=== PATIENT | male | born 1970 | race Caucasian/White ===

== ENCOUNTER 2019-12-22 18:41 | Inpatient (IN) | payer BC, OTHER ==
--- OUTSIDE RECORDS SUMMARY | 2019-12-22 18:43 | XMS REPORT | Summary of Care ---
:1970 Author Organization [facility] Address [address] [place] [address] Care Team Providers Name Role Phone Olman Santos Eric Primary Care Provider Reason for Visit Auth/Cert Status Reason Specialty Diagnoses / Referred By Referred To Procedures Contact Contact Clinical Medical Diagnoses M20.10 (ICD-10-CM) - Hallux valgus (acquired), unspecified foot [facility] Lab Laboratory Procedures cbc cmp pt ptt [address] [place] [address] [place] [address] Encounter Details Date Type Department Care Team Description 05/07/2019 Hospital Encounter [facility] Stephon Duran Jr., [facility] Radiology [address] [place] [address] [address] [phone] [place], [place] [address] [phone] Allergies No Known Allergiesdocumented as of this encounter (statuses as of 05/08/2019) Medications Medication Sig Dispensed Refills Start Date End Date Status OMEPRAZOLE 20 MG ORAL Once daily 0 Active CPDR LEXAPRO 10 MG ORAL TAB Once daily 0 Active CIALIS 10 MG ORAL TAB Prn 0 Active buPROPion HCl, smoking Take 150 mg by 0 Active deter, 150 mg Tb12 mouth. glimepiride 4 mg tablet Take 4 mg by 0 Active mouth daily with breakfast. metformin HCl (METFORMIN Take 500 mg by 0 Active ORAL) mouth 3 (three) times daily. empagliflozin Take 25 mg by 0 Ac tive (JARDIANCE) 25 mg Tab mouth. documented as of this encounter (statuses as of 05/08/2019) Active Problems Problem Noted Date Other testicular hypofunction 01/15/2009 documented as of this encounter (statuses as of 05/08/2019) Social History Tobacco Use Types Packs/Day Years Used Date Former Smoker Smokeless Tobacco: Never Used Comments: quit 3 years ago,smoked for ab out 3 years Alcohol Use Drinks/Week oz/Week Comments Yes wine or whiskey on the weekends 3 times a month Sex Assigned at Date Recorded Not on file Job Start Date Occupation Industry Not on file Not on file Not on file Travel History Travel Start Travel End No recent travel history available. documented as of this encounter Last Filed Vital Signs Not on filedocumented in this encounter Plan of Treatment Date Type Specialty Care Team Description 05/09/2019 Hospital Encounter Surgery Stephon Duran Jr., DPM [address] [address] [phone] 05/09/2019 Surgery Surgery Stephon Duran Jr., METATAR SHILPI MIDFOOT DPM ARTHRODESIS [address] [place], [place] [address] Health Maintenance Due Date Last Done Comments DTaP,Tdap,and Td Vaccines (1 - 1987 Tdap) COLONOSCOPY 2018 Zoster Recombinant Vaccine 2018 (SHINGRIX) (1 of 2) INFLUENZA VACCINE (#1) 2019 PNEUMOCOCCAL 0-64 YEARS COMBINED Aged Out No longer eligible based on SERIES patient's age to complete this topic documented as of this encounter Procedures Procedure Name Priority Date/Time Associated Diagnosis Comme nts XR CHEST 2 VW Routine 05/07/2019 1:56 PM Hallux valgus of lef t Results for this CDT foot procedure are i n the results section . documented in this encounter Results XR CHEST 2 VW (05/07/2019 1:56 PM CDT) Specimen Narrative Performed At This result has an attachment that is no t available. HISTORY: Preop. PACS/VR/DOSE TECHNIQUE: PA and lateral views of the chest are obtai anita. No prior chest study available for comparison. FINDINGS: No acute pneumonia detected. No pneumothorax or pleural effusion or pulmonary congestion. Cardiothoracic ratio of appro ximately 14.6/34.5 cm is consistent with normal cardiac size. Paucity of flavia g markings noted in the apical region on both sides, more on the left side . CONCLUSIONS: No signs of acute cardiopulmonary disease . Procedure Note [facility], Radiant Results Inft User - 2018 1:59 PM CDT HISTORY: Preop. TECHNIQUE: PA and lateral views of the c hest are obtained. No prior chest study available for comparison. FINDINGS: No acute pneumonia detected. N o pneumothorax or pleural effusion or pulmonary congestion. Cardiothoracic ratio of approximately 14.6/34.5 cm is consistent with normal cardiac size. Paucity of lung markings noted in the apical region on both sides, more on the left side. CONCLUSIONS: No signs of acute cardiopul monary disease. Performing Organization Address [facility] Phone Number PACS/VR/DOSE documented in this encounter Visit Diagnoses Diagnosis Hallux valgus of left foot documented in this encounter Insurance Payer Benefit Plan Subscriber ID Effective Dates Phone Address Type / Group [facility] [id number] 2019-Prese HMO /PPO/P ADMINISTRATION nt OS documented as of this encounter
--- OUTSIDE RECORDS SUMMARY | 2019-12-22 18:43 | XMS REPORT ---
:1970 Author Organization [facility] t Address [address] [place] [address] Dr. Gold [address] [place] [address] Care Team Providers Name Role Phone Unavailable Unavailable Unavailable Problems This patient has no known problems. Allergies, Adverse Reactions, Alerts This patient has no known allergies or adverse reactions. Medications This patient has no known medications.
--- OUTSIDE RECORDS SUMMARY | 2019-12-22 18:43 | XMS REPORT | Summary of Care ---
:1970 Author Organization [facility] Address [address] [place] [address] Care Team Providers Name Role Phone Santos [place] Primary Care Provider Reason for Visit Reason Comments LAB WORK Auth/Cert Status Reason Specialty Diagnoses / Referred By Referred To Procedures Contact Contact Clinical Medical Diagnoses M20.10 (ICD-10-CM) - Hallux valgus (acquired), unspecified foot [facility] Lab Laboratory Procedures cbc cmp pt ptt [address] [place] [address] Encounter Details Date Type Department Care Team Description 05/07/2019 Factory Engineer Visit [facility] Stephon Duran Jr., DP [address] [place] [address] Hallux valgus Phlebotomy 1, [facility] Lab (acquired), left Lab-[place] foot (Primary Dx) [address] [place] [address] Allergies No Known Allergiesdocumented as of this encounter (statuses as of 05/07/2019) Medications Medication Sig Dispensed Refills Start Date [...] as of this encounter (statuses as of 05/07/2019) Active Problems Problem Noted Date Other testicular hypofunction 01/15/2009 documented as of this encounter (statuses as of 05/07/2019) Social History Tobacco Use Types Packs/Day Years [...] Jr., DPM [address] [place], [place] [address] 05/09/2019 Surgery Surgery Stephon Duran Jr., METATAR SHILPI MIDFOOT DPM ARTHRODESIS [address] [place], [place] [address] Name Type Priority Associated Diagnoses Date/Ti me CBC WITH DIFF LAB Routine Hallux valgus 05/07/2019 1 :48 PM (acquired), left foot CDT COMP. METABOLIC PANEL LAB Routine Hallux valgus 05/07 1:48 PM (04911) (acquired), left foot CDT PROTHROMBIN TIME / INR LAB Routine Hallux valgus 04/20 1:48 PM (acquired), left foot CDT aPTT LAB Routine Hallux valgus 05/07/2019 1: 48 PM (acquired), left foot CDT CBC WITH DIFFERENTIAL LAB Routine Hallux valgus 05/07 1:48 PM (acquired), left foot CDT Health Maintenance Due Date Last Done Comments DTaP,Tdap,and Td Vaccines (1 - 1987 Tdap) COLONOSCOPY 2018 Zoster Recombinant Vaccine 2018 (SHINGRIX) (1 of 2) INFLUENZA VACCINE (#1) 2019 PNEUMOCOCCAL 0-64 YEARS COMBINED Aged Out No longer eligible based on SERIES patient's age to complete this topic documented as of this encounter Results Not on filedocumented in this encounter Visit Diagnoses Diagnosis Hallux valgus (acquired), left foot - Pr imary documented in this encounter Insurance Payer Benefit Plan Subscriber ID Effective Dates Phone Address Type / Group [facility] [id number] 2019-Prese HMO /PPO/P ADMINISTRATION nt OS documented as of this encounter
--- OUTSIDE RECORDS SUMMARY | 2019-12-22 18:43 | XMS REPORT | Summary of Care ---
:1970 Author Organization [facility] Address [address] [place] [address] Care Team Providers Name Role Phone Santos [place] Primary Care Provider Reason for Visit Auth/Cert Status Reason Specialty Diagnoses / Procedures Referred By Ilana ontact Referred To Contact Surgery Diagnoses Hallux valgus (acquired), unspecified foot R HAV M20.10 (ICD-10-CM) - Hallux valgus (acquired), unspecified foot Adc Pre/Pacu/Post Procedures NV FUSION FOOT BONE,MIDTARSAL,1 JT METATARSAL MIDFOOT ARTHRODESIS [address] - NV FUSION FOOT BONE,MIDTARSAL,[address] [place] [address] [place] [address] Phone: Fax: Encounter Details Date Type Department Care Team Description 05/09/2019 Hospital Encounter [facility] Stephon Duran Jr., [address] [place] [address] [address] [phone] [place], [place] [address] [phone] Allergies No Known Allergiesdocumented as of this encounter (statuses as of 05/09/2019) Medications Medication Sig Dispensed Refills Start Date [...] as of this encounter (statuses as of 05/09/2019) Active Problems Problem Noted Date Other testicular hypofunction 01/15/2009 documented as of this encounter (statuses as of 05/09/2019) Social History Tobacco Use Types Packs/Day Years [...] of this encounter Last Filed Vital Signs Vital Sign Reading Time Taken Comments Blood Pressure 147/96 05/09/2019 1:06 PM CDT Pulse 73 05/09/2019 1:06 PM CDT Temperature 36.1 C (97 F) 05/09/2019 12:59 PM CDT Respiratory Rate 16 05/09/2019 1:06 PM CDT Oxygen Saturation 95% 05/09/2019 1:06 PM CDT Inhaled Oxygen Concentration - - Weight 100.2 kg (221 lb) 05/07/2019 8:00 AM CDT Height 182.9 cm (6') 05/07/2019 8:00 AM CDT Body Mass Index 29.97 05/07/2019 8:00 AM CDT documented in this encounter Discharge Summaries Stephon Duran Jr., DPM - 05/09/2019 12:43 PM CDTCONDITION AT DISCHARGE: Patient was discharged from the facility in stable condition. Please see maggie haney instructions. FOLLOW UP CARE: See post op instructions. DISCHARGE DISPOSITION: HOME DISCHARGE INSTRUCTIONS GIVEN TO: PATIENT documented in this encounter Discharge Instructions Ivonne Morris RN - 05/09/2019 Patient Discharge Instructions Discharge date: 05/09/2019 Procedure(s): Procedure(s): METATARSAL MIDFOOT ARTHRODESIS Discharge Orders No creams, ointments or topicals to incision Order Comments: No creams, ointments or topicals to incision DO NOT submerge in water Order Comments: DO NOT submerge in water Clear liquid diet; Advance at tolerated to regular diet Order Comments: As tolerated Non Weight Bearing on Operated Extremity Discharge Activity: Non Weight Bearing on Operated Extremity Extremity: Right Lower Extremity (RLE) Dressing to be kept clean dry and intact until follow up Order Comments: Dressing to be kept clean dry and intact until follow up Apply ice as needed 30 minutes every hour Order Comments: Apply ice as needed 30 minutes every hour Report to ER: SEE COMMENTS Order Comments: Increased swelling If Fever > 101.4 Report to ER if Chills If excessive bleeding Excessive pain not controlled by pain medications New onset numbness and tingling Nausea and Vomiting Inability to urinate Follow instructions as indicated below: 1. The medication that was used will be acting in your system for the next 24 hours, so you might feel a little drowsy, with impaired judgment and or motor function. This feeling should go wear off. Because the medication is still in your system for the next 24 hours you SHOULD NOT: Drive a car, operate machinery or power tool. Drink any alcohol beverages (including beer or wine). Make any important decisions or sign any legal documents. 2. You should rest the remainder of the day and not engage in any physical activity. Move slowly today. After lying down, sit on the edge of the bed for a moment before standing. YOU ARE RESPONSIBLEFOR HAVING SOMEONE AT HOME WITH YOU DURING THE AFTERNOON AND NIGHT IMMEDIATELY FOLLOWING YOUR SURGERY. Patient should cough and deep breathe every 2-4 hours while awake to avoid respiratory complications. 4. Lifting: activities as tolerated, no heavy lifting 5. Weight: In general, sudden weight gains or losses should be reported to your provider. Cardiac patients should weigh daily and notify their provider for a weight gain of 3 pounds per day or 5 pounds per week. 6. Tobacco Avoidance: Follow recommendations below 7. Because the medications used could procedure some residual nausea and vomiting after you go home,you should eat lightly today, starting with clear liquids (broth, soft drinks, apple juice, jello) and toast or crackers, progressing to bland solid foods and then to your normal diet as tolerated, unle ss otherwise stated by your surgeon. If you get sick, wait a couple of hours and then begin to eat. After 24 hours the nausea should be gone. 8. You may experience some pain and your physician will advise you on what to take for discomfort. This should be taken as directed. If the pain is not relieved, contact your physician. You may alsohave a sore throat from the airway that was in place. You may uses lozenges, throat spray (such as C hloraseptic), or warm salt water gargles for symptomatic relief. 9. If you feel warm, take your temperature. If it is 101 degrees or above call your physician. 10. If you are unable to urinate within five hours after your procedure, call your physician. 11. The type of surgery performed will determine how much bleeding (if any) to expect. Normally, some spotting might occur. If your dressing pad becomes saturated, notify your physician. Elevate surgical site, if applicable, to reduced swelling and pain. 12. Wound/dressing care: as directed above Tips on preventing a surgical site infection.. Dont smoke. It is best to quit at least 30 days before surgery, but quitting after surgery is also helpful. If you are diabetic, keep your blood sugar well controlled. WASH YOUR HANDS. Keep your wound clean and remember to wash your hands before and after contact with the area. All health care workers should also wash their hands or use an alcohol based hand rub prior to examining you. If antibiotics are prescribed, take them as directed. Finish the entire course of antibiotics. Call your doctor if you have signs of infection: ? Increased tenderness at the surgical site ? Red streaks or increased redness of the area ? Bad-smelling discharge from the incision ? Fever of 101F or higher ? General tired feeling that doesnt improve Take Home Medications These are medications ordered for you by your healthcare provider. Do not take any other medications or supplements unless advised by your healthcare provider. Current Discharge Medication List CONTINUE these medications which have NOT CHANGED Details buPROPion HCl, smoking deter, 150 mg Tb12 Take 150 mg by mouth. empagliflozin (JARDIANCE) 25 mg Tab Take 25 mg by mouth. glimepiride 4 mg tablet Take 4 mg by mouth daily with breakfast. metformin HCl (METFORMIN ORAL) Take 500 mg by mouth 3 (three) times daily. CIALIS 10 MG ORAL TAB Prn LEXAPRO 10 MG ORAL TAB Once daily OMEPRAZOLE 20 MG ORAL CPDR Once daily Follow-up appointments: Follow up per MD. For questions regarding follow-up instructions call the Healthcare Hotline at or For worsening symptoms/changing condition/problems or questions: Non-emergency/urgent: Call the Healthcare Hotline at or or Emergency: Go to the closest emergency room or call 911 If you receive the patient satisfaction survey by mail please complete and return and let us know how we are doing. TOBACCO AVOIDANCE Exposure to tobacco either from smoking or from second hand (environmental) smoke or smokeless tobacco (snuff) is damaging to your health. This information is to encourage everyone to avoid tobacco exposure. It is recommended that you: ? If you smoke or use smokeless tobacco, we encourage you to quit. ? If you have already quit smoking, continue your good work! ? If you do not smoke or use smokeless tobacco, do not start. ? Avoid secondhand smoke. Additional Resources You may want to contact these organizations for further information on smoking and how to quit. [place] [employer], http://www.lungusa.org/stop-smoking/ [place] [employer], http://www.cancer.org/Healthy/StayAwayfromTobacco/index [place] [employer] Association, http://www.heart.org/HEARTORG/GettingHealthy/QuitSmoking/Quit-Smoking_[facility] _001085_SubHomePage.jsp documented in this encounter Plan of Treatment Health Maintenance Due Date Last Done Comments DTaP,Tdap,and Td Vaccines (1 - 1987 Tdap) COLONOSCOPY 2018 Zoster Recombinant Vaccine 2018 (SHINGRIX) (1 of 2) INFLUENZA VACCINE (#1) 2019 PNEUMOCOCCAL 0-64 YEARS COMBINED Aged Out No longer eligible based on SERIES patient's age to complete this topic documented as of this encounter Implants Implanted Type Area Senior Sql Server Developer Device Shelf Model / Serial Identifier Expiration / Lot Date [employer]iu 5cc Cts #2017-40 - [id number] BONE Right: [employer] 08/19/20202016- / Implanted: Qty: 1 on 05/09/2019 by Stephon Duran Jr., DPM at [facility] 1 [id number] / [id number] Lapiplasty, System 2, Plating W/ 2.7mm Screws - Sna PLATE Right: [facility] 03/24/2022 [id number] / Implanted: Qty: 1 on 05/09/2019 by Stephon Duran Jr., RADHAM at [facility] CONCEPTS N A / [id number] documented as of this encounter Procedures Procedure Name Priority Date/Time Associated Comments Diagnosis POCT GLUCOSE(AGE Routine 05/09/2019 9:03 Results for this >30DAYS) AM CDT procedure are i n the results section. [facility] PATIENT FINANCIAL Routine 05/07/2019 7:59 POLICY AM CDT NO SHOW OR MISSED Routine 05/07/2019 7:59 APPOINTMENT POLICY AM CDT ACKNOWLEDGEMENT NOTICE OF PRIVACY Routine 05/07/2019 7:58 PRACTICES AM CDT CONSENT/REFUSAL FOR Routine 05/07/2019 7:58 DIAGNOSIS AND TREATMENT AM CDT ASSIGNMENT OF BENEFITS Routine 05/07/2019 7:58 AM CDT documented in this encounter Results POCT GLUCOSE(AGE >30DAYS) (05/09/2019 9:03 AM CDT) Pathologist Sig nature POCT Glu (age>30days) 94 70 - 110 mg/dL Specimen Blood - CAPILLARY documented in this encounter Visit Diagnoses Diagnosis Hallux valgus (acquired), right foot - P rimary documented in this encounter Administered Medications Medication Order MAR Action Action Date Dose Rate Site bupivacaine (preserv free) Given 05/09/2019 10:49 AM CDT 30 mL Right Foot 0.5% (SENSORCAINE MPF) 0.5 % (5 mg/mL) injection PRN, Starting Sun05/09/19 at 1049, Until Discontinued, Routine, Intra-op FENTanyl PF (SUBLIMAZE (PF)) injection 2 5 mcg 25 mcg, Slow IV Push, Q5MIN PRN, 4 doses, Starting Sun05/09/19 at 1254, Until Discontinued, Routine, Pain (scale 7-10), PACU lidocaine 1% (PF) (XYLOCAINE) Given 05/09/2019 10:50 AM CDT 30 m L Right Foot injection PRN, Starting Sun05/09/19 at 1050, Until Discontinued, Routine, Intra-op ondansetron (ZOFRAN (PF)) injection 4 mg 4 mg, Slow IV Push, PRN, 1 dose, Startin g Sun05/09/19 at 1254, Until Discontinued, Routine, Nausea and Vomiting (N/V), PACU sodium chloride 0.9 % irrigation solutio n Given 05/09/2019 11:36 AM CDT 1,000 mL PRN, Starting Sun05/09/19 at 1136, Until Discontinued, Intra-op Medication Order MAR Action Action Date Dose Rate Site lactated ringers IV infusion New Bag 05/09/2019 9:14 AM CDT 1,000 mL 20 mL/hr 1,000 mL at 20 mL/hr, 1,000 mL, IV Infusion, ONCE, 1 dose, Sun05/09/19 at 0915, Routine, DSU Pre-op documented in this encounter Insurance Payer Benefit Plan Subscriber ID Effective Dates Phone Address Type / Group [facility] [id number] 2019-Prese HMO /PPO/P ADMINISTRATION nt OS documented as of this encounter
[2019-12-22 19:23] LABS: Absolute Lymphocytes (CBC) 2.1 K/uL (0.7-4.9); Basophils % 0.5 % (0-1.3); Lymphocytes % 17.4 % (15.3-44.8); MPV 9.3 fL (7.6-11.3); RBC Red Blood Cell Count 5.12 M/uL (4.33-5.43)
[2019-12-22] MEDS ORDERED: NA CHLORIDE 0.9% 1,000 ML ONE ×2 (19:24→21:45)
[2019-12-22] MEDS ORDERED: ONDANSETRON 4 MG/2 ML VIAL ONE (19:24)
[2019-12-22] MEDS ORDERED: MORPHINE 4 MG/ML SYR ONE ×2 (19:24→20:23)
[2019-12-22 19:53] LABS: Bilirubin Direct 0.4 mg/dL (0-0.2); Bilirubin Total 1.1 mg/dL (0.2-1.0); Potassium 3.6 mmol/L (3.5-5.1); Protein, Total 7.7 g/dL (6.4-8.2)
--- NOTE | 2019-12-22 20:55 | RAD REPORT ---
EXAM DESCRIPTION: CT - Abdomen Pelvis W Contrast - 12/22/2019 8:02 pm CLINICAL HISTORY: ABD PAIN, epigastric pain COMPARISON: No comparisons TECHNIQUE: Biphasic, helical CT imaging of the abdomen and pelvis was performed following 100 ml non -ionic IV contrast. No oral contrast administered. All CT scans are performed using dose optimization technique as appropriate and may include automated exposure control or mA/KV adjustment according to patient size. FINDINGS: No suspicious findings in the lung bases. Liver shows a pronounced fatty infiltration pattern. No focal liver lesion identified. No portal vein abnormality seen. No splenomegaly or focal splenic abnormality. Stranding and edema are present in t he peripancreatic fat around the head and body. A small amount of free fluid is present. Minimal flui d in stranding are present along the anterior right renal fascia. There is minimal secondary involvem ent of the duodenal C-loop. No focal mass or abnormal fluid collection in the pancreatic parenchyma. Stones or sludge present in a normal-sized gallbladder. No biliary tree dilatation. Symmetric renal function is seen with no hydronephrosis or suspicious renal mass. No pyelonephritis o r acute parenchymal process. No bladder abnormalities. No adrenal abnormalities. Postsurgical changes are noted in the proximal stomach. Small hiatal hernia is present. No acute shefali veronika wall thickening or mass identified. Gastric bypass surgical changes show no proximal or distal an astomotic wall thickening or edema. No dilated large or small bowel. No free air or pneumatosis. No other area of fluid or stranding. No mass or bulky lymphadenopathy. Small bilateral fat filled inguinal hernias are present. No suspicious bony findings. IMPRESSION: Mild to moderate acute pancreatitis findings are evident. There is mild secondary involv ement of the duodenal C-loop. No pancreatic solid or cystic mass. Stones and/ or sludge in a normal-sized gallbladder. No biliary tree dilatation. Pronounced fatty infiltration of the liver. Gastric bypass surgical changes are present with hiatal hernia. No acute GI finding other than mild s econdary duodenal C-loop involvement.
[2019-12-22] MEDS ORDERED: FENTANYL CITR 100 MCG/2 ML ONE ×2 (21:02→21:45)
--- NOTE | 2019-12-22 21:21 | RAD REPORT ---
EXAM DESCRIPTION: US - Abdomen Exam Limited - 12/22/2019 8:55 pm CLINICAL HISTORY: EPIGASTRIC PAIN COMPARISON: Abdomen Pelvis W Contrast dated 12/22/2019 FINDINGS: Gallbladder size is normal. No wall thickening or pericholecystic fluid. No large gallston es seen. Minimal amounts of sludge and possible punctate gallstones near the neck of the gallbladder. This is in the deep portion of the field of view and difficult to fully visualize. No common duct stone or biliary tree dilatation identified. IMPRESSION: Small amount of sludge in punctate gallstone suspected. No wall thickening, pericholecystic fluid or biliary tree abnormality.
[2019-12-22 21:27] LABS: Urine Blood NEGATIVE (NEG); Urine Glucose 1+ (NEG); Urine Protein NEGATIVE (NEG); Urine pH 5.5 (5.0-7.0)
--- NOTE | 2019-12-22 22:02 | EDPHYS ---
Physician Documentation [facility] Name: Arnoldo Jones Sr Age: 49 yrs Sex: Male : 1970 Arrival Date: 12/22/2019 Time: 18:46 Bed 6 Private MD: ED Physician Danny Taveras HPI: 12/21 19:18 This 49 yrs old Male presents to ER via Ambulatory with complaints of pm1 Abdominal Pain. 19:18 The patient presents with abdominal pain in the epigastric area. Onset: The pm1 symptoms/episode began/occurred 2 week(s) ago, and became worse yesterday. The symptoms do not radiate. Associated signs and symptoms: Pertinent positives: nausea and vomiting, Pertinent negatives: chest pain, constipation, diarrhea, dysuria, shortness of breath. The symptoms are described as crampy. Modifying factors: The symptoms are alleviated by nothing, the symptoms are aggravated by nothing. Severity of pain: in the emergency department the pain is actually worse. The patient has not experienced similar symptoms in the past. The patient has not recently seen a physician. Patient has been drinking 3-4 [place] daily for the past 2 years. Has been trying to slow it down for the past 2 weeks due to abdominal pain, but worse since last night. Historical: - Allergies: 19:00 No Known Allergies; ll1 - PMHx: 19:00 Diabetes - NIDDM; Hypothyroidism; ll1 - PSHx: 19:00 Gastric Bypass; ll1 - Immunization history:: Adult Immunizations up to date, Last tetanus immunization: up to date. - Social history:: Smoking status: Patient denies any tobacco usage or history of. Patient uses alcohol, on a daily basis. Couple of margaritas daily. Patient/guardian denies using street drugs. ROS: 19:18 Constitutional: Negative for fever, chills, and weight loss, Cardiovascular: Negative pm1 for chest pain, palpitations, and edema, Respiratory: Negative for shortness of breath, cough, wheezing, and pleuritic chest pain. 19:18 Back: Negative for injury and pain, : Negative for injury, bleeding, discharge, and swelling, MS/Extremity: Negative for injury and deformity, Skin: Negative for injury, rash, and discoloration, Neuro: Negative for headache, weakness, numbness, tingling, and seizure. 19:18 Abdomen/GI: Positive for abdominal pain, nausea and vomiting, Negative for diarrhea, constipation. Exam: 19:18 Constitutional: This is a well developed, well nourished patient who is awake, alert, pm1 and in no acute distress. Head/Face: Normocephalic, atraumatic. Neck: Trachea midline, no thyromegaly or masses palpated, and no cervical lymphadenopathy. Supple, full range of motion without nuchal rigidity, or vertebral point tenderness. No Meningismus. Chest/axilla: Normal chest wall appearance and motion. Nontender with no deformity. No lesions are appreciated. 19:18 Back: No spinal tenderness. No costovertebral tenderness. Full range of motion. Skin: Warm, dry with normal turgor. Normal color with no rashes, no lesions, and no evidence of cellulitis. MS/ Extremity: Pulses equal, no cyanosis. Neurovascular intact. Full, normal range of motion. 19:18 Cardiovascular: Exam negative for acute changes, Rate: normal, Rhythm: regular, Pulses: no pulse deficits are appreciated, Edema: is not appreciated. 19:18 Respiratory: Exam negative for acute changes, respiratory distress, shortness of breath. 19:18 Abdomen/GI: Inspection: abdomen appears normal, Palpation: soft, in all quadrants, mild abdominal tenderness, in the epigastric area and left upper quadrant, mass, is not appreciated, rebound tenderness, is not appreciated. 19:18 Neuro: Exam negative for acute changes, Orientation: is normal, Mentation: is normal, Motor: is normal, moves all fours. Vital Signs: 18:57 BP 142 / 111; Pulse 87; Resp 19; Temp 98.2; Pulse Ox 98% ; Pain 10/10; ll1 20:30 BP 136 / 90; Pulse 88; Resp 16; Pulse Ox 98% on R/A; jb4 20:40 Pain 8/10; jb4 22:00 BP 142 / 91; Pulse 96; Resp 16; Pulse Ox 97% ; Pain 0/10; jb4 23:00 BP 135 / 95; Pulse 88; Resp 16; Pulse Ox 92% on R/A; jb4 12/22 00:00 BP 135 / 101; Pulse 81; Resp 16; Temp 97.8; Pulse Ox 97% on R/A; Pain 5/10; jb4 MDM: 12/21 19:01 Patient medically screened. pm1 22:00 Data reviewed: vital signs. Data interpreted: Pulse oximetry: on room air is 98 %. pm1 Interpretation: normal. Counseling: I had a detailed discussion with the patient and/or guardian regarding: the historical points, exam findings, and any diagnostic results supporting the discharge/admit diagnosis, lab results, radiology results, the need for further work-up and treatment in the hospital. 22:16 Physician consultation: Grover Nash MD was contacted at 22:16, regarding admission, pm1 patient's condition, and will see patient. 12/21 19:07 Order name: Basic Metabolic Panel; Complete Time: 20:00 pm1 12/21 19:07 Order name: CBC with Diff; Complete Time: 19:30 pm1 12/21 19:07 Order name: Creatinine for Radiology; Complete Time: 19:52 pm1 12/21 19:07 Order name: Hepatic Function; Complete Time: 20:00 pm1 12/21 19:07 Order name: Lipase; Complete Time: 20:00 pm1 12/21 20:08 Order name: ETOH Level; Complete Time: 20:40 pm1 12/21 21:21 Order name: Urine Dipstick--Ancillary (enter results); Complete Time: 21:41 ak 12/21 23:05 Order name: Glucose, Ancillary Testing; Complete Time: 23:08 EDCO 12/21 23:32 Order name: CBC with Automated Diff EDMS 12/21 23:32 Order name: CBC with Automated Diff EDCO 12/21 23:32 Order name: Comprehensive Metabolic Panel EDCO 12/21 23:32 Order name: Comprehensive Metabolic Panel EDCO 12/21 23:32 Order name: Creatine Phosphokinase EDCO 12/21 23:32 Order name: Creatine Phosphokinase EDCO 12/21 19:07 Order name: CT Abd/Pelvis - IV Contrast Only; Complete Time: 21:10 pm1 12/21 20:00 Order name: US Abdomen Limited; Complete Time: 21:41 pm1 12/21 23:32 Order name: Creatine Phosphokinase EDCO 12/21 23:32 Order name: Creatine Phosphokinase EDCO 12/21 23:32 Order name: Protime (+INR) EDMS 12/21 23:32 Order name: Protime (+INR) EDMS 12/21 23:32 Order name: PTT, Activated Partial Thromb EDCO 12/21 23:32 Order name: PTT, Activated Partial Thromb EDCO 12/22 05:22 Order name: Glucose, Ancillary Testing EDCO 12/21 19:07 Order name: IV Saline Lock; Complete Time: 19:28 pm12/21 19:07 Order name: Labs collected and sent; Complete Time: 19:28 pm12/21 19:07 Order name: Urine Dipstick-Ancillary (obtain specimen); Complete Time: 21:22 pm12/21 21:56 Order name: NPO; Complete Time: 22:02 pm1 12/21 23:31 Order name: CONS Pharmacy Consult EDCO 12/21 23:31 Order name: CONS Physician Consult [facility] 12/21 23:31 Order name: NPO EDCO Administered Medications: 19:22 Drug: Zofran (Ondansetron) 4 mg Route: IVP; Site: right antecubital; [facility] 20:00 Follow up: Response: No adverse reaction; Nausea is decreased [facility] 19:24 Drug: NS 0.9% 1000 ml Route: IV; Rate: 1000 ml; Site: right antecubital; [facility] 20:30 Follow up: Response: No adverse reaction; IV Status: Completed infusion; IV Intake: jb4 1000ml 19:25 Drug: morphine 4 mg {Note: Rass score 0.} Route: IVP; Site: right antecubital; [facility] 20:00 Follow up: Response: No adverse reaction; Pain is unchanged, physician notified; RASS: [facility] Alert and Calm (0) 20:27 Drug: morphine 4 mg {Note: Rass score 0.} Route: IVP; Site: right antecubital; [facility] 20:42 Follow up: Response: No adverse reaction; Pain is decreased; RASS: Alert and Calm (0) [facility] 21:00 Drug: fentaNYL (PF) 50 mcg {Note: Rass score 0.} Route: IVP; Site: right antecubital; [facility] 21:30 Follow up: Response: No adverse reaction; Pain is decreased; RASS: Alert and Calm (0) [facility] 21:40 Drug: NS 0.9% 1000 ml Route: IV; Rate: 1000 ml; Site: right antecubital; [facility] 22:40 Follow up: Response: No adverse reaction; IV Status: Completed infusion; IV Intake: jb4 1000ml 21:40 Drug: fentaNYL (PF) 50 mcg {Note: Rass score 0.} Route: IVP; Site: right antecubital; jb4 22:10 Follow up: Response: No adverse reaction; Pain is decreased; RASS: Alert and Calm (0) jb4 22:05 Drug: D50W 50 ml Route: IVP; Site: right antecubital; jb4 22:53 Follow up: Response: No adverse reaction; Blood sugar is elevated; bgl 121 jb4 Disposition: 12/22/19 22:01 Hospitalization ordered by Grover Nash for Inpatient Admission. Preliminary diagnosis is Alcohol induced acute pancreatitis. - Bed requested for Telemetry/MedSurg (Inpatient). - Status is Inpatient Admission. jl7 - Condition is Stable. - Problem is new. - Symptoms have improved. Addendum: 12/24/2019 19:26 Co-signature as Attending Physician, Danny Taveras MD. r n Signatures: Dispatcher [employer] EDMS Danny Taveras MD MD rn Garcia, Cindy, RN RN Estuardo Macias NP TEST INSPECTION ENGINEER pm1 Jd Anna RN RN jb4 Jean Pierre Sanders RN RN jl7 Mor Gr RN RN ll1 Corrections: (The following items were deleted from the chart) 12/21 23:44 22:01 Hospitalization Ordered by Grover Nash MD for Inpatient Admission. Preliminary cg diagnosis is Alcohol induced acute pancreatitis. Bed requested for Telemetry/MedSurg (Inpatient). Status is Inpatient Admission. Condition is Stable. Problem is new. Symptoms have improved. pm1 12/22 06:31 12/21 23:44 12/22/2019 22:01 Hospitalization Ordered by Grover Nash MD for Inpatient cg Admission. Preliminary diagnosis is Alcohol induced acute pancreatitis. Bed requested for [facility] ER HOLD. Status is Inpatient Admission. Condition is Stable. Problem is new. Symptoms have improved. 12/22 07:34 06:31 12/22/2019 22:01 Hospitalization Ordered by Grover Nash MD for Inpatient jl7 Admission. Preliminary diagnosis is Alcohol induced acute pancreatitis. Bed requested for Telemetry/MedSurg (Inpatient). Status is Inpatient Admission. Condition is Stable. Problem is new. Symptoms have improved.
--- NOTE | 2019-12-22 22:02 | ER ---
Nurse's Notes [facility] Name: Arnoldo Jones Sr Age: 49 yrs Sex: Male : 1970 Arrival Date: 12/22/2019 Time: 18:46 Bed 6 Private MD: Diagnosis: Alcohol induced acute pancreatitis Presentation: 12/21 18:57 Chief complaint: Patient states: Epigastric pain with N/V intermittently for 2 weeks. ll1 N/V and epigastric pain suddenly got worse Sunday. No known fever. Coronavirus screen: Proceed with normal triage. Patient denies a cough. Patient denies shortness of breath or difficulty breathing. Patient denies measured and/or subjective temperature greater than 100.4F prior to today's visit. Patient denies travel on a cruise ship or to a country the [facility] currently lists as an affected area. Patient denies contact with known and/or suspected case of COVID-19. Ebola Screen: Patient denies travel to an Ebola-affected area in the 21 days before illness onset. Initial Sepsis Screen: Does the patient meet any 2 criteria? No. Patient's initial sepsis screen is negative. Does the patient have a suspected source of infection? No. Patient's initial sepsis screen is negative. Risk Assessment: Do you want to hurt yourself or someone else? Patient reports no desire to harm self or others. Onset of symptoms was December 08, 2019. 18:57 Method Of Arrival: Ambulatory ll1 18:57 Acuity: SLAVA 3 ll1 Historical: - Allergies: 19:00 No Known Allergies; ll1 - PMHx: 19:00 Diabetes - NIDDM; Hypothyroidism; ll1 - PSHx: 19:00 Gastric Bypass; ll1 - Immunization history:: Adult Immunizations up to date, Last tetanus immunization: up to date. - Social history:: Smoking status: Patient denies any tobacco usage or history of. Patient uses alcohol, on a daily basis. Couple of margaritas daily. Patient/guardian denies using street drugs. Screenin:12 Abuse screen: Denies threats or abuse. Nutritional screening: No deficits noted. jb4 Tuberculosis screening: No symptoms or risk factors identified. Fall Risk None identified. Assessment: 19:12 General: Appears in no apparent distress. uncomfortable, Behavior is calm, cooperative, jb4 appropriate for age. Pain: Complains of pain in right upper quadrant and left upper quadrant Pain does not radiate. Pain currently is 10 out of 10 on a pain scale. Quality of pain is described as crampy, stabbing, Pain began 2 pm Is continuous, Alleviated by repositioning, Aggravated by Sitting. Neuro: Level of Consciousness is awake, alert, obeys commands, Oriented to person, place, time, situation. Cardiovascular: Patient's skin is warm and dry. Respiratory: Airway is patent Respiratory effort is even, unlabored, Respiratory pattern is regular, symmetrical. GI: Abdomen is flat, non-distended, Bowel sounds present X 4 quads. Abd is soft X 4 quads Abdomen is tender to palpation X 4 quads. Reports diarrhea, nausea, since 4 weeks ago. Dry heaves. : No signs and/or symptoms were reported regarding the genitourinary system. EENT: No signs and/or symptoms were reported regarding the EENT system. Derm: Skin is intact, Skin is pink, warm \T\ dry. Musculoskeletal: Circulation, motion, and sensation intact. Range of motion: intact in all extremities. 20:00 Reassessment: Patient appears in no apparent distress at this time. Patient and/or jb4 family updated on plan of care and expected duration. Pain level reassessed. Patient is alert, oriented x 3, equal unlabored respirations, skin warm/dry/pink. PT reports pain is unchanged and remains 10/10. Provider notified, see MAR for orders. Reports no longer being nauseous Patient states symptoms have not improved. 20:46 Reassessment: Pt reports morphine took the edge off and is helping to feel more jb4 relaxed. Reports pain has decreased but is still 8/10. provider notified, see MAR for orders. 21:00 Reassessment: Patient appears in no apparent distress at this time. Patient and/or jb4 family updated on plan of care and expected duration. Pain level reassessed. Patient is alert, oriented x 3, equal unlabored respirations, skin warm/dry/pink. 22:00 Reassessment: Patient appears in no apparent distress at this time. Patient and/or jb4 family updated on plan of care and expected duration. Pain level reassessed. Patient is alert, oriented x 3, equal unlabored respirations, skin warm/dry/pink. Patient denies pain at this time. 23:32 Reassessment: Patient appears in no apparent distress at this time. Patient and/or jb4 family updated on plan of care and expected duration. Pain level reassessed. Patient is alert, oriented x 3, equal unlabored respirations, skin warm/dry/pink. PT admitted to ER hold, See [facility] for further documentation. Vital Signs: 18:57 BP 142 / 111; Pulse 87; Resp 19; Temp 98.2; Pulse Ox 98% ; Pain 10/10; ll1 20:30 BP 136 / 90; Pulse 88; Resp 16; Pulse Ox 98% on R/A; jb4 20:40 Pain 8/10; jb4 22:00 BP 142 / 91; Pulse 96; Resp 16; Pulse Ox 97% ; Pain 0/10; jb4 23:00 BP 135 / 95; Pulse 88; Resp 16; Pulse Ox 92% on R/A; jb4 05 00:00 BP 135 / 101; Pulse 81; Resp 16; Temp 97.8; Pulse Ox 97% on R/A; Pain 5/10; jb4 ED Course: 12/21 18:46 Patient arrived in ED. mr 18:59 Triage completed. ll1 19:01 Estuardo Macias, KEVIN is PHCP. pm1 19:01 Danny Taveras MD is Attending Physician. pm1 19:01 Arm band placed on Patient placed in an exam room, on a stretcher. ll1 19:12 Patient has correct armband on for positive identification. Bed in low position. Call jb4 light in reach. Side rails up X 1. Pulse ox on. NIBP on. 19:12 No provider procedures requiring assistance completed. Initial lab(s) drawn, by or, jb4 sent to lab. Inserted saline lock: 20 gauge in right antecubital area, using aseptic technique. Blood collected. 19:13 Jd Anna, RN is Primary Nurse. jb4 19:33 Basic Metabolic Panel Sent. jb4 19:33 Creatinine for Radiology Sent. jb4 19:33 Hepatic Function Sent. jb4 19:33 Lipase Sent. jb4 19:46 Radiology exam delayed due to lab results not completed at this time. (BUN/Creatinine). vm2 20:02 CT Abd/Pelvis - IV Contrast Only In Process Unspecified. EDMS 20:55 US Abdomen Limited In Process Unspecified. EDMS 22:01 Grover Nash MD is Hospitalizing Provider. pm1 12/22 00:00 Patient admitted, IV remains in place. jb4 Administered Medications: 12/21 19:22 Drug: Zofran (Ondansetron) 4 mg Route: IVP; Site: right antecubital; jb4 20:00 Follow up: Response: No adverse reaction; Nausea is decreased jb4 19:24 Drug: NS 0.9% 1000 ml Route: IV; Rate: 1000 ml; Site: right antecubital; jb4 20:30 Follow up: Response: No adverse reaction; IV Status: Completed infusion; IV Intake: jb4 1000ml 19:25 Drug: morphine 4 mg {Note: Rass score 0.} Route: IVP; Site: right antecubital; jb4 20:00 Follow up: Response: No adverse reaction; Pain is unchanged, physician notified; RASS: [facility] Alert and Calm (0) 20:27 Drug: morphine 4 mg {Note: Rass score 0.} Route: IVP; Site: right antecubital; jb4 20:42 Follow up: Response: No adverse reaction; Pain is decreased; RASS: Alert and Calm (0) jb4 21:00 Drug: fentaNYL (PF) 50 mcg {Note: Rass score 0.} Route: IVP; Site: right antecubital; jb4 21:30 Follow up: Response: No adverse reaction; Pain is decreased; RASS: Alert and Calm (0) jb 21:40 Drug: NS 0.9% 1000 ml Route: IV; Rate: 1000 ml; Site: right antecubital; jb4 22:40 Follow up: Response: No adverse reaction; IV Status: Completed infusion; IV Intake: jb4 1000ml 21:40 Drug: fentaNYL (PF) 50 mcg {Note: Rass score 0.} Route: IVP; Site: right antecubital; jb4 22:10 Follow up: Response: No adverse reaction; Pain is decreased; RASS: Alert and Calm (0) jb4 22:05 Drug: D50W 50 ml Route: IVP; Site: right antecubital; jb4 22:53 Follow up: Response: No adverse reaction; Blood sugar is elevated; bgl 121 jb4 Intake: 22:40 IV: 1000ml; Total: 1000ml. jb4 Outcome: 22:01 Decision to Hospitalize by Provider. pm1 12/22 00:00 Admitted to ER Hold. Please see [facility] for further documentation. jb4 Condition: stable Discharge instructions given to patient, Instructed on the need for admit, Demonstrated understanding of instructions. 07:34 Patient left the ED. jl7 Signatures: Dispatcher [employer] EDIleana Bloom Patrick, BREAK OFF WORKER BREAK OFF WORKER pm1 Jd Anna, RN RN jb4 Jean Pierre Sanders RN RN jl7 Mary Quiroga [facility] Mor Gr, RN RN ll1 Corrections: (The following items were deleted from the chart) 12/21 18:59 18:57 Onset of symptoms was January 07, 2020 ll1 ll1 20:42 20:30 BP 136 / 90; Pulse 88bpm; Resp 16bpm; Pulse Ox 98% RA; Pain 8/10; jb4 jb4 12/22 00:20 00:00 BP 135 / 101; Pulse 81bpm; Resp 16bpm; Pulse Ox 97% RA; jb4 jb4
[2019-12-22] MEDS ORDERED: D50W 25 GM/50 ML SYRINGE/VIAL IV ONE (22:08)
[2019-12-22] MEDS ORDERED: MORPHINE 4 MG/ML SYR IV PRN (23:27)
[2019-12-23] MEDS: chlordiazePOXIDE HCl 5 MG CAP PO SCH ×4 (00:30→16:50)
[2019-12-23] MEDS: NA CHLORIDE 0.9% 1,000 ML IV SCH ×3 (00:30→15:45)
[2019-12-23] MEDS ORDERED: NA CHLORIDE 0.9% 1,000 ML ONE (00:36)
[2019-12-23] MEDS ORDERED: METOPROLOL TAR 25 MG TAB PO ONE (01:00)
[2019-12-23 01:16] VITALS: BMI 29.8
[2019-12-23] MEDS: ONDANSETRON 4 MG/2 ML VIAL IV PRN ×5 (01:23→21:21)
[2019-12-23] MEDS ORDERED: HYDROMORPHONE HCL 1 MG/ML INJ IV ONE (01:42)
[2019-12-23] MEDS ORDERED: MORPHINE 4 MG/ML SYR IV PRN (01:44)
[2019-12-23] MEDS ORDERED: HYDROMORPHONE HCL 1 MG/ML INJ ONE (01:57)
[2019-12-23] MEDS ORDERED: MORPHINE 2 MG/ML SYR ONE (05:32)
[2019-12-23] MEDS ORDERED: MORPHINE 4 MG/ML SYR ONE (05:32)
[2019-12-23] MEDS ORDERED: ONDANSETRON 4 MG/2 ML VIAL ONE (05:38)
[2019-12-23] MEDS ORDERED: D50W 25 GM/50 ML SYRINGE/VIAL IV PRN (05:40)
[2019-12-23 05:42] LABS: Absolute Lymphocytes (CBC) 0.9 K/uL (0.7-4.9); Basophils % 0.3 % (0-1.3); Hematocrit 42.9 % (39.6-49.0); MPV 9.7 fL (7.6-11.3); RBC Red Blood Cell Count 4.52 M/uL (4.33-5.43)
[2019-12-23 05:45] LABS: Albumin 3.5 g/dL (3.4-5.0); Bilirubin Total 1.5 mg/dL (0.2-1.0); Potassium 4.6 mmol/L (3.5-5.1); Protein, Total 6.5 g/dL (6.4-8.2)
[2019-12-23 05:46] LABS: Protime INR 0.97
[2019-12-23] MEDS ORDERED: METOPROLOL TAR 25 MG TAB ONE (05:58)
[2019-12-23] MEDS ORDERED: chlordiazePOXIDE HCl 5 MG CAP PO ONE (05:58)
[2019-12-23] MEDS: METOPROLOL TAR 25 MG TAB PO SCH ×2 (06:00→16:50)
--- NOTE | 2019-12-23 06:46 | P.HP ---
Certification for Inpatient Patient admitted to: Inpatient With expected LOS: >2 Midnights Patient will require the following post-hospital care: None Practitioner: I am a practitioner with admitting privileges, knowledge of patient current condition, hospital course, and medical plan of care. Services: Services provided to patient in accordance with Admission requirements found in Title 42 Section 412.3 of the Code of Federal Regulations Patient History Date of Service: 12/22/19 Reason for admission: Alcoholic pancreatitis History of Present Illness: Patient is a 49-year-old gentleman who came to the hospital with intractable nausea and vomiting. Patient has been having some abdominal pain for the last 3 weeks. Since he has been staying at home he is been drinking more frequently. He said that started about a few months ago. He has been drinking more so over the last 3 weeks. He said about a week ago he thought it was related to alcohol withdrawal so he restarted drinking. However, the pain got worse. He has a history of gastric bypass, so he finds it very difficult when he is having nausea and vomiting. He tends to dry heaves which makes it very uncomfortable for him. His workup in the emergency room revealed elevated lipase level and moderate pancreatitis. He will be admitted to the hospital for alcoholic pancreatitis. Allergies No Known Allergies Allergy (Unverified 12/23/19 01:34) Home Medications: Bupropion *Xl* [Wellbutrin XL*] 150 mg PO DAILY 12/23/19 Empagliflozin [Jardiance] 25 mg PO DAILY 12/23/19 Glimepiride 4 mg PO BID 12/23/19 Levothyroxine Sodium 125 mcg PO DAILY 12/23/19 Metformin HCl [Glucophage] 500 mg PO TID 12/23/19 Omeprazole 20 mg PO DAILY 12/23/19 - Past Medical/Surgical History Has patient received pneumonia vaccine in the past: No Diabetic: Yes -: Hypothyroidism -: Gastric bypass -: right foot -: thyroid surgery -: appendectomy - Family History Father Family History: Reviewed- Non-Contributory - Social History Smoking Status: Never smoker Alcohol use: Yes CD- Drugs: No Caffeine use: Yes Place of Residence: Home Review of Systems 10-point ROS is otherwise unremarkable Physical Examination - Vital Signs Temperature: 98.2 F Blood Pressure: 133/98 Pulse: 62 Respirations: 17 Pulse Ox (%): 97 - Physical Exam General: Alert, In no apparent distress, Oriented x3 HEENT: Atraumatic, PERRLA, Mucous membr. moist/pink, EOMI, Sclerae nonicteric Neck: Supple, 2+ carotid pulse no bruit, No LAD, Without JVD or thyroid abnormality Respiratory: Clear to auscultation bilaterally, Normal air movement Cardiovascular: Regular rate/rhythm, Normal S1 S2, No murmurs Gastrointestinal: Normal bowel sounds, Soft and benign, Non-distended, No rebound, No guarding, Tenderness Musculoskeletal: No clubbing, No swelling, No tenderness Integumentary: No rashes Neurological: Normal gait, Normal speech, Normal strength at 5/5 x4 extr, Normal tone, Sensation intact, Cranial nerves 3-12 intact, Normal affect Lymphatics: No axilla or inguinal lymphadenopathy - Studies Laboratory Data (last 24 hrs) 12/22/19 19:12: Creatinine 1.32 H 12/22/19 19:12: WBC 12.3 H, Hgb 15.8, Hct 48.0, Plt Count 291 12/22/19 19:12: Sodium 134 L, Potassium 3.6, BUN 13, Creatinine 1.34 H, Glucose 60 L, Total Bilirubin 1.1 H, AST 114 H, ALT 140 H, Alkaline Phosphatase 151 H, Lipase 528 H Assessment & Plan - Problems (Diagnosis) (1) Acute alcoholic pancreatitis Current Visit: Yes Status: Acute (2) H/O gastric bypass Current Visit: Yes Status: Acute (3) ARASH (acute kidney injury) Current Visit: Yes Status: Acute (4) Alcoholic liver disease Current Visit: Yes Status: Acute - Plan 1. Continue with IV hydration 2. Continue with anti emetics 3. Continue with pain control 4. NPO 5. GI consultation; 6. Serial H&H, and we will monitor CBC, BMP, LFTs and lipase along with electrolytes. 7. Alcohol cessation counseling and delirium tremens prevention 8. GI and DVT prophylaxis Discharge Plan: Home Plan to discharge in: Greater than 2 days - Advance Directives Does patient have a Living Will: Yes Does patient have a Durable POA for Healthcare: No - Code Status/Comfort Care Code Status Assessed: Yes Code Status: Full Code Critical Care: No Time Spent Managing PTS Care (In Minutes): 50
--- NOTE | 2019-12-23 07:39 | P.PN ---
Subjective Date of Service: 12/23/19 Subjective: No new changes, No C/O voiced, Improving Review of Systems 10-point ROS is otherwise unremarkable Physical Examination - Vital Signs Temperature: 98.2 F Blood Pressure: 133/98 Pulse: 62 Respirations: 17 Pulse Ox (%): 97 - Physical Exam General: Alert, In no apparent distress, Oriented x3 Respiratory: Clear to auscultation bilaterally, Normal air movement Cardiovascular: Regular rate/rhythm, Normal S1 S2, No murmurs Gastrointestinal: Normal bowel sounds, Soft and benign, Non-distended, No tenderness Musculoskeletal: No tenderness Integumentary: No rashes Neurological: Normal speech, Normal tone, Sensation intact, Cranial nerves 3-12 intact - Studies Laboratory Data (last 24 hrs) 12/22/19 19:12: Creatinine 1.32 H 12/22/19 19:12: WBC 12.3 H, Hgb 15.8, Hct 48.0, Plt Count 291 12/22/19 19:12: Sodium 134 L, Potassium 3.6, BUN 13, Creatinine 1.34 H, Glucose 60 L, Total Bilirubin 1.1 H, AST 114 H, ALT 140 H, Alkaline Phosphatase 151 H, Lipase 528 H Medications List Reviewed: Yes Assessment & Plan - Problems (Diagnosis) (1) Acute alcoholic pancreatitis Current Visit: Yes Status: Acute (2) H/O gastric bypass Current Visit: Yes Status: Acute (3) ARASH (acute kidney injury) Current Visit: Yes Status: Acute (4) Alcoholic liver disease Current Visit: Yes Status: Acute - Plan Continue with current plan of care as mentioned below 1. Continue with aggressive IV hydration 2. Continue with antiemetics 3. Continue with pain control 4. NPO; start clear liquid diet for ice chips 5. GI consultation pending 6. Serial H&H, and we will monitor CBC, BMP, LFTs and lipase along with electrolytes. 7. Alcohol cessation counseling and delirium tremens prevention 8. GI and DVT prophylaxis Discharge Plan: Home Plan to discharge in: Greater than 2 days - Advance Directives Does patient have a Living Will: Yes Does patient have a Durable POA for Healthcare: No - Code Status/Comfort Care Code Status: Full Code Critical Care: No Time Spent Managing PTS Care (In Minutes): 35
[2019-12-23] MEDS: HYDROMORPHONE HCL 0.5 MG/0.5 ML INJ IV PRN ×2 (09:18→16:46)
[2019-12-23] MEDS ORDERED: SODIUM CHLORIDE 0.9% 10ML INJ IV PRN (12:32)
[2019-12-23] MEDS: FOLIC ACID 1 MG, MULTIVITAMINS INJ 10 ML, THIAMINE HCL 100 MG in NA CHLORIDE 0.9% 1,000 ML IV SCH (13:15)
[2019-12-23] MEDS: HYDROMORPHONE HCL 1 MG/ML INJ IV PRN (21:16)
[2019-12-24] MEDS: chlordiazePOXIDE HCl 5 MG CAP PO SCH ×4 (00:20→18:00)
[2019-12-24] MEDS: NA CHLORIDE 0.9% 1,000 ML IV SCH ×4 (00:20→23:45)
[2019-12-24] MEDS: HYDROMORPHONE HCL 1 MG/ML INJ IV PRN ×5 (01:08→22:21)
[2019-12-24] MEDS: ONDANSETRON 4 MG/2 ML VIAL IV PRN ×5 (01:08→22:20)
[2019-12-24] MEDS: LEVOTHYROXINE SOD 0.125 MG TAB PO SCH (05:55)
[2019-12-24] MEDS: METOPROLOL TAR 25 MG TAB PO SCH ×2 (05:56→17:51)
[2019-12-24 06:12] LABS: Absolute Lymphocytes (CBC) 0.8 K/uL (0.7-4.9); Basophils % 0.3 % (0-1.3); Hematocrit 40.9 % (39.6-49.0); Lymphocytes % 5.6 % (15.3-44.8); MPV 9.3 fL (7.6-11.3); RBC Red Blood Cell Count 4.29 M/uL (4.33-5.43)
[2019-12-24 06:19] LABS: Protime INR 0.97
[2019-12-24 06:35] LABS: Albumin 3.1 g/dL (3.4-5.0); Bilirubin Total 1.3 mg/dL (0.2-1.0); Magnesium 1.5 mg/dL (1.8-2.4); Phosphorus 2.8 mg/dL (2.5-4.9); Potassium 4.4 mmol/L (3.5-5.1); Protein, Total 6.2 g/dL (6.4-8.2)
[2019-12-24] MEDS: BUPROPION HCL XL 150 MG TAB PO SCH (09:00)
[2019-12-24] MEDS ORDERED: HYDROCODONE/APAP 7.5/325 MG TAB PO PRN (09:51)
[2019-12-24] MEDS ORDERED: TRAMADOL HCL 50 MG TAB PO PRN (09:51)
--- NOTE | 2019-12-24 09:56 | P.PN ---
Subjective Date of Service: 12/24/19 Primary Care Provider: unknown Chief Complaint: Alcoholic pancreatitis Subjective: Improving (Less pain noted. Still requiring IV pain medication.) Physical Examination - Vital Signs Temperature: 97.4 F Blood Pressure: 112/70 Pulse: 85 Respirations: 18 Pulse Ox (%): 94 - Physical Exam General: Alert, In no apparent distress, Oriented x3, Cooperative HEENT: Atraumatic Neck: Supple Respiratory: Clear to auscultation bilaterally, Normal air movement Cardiovascular: Normal pulses, Regular rate/rhythm Gastrointestinal: Normal bowel sounds, Soft and benign, Non-distended, Tenderness (Less abdominal pain noted.) Integumentary: No tenderness/swelling, No erythema, No warmth, No cyanosis Neurological: Normal speech, Normal strength at 5/5 x4 extr, Normal tone, Normal affect - Studies Medications List Reviewed: Yes Assessment & Plan Discharge Plan: Home Plan to discharge in: 24 Hours Physician Review Additional Text: Impression: Acute alcoholic pancreatitis Alcohol abuse GERD with hiatal hernia with history of gastric bypass Hypertension Hypothyroidism Plan: Acute alcoholic pancreatitis: Continue with aggressive hydration. Patient tolerating clear liquid diet. Encourage ambulation. Encourage incentive spirometer. Patient on DVT prophylaxis. Will consider advancement of diet later today if doing better. Case discussed with GI. Alcohol cessation addressed in detail. Possible discharge in the next 1-2 days. Alcohol abuse: Will need to monitor for alcohol withdrawal. Patient on Librium. Will hold Librium if with increase sedation. Alcohol cessation education addressed in detail. GERD with hiatal hernia with history of gastric bypass: Continue PPI. Hypertension: Continue home medication Hypothyroidism: Continue home medication Time Spent Managing Pts Care (In Minutes): 55
[2019-12-24] MEDS: PANTOPRAZOLE 40 MG INJ IVP SCH (10:15)
[2019-12-24] MEDS: FOLIC ACID 1 MG, MULTIVITAMINS INJ 10 ML, THIAMINE HCL 100 MG in NA CHLORIDE 0.9% 1,000 ML IV SCH (10:16)
[2019-12-24] MEDS ORDERED: ENOXAPARIN 40 MG/0.4 ML SQ SCH (17:00)
[2019-12-25] MEDS: chlordiazePOXIDE HCl 5 MG CAP PO SCH ×2 (00:09→05:49)
[2019-12-25 01:11] VITALS: TEMP 98.5
[2019-12-25] MEDS: ONDANSETRON 4 MG/2 ML VIAL IV PRN ×2 (02:00→07:38)
[2019-12-25] MEDS: HYDROMORPHONE HCL 1 MG/ML INJ IV PRN ×2 (02:00→07:38)
[2019-12-25 04:22] VITALS: BP 103/67
[2019-12-25 04:31] LABS: Absolute Lymphocytes (CBC) 1.2 K/uL (0.7-4.9); Basophils % 0.3 % (0-1.3); Hematocrit 35.1 % (39.6-49.0); Lymphocytes % 9.5 % (15.3-44.8)
[2019-12-25 04:49] LABS: Albumin 2.5 g/dL (3.4-5.0); Bilirubin Total 0.9 mg/dL (0.2-1.0); Potassium 4.3 mmol/L (3.5-5.1); Protein, Total 5.5 g/dL (6.4-8.2)
[2019-12-25] MEDS: METOPROLOL TAR 25 MG TAB PO SCH (05:49)
[2019-12-25] MEDS: NA CHLORIDE 0.9% 1,000 ML IV SCH (05:51)
[2019-12-25] MEDS: LEVOTHYROXINE SOD 0.125 MG TAB PO SCH (05:53)
--- NOTE | 2019-12-25 08:27 | P.DS ---
Discharge Date: 12/25/19 Primary Care Provider: unknown Reason for Admission: Alcoholic pancreatitis Consultations: Gastroenterology - Problems (1) Acute alcoholic pancreatitis Current Visit: Yes Status: Acute (2) H/O gastric bypass Current Visit: Yes Status: Acute (3) ARASH (acute kidney injury) Current Visit: Yes Status: Acute (4) Alcoholic liver disease Current Visit: Yes Status: Acute Brief History of Present Illness: Patient is a 49-year-old gentleman who came to the hospital with intractable nausea and vomiting. Patient has been having some abdominal pain for the last 3 weeks. Since he has been staying at home he is been drinking more frequently. He said that started about a few months ago. He has been drinking more so over the last 3 weeks. He said about a week ago he thought it was related to alcohol withdrawal so he restarted drinking. However, the pain got worse. He has a history of gastric bypass, so he finds it very difficult when he is having nausea and vomiting. He tends to dry heaves which makes it very uncomfortable for him. His workup in the emergency room revealed elevated lipase level and moderate pancreatitis. He will be admitted to the hospital for alcoholic pancreatitis. Hospital Course: Patient is done well during hospital stay. Lipase is within normal limits. Pain is controlled. Patient tolerating diet without any difficulty. Plan to discharge home with tapering dose of Librium and low-fat diet. Close outpatient follow-up with GI. At this time patient should be stable for discharge with outpatient follow-up. We will check patient room air O2 sat prior to discharge as well. Vital Signs/Physical Exam: Temp Pulse Resp BP Pulse Ox 98.5 F 83 18 103/67 90 L 12/25/19 04:00 12/25/19 04:00 12/25/19 04:00 12/25/19 04:00 12/25/19 04:00 General: Alert, In no apparent distress, Oriented x3 Laboratory Data at Discharge: WBC 12.4 K/uL (4.3-10.9) H D 12/25/19 04:14 Hgb 11.6 g/dL (13.6-17.9) L 12/25/19 04:14 Hct 35.1 % (39.6-49.0) L 12/25/19 04:14 Plt Count 158 K/uL (152-406) 12/25/19 04:14 PT 11.4 SECONDS (9.5-12.5) 12/24/19 06:01 INR 0.97 12/24/19 06:01 APTT 27.4 SECONDS (24.3-36.9) 12/24/19 06:01 Sodium 135 mmol/L (136-145) L 12/25/19 04:14 Potassium 4.3 mmol/L (3.5-5.1) 12/25/19 04:14 BUN 14 mg/dL (7-18) 12/25/19 04:14 Creatinine 1.14 mg/dL (0.55-1.3) 12/25/19 04:14 Glucose 91 mg/dL (74-106) 12/25/19 04:14 Phosphorus 2.8 mg/dL (2.5-4.9) 12/24/19 06:01 Magnesium 1.5 mg/dL (1.8-2.4) L 12/24/19 06:01 Total Bilirubin 0.9 mg/dL (0.2-1.0) 12/25/19 04:14 AST 57 U/L (15-37) H 12/25/19 04:14 ALT 68 U/L (12-78) 12/25/19 04:14 Alkaline Phosphatase 94 U/L (45-117) 12/25/19 04:14 Triglycerides 87 mg/dL (<150) 12/24/19 06:01 Cholesterol 133 mg/dL (<200) 12/24/19 06:01 HDL Cholesterol 77 mg/dL (40-60) H 12/24/19 06:01 Cholesterol/HDL Ratio 1.73 12/24/19 06:01 Lipase 337 U/L (73-393) 12/25/19 04:14 Home Medications: Bupropion *Xl* [Wellbutrin XL*] 150 mg PO DAILY 12/23/19 Glimepiride 4 mg PO BID 12/23/19 Levothyroxine Sodium 125 mcg PO DAILY 12/23/19 Metformin HCl [Glucophage*] 500 mg PO TID 12/23/19 Omeprazole 20 mg PO DAILY 12/23/19 chlordiazePOXIDE HCl [Librium*] 10 mg PO Q8HR #60 cap 12/25/19 traMADol HCL [Ultram*] 50 mg PO TID PRN #30 tab 12/25/19 New Medications: chlordiazePOXIDE HCl [Librium*] 10 mg PO Q8HR #60 cap traMADol HCL [Ultram*] 50 mg PO TID PRN #30 tab PRN Reason: PAIN Patient Discharge Instructions: OK TO DC IV AND DC HOME. FOLLOW-UP WITH PRIMARY CARE PROVIDER IN 1-2 WEEKS. FOLLOW-UP WITH Gastroenterology IN 1-2 WEEKS. RETURN TO THE ER IF symptoms worsen. CALL or TEXT DR. LEVIN AT [phone] IF ANY QUESTIONS REGARDING HOSPITAL STAY. PLEASE CALL THE FLOOR AT [phone] IF ANY MEDICATION OR NURSING QUESTIONS. Diet: Low-fat diet Activity: Ad kate Time spent managing pt's care (in minutes): 30
[2019-12-25] MEDS: BUPROPION HCL XL 150 MG TAB PO SCH (09:09)
[2019-12-25] MEDS: PANTOPRAZOLE 40 MG INJ IVP SCH (09:09)
[2019-12-25] MEDS: FOLIC ACID 1 MG, MULTIVITAMINS INJ 10 ML, THIAMINE HCL 100 MG in NA CHLORIDE 0.9% 1,000 ML IV SCH (09:10)
--- NOTE | 2019-12-25 09:27 | P.PN ---
Subjective Date of Service: 12/25/19 Primary Care Provider: unknown Chief Complaint: Alcoholic pancreatitis Subjective: Improving, Doing well Physical Examination - Vital Signs Temperature: 98.5 F Blood Pressure: 103/67 Pulse: 83 Respirations: 18 Pulse Ox (%): 90 - Physical Exam General: Alert, In no apparent distress, Oriented x3, Cooperative HEENT: Atraumatic Neck: Supple Respiratory: Clear to auscultation bilaterally, Normal air movement Cardiovascular: Normal pulses, Regular rate/rhythm Gastrointestinal: Normal bowel sounds, Soft and benign, Non-distended Musculoskeletal: No erythema, No tenderness, No warmth Integumentary: No tenderness/swelling, No erythema, No warmth, No cyanosis Neurological: Normal speech, Normal strength at 5/5 x4 extr, Normal tone - Studies Medications List Reviewed: Yes Assessment & Plan Discharge Plan: Home Plan to discharge in: 24 Hours Physician Review Additional Text: Impression: Acute alcoholic pancreatitis Alcohol abuse GERD with hiatal hernia with history of gastric bypass Hypertension Hypothyroidism Plan: Acute alcoholic pancreatitis: Patient discharged by Dr. Aguilar. The patient will need a follow up with GI as an outpatient. Patient given Librium taper. Patient also given Tylenol #3 Limited supply. Patient understands the importance of the limiting and alcohol. Risks and complications addressed in detail. Alcohol abuse: Patient will be discharged with Librium taper. Alcohol cessation addressed in detail. Patient plans to quit. GERD with hiatal hernia with history of gastric bypass: Continue PPI. Hypertension: Continue home medication Hypothyroidism: Continue home medication Time Spent Managing Pts Care (In Minutes): 55
[2019-12-25 10:14] VITALS: O2SAT 72
== END 2019-12-25 11:10 | disposition home or self-care (01) | DRG 439 ==
LOC: ER 18:41 → ERHOLD 23:32 → 2ND 12-23 07:22
PROVIDERS: ADMIT Hospitalist; ATTEND Family Medicine
DX: K85.20 Alcohol induced acute pancreatitis without necrosis or infection (principal); N17.9 Acute kidney failure, unspecified; Z98.84 Bariatric surgery status; Z79.84 Long term (current) use of oral hypoglycemic drugs; Z79.890 Hormone replacement therapy; Z79.899 Other long term (current) drug therapy; E03.9 Hypothyroidism, unspecified; Z90.49 Acquired absence of other specified parts of digestive tract; K70.9 Alcoholic liver disease, unspecified; K21.9 Gastro-esophageal reflux disease without esophagitis; K44.9 Diaphragmatic hernia without obstruction or gangrene; F10.10 Alcohol abuse, uncomplicated; I10 Essential (primary) hypertension
CPT/HCPCS: 36415; 74177; 76705; 80048; 80053; 80061; 80076; 80320; 81003; 82550; 82947; 83690; 83735; 84100; 85025; 85610; 85730; 96361; 96374; 96375; 99285; C9113; J1170; J1650; J2270; J2405; J3010; J3411; J7030; Q9967

== ENCOUNTER 2022-03-27 09:47 | Observation (INO) | payer BC, OTHER ==
--- OUTSIDE RECORDS SUMMARY | 2022-03-27 10:04 | XMS REPORT | Continuity of Care Document ---
:1970 Author Organization [facility] t Address [address] [place] [address] Care Team Providers Name Role Phone [facility] Bobby Vicente Primary Care Physician [phone] MARCELO MARTIN Attending Clinician Unavailable [facility]I COWAN Attending Clinician Unavailable [facility]I [facility]AN Attending Clinician Unavailable BINTA ALFREDO Attending Clinician Unavailable Binta Alfredo MD Attending Clinician Spring Askew RN Attending Clinician OMAYRA GONZALEZ Attending Clinician Unavailable MD OMAYRA GONZALEZ Attending Clinician UnavailSHAYLA Finn Attending Clinician Unavailable EDEN CARLSON Attending Clinician Unavailable CHI COWAN Admitting Clinician Unavailable OMAYRA GONZALEZ Admitting Clinician Unavailable MD OMAYRA GONZALEZ Admitting Clinician UnavailSHAYLA Finn Admitting Clinician Unavailable EDEN CARLSON Admitting Clinician Unavailable Payers Payer Name Policy Type Policy Number Effective Date Expiration Date Tam jensen [facility] [id number] 2021 00:00:00 [place] [id number] 2017 OF STATE 00:00:00 [facility] [id number] 2019 00:00:00 FORMERLY [facility] [id number] [facility] OUT OF STATE BCBS - [id number] PPO - BCBS [facility] [id number] 2021 CARD AND PC3 00:00:00 Problems Condition Condition Condition Status Onset Resolution Last Treating Co mments Source Name Details Category Date Date Treatment Clinician Date DKA, type DKA, type Disease Active Uni vers 1, not at 1, not at 8-29 ity of goal goal 00:00: [place] [facility] Dehydratio Dehydratio Disease Active U nivers n n 5-09 ity of 00:00: [place] [facility] Diabetic Diabetic Disease Active Unive rs ketoacidos ketoacidos 4-01 it y of [place] without is without [place] coma coma 00 Medical associated associated Br anch with type with type 2 diabetes 2 diabetes mellitus mellitus Obesity Obesity Disease Active Univers (BMI (BMI 4-01 ity of 30-39.9) 30-39.9) 00:00: [place] [facility] DKA DKA Diagnosis Active 2020-04-01 Mem oria Active 02-25 10:07:00 l 02/26/2020 00:00: Gustavo rey 00 [place] ACUTE ACUTE Diagnosis Active 2020-04-07 Me moria SEPSIS, SEPSIS, 02-24 10:44:00 l ASCENDING ASCENDING 13:27: Donavan opal CHOLANGITI CHOLANGITI 00 S, ACU S, ACU Active 02/25/2020 [facility] HBP HBP Diagnosis Active 2020-02-25 Mem oria Active 02-24 15:12:00 l 02/25/2020 13:27: Gustavo rey [place] [id number] [address] [id number],GERD [id number],TAMMIE Diagnosis Active 2014-04-07 Memoria D Active 03-30 12:17:00 l 03/30/2014 00:00: Gustavo rey 00 [facility] GERD GERD Diagnosis Active 2011-12-05 Mem oria Active 11-29 07:48:00 l 11/30/2011 00:00: Gustavo rey 00 [facility] MORBID MORBID Diagnosis Active 2011-10-05 Me moria OBESITY OBESITY 2- 09:36:00 l Active 00:00: [place] 09/29/2011 00 [facility] Anxiety Anxiety Problem Active 2011-12-07 Me moria Active 08-20 09:25:16 l 08/20/2011 00:00: Gustavo n Problem 00 12/07/2011 [facility] Anxiety Anxiety Problem Active 2020-03-01 Me moria (finding) (finding) 08-20 08:39:22 l Active 00:00: Ern[place] 08/20/2011 00 Problem 03/01/2020 Cezar Farrell [facility] 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 [place] [facility] GERD - GERD - Problem Active 2011-12-07 Mark magdy Gastro-eso Gastro-eso 09:25:16 l phageal phageal Ernesto reflux reflux disease disease Active Problem 12/07/2011 [facility] Pain Pain Problem Active 2011-12-07 Memor ia Active 09:25:16 l Problem Ernesto 12/07/2011 [facility] Acute Acute Problem Active 2020-03-01 Memor ia cholangiti cholangiti 08:39:22 l s s [place] (disorder) (disorder) Active Problem 03/01/2020 [facility] Acute Acute Problem Active 2020-03-01 Memor ia pancreatit pancreatit 08:39:22 l is is Ernesto (disorder) (disorder) Active Problem 03/01/2020 [facility] Biliary Biliary Problem Active 2020-03-01 Oh adrian sludge sludge 08:39:22 l (disorder) (disorder) He rmann Active Problem 03/01/2020 [facility] Ketoacidos Problem Active 2020-03-01 M emoria is in Ketoacidos 08:39:22 l diabetes is in [place] mellitus diabetes (disorder) mellitus (disorder) Active Problem 03/01/2020 [facility] Gastroesop Gastroeso Problem Active 2020-03-01 Memoria hageal phageal 08:39:22 l reflux reflux Ernesto disease disease (disorder) (disorder) [facility] Hyperkalem Hyperkale Problem Active 2020-03-01 Memoria ia anna 08:39:22 l (disorder) (disorder) He rmann Active Problem 03/01/2020 [facility] Injury of Injury of Problem Active 2020-03-01 Memoria kidney kidney 08:39:22 l (disorder) (disorder) He rmann Active Problem 03/01/2020 [facility] Metabolic Metabolic Problem Active 2020-03-01 Memoria acidosis acidosis 08:39:22 l (disorder) (disorder) He rmann Active Problem 03/01/2020 [facility] Pain Pain Problem Active 2020-03-01 Memor ia (finding) (finding) 08:39:22 l Active Ernesto [facility]01[facility] Systemic Systemic Problem Active 2020-03-01 Memoria infection infection 08:39:22 l (disorder) (disorder) He rmann Active Problem 03/01/2020 [facility] Diabetes Diabetes Problem Active 2020-03-01 Memoria mellitus mellitus 08:39:22 l type 2 type 2 [place] (disorder) (disorder) Active Problem 03/01/2020 [facility] TYPE 1 TYPE 1 Diagnosis Active 2020-04-01 M emoria DIABETES DIABETES 10:07:00 l MELLITUS MELLITUS Gustavo n WITH WITH KETOACIDOS KETOACIDOS Active [facility] TYPE 1 TYPE 1 Diagnosis Active 2020-02-28 Oh moria DIABETES DIABETES 09:39:00 l MELLITUS MELLITUS Gustavo n WITH WITH KETOACIDOS KETOACIDOS IS WITHOUT IS WITHOUT CO CO Active [facility] SEPSIS, SEPSIS, Diagnosis Active 2020-04-07 Memoria UNSPECIFIE UNSPECIFIE 10:44:00 l D ORGANISM D ORGANISM He quail run behavioral health Active [facility] OTHER OTHER Diagnosis Active 2020-04-07 [facility]ria CHOLANGITI CHOLANGITI 10:44:00 l S S Active [facility] ADMINISTRT ADMINISTR Diagnosis Active 2011-10-05 Memoria VE ENCOUNT TVE 09:36:00 l NOS ENCOUNT [place] NOS Active [facility] Allergies, Adverse Reactions, Alerts Allergy Allergy Status Severity Reaction(s) Onset Inactive Treating Comm ents Source Name Type Date Date Clinician NO KNOWN Drug Active Univers ALLERGIE Class ity of S [facility] NO KNOWN Allergy Active [facility] Social History Social Habit Start Date Stop Date Quantity Comments Source History [facility] ge of Alcohol Std Medicine Drinks History [facility] ge of Alcohol Binge Medicine Exposure to Not sure [facility] e of SARS-CoV-2 Medicine (event) Tobacco use and 2021-10-24 2021-10-24 Smokeless tobacco [facility] of exposure 00:00:00 00:00:00 non-user Medicine Alcohol intake 2021-10-24 2021-10-24 Ex-drinker [facility] lege of 00:00:00 00:00:00 (finding) Medicine History [facility] 2021-10-24 2021-10-24 1 [facility] ge of Alcohol Frequency 00:00:00 00:00:00 Medicin e Alcohol Comment 2021-10-24 2021-10-24 quit in MAY 2021 [facility] of 00:00:00 00:00:00 Medicine Tobacco Comment 2021-04-17 2021-04-17 quit smoking 30 Univ ersity of 00:00:00 00:00:00 yrs [facility] Social History 2020-02-26 2020-02-[address] [facility] Chapito abbott 20:19:10 20:19:10 Sex [birth year] [facility] of 00:00:00 00:00:00 Medicine Smoking Status Start Date Stop Date Source Tobacco smoking [facility] o f consumption unknown Medicine Never smoked tobacco [facility] Jeana ege of Medicine Former smoker 2021-04-17 00:00:00 2021-04-17 [place] o f [place] 00:00:00 Medical Branch Medications Ordered Filled Start Stop Current Ordering Indication Dosage Frequency Signature Comments Components Source Medication Medication Date Date Medication? Clinician (SIG) Name Name levothyroxi Yes 125ug Take 125 B aylor ne 3-07 mcg by [place] (SYNTHROID) 14:07: mouth. of 125 MCG 22 Medicin tablet e Multiple Yes 1{capsu Take 1 [facility] or Vitamin 3-07 le} capsule by Bisi mcgill (MULTIVITAM 14:07: mouth. of INS) CAPS 22 Medicin e Rivaroxaban 2021- No 20mg Take 20 mg [facility] (XARELTO) 10-17 05-30 by mouth Marco lowery 20 MG TABS 00:00: 04:59 daily for o f 00 :00 90 days. Medicin e metoprolol 2021- No 12.5mg Take 0.5 Woody (LOPRESSOR) 10-17 03-31 Tablets by Ilana olcarmen 25 MG 00:00: 04:59 mouth two of tablet 00 :00 times Medicin daily for e 30 days. Multiple Yes 1{capsu Take 1 [facility] or Vitamin 2-07 le} capsule by Bisi mcgill (MULTIVITAM 16:41: mouth. of INS) CAPS 37 Medicin e levothyroxi Yes 125ug Take 125 B aylor ne 2-07 mcg by [place] (SYNTHROID) 16:41: mouth. of 125 MCG 37 Medicin tablet e tramadol Yes 1{tbl} Take 1 [facility] (ULTRAM) 50 2-07 Tablet by Col lege MG tablet 00:00: mouth of 00 every 8 Medicin hours as e needed for up to 21 doses. tramadol Yes 1{tbl} Take 1 [facility] (ULTRAM) 50 2-07 Tablet by Col lege MG tablet 00:00: mouth of 00 every 8 Medicin hours as e needed for up to 21 doses. ondansetron 2021- No 4mg Take 1 Nolan leticia (ZOFRAN) 4 09-26- Tablet by Col lege MG tablet 00:00: 00:00 mouth of 00 :00 every 8 Medicin hours as e needed for Nausea for up to 21 doses. Scopolamine 2021- No 1mg Place 1 mg Woody 1 MG/3DAYS 09-26- onto the Jeana ege [id number] 00:00: 00:00 skin every of 00 :00 3 days. Medicin e gabapentin 2021- No 300mg Take 1 Nolan leticia (NEURONTIN) 09-26 capsule by Ilana olcarmen 300 MG 00:00: 00:00 mouth 3 of capsule 00 :00 times Medicin daily for e 21 doses. Empty contents in 5 mls of water tramadol 2021- No 1{tbl} Take 1 [facility] (ULTRAM) 50 2-07 - Tablet by Co llege MG tablet 00:00: 00:00 mouth of 00 :00 every 8 Medicin hours as e needed for up to 21 doses. XIIDRA 5 % Yes [facility] 2-03 [place] 00:00: of 00 Medicin e XIIDRA 5 % Yes [facility] 2-03 [place] 00:00: of 00 Medicin e FIASP 100 Yes [facility] UNIT/ML - [place] SOLN 00:00: of 00 Medicin e FIASP 100 Yes [facility] UNIT/ML 09-15 [facility] 00:00: of 00 Medicin e ropinirole Yes [facility] (REQUIP) 1 1-10 College MG tablet 00:00: of 00 Medicin e ropinirole Yes [facility] (REQUIP) 1 1-10 College MG tablet 00:00: of 00 Medicin e testosteron 2020-08 Yes [facility] e cypionate 2- College (DEPOTESTOT 00:00: of ERONE 00 Medicin CYPIONATE) e 200 MG/ML injection testosteron 2020-08 Yes [facility] e cypionate 2- [place] (DEPOTESTOT 00:00: of ERONE 00 Medicin CYPIONATE) e 200 MG/ML injection OMEPRAZOLE 2020-08 Yes Once daily U nivers 20 MG ORAL 0-25 ity of CPDR 18:57: [place] 33 [facility] buPROPion 2020-08 Yes 300mg Take 300 Uni vers HCl, 0-25 mg by ity of smoking 18:57: mouth [place] deter, 150 33 daily. Medical mg Tb12 Branch levothyroxi 2020-08 Yes 125ug Take 125 U nivers ne 0-25 mcg by ity of (SYNTHROID) 18:57: mouth [place] 125 mcg 33 every Medical tablet morning. Branch ropinirole 2020-08 Yes 2mg Take 2 mg Un hector HCl 0-25 by mouth ity of (ROPINIROLE 18:57: as needed [place] ORAL) 33 (Restless Medical leg Branch syndrome). proMETHazin 2020-08 Yes [id number] 25mg Take 1 Univers e 25 mg 0-25 tablet by ity of tablet 00:00: mouth [place] 00 every 6 Medical (six) Branch hours as needed for Nausea and Vomiting (N/V). lisinopril 1-0 Yes 5mg Take 5 mg Ba ylor (PRINIVIL, 8-16 by mouth. Jeana ege ZESTRIL) 5 00:00: of MG tablet 00 Medicin e lisinopril 2020-0 Yes 5mg Take 5 mg Ba y[facility] (PRINIVIL, 8-16 by mouth. Jeana ege ZESTRIL) 5 00:00: of MG tablet 00 Medicin e insulin 2020-0 Yes [id number] Give 5 Uni vers lispro, 4-02 units with ity of human, 100 00:00: meals, if [place] unit/mL 00 you eat Medical injection 1/2 meal Branch only take 2 units, if you do not eat, skip doseFor sliding scale correction with mealsBlood sugar of 150-180, give 1 unitBlood sugar of 181-210, give 2 unitsBlood sugar of 211-240, give 3 unitsBlood sugar of 241-270, give 4 unitsBlood sugar of 271-300, give 5 unitsBlood sugar greater than 300-350 give 6 units recheck in 3 hours and cover again with sliding scaleBlood glucose greater than 351 give 7 units and call provider Insulin No Notes: Memoria Glargine 02-25 (Same as: l 100 UNT/ML 19:00: Lantus) Do H ermann Injectable 00 not hold Solution insulin without contacting prescriber WASTE: F/P - Black; E - Municipal Trash Bin "single patient use only" Stable for 28 days at room temperatur e Expires in days from ____Date Insulin No Notes: Memoria Glargine 02-25 (Same as: l 100 UNT/ML 19:00: Lantus) Do H ermann Injectable 00 not hold Solution insulin without contacting prescriber WASTE: F/P - Black; E - Municipal Trash Bin "single patient use only" Stable for 28 days at room temperatur e Expires in days from ____Date Zofran No Notes: Memoria - (Same as: l 14:19: Zofran) [place] 00 MEDICATION WASTE Product Size: 4 mg Product Wasted: ___ mg Zofran 2019- No Notes: Memoria 02-25 (Same as: l 14:19: Zofran) [place] 00 MEDICATION WASTE Product Size: 4 mg Product Wasted: ___ mg Dilaudid No Notes: Memoria 02-25 Same as: l 12:49: Dilaudid [place] 00 Dilaudid No Notes: Memoria 02-25 Same as: l 12:49: Dilaudid Ernesto 00 Zosyn + No Notes: Memoria Sodium - (Same as: l Chloride 11:00: Zosyn) [place] 0.9% IV 100 00 Dosing mL based on Piperacill in component MEDICATION WASTE Product Size: 3375 mg Product Wasted: ___ mg Zosyn + No Notes: Memoria Sodium 02-25 (Same as: l Chloride 11:00: Zosyn) Ernesto 0.9% IV 100 00 Dosing mL based on Piperacill in component MEDICATION WASTE Product Size: 3375 mg Product Wasted: ___ mg D5W 1,000 No 1,000 mL, Mem oria mL 02-25 Rate: 50 l 10:37: ml/hr, Ernesto 00 Infuse over: 20 hr, Route: IV, Dosing Weight 100 kg, Total Volume: 1,000, Start date: 02/26/20 5:37:00 CDT, Duration: 30 day, Stop date: 03/27/20 5:36:00 CDT, 2.26, m2, 0 D5W 1,000 No 1,000 mL, Mem oria mL 02-25 Rate: 50 l 10:37: ml/hr, [place] 00 Infuse over: 20 hr, Route: IV, Dosing Weight 100 kg, Total Volume: 1,000, Start date: 02/26/20 5:37:00 CDT, Duration: 30 day, Stop date: 03/27/20 5:36:00 CDT, 2.26, m2, 0 Dilaudid No Notes: Memoria 7- Same as: l 07:15: Dilaudid [place] 00 Dilaudid No Notes: Memoria 7- Same as: l 07:15: Dilaudid Ernesto heparin No Notes: Memoria 02-25 porcine l 05:00: heparin [place] heparin No Notes: Memoria 02-25 porcine l 05:00: heparin Ernesto Magnesium No Notes: Memori a Sulfate 02-25 WASTE: F/P l 04:32: - Sink; E [place] - Municipal Trash Bin Magnesium No Notes: Memori a Sulfate 02-25 WASTE: F/P l 04:32: - Sink; E [place] - [facility] Trash Bin Zosyn No Notes: Memoria 02-25 (Same as: l 01:00: Zosyn) [place] 00 Dosing based on Piperacill in component MEDICATION WASTE Product Size: 3375 mg Product Wasted: ___ mg Zosyn No Notes: Memoria 02-25 (Same as: l 01:00: Zosyn) Ernesto 00 Dosing based on Piperacill in component MEDICATION WASTE Product Size: 3375 mg Product Wasted: ___ mg Thiamine No Notes: Memoria 02-25 (Same As: l 00:26: Vitamin [place] 00 B1) Thiamine No Notes: Memoria 02-25 (Same As: l 00:26: Vitamin Ernesto 00 B1) D10W 980.75 No 980.75 mL, Memoria mL + sodium - Rate: 250 l chloride 00:26: ml/hr, [place] 23.4% IV 77 00 Infuse mEq over: 4 hr, Route: IV, Dosing Weight 100 kg, Total Volume: 1,000, Start date: 02/25/20 19:26:00 CDT, Duration: 30 day, Stop date: 03/26/20 19:25:00 CDT, 2.26, m2, 0 D10W 980.75 No 980.75 mL, Memoria mL + sodium 7-09 Rate: 250 l chloride 00:26: ml/hr, Ernesto 23.4% IV 77 00 Infuse mEq over: 4 hr, Route: IV, Dosing Weight 100 kg, Total Volume: 1,000, Start date: 02/25/20 19:26:00 CDT, Duration: 30 day, Stop date: 03/26/20 19:25:00 CDT, 2.26, m2, 0 NS (Bolus) 2020-0 No 1,000 mL, Me moria IV 02-25 1,000 l 00:21: ml/hr, Ernesto 00 Infuse Over: 1 hr, Route: IV, 1,000, Drug form: INJ, ONCE, Priority: STAT, Dosing Weight 100 kg, Start date: 02/25/20 19:21:00 CDT, Stop date: 02/25/20 19:21:00 CDT, 0 NS (Bolus) 2020-0 No 1,000 mL, Me moria IV 02-25 1,000 l 00:21: ml/hr, Ernesto 00 Infuse Over: 1 hr, Route: IV, 1,000, Drug form: INJ, ONCE, Priority: STAT, Dosing Weight 100 kg, Start date: 02/25/20 19:21:00 CDT, Stop date: 02/25/20 19:21:00 CDT, 0 Sodium 2019-0 No 1,000 mL, Memori a Chloride 02-25 Rate: 250 l 0.9% IV 00:20: ml/hr, Ernesto 1,000 mL 00 Infuse over: 4 hr, Route: IV, Dosing Weight 100 kg, Total Volume: 1,000, When Finger stick blood glucose values remain ABOVE 250 mg/dL administer until BG is less than 250 mg/dL., Start date: 02/25/20 19:20:00 CDT, Duration:. .. D10W 1000 2020-0 No 1,000 mL, Mem oria mL 02-25 Rate: 250 l 00:20: ml/hr, Ernesto 00 Infuse over: 4 hr, Route: IV, Dosing Weight 100 kg, Total Volume: 1,000, Start date: 02/25/20 19:20:00 CDT, Duration: 30 day, Stop date: 03/26/20 19:19:00 CDT, 2.26, m2 Insulin 2020-0 No Notes: Memoria (regular) 7-09 (Same as: l Titrate IV 00:20: Humulin R, H ermann additive 00 NovoLIN R) 100 unit + Roll in Sodium palms of Chloride hands 0.9% gently; Do (titrate) not shake 99 mL vigorously . WASTE: F/P - Black; E - Municipal Trash Bin Stable for 31 days at room temperatur e Expires in days from ____Date Dextrose 2020-0 No 12.5 gm, Memor ia 50% Syringe 02-25 25 mL, l (D50W) 00:20: Route: [place] IVP, Drug Form: INJ, Dosing Weight 100, kg, PRN, PRN Blood Glucose Results, Start date: 02/25/20 19:20:00 CDT, Duration: 30 day, Stop date: 03/26/20 19:19:00 CDT, 0 Glucagon 2020-0 No 1 mg, Memoria 02-25 Route: IM, l 00:20: Drug form: Ernesto PDR/INJ, PRN, Dosing Weight 100, kg, PRN Blood Glucose Results, Start date: 02/25/20 19:20:00 CDT, Duration: 30 day, Stop date: 03/26/20 19:19:00 CDT, 0 Potassium 2020-0 No Notes: Memori a Chloride 02-25 (Same as: l 00:20: KCL) Infuse no faster than 10 mEq/hr if given peripheral ly. Magnesium 2020-0 No Notes: Memori a Sulfate 02-25 WASTE: F/P l 00:20: - Sink; E Ernesto 00 - Municipal Trash Bin potassium 2020-0 No Notes: Memori a phosphate 02-25 (Same as: l 00:20: K Ernesto 00 Phosphate. ) Do not infuse phosphorou s concurrent ly in the same line as TPN or IVF that contains calcium. For double lumen central lines, phosphorou s may be infused in a separate lumen from TPN. 1 mMol phoshate has 1.47 mEq potassium Infuse over 4 hours Sodium 2020-0 No 1,000 mL, Memori a Chloride 02-25 Rate: 250 l 0.9% IV 00:20: ml/hr, Ernesto 1,000 mL 00 Infuse over: 4 hr, Route: IV, Dosing Weight 100 kg, Total Volume: 1,000, When Finger stick blood glucose values remain ABOVE 250 mg/dL administer until BG is less than 250 mg/dL., Start date: 02/25/20 19:20:00 CDT, Duration:. .. D10W 1000 2020-0 No 1,000 mL, Mem oria mL 02-25 Rate: 250 l 00:20: ml/hr, Infuse over: 4 hr, Route: IV, Dosing Weight 100 kg, Total Volume: 1,000, Start date: 02/25/20 19:20:00 CDT, Duration: 30 day, Stop date: 03/26/20 19:19:00 CDT, 2.26, m2 Insulin 2019-0 No Notes: Memoria (regular) 02-25 (Same as: l Titrate IV 00:20: Humulin R, H ermann additive 00 NovoLIN R) 100 unit + Roll in Sodium palms of Chloride hands 0.9% gently; Do (titrate) not shake 99 mL vigorously . WASTE: F/P - Black; E - [employer] Trash Bin Stable for 31 days at room temperatur e Expires in days from ____Date Dextrose 2020-0 No 12.5 gm, Memor ia 50% Syringe 02-25 25 mL, l (D50W) 00:20: Route: IVP, Drug Form: INJ, Dosing Weight 100, kg, PRN, PRN Blood Glucose Results, Start date: 02/25/20 19:20:00 CDT, Duration: 30 day, Stop date: 03/26/20 19:19:00 CDT, 0 Glucagon 2020-0 No 1 mg, Memoria 02-25 Route: IM, l 00:20: Drug form: PDR/INJ, PRN, Dosing Weight 100, kg, PRN Blood Glucose Results, Start date: 02/25/20 19:20:00 CDT, Duration: 30 day, Stop date: 03/26/20 19:19:00 CDT, 0 Potassium 2020-0 No Notes: Memori a Chloride 02-25 (Same as: l 00:20: KCL) Infuse no faster than 10 mEq/hr if given peripheral ly. Magnesium 2020-0 No Notes: Memori a Sulfate 02-25 WASTE: F/P l 00:20: - Sink; E [place] - Municipal Trash Bin potassium 2020-0 No Notes: Memori a phosphate 02-25 (Same as: l 00:20: K Phosphate. ) Do not infuse phosphorou s concurrent ly in the same line as TPN or IVF that contains calcium. For double lumen central lines, phosphorou s may be infused in a separate lumen from TPN. 1 mMol phoshate has 1.47 mEq potassium Infuse over 4 hours Dextrose 2020-0 No 12.5 gm, Memor ia 50% Syringe 02-25 25 mL, l (D50W) 00:18: Route: Ernesto 00 IVP, Drug Form: INJ, Dosing Weight 100, kg, PRN, PRN Blood Glucose Results, Start date: 02/25/20 19:18:00 CDT, Duration: 30 day, Stop date: 03/26/20 19:17:00 CDT, 0 Glucagon 2020-0 No 1 mg, Memoria 02-25 Route: IM, l 00:18: Drug form: Ernesto PDR/INJ, PRN, Dosing Weight 100, kg, PRN Blood Glucose Results, Start date: 02/25/20 19:18:00 CDT, Duration: 30 day, Stop date: 03/26/20 19:17:00 CDT, 0 Dextrose 2020-0 No 12.5 gm, Memor ia 50% Syringe 02-25 25 mL, l (D50W) 00:18: Route: [place] IVP, Drug Form: INJ, Dosing Weight 100, kg, PRN, PRN Blood Glucose Results, Start date: 02/25/20 19:18:00 CDT, Duration: 30 day, Stop date: 03/26/20 19:17:00 CDT, 0 Glucagon 2020-0 No 1 mg, Memoria 02-25 Route: IM, l 00:18: Drug form: [place] 00 PDR/INJ, PRN, Dosing Weight 100, kg, PRN Blood Glucose Results, Start date: 02/25/20 19:18:00 CDT, Duration: 30 day, Stop date: 03/26/20 19:17:00 CDT, 0 Dilaudid 2020-0 No 0.5 mg, Memori a 02-24 Route: l 23:24: IVP, ONCE, Ernesto Dosing Weight 100, kg, Priority: STAT, Start date: 02/25/20 18:24:00 CDT, Stop date: 02/25/20 18:24:00 CDT Zofran 2020-0 No 4 mg, Memoria 02-24 Route: l 23:24: IVP, Drug [place] form: INJ, ONCE, Dosing Weight 100, kg, Priority: STAT, Start date: 02/25/20 18:24:00 CDT, Stop date: 02/25/20 18:24:00 CDT Dilaudid 2020-0 No 0.5 mg, Memori a 02-24 Route: l 23:24: IVP, ONCE, Dosing Weight 100, kg, Priority: STAT, Start date: 02/25/20 18:24:00 CDT, Stop date: 02/25/20 18:24:00 CDT Zofran 2020-0 No 4 mg, Memoria 02-24 Route: l 23:24: IVP, Drug Ernesto 00 form: INJ, ONCE, Dosing Weight 100, kg, Priority: STAT, Start date: 02/25/20 18:24:00 CDT, Stop date: 02/25/20 18:24:00 CDT 08/21 NS 2019-0 No Notes: Memoria 1,000 mL + 02-24 (sodium l sodium 23:14: bicarb Ernesto bicarbonate 00 8.4% (1 8.4% mEq/ml) 50 additive 75 ml mEq syringe) 08/21 NS 2020-0 No Notes: Memoria 1,000 mL + 7-08 (sodium l sodium 23:14: bicarb Ernesto bicarbonate 00 8.4% (1 8.4% mEq/ml) 50 additive 75 ml mEq syringe) Sodium 2020-0 No 1,000 mL, Memori a Chloride 02-24 Infuse l 0.9% 22:17: Over: 1 [place] (Bolus) IV 00 hr, Route: IV, ONCE, Priority: STAT, Dosing Weight 100 kg, Start date: 02/25/20 17:17:00 CDT, Stop date: 02/25/20 17:17:00 CDT Zosyn 2020-0 No 3.375 gm, Memoria 02-24 Route: l 22:17: IVPB, [place] 00 ONCE, Dosing Weight 100, kg, Priority: STAT, Start date: 02/25/20 17:17:00 CDT, Stop date: 02/25/20 17:17:00 CDT, ABX Indication : Intra-abdo helen Infection Sodium 2020-0 No 1,000 mL, Memori a Chloride 02-24 Infuse l 0.9% 22:17: Over: 1 [place] (Bolus) IV 00 hr, Route: IV, ONCE, Priority: STAT, Dosing Weight 100 kg, Start date: 02/25/20 17:17:00 CDT, Stop date: 02/25/20 17:17:00 CDT Zosyn 2020-0 No 3.375 gm, Memoria 02-24 Route: l 22:17: IVPB, Ernesto 00 ONCE, Dosing Weight 100, kg, Priority: STAT, Start date: 02/25/20 17:17:00 CDT, Stop date: 02/25/20 17:17:00 CDT, ABX Indication : Intra-abdo helen Infection Morphine 2020-0 No 4 mg, Memoria 02-24 Route: l 20:20: IVP, ONCE, Dosing Weight 100, kg, Priority: STAT, Start date: 02/25/20 15:20:00 CDT, Stop date: 02/25/20 15:20:00 CDT Morphine 2020-0 No 4 mg, Memoria 02-24 Route: l 20:20: IVP, ONCE, Dosing Weight 100, kg, Priority: STAT, Start date: 02/25/20 15:20:00 CDT, Stop date: 02/25/20 15:20:00 CDT Morphine 2020-0 No 4 mg, Memoria 02-24 Route: l 19:11: IVP, ONCE, Dosing Weight 100, kg, Priority: STAT, Start date: 02/25/20 14:11:00 CDT, Stop date: 02/25/20 14:11:00 CDT Morphine 2020-0 No 4 mg, Memoria 02-24 Route: l 19:11: IVP, ONCE, Dosing Weight 100, kg, Priority: STAT, Start date: 02/25/20 14:11:00 CDT, Stop date: 02/25/20 14:11:00 CDT Saline 2019-0 No Notes: Memoria Flush 0.9% 7-08 (Same as: l 18:41: BD Ernesto 00 Posiflush) Sodium 2020-0 No 1,000 mL, Memori a Chloride 7-08 1000 l 0.9% 18:41: ml/hr, [place] (Bolus) IV 00 Infuse Over: 1 hr, Route: IV, 1,000, Drug form: INJ, ONCE, Priority: STAT, Dosing Weight 100 kg, Start date: 02/25/20 13:41:00 CDT, Stop date: 02/25/20 13:41:00 CDT, 0 Ondansetron No Notes: Mark magdy 7-08 (Same as: l 18:41: Zofran) [place] 00 MEDICATION WASTE Product Size: 4 mg Product Wasted: ___ mg Saline No Notes: Memoria Flush 0.9% 7-08 (Same as: l 18:41: BD [place] 00 Posiflush) Sodium 2020-0 No 1,000 mL, Memori a Chloride 7-08 1000 l 0.9% 18:41: ml/hr, [place] (Bolus) IV 00 Infuse Over: 1 hr, Route: IV, 1,000, Drug form: INJ, ONCE, Priority: STAT, Dosing Weight 100 kg, Start date: 02/25/20 13:41:00 CDT, Stop date: 02/25/20 13:41:00 CDT, 0 Ondansetron No Notes: Mark magdy 7-08 (Same as: l 18:41: Zofran) Ernesto 00 MEDICATION WASTE Product Size: 4 mg Product Wasted: ___ mg Flumazenil No Notes: Memor ia 8-19 (Same as: l 18:20: Romazicon) Naloxone No Notes: Memoria 8-19 Same as l 18:20: Narcan Ondansetron No Notes: Mark magdy 8-19 (Same as: l 18:20: Zofran) Flumazenil No Notes: Memor ia 8-19 (Same as: l 18:20: Romazicon) Naloxone No Notes: Memoria 04-07 Same as l 18:20: Narcan Ondansetron No Notes: Mark magdy 04-07 (Same as: l 18:20: Zofran) Levothyroxi Yes 50 Memori a ne Sodium 8-19 microgram l 0.05 MG 17:37: = 1 tab, Gustavo n Oral Tablet 00 PO, Daily, [Synthroid] # 30 tab, 0 Refill(s) ropinirole Yes PO, Daily, M emoria 8-19 0 l 17:37: Refill(s) tadalafil 5 Yes 5 mg = 1 Me moria MG Oral 8-19 tab, PO, l Tablet 17:37: Daily, for Juliet nn [Cialis] 00 erectile dysfunctio n, 0 Refill(s) Amaryl Yes PO, Daily, Memor ia 819 0 l 17:37: Refill(s) Metformin Yes 500 mg = 1 Me moria hydrochlori 8-19 tab, PO, l de 500 MG 17:37: Daily, 0 Herm opal Oral Tablet 00 Refill(s) Bupropion Yes 100 mg = 1 Me moria Hydrochlori 8-19 tab, PO, l de 100 MG 17:37: Daily, # Herm opal Oral Tablet 00 180 tab, 0 [Wellbutrin Refill(s) ] Levothyroxi Yes 50 Memori a ne Sodium 8-19 microgram l 0.05 MG 17:37: = 1 tab, Gustavo n Oral Tablet 00 PO, Daily, [Synthroid] # 30 tab, 0 Refill(s) ropinirole 0 Yes PO, Daily, M emoria 8-19 0 l 17:37: Refill(s) tadalafil 5 Yes 5 mg = 1 Me moria MG Oral 8-19 tab, PO, l Tablet 17:37: Daily, for Juliet nn [Cialis] 00 erectile dysfunctio n, 0 Refill(s) Amaryl 0 Yes PO, Daily, Memor ia 8-19 0 l 17:37: Refill(s) [place] 00 Metformin 2013- Yes 500 mg = 1 Me moria hydrochlori 8-19 tab, PO, l de 500 MG 17:37: Daily, 0 Herm opal Oral Tablet 00 Refill(s) Bupropion Yes 100 mg = 1 Me moria Hydrochlori 8-19 tab, PO, l de 100 MG 17:37: Daily, # Herm opal Oral Tablet 00 180 tab, 0 [Wellbutrin Refill(s) ] ketorolac No David 30 mg, 1 Memoria 30 mg/mL 2-17 Ronnie mL, Route: l injectable 18:00: IV, Drug [place] solution 00 form: INJ, Q6H, Start date: 10/06/11 12:00:00, Duration: 4 day, Stop date: 10/10/11 6:00:00 ketorolac No David 30 mg, 1 Memoria 30 mg/mL 2-17 Ronnie mL, Route: l injectable 18:00: IV, Drug [place] solution 00 form: INJ, Q6H, Start date: 10/06/11 12:00:00, Duration: 4 day, Stop date: 10/10/11 6:00:00 acetaminoph No David 15 mL, Memoria en-hydrocod 2-17 Ronnie Route: PO, l one 15:08: Drug Form: [place] 00 ELIX, Q4H, PRN Pain, Start date: 10/06/11 9:08:00, Duration: 30 day, Stop date: 11/05/11 9:07:00 acetaminoph No David 15 mL, Memoria en-hydrocod 2-17 Ronnie Route: PO, l one 15:08: Drug Form: [place] 00 ELIX, Q4H, PRN Pain, Start date: 10/06/11 9:08:00, Duration: 30 day, Stop date: 11/05/11 9:07:00 Tylenol No David 650 mg, Mem oria 2-17 Ronnie 20.3 mL, l 15:07: Route: PO, Ernesto 00 Drug form: LIQ, Q4H, PRN Pain Score 1-3, Start date: 10/06/11 9:07:00, Duration: 30 day, Stop date: 11/05/11 9:06:00 Tylenol 2011- No David 650 mg, Mem oria 2-17 Ronnie 20.3 mL, l 15:07: Route: PO, [place] 00 Drug form: LIQ, Q4H, PRN Pain Score 1-3, Start date: 10/06/11 9:07:00, Duration: 30 day, Stop date: 11/05/11 9:06:00 Pepcid 2011-0 No David 20 mg, 2 Mem oria 2-17 Ronnie mL, Route: l 03:00: IVP, Drug [place] 00 form: INJ, Q12H, Start date: 10/05/11 21:00:00, Duration: 30 day, Stop date: 11/04/11 9:00:00 Pepcid 0 No David 20 mg, 2 Mem oria 2-17 Ronnie mL, Route: l 03:00: IVP, Drug Ernesto 00 form: INJ, Q12H, Start date: 10/05/11 21:00:00, Duration: 30 day, Stop date: 11/04/11 9:00:00 Reglan 2011-0 No David 10 mg, 2 Mem oria 2-16 Ronnie mL, Route: l 22:00: IV, Drug Ernesto 00 form: INJ, Q8H, Start date: 10/05/11 16:00:00, Duration: 30 day, Stop date: 11/04/11 8:00:00 Reglan 2011-0 No David 10 mg, 2 Mem oria 2-16 Ronnie mL, Route: l 22:00: IV, Drug Ernesto 00 form: INJ, Q8H, Start date: 10/05/11 16:00:00, Duration: 30 day, Stop date: 11/04/11 8:00:00 Sodium 2011-0 No David 25 mL, Memor ia Chloride 2-16 Ronnie Route: IV, l 0.9% IV 18:26: PRN, Line Juliet nn 00 Flush, Start date: 10/05/11 12:26:00, Duration: 30 day, Stop date: 11/04/11 13:25:00 BD Normal 2011-0 No David 10 mL, Me moria Saline 2-16 Ronnie Route: IV, l Flush 18:26: Drug Form: Gustavo n 00 INJ, PRN, PRN Line Flush, Start date: 10/05/11 12:26:00, Duration: 30 day, Stop date: 11/04/11 13:25:00 Sodium 2012-0 No David 25 mL, Memor ia Chloride 2-16 Ronnie Route: IV, l 0.9% IV 18:26: PRN, Line Juliet nn 00 Flush, Start date: 10/05/11 12:26:00, Duration: 30 day, Stop date: 11/04/11 13:25:00 BD Normal 2011-0 No David 10 mL, Me moria Saline 2-16 Ronnie Route: IV, l Flush 18:26: Drug Form: Gustavo n 00 INJ, PRN, PRN Line Flush, Start date: 10/05/11 12:26:00, Duration: 30 day, Stop date: 11/04/11 13:25:00 insulin 2011-0 No David 15 unit, Me moria regular 2-16 Ronnie 0.15 mL, l human 18:25: Route: Ernesto recombinant 00 SUB-Q, 100 Drug form: units/mL SOLN, injectable Sliding solution Scale, PRN Abnormal Lab Result, Start date: 10/05/11 12:25:00, Duration: 30 day, Stop date: 11/04/11 13:24:00 insulin 2011-0 No David 15 unit, Me moria regular 2-16 Ronnie 0.15 mL, l human 18:25: Route: Ernesto recombinant 00 SUB-Q, 100 Drug form: units/mL SOLN, injectable Sliding solution Scale, PRN Abnormal Lab Result, Start date: 10/05/11 12:25:00, Duration: 30 day, Stop date: 11/04/11 13:24:00 insulin 2011-0 No David 5 unit, Mem oria regular 2-16 Ronnie 0.05 mL, l human 18:24: Route: [place] recombinant 00 SUB-Q, 100 Drug form: units/mL SOLN, injectable Sliding solution Scale, PRN Abnormal Lab Result, Start date: 10/05/11 12:24:00, Duration: 30 day, Stop date: 11/04/11 13:23:00 Tylenol 2011-0 No David 650 mg, 1 M emoria 2-16 Ronnie supp, l 18:24: Route: NM, [place] 00 Drug form: SUPP, Q4H, PRN Temperatur e >100.5, Start date: 10/05/11 12:24:00, Duration: 30 day, Stop date: 11/04/11 12:23:00 Phenergan 2011-0 No David 25 mg, 1 Memoria 2-16 Ronnie mL, Route: l 18:24: IM, Drug form: INJ, Q4H, PRN Nausea, Start date: 10/05/11 12:24:00, Duration: 30 day, Stop date: 11/04/11 12:23:00 insulin 2012-0 No David 5 unit, Mem oria regular 2-16 Ronnie 0.05 mL, l human 18:24: Route: Ernesto recombinant 00 SUB-Q, 100 Drug form: units/mL SOLN, injectable Sliding solution Scale, PRN Abnormal Lab Result, Start date: 10/05/11 12:24:00, Duration: 30 day, Stop date: 11/04/11 13:23:00 Tylenol 2011-0 No David 650 mg, 1 M emoria 2-16 Ronnie supp, l 18:24: Route: NM, Drug form: SUPP, Q4H, PRN Temperatur e >100.5, Start date: 10/05/11 12:24:00, Duration: 30 day, Stop date: 11/04/11 12:23:00 Phenergan 2011-0 No David 25 mg, 1 Memoria 2-16 Ronnie mL, Route: l 18:24: IM, Drug form: INJ, Q4H, PRN Nausea, Start date: 10/05/11 12:24:00, Duration: 30 day, Stop date: 11/04/11 12:23:00 Vasotec 2011-0 No David 1.25 mg, 1 Memoria 2-16 Ronnie mL, Route: l 18:23: IV, Drug form: INJ, Q6H, PRN Elevated BP, Start date: 10/05/11 12:23:00, Duration: 30 day, Stop date: 11/04/11 12:22:00 Vasotec 2011- No David 1.25 mg, 1 Memoria 2-16 Ronnie mL, Route: l 18:23: IV, Drug Ernesto 00 form: INJ, Q6H, PRN Elevated BP, Start date: 10/05/11 12:23:00, Duration: 30 day, Stop date: 11/04/11 12:22:00 Lactated No David 1,000 mL, Memoria Ringers 2-16 Ronnie Rate: 80 l Injection 18:22: ml/hr, Gustavo n IV 1,000 mL 00 Infuse over: 12.5 hr, Route: IV, Total Volume: 1,000, Start date: 10/05/11 12:22:00, Stop date: 11/04/11 12:21:00 Lactated 2011-0 No David 1,000 mL, Memoria Ringers 2-16 Ronnie Rate: 80 l Injection 18:22: ml/hr, Gustavo n IV 1,000 mL 00 Infuse over: 12.5 hr, Route: IV, Total Volume: 1,000, Start date: 10/05/11 12:22:00, Stop date: 11/04/11 12:21:00 Insulin 2011- No David 15 unit, Me moria regular 2-16 Ronnie Route: l 16:11: SUB-Q, [place] 00 ONCE, Start date: 10/05/11 10:11:00, Stop date: 10/05/11 10:11:00 Insulin 0 No David 15 unit, Me moria regular 2-16 Ronnie Route: l 16:11: SUB-Q, Ernesto 00 ONCE, Start date: 10/05/11 10:11:00, Stop date: 10/05/11 10:11:00 Zofran 2011- No David 4 mg, 2 Mark magdy 2-16 Ronnie mL, Route: l 15:57: IVP, Drug [place] 00 form: INJ, Q8H, PRN Nausea, Start date: 10/05/11 9:57:00, Duration: 30 day, Stop date: 11/04/11 9:56:00 naloxone No David 0.2 mg, Me moria 2-16 Ronnie 0.5 mL, l 15:57: Route: [place] 00 IVP, Drug form: INJ, Q5Min, PRN Narcotic Reversal, Start date: 10/05/11 9:57:00, Duration: 30 day, Stop date: 11/04/11 10:56:00 Zofran No David 4 mg, 2 Mark magdy 2-16 Ronnie mL, Route: l 15:57: IVP, Drug form: INJ, Q8H, PRN Nausea, Start date: 10/05/11 9:57:00, Duration: 30 day, Stop date: 11/04/11 9:56:00 naloxone No David 0.2 mg, Me moria 2-16 Ronnie 0.5 mL, l 15:57: Route: Ernesto 00 IVP, Drug form: INJ, Q5Min, PRN Narcotic Reversal, Start date: 10/05/11 9:57:00, Duration: 30 day, Stop date: 11/04/11 10:56:00 morphine No David IV, Start Memoria Sulfate 30 2-16 Ronnie date: l mg 15:56: 10/05/11 [place] 00 9:56:00, Duration: 30, 30 ml morphine No David IV, Start Memoria Sulfate 30 2-16 Ronnie date: l mg 15:56: 10/05/11 [place] 9:56:00, Duration: 30, 30 ml heparin No David 5,000 Memor ia 2-16 Ronnie unit, 1 l 12:00: mL, Route: [place] 00 SUB-Q, Drug form: INJ, ONCALL, Start date: 10/05/11 6:00:00, Duration: 12 hr, Stop date: 10/05/11 17:59:00 Invanz No David 1 gm, Memori a 2-16 Ronnie Route: l 12:00: IVPB, [place] 00 ONCALL, Start date: 10/05/11 6:00:00, Duration: 12 hr, Stop date: 10/05/11 17:59:00 chlorhexidi No David 15 mL, Memoria ne topical 2-16 Ronnie Route: l 0.12% 12:00: S&SPIT, Ernesto liquid 00 ONCALL, Drug form: LIQ, Start date: 10/05/11 6:00:00, Duration: 12 hr, Stop date: 10/05/11 17:59:00 heparin No David 5,000 Memor ia 2-16 Ronnie unit, 1 l 12:00: mL, Route: [place] 00 SUB-Q, Drug form: INJ, ONCALL, Start date: 10/05/11 6:00:00, Duration: 12 hr, Stop date: 10/05/11 17:59:00 Invanz No David 1 gm, Memori a 2-16 Ronnie Route: l 12:00: IVPB, Ernesto 00 ONCALL, Start date: 10/05/11 6:00:00, Duration: 12 hr, Stop date: 10/05/11 17:59:00 chlorhexidi No David 15 mL, Memoria ne topical 2-16 Ronnie Route: l 0.12% 12:00: S&SPIT, [place] liquid 00 ONCALL, Drug form: LIQ, Start date: 10/05/11 6:00:00, Duration: 12 hr, Stop date: 10/05/11 17:59:00 Immunizations Ordered Filled Immunization Date Status Comments [facility] e Immunization Name Name Influenza Virus 2020-04-28 Completed [facility] Vaccine 00:00:00 [facility] TDAP 2017-09-03 Completed University 00:00:00 [facility] Influenza Virus 2014-07-15 Completed [facility] Vaccine 00:00:00 [facility] Vital Signs Vital Name Observation Time Observation Value Comments Source Systolic blood 2021-10-24 20:08:00 112 mm[Hg] [facility] of pressure Medicine Diastolic blood 2021-10-24 20:08:00 75 mm[Hg] [facility] of pressure Medicine Heart rate 2021-10-24 20:08:00 65 /min [facility] Body height 2021-10-24 20:08:00 182.9 cm [facility] Body weight 2021-10-24 20:08:00 95.346 kg [facility] BMI 2021-10-24 20:08:00 28.51 kg/m2 [facility] WEIGHT 2021-10-13 07:13:00 98.6 kg WEIGHT 2021-10-12 07:00:00 104 kg HEIGHT 2021-10-11 06:14:00 182.9 cm WEIGHT 2021-10-11 06:14:00 97.3 kg HEIGHT 2021-10-07 11:58:00 182.9 cm WEIGHT 2021-10-07 11:58:00 97.523 kg WEIGHT 2021-10-13 07:13:00 98.6 kg WEIGHT 2021-10-12 07:00:00 104 kg HEIGHT 2021-10-11 06:14:00 182.9 cm WEIGHT 2021-10-11 06:14:00 97.3 kg HEIGHT 2021-10-07 11:58:00 182.9 cm WEIGHT 2021-10-07 11:58:00 97.523 kg Systolic blood 2021-09-26 22:38:00 132 mm[Hg] [facility] pressure Medicine Diastolic blood 2021-09-26 22:38:00 84 mm[Hg] [facility] of pressure Medicine Heart rate 2021-09-26 22:38:00 68 /min [facility] Body height 2021-09-26 22:38:00 182.9 cm [facility] Body weight 2021-09-26 22:38:00 98.884 kg [facility] BMI 2021-09-26 22:38:00 29.57 kg/m2 [facility] HEIGHT 2021-09-06 06:35:00 182.9 cm WEIGHT 2021-09-06 06:35:00 97.07 kg HEIGHT 2021-08-31 09:31:00 182.9 cm WEIGHT 2021-08-31 09:31:00 97.523 kg HEIGHT 2021-09-06 06:35:00 182.9 cm WEIGHT 2021-09-06 06:35:00 97.07 kg HEIGHT 2021-08-31 09:31:00 182.9 cm WEIGHT 2021-08-31 09:31:00 97.523 kg Respitory Rate 2020-02-26 18:50:00 Memori al [place] Systolic (mm Hg) 2020-02-26 18:50:00 Mark rial [place] Diastolic (mm Hg) 2020-02-26 18:50:00 Mem orial [place] Temperature Oral (F) 2020-02-26 18:50:00 98.2 F [facility] Ernesto Temperature Oral (F) 2020-02-26 17:11:00 98.1 F [facility] [place] Respitory Rate 2020-02-26 17:11:00 Memori al [place] Systolic (mm Hg) 2020-02-26 17:11:00 Mark rial [place] Diastolic (mm Hg) 2020-02-26 17:11:00 Mem orial Ernesto Respitory Rate 2020-02-26 14:28:00 Memori al Ernesto Systolic (mm Hg) 2020-02-26 14:28:00 Mark rial [place] Diastolic (mm Hg) 2020-02-26 14:28:00 Mem orial [place] Temperature Oral (F) 2020-02-26 12:43:00 97.9 F [facility] Ernesto Heart Rate 2020-02-25 23:15:00 [facility] [place] Heart Rate 2020-02-25 20:15:00 [facility] Ernesto Height 2020-02-25 18:37:00 180.34 cm [facility] [place] BMI Calculated 2020-02-25 18:37:00 Memori al [place] Weight 2020-02-25 18:37:00 [facility] [place] Heart Rate 2020-02-25 18:37:00 [facility] [place] Weight 2014-04-07 17:34:00 [facility] [place] BMI Calculated 2014-04-07 17:34:00 Memori al Ernesto Height 2014-04-07 17:34:00 182.88 cm [facility] [place] Height 2011-12-05 13:51:00 180.34 cm [facility] [place] Weight 2011-12-05 13:51:00 [facility] Ernesto Diastolic (mm Hg) 2011-10-07 13:17:00 Mem orial Ernesto Respitory Rate 2011-10-07 13:17:00 Memori al Ernesto Heart Rate 2011-10-07 13:17:00 [facility] [place] Temperature Oral (F) 2011-10-07 13:17:00 97.8 F [facility] [place] Systolic (mm Hg) 2011-10-07 13:17:00 Mark rial [place] Respitory Rate 2011-10-07 11:00:00 Memori al [place] Systolic (mm Hg) 2011-10-07 11:00:00 Mark rial [place] Heart Rate 2011-10-07 11:00:00 [facility] [place] Diastolic (mm Hg) 2011-10-07 11:00:00 Mem orial Ernesto Temperature Oral (F) 2011-10-07 11:00:00 98.7 F [facility] [place] Diastolic (mm Hg) 2011-10-07 07:00:00 Mem orial [place] Systolic (mm Hg) 2011-10-07 07:00:00 Mark rial Ernesto Respitory Rate 2011-10-07 07:00:00 Memori al Ernesto Heart Rate 2011-10-07 07:00:00 [facility] [place] Temperature Oral (F) 2011-10-07 07:00:00 97.4 F [facility] Weight 2011-10-04 17:50:00 [facility] [place] Height 2011-10-04 17:50:00 177.80 cm [facility] [place] Procedures This patient has no known procedures. Plan of Care Planned Activity Planned Date Details Comments Source Future Scheduled 2021-10-24 Screening for malignant [facility] Test 14:06:57 neoplasm of colon Medicine (procedure) [code = 403171205] Future Scheduled 2021-10-24 Hemoglobin A1c [facility] Test 14:06:57 measurement (procedure) Medi cine [code = 97402711] Future Scheduled 2021-10-24 COVID-19 Vaccine (1) [facility] of Test 14:06:57 [code = COVID-19 Vaccine Med icine (1)] Future Scheduled 2021-10-24 Diabetic foot examination [facility] Test 14:06:57 (regime/therapy) [code = Med icine 216532583] Future Scheduled 2021-10-24 ANNUAL DIABETIC [facility] of Test 14:06:57 RETINOPATHY SCREENING Medici ne [code = ANNUAL DIABETIC RETINOPATHY SCREENING] Future Scheduled 2021-10-24 Human immunodeficiency B [facility] Test 14:06:57 virus screening Medicine (procedure) [code = 513848404] Future Scheduled 2021-10-24 ZOSTER VACCINE (1 of 2) [facility] of Test 14:06:57 [code = ZOSTER VACCINE (1 Me dicine of 2)] Future Scheduled 2021-10-24 FLU VACCINE > 6 MONTHS B [facility] Test 14:06:57 [code = FLU VACCINE > 6 Medi cine MONTHS] Future Scheduled 2021-10-24 BMI FOLLOW UP PLAN [code [facility] of Test 14:06:57 = BMI FOLLOW UP PLAN] Medici ne Future Scheduled 2021-10-24 TETANUS SHOT (ADULT) [facility] of Test 14:06:57 [code = TETANUS SHOT Medicin e (ADULT)] Future Scheduled 2021-09-26 Screening for malignant [facility] Test 16:39:38 neoplasm of colon Medicine (procedure) [code = 716604659] Future Scheduled 2021-09-26 Hemoglobin A1c [facility] Test 16:39:38 measurement (procedure) Medi cine [code = 76596407] Future Scheduled 2021-09-26 COVID-19 Vaccine (1) [facility] Test 16:39:38 [code = COVID-19 Vaccine Med icine (1)] Future Scheduled 2021-09-26 Diabetic foot examination [facility] Test 16:39:38 (regime/therapy) [code = Med icine [id number]] Future Scheduled 2021-09-26 ANNUAL DIABETIC [facility] of Test 16:39:38 RETINOPATHY SCREENING Medici ne [code = ANNUAL DIABETIC RETINOPATHY SCREENING] Future Scheduled 2021-09-26 Human immunodeficiency B [facility] Test 16:39:38 virus screening Medicine (procedure) [code = 662284270] Future Scheduled 2021-09-26 ZOSTER VACCINE (1 of 2) [facility] of Test 16:39:38 [code = ZOSTER VACCINE (1 Me dicine of 2)] Future Scheduled 2021-09-26 FLU VACCINE > 6 MONTHS B [facility] Test 16:39:38 [code = FLU VACCINE > 6 Medi cine MONTHS] Future Scheduled 2021-09-26 TETANUS SHOT (ADULT) [facility] of Test 16:39:38 [code = TETANUS SHOT Medicin e (ADULT)] Future Scheduled 2021-08-24 COVID-19 Vaccine (1) [facility] of Test 08:40:09 [code = COVID-19 Vaccine Med icine (1)] Future Scheduled 2021-08-24 Diabetic foot examination [facility] of Test 08:40:09 (regime/therapy) [code = Med icine [id number]] Future Scheduled 2021-08-24 ANNUAL DIABETIC [facility] Test 08:40:09 RETINOPATHY SCREENING Medici ne [code = ANNUAL DIABETIC RETINOPATHY SCREENING] Future Scheduled 2021-08-24 Human immunodeficiency B [facility] 08:40:09 virus screening Medicine (procedure) [code = 255089223] Future Scheduled 2021-08-24 ZOSTER VACCINE (1 of 2) [facility] of Test 08:40:09 [code = ZOSTER VACCINE (1 Me dicine of 2)] Future Scheduled 2021-08-24 FLU VACCINE > 6 MONTHS B [facility] Test 08:40:09 [code = FLU VACCINE > 6 Medi cine MONTHS] Future Scheduled 2021-08-24 TETANUS SHOT (ADULT) [facility] Test 08:40:09 [code = TETANUS SHOT Medicin e (ADULT)] Future Scheduled 2021-08-24 Screening for malignant [facility] 08:40:09 neoplasm of colon Medicine (procedure) [code = 248105266] Future Scheduled 2021-08-24 Hemoglobin A1c [facility] of Test 08:40:09 measurement (procedure) Medi cine [code = 83958653] Encounters Start End Encounter Admission Attending Care Care Encounter Source Date/Time Date/Time Type Type Clinicians Facility Department ID 2022-02-01 Outpatient [facility] [id number] [place] 12:21:56 [id number] Health 2021-06-21 Emergency [facility] [id number] Univers 09:09:44 ity of [facility] 2021-06-20 Emergency [facility] [id number] Univers 18:47:36 ity of [facility] 2021-06-20 Emergency [facility] [id number] Univers 15:22:30 ity of [facility] 2021-06-19 Emergency [facility] [id number] Univers 17:58:35 ity of [facility] 2021-06-19 Emergency [facility] [id number] Univers 10:06:08 ity of [facility] 2022-03-31 2022-03-31 Outpatient Luis Manuel MARTIN, [facility] [id number] Univers 08:00:00 08:00:00 MARCELO [id number] [facility] 2021-11-21 2021-11-21 Outpatient GOOD COWAN [facility] [id number] [facility] 10:52:43 11:04:05 SAMER [facility] 2021-10-24 2021-10-24 Office MATTHIAS COWAN [id number] [facility] 14:03:12 14:36:54 Visit SAMER AMBULATOR [id number] College Y 0.2.7.2.686 of [id number] [facility] abhilash 805 e 2021-10-11 2021-10-15 Inpatient EL CHAPO, [facility] Surgery [id number] [facility] 05:23:00 11:13:00 SAMER 2021-10-11 2021-10-11 Outpatient [facility] [id number] [facility] 05:23:00 23:59:00 Colleg e of Medicin e 2021-10-07 2021-10-07 Outpatient EL CAMDENTAR, [facility] [id number] [facility] 14:34:19 23:59:00 SAMER 2021-10-07 2021-10-07 Outpatient EL CAMDENTAR, [facility] [id number] [facility] 12:23:22 13:59:00 SAMER 2021-10-07 2021-10-07 Outpatient EL SLE SLE [id number] [facility] 00:00:00 00:00:00 2021-09-26 2021-09-27 Office CHAPOMATTHIAS [id number] [facility] 16:29:54 08:04:48 Visit SAMER AMBULATOR [id number] College Y 0.2.7.2.686 of [id number] [facility] abhilash 805 e 2021-09-06 2021-09-06 Outpatient EL MATTAR, [facility] Surgery [id number] [facility] 05:51:00 09:00:00 SAMER 2021-08-31 2021-08-31 Outpatient EL SLE SLE [id number] SLE 09:45:00 23:59:00 2021-08-24 2021-08-24 Outpatient JUNI [facility] [id number] [facility] 15:53:21 16:17:57 DIMPI [facility] 2021-08-23 2021-08-23 Office GOOD Alfredo [id number] [facility] 08:00:00 08:30:00 Visit Dimpi Oliver AMBULATOR 350.1.13.21 College Y 0.2.7.2.686 of [id number] [facility] abhilash 310 e 2021-08-08 2021-08-08 Outpatient CHAPO [facility] [id number] [facility] 16:16:21 16:45:15 SAMER [facility] 2021-06-14 2021-06-14 Transition Landon Askewkrissy [id number] Univers 00:00:00 00:00:00 of Care [place] Herrera [id number] it [id number] [id number] [facility] jaye [address] 2021-01-12 2021-01-15 Inpatient [facility] [id number] [address] [place] 00:00:00 00:00:00 OMAYRA [address] 2020-03-13 2020-03-18 Inpatient [facility], [facility] [id number] [address] [place] 00:00:00 00:00:00 OMAYRA [address] 2020-02-26 2020-03-01 Inpatient U [facility] [id number] 15:07:00 11:33:[address] [facility] 2020-02-25 2020-02-26 Inpatient nullFlavo [facility] [id number] [place] 18:27:29 20:01:00 luis manuel Ring l [facility] 2020-02-25 2020-02-26 Inpatient E GABRIELLA [facility] MED [id number] [address] 18:06:00 15:01:00 EDEN 2014-04-07 2014-04-07 [facility] [id number] 575 [place] 17:16:00 19:15:00 Outpatient luis manuel [facility] 2011-12-05 2011-12-05 SANDIP nullFlavo [facility] [id number] Mem[place] 07:47:00 10:22:00 [facility] 01 [facility] 2011-10-05 2011-10-07 Inpatient nullFlavo [facility] [id number] [facility] 05:40:00 13:55:00 r [facility] Results Test Description Test Time Test Comments Results Result Comments Source (CELLAVISION MANUAL DIFF) 2021-10-15 09:56:47 Test Item Value Reference Range Interpretation Comme nts NEUTROPHILS - REL (CELLAVISION)(BEAKER) (test code = 2816) 62 % LYMPHOCYTES - REL (CELLAVISION)(BEAKER) (test code = 2817) 18 % MONOCYTES - REL (CELLAVISION)(BEAKER) (test code = 2818) 10 % EOSINOPHILS - REL (CELLAVISION)(BEAKER) (test code = 2819) 7 % BASOPHILS - REL (CELLAVISION)(BEAKER) (test code = 2820) 1 % BANDS - REL (CELLAVISION)(BEAKER) (test code = 2826) 1 % 0 -10 NEUTROPHILS - ABS (CELLAVISION)(BEAKER) (test code = 2830) 6.70 K/ul 1.78-5.38 H LYMPHOCYTES - ABS (CELLAVISION)(BEAKER) (test code = 2831) 1.94 K/u l 1.32-3.57 MONOCYTES - ABS (CELLAVISION)(BEAKER) (test code = 2832) 1.08 K/uL 0.30-0.82 H EOSINOPHILS - ABS (CELLAVISION)(BEAKER) (test code = 2834) 0.76 K/uL 0.04-0.54 H BASOPHILS - ABS (CELLAVISION)(BEAKER) (test code = 2835) 0.11 K/uL 0.01-0.08 H BANDS - ABS (CELLAVISION)(BEAKER) (test code = 2840) 0.11 K/uL 0 .00-0.80 TOTAL COUNTED (BEAKER) (test code = 1351) 100 WBC MORPHOLOGY (BEAKER) (test code = 487) Normal GIANT PLATELETS (BEAKER) (test code = 313) Present POLYCHROMATOPHILLIC RBCS(BEAKER) (test code = 478) 2+ moderate ANISOCYTOSIS (BEAKER) (test code = 961) 2+ moderate MICROCYTES (BEAKER) (test code = 965) 1+ few MACROCYTES (BEAKER) (test code = 964) 2+ moderate POIKILOCYTES (BEAKER) (test code = 966) 2+ moderate TARGET CELLS (BEAKER) (test code = 480) 2+ moderate SCHISTOCYTES (BEAKER) (test code = 765) 1+ few ELLIPTOCYTES (BEAKER) (test code = 962) 1+ few OVALOCYTES (BEAKER) (test code = 477) 2+ moderate TEAR DROP CELLS (BEAKER) (test code = 481) 1+ few ARTIFACT (CELLAVISION)(BEAKER) (test code = 3432) Present PLATELET CONCENTRATION (CELLAVISION)(BEAKER) (test code = Adequate 3438) Field Manager ID - Julio-Stevie Og comments: Slide comments:CBC W/PLT COUNT & AUTO [id number] 09:56:46 Test Item Value Reference Range Interpretation Comments WHITE BLOOD CELL COUNT (BEAKER) 10.8 K/ L 3.5-10.5 H (test code = 775) RED BLOOD CELL COUNT (BEAKER) 4.33 M/ L 4.63-6.08 L (test code = 761) HEMOGLOBIN (BEAKER) (test code = 10.5 GM/DL 13.7-17.5 L 410) HEMATOCRIT (BEAKER) (test code = 34.7 % 40.1-51.0 L 411) MEAN CORPUSCULAR VOLUME (BEAKER) 80.1 fL 79.0-92.2 (test code = 753) MEAN CORPUSCULAR HEMOGLOBIN 24.2 pg 25.7-32.2 L (BEAKER) (test code = 751) MEAN CORPUSCULAR HEMOGLOBIN CONC 30.3 GM/DL 32.3-36.5 L (BEAKER) (test code = 752) RED CELL DISTRIBUTION WIDTH 17.5 % 11.6-14.4 H (BEAKER) (test code = 412) PLATELET COUNT (BEAKER) (test 188 K/CU MM 150-450 code = 756) MEAN PLATELET VOLUME (BEAKER) 12.2 fL 9.4-12.4 (test code = 754) NUCLEATED RED BLOOD CELLS 0 /100 WBC 0-0 (BEAKER) (test code = 413) RAD, CHEST, 1 VIEW, NON [id number] 07:14:00Reason for exam:->fup congestionShould this be performed at the bedside?->Yes [facility] 1970 Sex: MFINALREPORT EXAM/TECHNIQUE: Single view frontal radiograph of the chest. INDICATION:Follow-up congestion. COMPARISON: 10/14/2021 FINDINGS: Devices/Objects: None. Lungs: Similar left pleural effusion and basilar opacity. Heart/Mediastinum: Similar cardiomegaly and interstitial thickening. Osseous: No acute osseous process. No suspicious osseous lesion. Upper abdomen: Unremarkable. Impression: Similar left pleural effusion and basilar opacity. Signed: Nakul Robles MDReport Verified Date/Time: 10/15/2021 07:14:49 PHOSPHORUS 2021-10-15 06:29:51 Test Item Value Reference Range Interpretation Comments PHOSPHORUS (BEAKER) (test code = 3.8 mg/dL 2.3-4.7 604) Field Manager ID - ALANIS EPATIC FUNCTION [id number] 06:29:51 Test Item Value Reference Range Interpretation Comments TOTAL PROTEIN (BEAKER) (test code = 5.2 gm/dL 6.0-8.3 L 770) ALBUMIN (BEAKER) (test code = 1145) 3.3 g/dL 3.5-5.0 L BILIRUBIN TOTAL (BEAKER) (test code 0.8 mg/dL 0.2-1.2 = 377) BILIRUBIN DIRECT (BEAKER) (test 0.4 mg/dL 0.1-0.5 code = 706) ALKALINE PHOSPHATASE (BEAKER) (test 276 U/L 40-150 H code = 346) AST (SGOT) (BEAKER) (test code = 111 U/L 5-34 H 353) ALT (SGPT) (BEAKER) (test code = 286 U/L 6-55 H 347) Field Manager ID - ALANIS [id number] 06:29:50 Test Item Value Reference Range Interpretation Comments MAGNESIUM (BEAKER) (test code = 1.5 mg/dL 1.6-2.6 L 627) Field Manager ID - ALANIS MBASIC METABOLIC [id number] 06:29:50 Test Item Value Reference Range Interpretation Comments SODIUM (BEAKER) 138 meq/L 136-145 (test code = 381) POTASSIUM (BEAKER) 3.7 meq/L 3.5-5.1 (test code = 379) CHLORIDE (BEAKER) 104 meq/L 98-107 (test code = 382) CO2 (BEAKER) (test 29 meq/L 22-29 code = 355) BLOOD UREA NITROGEN 11 mg/dL 7-21 (BEAKER) (test code = 354) CREATININE (BEAKER) 0.93 mg/dL 0.57-1.25 (test code = 358) GLUCOSE RANDOM 61 mg/dL 70-105 L (BEAKER) (test code = 652) CALCIUM (BEAKER) 8.9 mg/dL 8.4-10.2 (test code = 697) EGFR (BEAKER) (test 85 mL/min/1.73 ESTIMA YESICA GFR IS code = 1092) sq m NOT ACCURATE CREATININE CLEARANCE IN PREDICTING GLOMERULAR FILTRATION RATE . ESTIMATED GFR I S NOT APPLICABLE FOR DIALYSIS PATIEN TS. Field Manager ID - ALANIS MB-TYPE NATRIURETIC FACTOR (BNP)2021-10-15 06:22:31 Test Item Value Reference Range Interpretation Comments B-TYPE NATRIURETIC PEPTIDE (BEAKER) 125 pg/mL 0-100 H (test code = 700) Field Manager ID - ALANIS [id number] 18:26:28 Test Item Value Reference Range Interpretation Comments PHOSPHORUS (BEAKER) (test code = 2.9 mg/dL 2.3-4.7 604) Field Manager ID - MIKE [id number] 18:26:23 Test Item Value Reference Range Interpretation Comments MAGNESIUM (BEAKER) (test code = 1.5 mg/dL 1.6-2.6 L 627) Field Manager ID - MIKE LRAD, CHEST, 1 VIEW, NON [id number] 07:35:00Reason for exam:->eval ett and lung fieldsShould this be performed at the bedside?->Yes[facility] : 1970 Sex: MFINALREPORT Exam: RAD, CHEST, 1 VIEW, NON DEPTDate: 10/14/2021 7:25 AM Indication:eval ett and lung fieldsComparison: 10/13/2021 FINDINGS: Lines/Tubes/Devices: None Lungs/pleura:Lungs arewell inflated. Prominent/indistinct pulmonary vascularity, interval worsening. Left base airspace opacity. Small left-sided effusion. No definitive pneumothorax is seen at this time. Heart/Mediastinum:Unchanged Bones/Soft Tissues: No acute osseous abnormality. Upper abdomen: Unremarkable. Bilateral upper chest subcutaneous emphysema noted. IMPRESSION:Prominent/indistinct vascularity, worsening fluid s tatus.Left base airspace opacity, likely atelectasis with small left-sided effusion. Signed: Bud Hanna Verified Date/Time: 10/14/2021 07:35:19 Reading Location: [facility] Radiology Reading Room CBC W/PLT COUNT & AUTO [id number] 05:18:33 Test Item Value Reference Range Interpretation Comments WHITE BLOOD CELL COUNT (BEAKER) 9.9 K/ L 3.5-10.5 (test code = 775) RED BLOOD CELL COUNT (BEAKER) 3.91 M/ L 4.63-6.08 L (test code = 761) HEMOGLOBIN (BEAKER) (test code = 9.6 GM/DL 13.7-17.5 L 410) HEMATOCRIT (BEAKER) (test code = 30.8 % 40.1-51.0 L 411) MEAN CORPUSCULAR VOLUME (BEAKER) 78.8 fL 79.0-92.2 L (test code = 753) MEAN CORPUSCULAR HEMOGLOBIN 24.6 pg 25.7-32.2 L (BEAKER) (test code = 751) MEAN CORPUSCULAR HEMOGLOBIN CONC 31.2 GM/DL 32.3-36.5 L (BEAKER) (test code = 752) RED CELL DISTRIBUTION WIDTH 17.2 % 11.6-14.4 H (BEAKER) (test code = 412) PLATELET COUNT (BEAKER) (test 172 K/CU MM 150-450 code = 756) MEAN PLATELET VOLUME (BEAKER) 11.7 fL 9.4-12.4 (test code = 754) NUCLEATED RED BLOOD CELLS 0 /100 WBC 0-0 (BEAKER) (test code = 413) NEUTROPHILS RELATIVE PERCENT 73 % (BEAKER) (test code = 429) LYMPHOCYTES RELATIVE PERCENT 9 % (BEAKER) (test code = 430) MONOCYTES RELATIVE PERCENT 13 % (BEAKER) (test code = 431) EOSINOPHILS RELATIVE PERCENT 4 % (BEAKER) (test code = 432) BASOPHILS RELATIVE PERCENT 0 % (BEAKER) (test code = 437) NEUTROPHILS ABSOLUTE COUNT 7.22 K/ L 1.78-5.38 H (BEAKER) (test code = 670) LYMPHOCYTES ABSOLUTE COUNT 0.92 K/ L 1.32-3.57 L (BEAKER) (test code = 414) MONOCYTES ABSOLUTE COUNT (BEAKER) 1.25 K/ L 0.30-0.82 H (test code = 415) EOSINOPHILS ABSOLUTE COUNT 0.42 K/ L 0.04-0.54 (BEAKER) (test code = 416) BASOPHILS ABSOLUTE COUNT (BEAKER) 0.03 K/ L 0.01-0.08 (test code = 417) IMMATURE GRANULOCYTES-RELATIVE 1 % 0-1 PERCENT (BEAKER) (test code = 2801) [id number] 05:12:02 Test Item Value Reference Range Interpretation Comments PHOSPHORUS (BEAKER) (test code = 2.8 mg/dL 2.3-4.7 604) Field Manager ID Sylvia JUAN WHEPATIC FUNCTION [id number] 05:12:02 Test Item Value Reference Range Interpretation Comments TOTAL PROTEIN (BEAKER) (test code = 4.9 gm/dL 6.0-8.3 L 770) ALBUMIN (BEAKER) (test code = 1145) 3.2 g/dL 3.5-5.0 L BILIRUBIN TOTAL (BEAKER) (test code 0.9 mg/dL 0.2-1.2 = 377) BILIRUBIN DIRECT (BEAKER) (test 0.5 mg/dL 0.1-0.5 code = 706) ALKALINE PHOSPHATASE (BEAKER) (test 272 U/L 40-150 H code = 346) AST (SGOT) (BEAKER) (test code = 218 U/L 5-34 H 353) ALT (SGPT) (BEAKER) (test code = 408 U/L 6-55 H 347) Field Manager ID Sylvia JUAN WBASIC METABOLIC [id number] 05:12:01 Test Item Value Reference Range Interpretation Comments SODIUM (BEAKER) 137 meq/L 136-145 (test code = 381) POTASSIUM (BEAKER) 3.9 meq/L 3.5-5.1 (test code = 379) CHLORIDE (BEAKER) 103 meq/L 98-107 (test code = 382) CO2 (BEAKER) (test 29 meq/L 22-29 code = 355) BLOOD UREA NITROGEN 17 mg/dL 7-21 (BEAKER) (test code = 354) CREATININE (BEAKER) 1.01 mg/dL 0.57-1.25 (test code = 358) GLUCOSE RANDOM 155 mg/dL 70-105 H (BEAKER) (test code = 652) CALCIUM (BEAKER) 8.5 mg/dL 8.4-10.2 (test code = 697) EGFR (BEAKER) (test 77 mL/min/1.73 ESTIMA YESICA GFR IS code = 1092) sq m NOT ACCURATE CREATININE CLEARANCE IN PREDICTING GLOMERULAR FILTRATION RATE . ESTIMATED GFR I S NOT APPLICABLE FOR DIALYSIS PATIEN TS. Field Manager ID - YESSICA [id number] 05:12:01 Test Item Value Reference Range Interpretation Comments MAGNESIUM (JOSE) (test code = 1.7 mg/dL 1.6-2.6 627) Field Manager ID - YESSICA CRUZ/S, ABDOMINAL, WITH [id number] 18:47:00Please add doppler Abdomen limited area? Add comment if clarification is needed.->Liver Reason for exam:->abnormal LFT; r/o hepatic and biliary duct pathology [facility] 1970 Sex: MFINALREPORT TECHNIQUE: Grayscale ultrasound of the abdomen with color Doppler and spectral Doppler ultrasound of the portal/hepatic vasculature. INDICATION: abnormal LFT; r/o hepatic and biliary duct pathology. COMPARISON: CT from 10/13/2021. FINDINGS: LIVER: Smooth liver contour. No focal liver lesions. HEPATIC VASCULATURE: Portal veins are patent with normal waveform and directionality. Flow velocity in the main portal vein is within normal limits. The hepatic arteries are patent with normal flow velocities, resistive indices, and waveforms. The hepatic veins and confluence are patent. The main portal vein measures 1.4 cm in diameter. The hepatic arterial resistive indices range from 0.6-0.7 with a proper hepatic arterial acceleration time of 0.07 seconds. BILIARY:Gallbladder: Surgically absentCommon bile duct measures 0.6 cm, within normal limits. No intrahepatic biliary ductaldilatation. PANCREAS: Not well visualized due to overlying bowel gas. SPLEEN: No splenomegaly. The spleen measures 12.6 cm in length. PERITONEUM: Trace perihepatic ascites. KIDNEYS: Normal in size bilaterally. No hydronephrosis. No sonographically evident solid mass lesion. MIDLINE VASCULATURE: The visualized inferior vena cava is patent. The maximum visualized aortic diameter is 2.6 cm. Splenic artery and vein are patent. IMPRESSION: 1.No abnormality is seen in the left hepatic lobe to correspond with the findings seen on CT. A reaction to the adjacent inflammation is possible. 2.The main portal vein is mildly dilated at 1.4 cm in diameter. 3.Trace perihepatic ascites Signed: Rema Mccauley MDReportVerified Date/Time: 10/13/2021 18:47:34 [id number] 16:43:19 Test Item Value Reference Range Interpretation Comments PHOSPHORUS (BEAKER) 2.8 mg/dL 2.3-4.7 Specimen slightly (test code = 604) hemolyzed Field Manager ID - BSBASIC METABOLIC [id number] 16:43:19 Test Item Value Reference Range Interpretation Comments SODIUM (BEAKER) 131 meq/L 136-145 L (test code = 381) POTASSIUM (BEAKER) 4.3 meq/L 3.5-5.1 Specimen slightly (test code = 379) hemolyzed CHLORIDE (BEAKER) 99 meq/L 98-107 (test code = 382) CO2 (BEAKER) (test 30 meq/L 22-29 H code = 355) BLOOD UREA NITROGEN 21 mg/dL 7-21 (BEAKER) (test code = 354) CREATININE (BEAKER) 1.14 mg/dL 0.57-1.25 Specimen slightly (test code = 358) hemolyzed GLUCOSE RANDOM 255 mg/dL 70-105 H (BEAKER) (test code = 652) CALCIUM (BEAKER) 8.5 mg/dL 8.4-10.2 (test code = 697) EGFR (BEAKER) (test 67 mL/min/1.73 ESTIMA YESICA GFR IS code = 1092) sq m NOT ACCURATE CREATININE CLEARANCE IN PREDICTING GLOMERULAR FILTRATION RATE . ESTIMATED GFR I S NOT APPLICABLE FOR DIALYSIS PATIEN TS. Field Manager ID - [id number] 16:43:18 Test Item Value Reference Range Interpretation Comments MAGNESIUM (BEAKER) 1.8 mg/dL 1.6-2.6 Specimen slightly (test code = 627) hemolyzed Field Manager ID - BSPOCT-GLUCOSE [id number] 16:08:48 Test Item Value Reference Range Interpretation Comments POC-GLUCOSE METER 239 mg/dL 70-110 H : TESTED A T [facility] 6720 (BEAKER) (test code = [place], 1538) [address]: Field Manager/Techni raheem ID = [id number] for Ga lvan (contract), Warren id CT, [id number] 15:46:00Evaluate distal esophagus and stomach s/p gastric bypass reversal and hiatal hernia repairUnlisted Reason for Exam - Click Yes and Enter Reason Below->NoIs this for enterography?->NoWill this procedure require oral contrast?->Yes [facility] 1970 Sex: MFINALREPORT CT, ABDOMEN \\T\\ PELVIS, WITH IV CONTRAST HISTORY: Hernia, complicated COMPARISON: None TECHNIQUE: CT of the abdomen and pelvis WITH intravenous contrast. The examination wasperformed according to the departmental dose-optimization program, which includes automated exposurecontrol, adjustment of the mA and/or kV according to patient size and/or use of iterative reconstruction technique. FINDINGS: Lower thorax: Moderate left and small right pleural effusions. Complete atelectasis of the visualized left lower lobe partial atelectasis of the visualized right lower lobe. Small pneumomediastinum. Small left pneumothorax.Liver: Geographic regions of hypoattenuation in the left lobe the liver peripherally.Gallbladder and bile ducts: Surgically absent gallbladder. No biliary dilatation.Spleen: Mildly enlarged.Pancreas: The pancreas is atrophic, very little normal pancreatic parenchyma seen. No pancreatic ductal dilation.Adrenals: UnremarkableKidneys and ureters: Punctate nonobstructive bilateral renal calculi. No hydronephrosis bilaterally.Bowel: Wall thickening of the distal esophagus circumferentially. Wall thickening of the proximal stomach with surgical changes from gastric bypass reversal. Oral contrast reaches the distal small bowel. No evidence for bowel obstructio n.Bladder: Punctate focus of gas in the urinary bladder is likely iatrogenic and otherwise unremarkable.Reproductive organs: Unremarkable.Lymph nodes: Unremarkable.Peritoneum and retroperitoneum: Smallpneumoperitoneum in the upper abdomen. Punctate foci of extraluminal gas in the left upper quadrant of the abdomen near the gastric bypass reversal. No extraluminal contrast identified. Trace nonspecific free peritoneal fluid in the pelvis. Stranding in the upper retroperitoneum near the operative bed.Vessels: Mild atherosclerotic calcifications.Abdominal wall: Postsurgical changes in the anterior abdominal wall. Left inguinal hernia, small fat-containingBones: Diffusely mildly sclerotic appearance of the bones, likely renal osteodystrophy. Mild retrolisthesis of L5 on S1 and degenerative changes most notable at L5-S1.. IMPRESSION: 1.Wall thickening of the stomach in the region bypass reversal, and wall thickening of the distal esophagus, possibly postoperative changes, no definite pneumatosis orany extra luminal contrast to suggest a leak. 2.Small left pneumothorax, small pneumomediastinum, small pneumoperitoneum and punctate foci of extraluminal gas in the left upper quadrant are likely postoperative. 3.Moderate left and small right pleural effusions with adjacent atelectatic changes. Superimposed pneumonia not excluded. 4.Geographic regions of hypoattenuation in the left lobe the liver are probably related to geographic hepatic steatosis, low suspicion for infarcts. 5.Punctate nonobstructive bilateral renal calculi. Signed: Ashley Knight MDReport Verified Date/Time: 10/13/2021 15:46:09 Reading Location: [facility] [id number] Ortho Consult Reading Room HEPATITIS PANEL, [id number] 13:39:13 Test Item Value Reference Range Interpretation Comments HEPATITIS A IGM ANTIBODY (BEAKER) Nonreactive Nonreactive (test code = 498) HEPATITIS B CORE IGM ANTIBODY Nonreactive Nonreactive (BEAKER) (test code = 645) HEPATITIS C ANTIBODY (BEAKER) Nonreactive Nonreactive (test code = 367) HEPATITIS B SURFACE ANTIGEN (2) Nonreactive Nonreactive (BEAKER) (test code = 2585) Field Manager ID - BSPOCT-GLUCOSE [id number] 12:23:18 Test Item Value Reference Range Interpretation Comments POC-GLUCOSE METER 266 mg/dL 70-110 H : TESTED A T [facility] 6720 (BEAKER) (test code = [facility], 1538) [address]: Field Manager/Techni raheem ID = [id number] for Ga lvan (contract), Warren id POCT-GLUCOSE [id number] 08:00:11 Test Item Value Reference Range Interpretation Comments POC-GLUCOSE METER 242 mg/dL 70-110 H : TESTED A T [facility] 6720 (BEAKER) (test code = [facility], 1538) [address]: Field Manager/Techni raheem ID = [id number] for Ga lvan (contract), Warren id T4, [id number] 05:32:54 Test Item Value Reference Range Interpretation Comments FREE T4 (BEAKER) (test code = 655) 0.95 ng/dL 0.70-1.48 Field Manager ID - ALANIS MCBC W/PLT COUNT & AUTO [id number] 05:07:03 Test Item Value Reference Range Interpretation Comments WHITE BLOOD CELL COUNT (BEAKER) 11.5 K/ L 3.5-10.5 H (test code = 775) RED BLOOD CELL COUNT (BEAKER) 4.02 M/ L 4.63-6.08 L (test code = 761) HEMOGLOBIN (BEAKER) (test code = 10.1 GM/DL 13.7-17.5 L 410) HEMATOCRIT (BEAKER) (test code = 31.6 % 40.1-51.0 L 411) MEAN CORPUSCULAR VOLUME (BEAKER) 78.6 fL 79.0-92.2 L (test code = 753) MEAN CORPUSCULAR HEMOGLOBIN 25.1 pg 25.7-32.2 L (BEAKER) (test code = 751) MEAN CORPUSCULAR HEMOGLOBIN CONC 32.0 GM/DL 32.3-36.5 L (BEAKER) (test code = 752) RED CELL DISTRIBUTION WIDTH 17.4 % 11.6-14.4 H (BEAKER) (test code = 412) PLATELET COUNT (BEAKER) (test 161 K/CU MM 150-450 code = 756) MEAN PLATELET VOLUME (BEAKER) 13.3 fL 9.4-12.4 H (test code = 754) NUCLEATED RED BLOOD CELLS 0 /100 WBC 0-0 (BEAKER) (test code = 413) NEUTROPHILS RELATIVE PERCENT 73 % (BEAKER) (test code = 429) LYMPHOCYTES RELATIVE PERCENT 13 % (BEAKER) (test code = 430) MONOCYTES RELATIVE PERCENT 12 % (BEAKER) (test code = 431) EOSINOPHILS RELATIVE PERCENT 2 % (BEAKER) (test code = 432) BASOPHILS RELATIVE PERCENT 1 % (BEAKER) (test code = 437) NEUTROPHILS ABSOLUTE COUNT 8.33 K/ L 1.78-5.38 H (BEAKER) (test code = 670) LYMPHOCYTES ABSOLUTE COUNT 1.43 K/ L 1.32-3.57 (BEAKER) (test code = 414) MONOCYTES ABSOLUTE COUNT (BEAKER) 1.32 K/ L 0.30-0.82 H (test code = 415) EOSINOPHILS ABSOLUTE COUNT 0.24 K/ L 0.04-0.54 (BEAKER) (test code = 416) BASOPHILS ABSOLUTE COUNT (BEAKER) 0.06 K/ L 0.01-0.08 (test code = 417) IMMATURE GRANULOCYTES-RELATIVE 1 % 0-1 PERCENT (BEAKER) (test code = 2801) TSH/FREE T4 IF [id number] 04:49:11 Test Item Value Reference Range Interpretation Comments THYROID STIMULATING HORMONE 0.153 uIU/mL 0.350-4.940 L (BEAKER) (test code = 772) Field Manager ID - ALANIS EPATIC FUNCTION [id number] 04:18:25 Test Item Value Reference Range Interpretation Comments TOTAL PROTEIN (BEAKER) (test code = 5.2 gm/dL 6.0-8.3 L 770) ALBUMIN (BEAKER) (test code = 1145) 3.4 g/dL 3.5-5.0 L BILIRUBIN TOTAL (BEAKER) (test code 1.5 mg/dL 0.2-1.2 H = 377) BILIRUBIN DIRECT (BEAKER) (test 1.0 mg/dL 0.1-0.5 H code = 706) ALKALINE PHOSPHATASE (BEAKER) (test 227 U/L 40-150 H code = 346) AST (SGOT) (BEAKER) (test code = 477 U/L 5-34 H 353) ALT (SGPT) (BEAKER) (test code = 462 U/L 6-55 H 347) Field Manager ID - [id number] 04:18:23 Test Item Value Reference Range Interpretation Comments MAGNESIUM (BEAKER) (test code = 2.0 mg/dL 1.6-2.6 627) Field Manager ID - [id number] 04:18:23 Test Item Value Reference Range Interpretation Comments PHOSPHORUS (BEAKER) (test code = 3.6 mg/dL 2.3-4.7 604) Field Manager ID - BSBASIC METABOLIC [id number] 04:18:22 Test Item Value Reference Range Interpretation Comments SODIUM (BEAKER) 133 meq/L 136-145 L (test code = 381) POTASSIUM (BEAKER) 4.4 meq/L 3.5-5.1 (test code = 379) CHLORIDE (BEAKER) 102 meq/L 98-107 (test code = 382) CO2 (BEAKER) (test 25 meq/L 22-29 code = 355) BLOOD UREA NITROGEN 23 mg/dL 7-21 H (BEAKER) (test code = 354) CREATININE (BEAKER) 1.26 mg/dL 0.57-1.25 H (test code = 358) GLUCOSE RANDOM 267 mg/dL 70-105 H (BEAKER) (test code = 652) CALCIUM (BEAKER) 8.3 mg/dL 8.4-10.2 L (test code = 697) EGFR (BEAKER) (test 60 mL/min/1.73 ESTIMA YESICA GFR IS code = 1092) sq m NOT ACCURATE CREATININE CLEARANCE IN PREDICTING GLOMERULAR FILTRATION RATE . ESTIMATED GFR I S NOT APPLICABLE FOR DIALYSIS PATIEN TS. Field Manager ID - BSRAD, CHEST, 1 VIEW, NON [id number] 04:02:00Reason for exam:- >eval ett and lung fieldsShould this be performed at the bedside?->Yes [facility] : 1970 Sex: MFINALREPORT RAD, CHEST, 1 VIEW, NON DEPT INDICATION: eval ett and lung rajan COMPARISON: Prior day's exam FINDINGS: Portable frontal view of the chest. IMPRESSION: Support Lines: Interval removal of the ET tube tube. Lungs and pleura: Reduced interstitial opacities with increased retrocardiac consolidation likely representing atelectasis. Small left subpulmonic effusion is not exclude d. Trace right apical pneumothorax.Heart and mediastinum: Stable contours. Additional findings: Senescent changes emphysema along the base reduced. Subjacent is seen at the lung reduced subcutaneous emphysema at the neck base. Signed: Torin Bey MDReport Verified Date/Time: 10/13/2021 04:02:22 Kristy ctronically signed by: TORIN BEY MD on 10/13/2021 04:02 AMLACTIC ACID, [id number] 03:43:32 Test Item Value Reference Range Interpretation Comments LACTATE BLOOD VENOUS 1.70 mmol/L 0.50-2.20 Specime n slightly (2) (BEAKER) (test hemolyzed code = 2872) Field Manager ID - BSPOCT-GLUCOSE [id number] 03:40:38 Test Item Value Reference Range Interpretation Comments POC-GLUCOSE METER 176 mg/dL 70-110 H : TESTED A T [facility] 6720 (BEAKER) (test code = [place], 1538) [address]26: Field Manager/Techni raheem ID = [id number] for MARY PHELAN [employer] POCT-GLUCOSE [id number] 00:35:10 Test Item Value Reference Range Interpretation Comments POC-GLUCOSE METER 203 mg/dL 70-110 H : TESTED A T [facility] 6720 (BEAKER) (test code [facility], = 1538) 72654: Field Manager/Techni raheem ID = [id number] for SUGU , SHEENAMOL VANCOMYCIN LEVEL, [id number] 22:24:23 Test Item Value Reference Range Interpretation Comments VANCOMYCIN TROUGH (BEAKER) (test 11.3 ug/mL 10.0-20.0 code = 522) Field Manager ID - BSPOCT-GLUCOSE [id number] 21:00:42 Test Item Value Reference Range Interpretation Comments POC-GLUCOSE METER 226 mg/dL 70-110 H : TESTED A T [facility] 6720 (BEAKER) (test code = [facility], 1538) 47005: Field Manager/Techni raheem ID = [id number] for MARY PHELAN [employer] POCT-GLUCOSE [id number] 20:26:09 Test Item Value Reference Range Interpretation Comments POC-GLUCOSE METER 228 mg/dL 70-110 H : TESTED A T [facility] 6720 (BEAKER) (test code [facility], = 1538) 23593: Field Manager/Techni raheem ID = [id number] for SUGU , SHEENAMOL POCT-GLUCOSE [id number] 19:39:47 Test Item Value Reference Range Interpretation Comments POC-GLUCOSE METER 122 mg/dL 70-110 H : TESTED A T [facility] 6720 (BEAKER) (test code = [facility], 1538) [address]: Field Manager/Techni raheem ID = [id number] for Karlie Garcia BASIC METABOLIC [id number] 13:08:07 Test Item Value Reference Range Interpretation Comments SODIUM (BEAKER) 137 meq/L 136-145 (test code = 381) POTASSIUM (BEAKER) 4.1 meq/L 3.5-5.1 (test code = 379) CHLORIDE (BEAKER) 107 meq/L 98-107 (test code = 382) CO2 (BEAKER) (test 24 meq/L 22-29 code = 355) BLOOD UREA NITROGEN 26 mg/dL 7-21 H (BEAKER) (test code = 354) CREATININE (BEAKER) 1.21 mg/dL 0.57-1.25 (test code = 358) GLUCOSE RANDOM 153 mg/dL 70-105 H (BEAKER) (test code = 652) CALCIUM (BEAKER) 8.2 mg/dL 8.4-10.2 L (test code = 697) EGFR (BEAKER) (test 63 mL/min/1.73 ESTIMA YESICA GFR IS code = 1092) sq m NOT ACCURATE CREATININE CLEARANCE IN PREDICTING GLOMERULAR FILTRATION RATE . ESTIMATED GFR I S NOT APPLICABLE FOR DIALYSIS PATIEN TS. Field Manager ID - [id number] 10:17:05 Test Item Value Reference Range Interpretation Comments PROCALCITONIN (BEAKER) (test code 7.83 ng/mL <0.05 H = 3036) SEPSIS RISK (ng/mL)Low: 0.05-0.50Intermediate: 0.51-2.00High: >=2.01B-TYPE NATRIURETIC FACTOR (BNP)2021-10-12 10:10:10 Test Item Value Reference Range Interpretation Comments B-TYPE NATRIURETIC PEPTIDE (BEAKER) 215 pg/mL 0-100 H (test code = 700) Field Manager ID - [id number] 10:03:57 Test Item Value Reference Range Interpretation Comments PHOSPHORUS (BEAKER) (test code = 2.6 mg/dL 2.3-4.7 604) Field Manager ID - [id number] 10:03:38 Test Item Value Reference Range Interpretation Comments MAGNESIUM (BEAKER) (test code = 2.0 mg/dL 1.6-2.6 627) Field Manager ID - BSBASIC METABOLIC [id number] 10:03:20 Test Item Value Reference Range Interpretation Comments SODIUM (BEAKER) 137 meq/L 136-145 (test code = 381) POTASSIUM (BEAKER) 3.9 meq/L 3.5-5.1 (test code = 379) CHLORIDE (BEAKER) 108 meq/L 98-107 H (test code = 382) CO2 (BEAKER) (test 24 meq/L 22-29 code = 355) BLOOD UREA NITROGEN 27 mg/dL 7-21 H (BEAKER) (test code = 354) CREATININE (BEAKER) 1.23 mg/dL 0.57-1.25 (test code = 358) GLUCOSE RANDOM 130 mg/dL 70-105 H (BEAKER) (test code = 652) CALCIUM (JOSE) 8.2 mg/dL 8.4-10.2 L (test code = 697) EGFR (JOSE) (test 62 mL/min/1.73 ESTIMA YESICA GFR IS code = 1092) sq m NOT ACCURATE CREATININE CLEARANCE IN PREDICTING GLOMERULAR FILTRATION RATE . ESTIMATED GFR I S NOT APPLICABLE FOR DIALYSIS PATIEN TS. Field Manager ID - BSPOCT-GLUCOSE [id number] 09:27:08 Test Item Value Reference Range Interpretation Comments POC-GLUCOSE METER 136 mg/dL 70-110 H : TESTED A T [facility] 6720 (JOSE) (test code = MEGHANN Issa [facility], 1538) 92748: Field Manager/Techni raheem ID = [id number] for Ivanna Bland RAD, CHEST, 1 VIEW, NON [id number] 08:25:00Reason for exam:->eval ett and lung fieldsShould this be performed at the bedside?->Yes [facility] 1970 Sex: MFINALREPORT Exam: RAD, CHEST, 1 VIEW, NON DEPTDate: 10/12/2021 8:22 AM Indication:eval ett and lung fieldsComparison: 10/11/2021 FINDINGS: Lines/Tubes/Devices: Endotracheal tube in place with distal tip measuring 4.7 cm above the kalee. Overlying EKG leads. Lungs/pleura:Borderline lung volumes. Pleural parenchymal opacities are grossly unchanged. No significant pleural effusion. No pneumothorax is seen at this time. Heart/Mediastinum:Unchanged Bones/Soft Tissues: No acute osseous abnormality. Bilateral upper chest and neck subcutaneous emphysema, interval decrease. Upper abdomen: Unremarkable. IMPRESSION:Endotracheal tube in appropriate position.Borderline lung volumes.Pleural parenchymal opacities grossly unchanged.Mild interval decrease in bilateral upper chest and neck subcutaneous emphysema. Signed: Bud Hanna Verified Date/Time: 10/12/2021 08:25:27 Reading Location: [facility] Radiology Reading Room POCT-GLUCOSE [id number] 07:11:53 Test Item Value Reference Range Interpretation Comments POC-GLUCOSE METER 81 mg/dL 70-110 : TESTED A T [facility] 6720 (BEAKER) (test code = [facility], 1538) 75725: Field Manager/Techni raheem ID = [id number] for Uy, [place] POCT-GLUCOSE [id number] 07:05:47 Test Item Value Reference Range Interpretation Comments POC-GLUCOSE METER 123 mg/dL 70-110 H : TESTED A T [facility] 6720 (BEAKER) (test code = [facility], 1538) 81848: Field Manager/Techni raheem ID = [id number] for Uy , [place] POCT-GLUCOSE [id number] 05:10:35 Test Item Value Reference Range Interpretation Comments POC-GLUCOSE METER 150 mg/dL 70-110 H : TESTED A T [facility] 6720 (BEAKER) (test code = [facility], 1538) 29029: Field Manager/Techni raheem ID = [id number] for Uy , [place] POCT-GLUCOSE [id number] 05:09:41 Test Item Value Reference Range Interpretation Comments POC-GLUCOSE METER 181 mg/dL 70-110 H : TESTED A T [facility] 6720 (BEAKER) (test code = [facility], 1538) 90951: Field Manager/Techni raheem ID = [id number] for Uy , Ivanna RAD, CHEST, 1 VIEW, NON [id number] 04:59:00Reason for exam:->eval PNX seen on prior CXRShould this be performed at the bedside?->Yes [facility] 1970 Sex: MFINALREPORT RAD, CHEST, 1 VIEW, NON DEPT INDICATION: eval PNX seen on prior CXR COMPARISON: Prior day's exam FINDINGS: Portable frontal view of the chest. IMPRESSION: Support Lines: Interval intubation with endotracheal tube terminating 5.1 cm above the kalee. Lungs and pleura: Unchanged airspace and pleural opacities. Previously seen bilateral pneumothoraces are not definitively identified on this examination. Recommend close attention on follow-up imaging.Heart and mediastinum: Stable contours. Additional findings: Subcutaneous emphysema over the bilateral neck and left chest wall.. Signed: Eunice Sanchezdarya Verified Date/Time: 10/12/2021 04:59:42 C METABOLIC [id number] 03:37:49 Test Item Value Reference Range Interpretation Comments SODIUM (BEAKER) 136 meq/L 136-145 (test code = 381) POTASSIUM (BEAKER) 4.1 meq/L 3.5-5.1 (test code = 379) CHLORIDE (BEAKER) 108 meq/L 98-107 H (test code = 382) CO2 (BEAKER) (test 24 meq/L 22-29 code = 355) BLOOD UREA NITROGEN 28 mg/dL 7-21 H (BEAKER) (test code = 354) CREATININE (BEAKER) 1.37 mg/dL 0.57-1.25 H (test code = 358) GLUCOSE RANDOM 216 mg/dL 70-105 H (BEAKER) (test code = 652) CALCIUM (BEAKER) 8.1 mg/dL 8.4-10.2 L (test code = 697) EGFR (BEAKER) (test 54 mL/min/1.73 ESTIMA YESICA GFR IS code = 1092) sq m NOT ACCURATE CREATININE CLEARANCE IN PREDICTING GLOMERULAR FILTRATION RATE . ESTIMATED GFR I S NOT APPLICABLE FOR DIALYSIS PATIEN TS. Field Manager ID - [id number] 03:37:49 Test Item Value Reference Range Interpretation Comments MAGNESIUM (BEAKER) (test code = 2.2 mg/dL 1.6-2.6 627) Field Manager ID - BSHEPATIC FUNCTION [id number] 03:37:49 Test Item Value Reference Range Interpretation Comments TOTAL PROTEIN (BEAKER) (test code = 4.9 gm/dL 6.0-8.3 L 770) ALBUMIN (BEAKER) (test code = 1145) 3.4 g/dL 3.5-5.0 L BILIRUBIN TOTAL (BEAKER) (test code 0.7 mg/dL 0.2-1.2 = 377) BILIRUBIN DIRECT (BEAKER) (test 0.4 mg/dL 0.1-0.5 code = 706) ALKALINE PHOSPHATASE (BEAKER) (test 79 U/L 40-150 code = 346) AST (SGOT) (BEAKER) (test code = 324 U/L 5-34 H 353) ALT (SGPT) (BEAKER) (test code = 368 U/L 6-55 H 347) Field Manager ID - BSBLOOD GAS, [id number] 03:28:32 Test Item Value Reference Range Interpretation Comments PH ARTERIAL (BEAKER) (test code = 7.48 7.35-7.45 H 383) PCO2 ARTERIAL (BEAKER) (test code 35 mm Hg 35-45 = 384) PO2 ARTERIAL (BEAKER) (test code = 175 mm Hg 80-90 H 385) O2 SATURATION ARTERIAL (BEAKER) 99.3 % 96.0-97.0 H (test code = 386) HCO3 ARTERIAL (BEAKER) (test code 25 mmol/L 21-29 = 388) BASE EXCESS ARTERIAL (BEAKER) 1.6 mmol/L -2.0-3.0 (test code = 387) PATIENT TEMPERATURE (BEAKER) (test 37.0 code = 1818) FIO2 (BEAKER) (test code = 1819) 35.0 POCT-GLUCOSE [id number] 03:22:09 Test Item Value Reference Range Interpretation Comments POC-GLUCOSE METER 200 mg/dL 70-110 H : TESTED Riccardo T [facility] 6720 (BEAKER) (test code = [facility] [place], 1538) 23221: Field Manager/Techni raheem ID = [id number] for Ivanna Bland CBC W/PLT COUNT & AUTO [id number] 03:18:42 Test Item Value Reference Range Interpretation Comments WHITE BLOOD CELL COUNT (BEAKER) 11.0 K/ L 3.5-10.5 H (test code = 775) RED BLOOD CELL COUNT (BEAKER) 3.67 M/ L 4.63-6.08 L (test code = 761) HEMOGLOBIN (BEAKER) (test code = 8.9 GM/DL 13.7-17.5 L 410) HEMATOCRIT (BEAKER) (test code = 29.5 % 40.1-51.0 L 411) MEAN CORPUSCULAR VOLUME (BEAKER) 80.4 fL 79.0-92.2 (test code = 753) MEAN CORPUSCULAR HEMOGLOBIN 24.3 pg 25.7-32.2 L (BEAKER) (test code = 751) MEAN CORPUSCULAR HEMOGLOBIN CONC 30.2 GM/DL 32.3-36.5 L (BEAKER) (test code = 752) RED CELL DISTRIBUTION WIDTH 16.9 % 11.6-14.4 H (BEAKER) (test code = 412) PLATELET COUNT (BEAKER) (test 184 K/CU MM 150-450 code = 756) MEAN PLATELET VOLUME (BEAKER) 11.4 fL 9.4-12.4 (test code = 754) NUCLEATED RED BLOOD CELLS 0 /100 WBC 0-0 (BEAKER) (test code = 413) NEUTROPHILS RELATIVE PERCENT 81 % (BEAKER) (test code = 429) LYMPHOCYTES RELATIVE PERCENT 9 % (BEAKER) (test code = 430) MONOCYTES RELATIVE PERCENT 9 % (BEAKER) (test code = 431) EOSINOPHILS RELATIVE PERCENT 0 % (BEAKER) (test code = 432) BASOPHILS RELATIVE PERCENT 0 % (BEAKER) (test code = 437) NEUTROPHILS ABSOLUTE COUNT 8.95 K/ L 1.78-5.38 H (BEAKER) (test code = 670) LYMPHOCYTES ABSOLUTE COUNT 0.97 K/ L 1.32-3.57 L (BEAKER) (test code = 414) MONOCYTES ABSOLUTE COUNT (BEAKER) 1.02 K/ L 0.30-0.82 H (test code = 415) EOSINOPHILS ABSOLUTE COUNT 0.01 K/ L 0.04-0.54 L (BEAKER) (test code = 416) BASOPHILS ABSOLUTE COUNT (BEAKER) 0.02 K/ L 0.01-0.08 (test code = 417) IMMATURE GRANULOCYTES-RELATIVE 1 % 0-1 PERCENT (BEAKER) (test code = 2801) POCT-GLUCOSE [id number] 03:08:35 Test Item Value Reference Range Interpretation Comments POC-GLUCOSE METER 215 mg/dL 70-110 H : TESTED A T [facility] 6720 (BEAKER) (test code = [facility], 1538) 88185: Field Manager/Techni raheem ID = [id number] for Uy , Ivanna POCT-GLUCOSE [id number] 01:37:22 Test Item Value Reference Range Interpretation Comments POC-GLUCOSE METER 209 mg/dL 70-110 H : TESTED A T [facility] 6720 (BEAKER) (test code = [facility], 1538) 35769: Field Manager/Techni raheem ID = [id number] for Uy , [place] LACTIC ACID, [id number] 01:00:20 Test Item Value Reference Range Interpretation Comments LACTATE BLOOD ARTERIAL (2) 0.8 mmol/L 0.5-2.2 (BEAKER) (test code = 2874) Field Manager ID - BSURINALYSIS W/ REFLEX URINE [id number] 00:58:48 Test Item Value Reference Range Interpretation Comments COLOR (BEAKER) (test code = 470) Yellow CLARITY (BEAKER) (test code = 469) Hazy SPECIFIC GRAVITY UA (BEAKER) (test 1.043 1.001-1.035 H code = 468) PH UA (BEAKER) (test code = 467) 6.5 5.0-8.0 PROTEIN UA (BEAKER) (test code = 100 mg/dL Negative A 464) GLUCOSE UA (BEAKER) (test code = 100 mg/dL Negative A 365) KETONES UA (BEAKER) (test code = 10 mg/dL Negative A 371) BILIRUBIN UA (BEAKER) (test code = Negative Negative 462) BLOOD UA (BEAKER) (test code = 461) Moderate Negative A NITRITE UA (BEAKER) (test code = Negative Negative 465) LEUKOCYTE ESTERASE UA (BEAKER) Large Negative A (test code = 466) UROBILINOGEN UA (BEAKER) (test code 2.0 mg/dL 0.2-1.0 H = 463) RBC UA (BEAKER) (test code = 519) 65 /HPF WBC UA (BEAKER) (test code = 520) 313 /HPF BACTERIA (BEAKER) (test code = 517) None Seen MUCUS (BEAKER) (test code = 1574) Many SQUAMOUS EPITHELIAL (BEAKER) (test < /HPF code = 516) CRYSTALS, URINE (BEAKER) (test code None Seen = 1521) YEAST (BEAKER) (test code = 1585) Rare SOURCE(BEAKER) (test code = 2795) Field Manager ID - [auto]Field Manager ID - techPOCT-GLUCOSE [id number] 00:28:20 Test Item Value Reference Range Interpretation Comments POC-GLUCOSE METER 197 mg/dL 70-110 H : TESTED A T [facility] 6720 (BEAKER) (test code = [facility] Luis Manuel [facility], 1538) 78443: Field Manager/Techni raheem ID = [id number] for Ivanna Bland BASIC METABOLIC [id number] 00:20:36 Test Item Value Reference Range Interpretation Comments SODIUM (BEAKER) 136 meq/L 136-145 (test code = 381) POTASSIUM (BEAKER) 4.3 meq/L 3.5-5.1 (test code = 379) CHLORIDE (BEAKER) 107 meq/L 98-107 (test code = 382) CO2 (BEAKER) (test 23 meq/L 22-29 code = 355) BLOOD UREA NITROGEN 27 mg/dL 7-21 H (BEAKER) (test code = 354) CREATININE (BEAKER) 1.48 mg/dL 0.57-1.25 H (test code = 358) GLUCOSE RANDOM 221 mg/dL 70-105 H (BEAKER) (test code = 652) CALCIUM (BEAKER) 8.1 mg/dL 8.4-10.2 L (test code = 697) EGFR (BEAKER) (test 50 mL/min/1.73 ESTIMA YESICA GFR IS code = 1092) sq m NOT ACCURATE CREATININE CLEARANCE IN PREDICTING GLOMERULAR FILTRATION RATE . ESTIMATED GFR I S NOT APPLICABLE FOR DIALYSIS PATIEN TS. Field Manager ID - [id number] 00:20:36 Test Item Value Reference Range Interpretation Comments MAGNESIUM (BEAKER) (test code = 2.0 mg/dL 1.6-2.6 627) Field Manager ID - [id number] 00:20:36 Test Item Value Reference Range Interpretation Comments PHOSPHORUS (BEAKER) (test code = 3.1 mg/dL 2.3-4.7 604) Field Manager ID - BSPOCT-GLUCOSE [id number] 00:10:38 Test Item Value Reference Range Interpretation Comments POC-GLUCOSE METER 192 mg/dL 70-110 H : TESTED A T [facility] 6720 (BEAKER) (test code = [facility], 1538) 37263: Field Manager/Techni raheem ID = [id number] for Uy , [place] POCT-GLUCOSE [id number] 22:05:29 Test Item Value Reference Range Interpretation Comments POC-GLUCOSE METER 209 mg/dL 70-110 H : TESTED A T [facility] 6720 (BEAKER) (test code = [facility], 1538) 97896: Field Manager/Techni raheem ID = [id number] for Uy , [place] POCT-GLUCOSE [id number] 21:03:10 Test Item Value Reference Range Interpretation Comments POC-GLUCOSE METER 217 mg/dL 70-110 H : TESTED A T [facility] 6720 (BEAKER) (test code = [facility], 1538) 58546: Field Manager/Techni raheem ID = [id number] for Uy , Ivanna KETONE, [id number] 20:52:33 Test Item Value Reference Range Interpretation Comments KETONES, BLOOD (BEAKER) (test code 0.3 mmol/L <0.4 = 1103) [id number] 19:25:27 Test Item Value Reference Range Interpretation Comments PROCALCITONIN (BEAKER) (test code 4.38 ng/mL <0.05 H = 3036) SEPSIS RISK (ng/mL)Low: 0.05-0.50Intermediate: 0.51-2.00High: >=2.01MAGNESIUM 2021-10-11 19:08:08 Test Item Value Reference Range Interpretation Comments MAGNESIUM (BEAKER) (test code = 1.6 mg/dL 1.6-2.6 627) Field Manager ID - [id number] 19:08:08 Test Item Value Reference Range Interpretation Comments PHOSPHORUS (BEAKER) (test code = 3.6 mg/dL 2.3-4.7 604) Field Manager ID - BSBASIC METABOLIC [id number] 19:08:07 Test Item Value Reference Range Interpretation Comments SODIUM (BEAKER) 138 meq/L 136-145 (test code = 381) POTASSIUM (BEAKER) 4.4 meq/L 3.5-5.1 (test code = 379) CHLORIDE (BEAKER) 107 meq/L 98-107 (test code = 382) CO2 (BEAKER) (test 22 meq/L 22-29 code = 355) BLOOD UREA NITROGEN 27 mg/dL 7-21 H (BEAKER) (test code = 354) CREATININE (BEAKER) 1.83 mg/dL 0.57-1.25 H (test code = 358) GLUCOSE RANDOM 288 mg/dL 70-105 H (BEAKER) (test code = 652) CALCIUM (BEAKER) 8.4 mg/dL 8.4-10.2 (test code = 697) EGFR (BEAKER) (test 39 mL/min/1.73 ESTIMA YESICA GFR IS code = 1092) sq m NOT ACCURATE CREATININE CLEARANCE IN PREDICTING GLOMERULAR FILTRATION RATE . ESTIMATED GFR I S NOT APPLICABLE FOR DIALYSIS PATIEN TS. Field Manager ID - BSLACTIC ACID, [id number] 19:03:09 Test Item Value Reference Range Interpretation Comments LACTATE BLOOD ARTERIAL (2) 1.9 mmol/L 0.5-2.2 (BEAKER) (test code = 2874) Field Manager ID - BSPOCT-GLUCOSE [id number] 19:01:38 Test Item Value Reference Range Interpretation Comments POC-GLUCOSE METER 262 mg/dL 70-110 H : TESTED A T [facility] 6720 (BEAKER) (test code = ME[facility] [place], 1538) 23471: Field Manager/Techni raheem ID = [id number] for [place]EN [place] BLOOD GAS, [id number] 18:57:03 Test Item Value Reference Range Interpretation Comments PH ARTERIAL (BEAKER) (test code = 7.40 7.35-7.45 383) PCO2 ARTERIAL (BEAKER) (test code 35 mm Hg 35-45 = 384) PO2 ARTERIAL (BEAKER) (test code 229 mm Hg 80-90 H = 385) O2 SATURATION ARTERIAL (BEAKER) 99.5 % 96.0-97.0 H (test code = 386) HCO3 ARTERIAL (BEAKER) (test code 21 mmol/L 21-29 = 388) BASE EXCESS ARTERIAL (BEAKER) -3.0 mmol/L -2.0-3.0 L (test code = 387) PATIENT TEMPERATURE (BEAKER) 37.0 (test code = 1818) POCT-GLUCOSE [id number] 18:24:05 Test Item Value Reference Range Interpretation Comments POC-GLUCOSE METER 274 mg/dL 70-110 H : TESTED A T [facility] 6720 (BEAKER) (test code [facility], = 1538) 12900: Field Manager/Techni raheem ID = [id number] for Librado liu (contract)[employer] BASIC METABOLIC [id number] 17:28:18 Test Item Value Reference Range Interpretation Comments SODIUM (BEAKER) 137 meq/L 136-145 (test code = 381) POTASSIUM (BEAKER) 5.2 meq/L 3.5-5.1 H (test code = 379) CHLORIDE (BEAKER) 106 meq/L 98-107 (test code = 382) CO2 (BEAKER) (test 22 meq/L 22-29 code = 355) BLOOD UREA NITROGEN 25 mg/dL 7-21 H (BEAKER) (test code = 354) CREATININE (BEAKER) 2.01 mg/dL 0.57-1.25 H (test code = 358) GLUCOSE RANDOM 364 mg/dL 70-105 H (BEAKER) (test code = 652) CALCIUM (BEAKER) 7.8 mg/dL 8.4-10.2 L (test code = 697) EGFR (BEAKER) (test 35 mL/min/1.73 ESTIMA YESICA GFR IS code = 1092) sq m NOT ACCURATE CREATININE CLEARANCE IN PREDICTING GLOMERULAR FILTRATION RATE . ESTIMATED GFR I S NOT APPLICABLE FOR DIALYSIS PATIEN TS. Field Manager ID - BSHEPATIC FUNCTION [id number] 17:27:32 Test Item Value Reference Range Interpretation Comments TOTAL PROTEIN (BEAKER) (test code = 5.2 gm/dL 6.0-8.3 L 770) ALBUMIN (BEAKER) (test code = 1145) 3.7 g/dL 3.5-5.0 BILIRUBIN TOTAL (BEAKER) (test code 0.7 mg/dL 0.2-1.2 = 377) BILIRUBIN DIRECT (BEAKER) (test 0.3 mg/dL 0.1-0.5 code = 706) ALKALINE PHOSPHATASE (BEAKER) (test 89 U/L 40-150 code = 346) AST (SGOT) (BEAKER) (test code = 347 U/L 5-34 H 353) ALT (SGPT) (BEAKER) (test code = 365 U/L 6-55 H 347) Field Manager ID - [id number] 17:27:31 Test Item Value Reference Range Interpretation Comments MAGNESIUM (BEAKER) (test code = 1.4 mg/dL 1.6-2.6 L 627) Field Manager ID - [id number] 17:27:31 Test Item Value Reference Range Interpretation Comments PHOSPHORUS (BEAKER) (test code = 5.0 mg/dL 2.3-4.7 H 604) Field Manager ID - BSPOCT-GLUCOSE [id number] 17:19:41 Test Item Value Reference Range Interpretation Comments POC-GLUCOSE METER 294 mg/dL 70-110 H : TESTED A T [facility] 6720 (BEAKER) (test code [facility], = 1538) 11950: Field Manager/Techni raheem ID = [id number] for Librado liu (contract), Zacher[facility] BLOOD GAS, [id number] 16:36:42 Test Item Value Reference Range Interpretation Comments PH ARTERIAL (BEAKER) (test code = 7.25 7.35-7.45 L 383) PCO2 ARTERIAL (BEAKER) (test code 51 mm Hg 35-45 H = 384) PO2 ARTERIAL (BEAKER) (test code 119 mm Hg 80-90 H = 385) O2 SATURATION ARTERIAL (BEAKER) 97.5 % 96.0-97.0 H (test code = 386) HCO3 ARTERIAL (BEAKER) (test code 22 mmol/L 21-29 = 388) BASE EXCESS ARTERIAL (BEAKER) -5.4 mmol/L -2.0-3.0 L (test code = 387) PATIENT TEMPERATURE (BEAKER) 38.0 (test code = 1818) FIO2 (BEAKER) (test code = 1819) 70.0 POCT-GLUCOSE [id number] 16:07:02 Test Item Value Reference Range Interpretation Comments POC-GLUCOSE METER 377 mg/dL 70-110 H : TESTED A T [facility] 6720 (BEAKER) (test code = MEGHANN Issa [facility], 1538) 07996: Field Manager/Techni raheem ID = [id number] for SI KAREN (V)CHELO RAD, CHEST, 1 VIEW, NON [id number] 15:34:00Reason for exam:- >DESATTINGShould this be performed at the bedside?->Yes [facility] 1970 Sex: MFINALREPORT Chest, 1 view, 10/11/2021 3:05 PM. History: Desaturation. Comparison: None available. Discussion: The cardiac silhouette is within normal limits for a portable exam. There are diffuse bilateral airspace opacities. Bilateral apical pneumothoraces are present measuring approximately 1.4 cm. There is subcutaneous emphysema superiorly. IMPRESSION: Bilateral diffuse pulmonary opacities with small bilateral apical pneumothoraces. The findings were discussed with Dr. Hoover in [facility] at 1530 on 10/11/2021. Signed: Cody Fu MDRepdarya Verified Date/Time: 10/11/2021 15:34:10 Reading Location: [facility] Mammo Reading Room Electronically signed by: CODY FU M.D. on 2 03:34 PMBLOOD GAS, [id number] 15:22:04 Test Item Value Reference Range Interpretation Comments PH ARTERIAL (BEAKER) (test code = 7.23 7.35-7.45 L 383) PCO2 ARTERIAL (BEAKER) (test code 44 mm Hg 35-45 = 384) PO2 ARTERIAL (BEAKER) (test code 85 mm Hg 80-90 = 385) O2 SATURATION ARTERIAL (BEAKER) 94.6 % 96.0-97.0 L (test code = 386) HCO3 ARTERIAL (BEAKER) (test code 18 mmol/L 21-29 L = 388) BASE EXCESS ARTERIAL (BEAKER) -9.2 mmol/L -2.0-3.0 L (test code = 387) PATIENT TEMPERATURE (BEAKER) 37.0 (test code = 1818) FIO2 (BEAKER) (test code = 1819) 50 GLUCOSE-STAT [id number] 15:10:33 Test Item Value Reference Range Interpretation Comments GLUCOSE RANDOM (BEAKER) (test code 403 mg/dL 70-110 HH = 652) POTASSIUM-STAT [id number] 15:10:22 Test Item Value Reference Range Interpretation Comments POTASSIUM (BEAKER) (test code = 7.1 meq/L 3.6-5.5 HH 379) POCT-GLUCOSE [id number] 15:02:18 Test Item Value Reference Range Interpretation Comments POC-GLUCOSE METER 378 mg/dL 70-110 H : TESTED A T [facility] (BEAKER) (test code = [place], 1538) [id number]: Field Manager/Techni raheem ID = [id number] for YANELI BRENNAN HGB/HCT (H&H) - STAT [id number] 15:01:35 Test Item Value Reference Range Interpretation Comments HEMOGLOBIN (BEAKER) (test code = 9.5 GM/DL 13.0-16.8 L 410) HEMATOCRIT (BEAKER) (test code = 28.0 % 40.0-50.0 L 411) SODIUM NA-STAT [id number] 15:01:34 Test Item Value Reference Range Interpretation Comments SODIUM (BEAKER) (test code = 381) 134 meq/L 136-145 L BLOOD GAS, [id number] 14:58:38 Test Item Value Reference Range Interpretation Comments PH ARTERIAL (BEAKER) (test code = 7.23 7.35-7.45 L 383) PCO2 ARTERIAL (BEAKER) (test code 44 mm Hg 35-45 = 384) PO2 ARTERIAL (BEAKER) (test code 85 mm Hg 80-90 = 385) O2 SATURATION ARTERIAL (BEAKER) 94.6 % 96.0-97.0 L (test code = 386) HCO3 ARTERIAL (BEAKER) (test code 18 mmol/L 21-29 L = 388) BASE EXCESS ARTERIAL (BEAKER) -9.2 mmol/L -2.0-3.0 L (test code = 387) PATIENT TEMPERATURE (BEAKER) 37.0 (test code = 1818) FIO2 (BEAKER) (test code = 1819) 50.0 POCT-GLUCOSE [id number] 13:38:26 Test Item Value Reference Range Interpretation Comments POC-GLUCOSE METER 396 mg/dL 70-110 H : TESTED A T [facility] (BEAKER) (test code = [facility], 1538) [id number]: Field Manager/Techni raheem ID = [id number] for Marcy Candelaria POCT-GLUCOSE [id number] 06:23:19 Test Item Value Reference Range Interpretation Comments POC-GLUCOSE METER 151 mg/dL 70-110 H : Notified RN/MD: (BEAKER) (test code = TESTED AT [facility] 1538) [facility], [address]: Field Manager/Techni raheem ID = [id number] for KAUSHIK BALTACHRISTOPHER BASIC METABOLIC [id number] 15:34:15 Test Item Value Reference Range Interpretation Comments SODIUM (BEAKER) 139 meq/L 136-145 (test code = 381) POTASSIUM (BEAKER) 3.7 meq/L 3.5-5.1 (test code = 379) CHLORIDE (BEAKER) 101 meq/L 98-107 (test code = 382) CO2 (BEAKER) (test 30 meq/L 22-29 H code = 355) BLOOD UREA NITROGEN 12 mg/dL 7-21 (BEAKER) (test code = 354) CREATININE (BEAKER) 1.30 mg/dL 0.57-1.25 H (test code = 358) GLUCOSE RANDOM 104 mg/dL 70-105 (BEAKER) (test code = 652) CALCIUM (BEAKER) 9.4 mg/dL 8.4-10.2 (test code = 697) EGFR (BEAKER) (test 58 mL/min/1.73 ESTIMA YESICA GFR IS code = 1092) sq m NOT ACCURATE CREATININE CLEARANCE IN PREDICTING GLOMERULAR FILTRATION RATE . ESTIMATED GFR I S NOT APPLICABLE FOR DIALYSIS PATIEN TS. Field Manager ID - BS.[id number] 15:18:14 Test Item Value Reference Range Interpretation Comments HEMOGLOBIN (BEAKER) (test code = 11.6 GM/DL 13.7-17.5 L 410) Field Manager ID - [id number]-GLUCOSE [id number] 08:34:14 Test Item Value Reference Range Interpretation Comments POC-GLUCOSE METER 239 mg/dL 70-110 H : TESTED A T [facility] 6720 (BEAKER) (test code = [facility], 1538) 47695: Field Manager/Techni raheem ID = [id number] for JENNI RASCON POCT-GLUCOSE WNPJG3323-01-82 07:19:56 Test Item Value Reference Range Interpretation Comments POC-GLUCOSE METER 230 mg/dL 70-110 H : TESTED A T [facility] 6720 (BEAKER) (test code = [facility], 1538) 33322: Field Manager/Techni raheem ID = [id number] for MAYNOR SCHERER (NIVIA Aranda SARS-CoV-2 (COVID-19) RNA [Presence] in Respiratory specimen by AURELIA with probe pqevuxktj9220-19-02 02:16:58 Test Item Value Reference Range Interpretation Comments SARS-CoV-2 (COVID-19) RNA Not detected Not-Detected [Presence] in Respiratory specimen by AURELIA with probe detection (test code = 51401-5) Whether patient is employed in a healthcare setting (test code = 56333-1) Whether the patient has symptoms related to condition of interest (test code = 88076-3) Patient was hospitalized because of this condition (test code = 63553-8) Whether the patient was admitted to intensive care unit (ICU) for condition of interest (test code = 66070-2) Whether patient resides in a congregate care setting (test code = 44137-1) SARS-CoV-2 (COVID-19) RNA [Presence] in Respiratory specimen by AURELIA with probe wsynrxxvk1160-37-36 04:06:08 Test Item Value Reference Range Interpretation Comments SARS-CoV-2 (COVID-19) RNA Not detected Not-Detected [Presence] in Respiratory specimen by AURELIA with probe detection (test code = 90364-0) ANEMIA EINGW9304-74-62 14:09:14625Faxwjsxw HermannANEMIA UXBOS6890-81-66 14:09:147.6[facility]annCHE[facility] WJAZS8343-29-26 14:09:72015.0[facility] ANEMIA PYVEB6505-17-44 14:09:96992Wlcixwme HermannANEMIA QUXMB8227-13-64 14:09:147.6[facility]annCHEM XBUFY9594-21-19 14:09:29075.0[facility] CHEM JOUZM2154-75-26 14:09:004.41[facility] HermannCHEM ZKMUF9389-62-80 14:09:00 4.41[facility]annCHEM YVCUB8681-36-35 13:03:80827Mhlgosxf HermannCHEM PANEL 2020-02-26 13:03:004.1[facility]annCHEM LYDPV7160-02-24 13:03:30113Lxrsimwu HermannCHEM TLLOR5408-23-36 13:03:0023[facility]annCHEM CXVQG0989-41-90 13:03:008.4[facility]annCHEM BPXNJ9851-66-03 13:03:0015.1[facility]annCHEM BQNPA5492-76-62 13:03:0066[facility]annCHEM NDZVM1953-18-53 13:03:001.9 [facility]annCHEM ITIUL3859-71-28 13:03:23850Atpdyeft HermannCHEM PANEL 2020-02-26 13:03:0013[facility]annCHEM NFHHW8776-76-97 13:03:001.25[facility]annCHEM QGVBR5167-93-06 13:03:67277Mnmzusnd HermannCHEM ROCMF8320-96-39 13:03:004.1[facility]annCHEM KMEAR6292-46-48 13:03:28657Hpgqzqwu HermannCHEM HWGTL2323-30-09 13:03:0023[facility]annCHEM YIASU4402-20-56 13:03:008.4 [facility]annCHEM UEHNF0732-79-78 13:03:0015.1[facility] HermannCHEM PANEL 2020-02-26 13:03:0066[facility]annCHEM WUDUV8366-66-63 13:03:001.9[facility]annCHEM SSLQI2982-46-64 13:03:18388Gypdjerf HermannCHEM CHYZA4892-17-00 13:03:0013[facility]annCHEM EAJPX4375-91-68 13:03:001.25[facility] CARDIAC CLJHCEU1422-61-33 08:14:0022[facility] HermannCHEM MTOLT6825-85-63 08:14:50067Stbddjjn HermannCHEM GXTEH8101-59-42 08:14:0013[facility]annCHEM HHXKR6960-56-87 08:14:001.38[facility]annCHEM PWMTT1942-81-94 08:14:57700 [facility]annCHEM NFCMR1037-05-13 08:14:004.1[facility] HermannCHEM PANEL 2020-02-26 08:14:46643Qggyezod HermannCHEM STSDH1217-23-23 08:14:0020[facility]annCHEM AIBOT0825-62-66 08:14:008.1[facility]annCHEM VQPFI0523-69-27 08:14:0017.1[facility]annCHEM YPISM8775-60-78 08:14:0059[facility]annCHEM RSXLT8865-20-96 08:14:003.83[facility]annCHEM XABYR4270-73-99 08:14:002.0 [facility]annCHEM LAEIO8930-85-71 08:14:002.0[facility] HermannCHEM PANEL 2020-02-26 08:14:31892Yeobxstl HubfxgjTBRFJPKJAR1686-75-93 08:14:008.3[facility] YsuvpraKITLUAMDIL6239-34-68 08:14:003.84[facility] XoktursVRMWRAOGOI0211-58-91 08:14:0012.5[facility] RrabisiMKQVYCMHYF0153-85-15 08:14:0038.1[facility] SSMOBSJMFB1936-24-32 08:14:0099.2[facility] QrbjpifUHPXRMVDEA2920-45-26 08:14:00 Test Item Value Reference Range Interpretation Comments MCH (test code = MCH) 32.5 pg 27.0-31.0 [facility] VieyjxhLHUAEAFBUI4449-26-34 08:14:0032.7[facility] HermannHEMATOLOGY 2020-02-26 08:14:0016.8[facility] AmftgdgABIUJOQMCB8089-22-14 08:14:42670Lmxzwinq DzaziugUKLOQAFEBY9333-60-83 08:14:009.5[facility] MrumqkyNWDIVNSJHI1310-44-48 08:14:0077.8[facility] OpzbewnDPXLNRXZMW3173-69-18 08:14:0010.0[facility] FWTIAXPVXJ9135-73-59 08:14:0010.9[facility] JjnjynlLNEZARHJEQ3866-84-31 08:14:00 1.1[facility] EkltjguXGEJNGCTNX6420-22-32 08:14:000.2[facility] HermannHEMATOLOGY 2020-02-26 08:14:006.5[facility] QiylrfhHZFJRNYAXT2372-29-50 08:14:000.8[facility] BoxlmqtTVZKZAIYJG5124-32-22 08:14:000.9[facility] SqskmtbTWNLRWBCMK1440-91-35 08:14:000.1[facility] HermannCARDIAC ZIZSJAK1191-52-53 08:14:0022[facility] CHEM RHMEV1387-12-01 08:14:39409Innfrxzy HermannCHEM QKUCM7869-71-98 08:14:0013 [facility]annCHEM WBLIG9516-91-20 08:14:001.38[facility] HermannCHEM PANEL 2020-02-26 08:14:45195Eohgasnd HermannCHEM SMZBU2321-61-82 08:14:004.1[facility]annCHEM BUGJR4556-28-60 08:14:92363Vkjyddwv HermannCHEM UQEFU9640-94-62 08:14:0020[facility]annCHEM ODQQU5454-13-12 08:14:008.1[facility]annCHEM FRIQI4111-61-62 08:14:0017.1[facility] HermannCHEM ANCCM0131-45-75 08:14:0059 [facility]annCHEM AJZAA9524-93-28 08:14:003.83[facility] HermannCHEM PANEL 2020-02-26 08:14:002.0[facility] HermannCHEM UUPCV8150-68-16 08:14:002.0[facility] HermannCHEM PEXXQ9142-35-72 08:14:98825Olxeocwb TumcyhtSEVNWBTEJB4805-69-35 08:14:008.3[facility] QtpnkntXQKDZIAOSI2487-48-95 08:14:003.84[facility] AQVZRPVDRD7224-72-70 08:14:0012.5[facility] RfdzmlmTUAOWQGFCR2897-25-62 08:14:00 38.1[facility] RqvpexmWGHUUAIZME8238-01-44 08:14:0099.2[facility] HermannHEMATOLOGY 2020-02-26 08:14:00 Test Item Value Reference Range Interpretation Comments MCH (test code = MCH) 32.5 pg 27.0-31.0 [facility] KstnervXDTHKPMMBV4124-09-30 08:14:0032.7[facility] HermannHEMATOLOGY 2020-02-26 08:14:0016.8[facility] DacxakcFWQRTCCVMN9951-88-57 08:14:59873Bfopqjqu TucojxfTMQXRILCOX1211-16-83 08:14:009.5[facility] NqwdrboAMONODWTJU2850-71-02 08:14:0077.8[facility] HoyqstiKIMHKLZNIQ7251-71-38 08:14:0010.0[facility] VKVZYDSWVZ9074-67-74 08:14:0010.9[facility] IqdugltORMKQVZKZA0517-88-82 08:14:00 1.1[facility] FpiaapeWESSOBRPBN3188-79-86 08:14:000.2[facility] HermannHEMATOLOGY 2020-02-26 08:14:006.5[facility] TjjhsijKQYTIRUBNS7334-06-84 08:14:000.8[facility] YpctyvyBGRVUIJWNA7956-25-78 08:14:000.9[facility] ZbgnufeSQBAUJIGIE7709-23-70 08:14:000.1[facility] HermannBACTERIAL - OQLQWROU2373-68-24 02:01:00Urine *NA*(02/25/20 9:01 PM)[facility] HermannBACTERIAL - MWDUHOHX1308-76-00 02:01:00 Negative (02/25/20 9:01 PM)[facility]annCHEM KOCES1227-76-08 02:01:0055[facility]annCHEM YTZDC6330-87-10 02:01:0099[facility]annCHEM RKPFH4841-43-37 02:01:0015[facility]annCHEM SGOAF9170-86-45 02:01:001.46[facility]annCHEM LFZWJ3404-06-77 02:01:23183Vxpfwfsf HermannCHEM CDFYU3317-94-80 02:01:005.0 [facility]annCHEM JEUJF5799-55-82 02:01:0098[facility] HermannCHEM PANEL 2020-02-26 02:01:0015[facility] HermannCHEM FATCO4449-70-06 02:01:008.5[facility] HermannCHEM XNDKN9124-63-26 02:01:0025.0[facility] HermannCHEM QFHST4498-52-73 02:01:008.90[facility]annCHEM FFXPC2663-09-44 02:01:001.6[facility]annCHEM SSFGU9525-45-00 02:01:003.4[facility]annCHEM OWCQZ0508-51-93 02:01:001.4 [facility]annCHEM RMINI6811-01-52 02:01:000.14[facility] HermannSPECIAL IXYEMLNEY0840-89-60 02:01:007.5[facility]annURINE AND TNWYU8941-63-74 02:01:00Yellow *NA*(02/25/20 9:01 PM)[facility] AND JDUGD1716-52-58 02:01:00Clear (02/25/20 9:01 PM)[facility] AND ELSVE2253-30-49 02:01:00 Test Item Value Reference Range Interpretation Comments UA Spec Grav (test code = UA Spec 1.042 1 Grav) [facility] AND FBMHT9898-23-33 02:01:00 Test Item Value Reference Range Interpretation Comments UA pH (test code = UA pH) 5.0 1 5.0-8.0 [facility] AND EIXEP5623-39-53 02:01:00Negative *NA*(02/25/20 9:01 PM) [facility] BCGHG8002-01-46 02:01:00Negative (02/25/20 9:01 PM) [facility] SSNIS7875-32-97 02:01:00Negative (02/25/20 9:01 PM) [facility] FOHLB7305-38-08 02:01:00Negative (02/25/20 9:01 PM) [facility] BFIKH4455-76-86 02:01:001[facility] CHEM 2020-02-26 02:01:0039.00[facility] SNBI4509-17-46 02:01:0041.8 [facility] MLEW1279-11-70 02:01:00 Test Item Value Reference Range Interpretation Comments U Prot/Creat (test code = U 1.07 1 Prot/Creat) [facility] IUEH2076-34-20 02:01:18353Ewobhhqc [facility]annURINE CHEM 2020-02-26 02:01:0068[facility] GIIU8216-12-78 02:01:0028.9[facility] POEK1646-40-73 02:01:0048[facility] HermannBACTERIAL - SEROLOGY 2020-02-26 02:01:00Urine *NA*(02/25/20 9:01 PM)[facility] HermannBACTERIAL - ISNORFXK2260-45-77 02:01:00Negative (7/8/20 9:01 PM)[facility] HermannCHEM PANEL 2020-02-26 02:01:0055[facility] HermannCHEM WBUPR2737-22-35 02:01:0099[facility]annCHEM SKSGN6320-51-77 02:01:0015[facility]annCHEM LJZIS0083-67-88 02:01:001.46[facility]annCHEM UTVQP7136-06-97 02:01:13854Csujxvwr HermannCHEM AHADI0823-90-56 02:01:005.0[facility]annCHEM DEMWF2843-06-21 02:01:0098 [facility]annCHEM JQNBU5079-99-00 02:01:0015[facility] HermannCHEM PANEL 2020-02-26 02:01:008.5[facility]annCHEM JTWGU3946-35-97 02:01:0025.0[facility]annCHEM DELZX5247-79-86 02:01:008.90[facility]annCHEM NKZJY9640-75-31 02:01:001.6[facility]annCHEM YVZMN2316-23-41 02:01:003.4[facility]annCHEM KATDI5191-06-87 02:01:001.4[facility]annCHEM RFVGE3642-33-76 02:01:000.14 [facility]annSPECIAL XXYOZXGSY9635-00-56 02:01:007.5[facility] AND LRVLL7341-04-55 02:01:00Yellow *NA*(02/25/20 9:01 PM)[facility] AND JGZHL7028-66-63 02:01:00Clear (02/25/20 9:01 PM)[facility] STOOL 2020-02-26 02:01:00 Test Item Value Reference Range Interpretation Comments UA Spec Grav (test code = UA Spec 1.042 1 Grav) [facility] JOMDI2073-55-42 02:01:00 Test Item Value Reference Range Interpretation Comments UA pH (test code = UA pH) 5.0 1 5.0-8.0 [facility] ABGOQ5418-68-97 02:01:00Negative *NA*(02/25/20 9:01 PM) [facility] RYUOI8236-32-97 02:01:00Negative (02/25/20 9:01 PM) [facility] VCJSJ3409-59-63 02:01:00Negative (02/25/20 9:01 PM) [facility] NJYIF2977-07-67 02:01:00Negative (02/25/20 9:01 PM) [facility] PKIGS1611-83-78 02:01:001[facility] CHEM 2020-02-26 02:01:0039.00[facility] HRJW3863-16-68 02:01:0041.8 [facility] YOIE3068-86-00 02:01:00 Test Item Value Reference Range Interpretation Comments U Prot/Creat (test code = U 1.07 1 Prot/Creat) [facility] MPNI5905-45-41 02:01:04606Wvmpklsb [facility]annURINE CHEM 2020-02-26 02:01:0068[facility] EGIY7197-80-15 02:01:0028.9[facility] ZCHH0354-27-63 02:01:0048[facility] HermannCHEM HBWAD1735-04-31 23:08:001.5[facility] HiolsefNIXYEDYANW7846-43-22 23:08:00Not Detected (02/25/20 6:08 PM)[facility] QzdrnthHPBOAO1840-16-99 23:08:33262Bkpclhad HermannLIPIDS 2020-02-25 23:08:80730Cvyaeqwd HigmtxzIUXTLI7334-04-08 23:08:0057[facility] HktpvvvUHXDSD7599-32-39 23:08:00 Test Item Value Reference Range Interpretation Comments CHD Risk (test code = CHD Risk) 2.79 1 4.00-7.30 [facility] ScmuxdsVZDJME4206-96-34 23:08:0073[facility] LjqcxknQZKXJW6936-05-71 23:08:00 Test Item Value Reference Range Interpretation Comments VLDL (test code = VLDL) 29 1 [facility]annCHEM XENTS6987-25-59 23:08:001.5[facility] HermannIMMUNOLOGY 2020-02-25 23:08:00Not Detected (02/25/20 6:08 PM)[facility] VmcssflOTKDYP8424-30-60 23:08:56875Nqmumnsq HtzoyxbQPAGJN3668-72-16 23:08:11006Uevgatqp HermannLIPIDS 2020-02-25 23:08:0057[facility] FuhuhweYACKJL2733-58-16 23:08:00 Test Item Value Reference Range Interpretation Comments CHD Risk (test code = CHD Risk) 2.79 1 4.00-7.30 [facility] VbtfloaHRJWQJ3617-76-26 23:08:0073[facility] RwynqrqDMPEXA9234-50-01 23:08:00 Test Item Value Reference Range Interpretation Comments VLDL (test code = VLDL) [address] [facility] HermannANEMIA DXPAT5350-92-72 19:39:0012.3[facility] HermannCARDIAC CTAWVDN0421-85-34 19:39:00<0.02[facility] HermannCHEM TNNZA2346-27-86 19:39:00 7.8[facility] HermannCHEM UXLWN9327-32-77 19:39:004.0[facility] HermannCHEM PANEL 2020-02-25 19:39:38773Lrgaibra HermannCHEM ABMRB7315-64-75 19:39:84420Kdifgpqh [facility]annCHEM PMRQT7616-02-53 19:39:81514Ktvfwfxw [facility]annCHEM OETYY9646-36-78 19:39:001.7[facility] HermannCHEM ZRHTF4720-28-27 19:39:00 Test Item Value Reference Range Interpretation Comments B/C Ratio (test code = B/C Ratio) 11 1 6-25 [facility]annCHEM WFMFS9738-73-46 19:39:003.8[facility] HermannCHEM PANEL 2020-02-25 19:39:00 Test Item Value Reference Range Interpretation Comments A/G Ratio (test code = A/G Ratio) 1.1 1 0.7-1.6 [facility]annCHEM STSYO4599-44-52 19:39:760819Hacdcooy HermannHEMATOLOGY 2020-02-25 19:39:0010.6[facility] KohwbmfDJCYXSNFNG0918-24-66 19:39:001.3[facility] CflrhhqBYJQMZLTQQ3031-63-68 19:39:001.2[facility] RlchxlsGQTWKGAMRG3437-88-75 19:39:0068.0[facility] QjgrzrsMXVQJYDHMN3245-40-15 19:39:0013.0[facility] BVXHNMKEWE6767-73-38 19:39:0010.0[facility] GpgqcwtAFEVPEVOZK2508-09-02 19:39:00 9.0[facility] XnnovitNRVQZPACKE5616-92-00 19:39:000.0[facility] HermannHEMATOLOGY 2020-02-25 19:39:00Normal (02/25/20 2:39 PM)[facility] RmgqehjFLFTQCQNDP1593-32-53 19:39:0013.1[facility] JyzbwohZZCCQOKNNZ9482-87-25 19:39:004.77[facility] HCLBOIBNSV7597-74-38 19:39:0015.7[facility] CplpfmzNWATMQPAMI3588-84-81 19:39:00 48.0[facility] PjahlgsBQQXWVAJPV5451-25-65 19:39:74719.7[facility] HermannHEMATOLOGY 2020-02-25 19:39:00 Test Item Value Reference Range Interpretation Comments MCH (test code = MCH) 32.9 pg 27.0-31.0 [facility] MmnagdgZBJWVYXJMZ6550-71-80 19:39:0032.7[facility] HermannHEMATOLOGY 2020-02-25 19:39:0017.2[facility] KzujtdkRPCSBCLRNV3940-96-86 19:39:69441Nnsumsga QtderpsOQLLUJJCYY8454-51-84 19:39:0010.4[facility] OaekihnLALIOX9033-17-70 19:39:75135Ahsyiqod HermannANEMIA OEMGY3924-22-19 19:39:0012.3[facility] CARDIAC ORHIPKI0299-93-53 19:39:00<0.02[facility] HermannCHEM NKEUS3644-67-58 19:39:007.8[facility]annCHEM LQVVK6297-34-35 19:39:004.0[facility]annCHEM OLVKW0656-03-36 19:39:17950Ebwfirjc HermannCHEM NXVCD3674-80-22 19:39:19872 [facility]annCHEM LUCCB1761-33-33 19:39:05990Fyrkjprs HermannCHEM PANEL 2020-02-25 19:39:001.7[facility] HermannCHEM BMYGF9763-66-97 19:39:00 Test Item Value Reference Range Interpretation Comments B/C Ratio (test code = B/C Ratio) 11 1 6-25 [facility]annCHEM XQZOR3270-94-65 19:39:003.8[facility] HermannCHEM PANEL 2020-02-25 19:39:00 Test Item Value Reference Range Interpretation Comments A/G Ratio (test code = A/G Ratio) 1.1 1 0.7-1.6 [facility]annCHEM IWQUI0995-52-57 19:39:715703Isoothpq HermannHEMATOLOGY 2020-02-25 19:39:0010.6[facility] YapkxszVIWQAUHZVU4803-54-02 19:39:001.3[facility] HbpszeaYARMOZGHIB9007-75-48 19:39:001.2[facility] QvsxmanMUAFZEFWQB8508-48-50 19:39:0068.0[facility] LdgfftfCAMLORVCYW8927-42-96 19:39:0013.0[facility] GNQAFFHFYI1747-61-85 19:39:0010.0[facility] FyuteltCPGWBNJILF2621-63-48 19:39:00 9.0[facility] AaisesiWNAAVLQRRV9947-53-76 19:39:000.0[facility] HermannHEMATOLOGY 2020-02-25 19:39:00Normal (02/25/20 2:39 PM)[facility] VooctcmTFQFDFQIWL0394-80-59 19:39:0013.1[facility] JyabhoiMBKYYHKGQG6391-33-66 19:39:004.77[facility] YFCRXHBXGF7562-65-19 19:39:0015.7[facility] XuqzgqyZXEHUXGNGA2214-37-59 19:39:00 48.0[facility] KmkhxnjCQYIBNOFDG6829-42-32 19:39:80974.7[facility] HermannHEMATOLOGY 2020-02-25 19:39:00 Test Item Value Reference Range Interpretation Comments MCH (test code = MCH) 32.9 pg 27.0-31.0 [facility] VsyleroAIIBIPXQJU2087-16-37 19:39:0032.7[facility] HermannHEMATOLOGY 2020-02-25 19:39:0017.2[facility] KbnoaheBBVKEVATXM9830-23-60 19:39:04741Hrvazyvx NxuezczWVNGBJQXUV5430-19-23 19:39:0010.4[facility] DqyuqpcVTRAXQ4586-42-27 19:39:70414Gipktzlx HermannBEDSIDE GLUCOSE BFLEGRL0339-70-60 17:47:31567Mwrzquwu HermannBEDSIDE GLUCOSE MRJIJXS9570-54-58 17:47:69677Ctgxunmd HermannBEDSIDE GLUCOSE KCXNANU2748-42-75 12:00:73091Bkjxviam HermannBEDSIDE GLUCOSE TESTING 2011-10-07 12:00:62626Zlwakxzu ZsxidgvWTLNKIZXE8171-60-81 08:43:002.3[facility] FucrrwaSXFNQDRRZ2989-46-42 08:43:0013[facility] OsevxltCSXFSFDVP7442-13-51 08:43:001.4[facility] UobciiyXCPLWRWLC2186-52-39 08:43:0011.3[facility] IIIHVHXHD2374-37-21 08:43:000.9[facility] TsdpcqeEKVXNYNNJ9854-55-83 08:43:0049 [facility] XaqhqkyVAIGBFLTY5891-41-82 08:43:0063[facility] HermannCHEMISTRY 2011-10-07 08:43:005.5[facility] ZidslmkRFRZHODHN0871-25-27 08:43:008.3[facility] NtpdtzlMKVWNODGB7713-44-20 08:43:003.2[facility] TkwweefXQDEMBUJR7713-78-49 08:43:58731Amovhbda MwlkwsuLFEJMNUEY2397-92-57 08:43:0021[facility] QYQCIKSAA0063-75-14 08:43:45236Mvordrvk IaytzdyRJOXBLDNP7237-29-86 08:43:46475 [facility] BrjmphhZINRQSJSL4197-78-98 08:43:85270Xgofawtz HermannCHEMISTRY 2011-10-07 08:43:001.6[facility] UrrdjsqQYUUEJULJ0068-17-00 08:43:004.3[facility] HlgfxozDLPQOFPZE3290-06-68 08:43:0030[facility] WjwuutoXOSKSZMZKZ4871-48-40 08:43:0010.6[facility] VmdbehdBNPJNEZAAG5718-21-97 08:43:00 Test Item Value Reference Range Interpretation Comments MCH (test code = MCH) 30.8 pg 27.0-31.0 N [facility] PkzshhePQAMKUALWM7594-96-11 08:43:004.32[facility] HermannHEMATOLOGY 2011-10-07 08:43:0013.3[facility] PbrcsdcTRYVSLHOLT4735-89-38 08:43:0039.3[facility] BgxckwbYBJHEGGLPJ9604-70-67 08:43:0091.0[facility] RewlexoZVIRABHVDC6354-45-00 08:43:0033.8[facility] WemtxmjNEFVHUMAZK9861-37-38 08:43:0013.0[facility] MUZCLLCTSM7347-51-75 08:43:59139Tsgawvcl GczzwvrODMJFRJNXD5979-20-26 08:43:00 11.1[facility] AyzvvbyGHAHPOHZPI3599-17-84 08:43:0071.8[facility] HermannHEMATOLOGY 2011-10-07 08:43:0014.8[facility] VstentlRUJWEZAFRH5430-31-30 08:43:000.3[facility] XznmlvlDXIDCOFYQA9552-02-65 08:43:0011.2[facility] OmcexvaXEWBHFKICI6850-32-29 08:43:001.2[facility] NijlcdzZQIPSUMRLF9769-72-13 08:43:000.2[facility] MVWPVLCPEV0184-46-23 08:43:001.9[facility] PlypighAAYOOVFXPZ3493-43-30 08:43:007.6 [facility] VbbzamcUGJUMYNMKQ0649-85-75 08:43:001.6[facility] HermannCHEMISTRY 2011-10-07 08:43:002.3[facility] ZoqwlekAUXXRHSYG0395-61-73 08:43:0013[facility] PfdzmujXZUVWIMNQ2182-46-74 08:43:001.4[facility] MsqqvfaCHZKXALRQ6772-71-21 08:43:0011.3[facility] JnkmfguNLKUMQQWJ8504-06-96 08:43:000.9[facility] BQMVDPIPZ5947-01-78 08:43:0049[facility] OitkubqKUKIYJQAG2388-69-95 08:43:0063 [facility] EfbrvmkKZEHHEXUK2463-43-80 08:43:005.5[facility] HermannCHEMISTRY 2011-10-07 08:43:008.3[facility] DtrjxezPFRTBKRVD2253-52-17 08:43:003.2[facility] IqwoeghMCNUOOGHR9388-72-16 08:43:70834Ygwtbykx XgeonztUASLWMUCM5817-85-46 08:43:0021[facility] RoqzogkDKXFFKEPX2918-97-37 08:43:96568Fqxijawg [place] IJHKLEYXS1272-05-27 08:43:56034Rpcbwbso KahgqnbOOUSKHICR3654-36-76 08:43:66219 [facility] MmocuijNJNDPOSMN7854-50-40 08:43:001.6[facility]annCHEMISTRY 2011-10-07 08:43:004.3[facility] AhufrgwFJRMLTHDM4294-18-66 08:43:0030[facility] GzwujcgXZAADFCBBO7275-81-60 08:43:0010.6[facility] LhyevyjXPEZITYSVJ6112-97-68 08:43:00 Test Item Value Reference Range Interpretation Comments MCH (test code = MCH) 30.8 pg 27.0-31.0 N [facility] GicoggyPLWDIUNMNE7912-74-95 08:43:004.32[facility] HermannHEMATOLOGY 2011-10-07 08:43:0013.3[facility] YhivrjwXGDJDJCAER7748-21-89 08:43:0039.3[facility] BacoojvAEFACTGKEO7389-48-37 08:43:0091.0[facility] MpqzwmgTBMWTOQOEN2450-90-64 08:43:0033.8[facility] LohmzfrEHWIXQDFML1377-53-49 08:43:0013.0[facility] KJJCUOEIHJ7211-32-06 08:43:93130Xxfslryt TouhdesUHSFOPHIEA7146-29-08 08:43:00 11.1[facility] LhfzpkbHERPKOJEFW7951-36-46 08:43:0071.8[facility] HermannHEMATOLOGY 2011-10-07 08:43:0014.8[facility] EpacvavZIIRTYSWKE4189-06-38 08:43:000.3[facility] PcmlfotDKKYPCJQQK1152-08-96 08:43:0011.2[facility] QgxlmolUQMEQAFSJL6922-65-74 08:43:001.2[facility] LhalhfzFNWRUIHOUH9092-02-81 08:43:000.2[facility] AHBRBMZTBA0749-30-38 08:43:001.9[facility] OsctcvgKPGDCQUEWV9952-22-29 08:43:007.6 [facility] OuqijwaKQTEIXJDZX3022-12-10 08:43:001.6[facility] HermannBEDSIDE GLUCOSE CYUMRAA9174-43-93 03:23:11699Hilubkad HermannBEDSIDE GLUCOSE VNTMCJD6953-49-22 03:23:53220Scghrfkv FthddbrNFKJTZLRL8499-28-25 09:42:001.0[facility] NAIWJPYOV9232-94-54 09:42:0055[facility] TqspoazDMFQSPHJA9807-61-66 09:42:003.5 [facility] PzhhukhGBKFWXBNU1067-73-57 09:42:0029[facility]annCHEMISTRY 2011-10-06 09:42:12028Yajxrbhi PlislvhMTAFDDPAU7118-01-56 09:42:005.7[facility] UfloxtzATREPUSYX0061-28-69 09:42:008.0[facility] QpmzotvZIXTFXYNJ9264-16-39 09:42:14126Yqdimaca LjljppwUWRKKJEKT8004-47-91 09:42:0049[facility] UIMLSRAON2921-84-71 09:42:003.6[facility] JpevlmbLNNXCDVTE1225-93-56 09:42:001.3 [facility] CjjevfrUXAQNBKWI9577-14-48 09:42:0022[facility] HermannCHEMISTRY 2011-10-06 09:42:85274Ctvroafp EyhymfdZQDQHIZUN6579-40-93 09:42:86890Umvissgy XxarycpXBBECALFS0787-53-10 09:42:002.2[facility] YunnaqgMYUAGUVCN2482-26-28 09:42:001.6[facility] FvcpuhqWFKEQWHXA8130-16-64 09:42:0011.6[facility] MTNAYUWHX2256-45-10 09:42:0017[facility] MtbqmggRLPZDYYFQZ9084-93-58 09:42:00 Test Item Value Reference Range Interpretation Comments MCH (test code = MCH) 29.9 pg 27.0-31.0 N [facility] XyykuxaBKOVMVCQHT8416-33-94 09:42:0033.7[facility] HermannHEMATOLOGY 2011-10-06 09:42:0088.7[facility] KjicrpcOELKTBSUYW7449-09-08 09:42:0040.8[facility] OlqjibmOQNZJUVIXN9799-87-61 09:42:03055Pzbxltng QalztyrVHAXQASUJQ8725-65-33 09:42:0012.9[facility] GapscilUMMJGTVBNP5106-81-22 09:42:0011.0[facility] NVCBIJGOJP5545-21-22 09:42:004.60[facility] CifztbnVVRRNNEDKW3477-43-05 09:42:00 13.8[facility] RvogiaiVXBZVEBMGO9657-30-79 09:42:0013.9[facility] HermannHEMATOLOGY 2011-10-06 09:42:000.0[facility] RlyemocZVPFYHLXZN0012-91-08 09:42:000.1[facility] NugbpqaQBNOXZDAYA1832-33-25 09:42:0011.6[facility] BlowszjSEHRQOGFVE7813-72-69 09:42:001.1[facility] KbcdtzcKLSHCKKCZQ4381-41-28 09:42:001.1[facility] GMCZRFQXOO3004-51-03 09:42:00Normal (10/06/2011 03:42:00)[facility] WSQXVNBHCU7912-56-44 09:42:00Normal (10/06/2011 03:42:00)[facility] GRCVHZWPYX0201-12-70 09:42:0083.6[facility] UcyiemdKCGLVCSJTP4112-89-51 09:42:00 8.1[facility] AkpikpcMDLDZWJGFM0484-45-89 09:42:008.2[facility] HermannCHEMISTRY 2011-10-06 09:42:001.0[facility] KdbqiyeRGHVFZTHN6589-54-42 09:42:0055[facility] VtcznizMRSMNUOUL8785-22-16 09:42:003.5[facility] QdzwzjmQJPIKROWD6460-51-08 09:42:0029[facility] YywnloaBWBDJRQYQ7504-22-23 09:42:74607Jchupkzw Ernesto VFCAXDVTU2352-51-87 09:42:005.7[facility] LslaakqIUJLWZLLG4909-62-49 09:42:008.0 [facility] UomxfurIFSFCLSKY6394-66-59 09:42:34068Dlhpiahu HermannCHEMISTRY 2011-10-06 09:42:0049[facility] XkopzwzEKIYKOZLR9752-01-03 09:42:003.6[facility] AmntjpvXUHFPZLRQ7725-69-95 09:42:001.3[facility] IgmrrxdRKCNEQLAJ7883-63-03 09:42:0022[facility] NmaujjkLMSRZRIVI3078-02-24 09:42:97999Nffppgze Ernesto HGNTFHWTD7162-11-32 09:42:85065Mirorxby FotugrqLWBREFSKA2786-74-47 09:42:002.2 [facility] NxooycePMFXKMGPY9006-64-52 09:42:001.6[facility] HermannCHEMISTRY 2011-10-06 09:42:0011.6[facility] ZseldimGXKDQEVOG6435-53-64 09:42:0017[facility] SwsyeqhKRKXYEBIMR7674-40-92 09:42:00 Test Item Value Reference Range Interpretation Comments MCH (test code = MCH) 29.9 pg 27.0-31.0 N [facility] OvewukkMCYOHXFWBV1406-19-31 09:42:0033.7[facility] HermannHEMATOLOGY 2011-10-06 09:42:0088.7[facility] ZjylkcnRLXOODUGKC9597-36-30 09:42:0040.8[facility] GhmfatgMENMREUKYV4158-26-44 09:42:48489Belwkijn KtutwyzBCBVXKEWRM0329-38-55 09:42:0012.9[facility] IqvvotbVUPNLQXMCI5274-30-37 09:42:0011.0[facility] XRNDWEHQCV5241-68-17 09:42:004.60[facility] PmwwnghZNTTILYHSK1290-58-10 09:42:00 13.8[facility] JepmkniAWKJOUAPOV6373-78-17 09:42:0013.9[facility] HermannHEMATOLOGY 2011-10-06 09:42:000.0[facility] XnlscojCVTAPGGICY9307-85-75 09:42:000.1[facility] TvveuibFHTJRIQMXK2703-41-03 09:42:0011.6[facility] NqictdiVEICNJDLAN5073-18-43 09:42:001.1[facility] NfolluhTPUHGFXPBN3212-60-87 09:42:001.1[facility] UXCVKQHFWJ3655-19-94 09:42:00Normal (10/06/2011 03:42:00)[facility] WXNWDEWXCO8381-58-07 09:42:00Normal (10/06/2011 03:42:00)[facility] PLVKIBNYDO9998-39-89 09:42:0083.6[facility] RmbvtvyIVLISCUAUG0984-32-16 09:42:00 8.1[facility] XtxkkeuJQYHNEWOWB2390-84-29 09:42:008.2[facility] WPZYMAM9571-80-49 18:55:00Product available (10/04/2011 12:55:00)[facility] GRPIHCI8747-58-56 18:55:00Negative (10/04/2011 12:55:00) [facility] HzgqauqECHUTQGCM4827-18-37 18:55:0012[facility]annCHEMISTRY 2011-10-04 18:55:0012.7[facility] KddihizNSUPQQTAZ9013-79-79 18:55:001.6[facility] MuwpgnvLNSXPRAFQ4168-66-16 18:55:002.9[facility] TppwcuzQTGZAAHWX1667-99-67 18:55:007[facility] KbzxdmgBNDZHREMJ4266-70-97 18:55:000.6[facility] BWITDANJL4395-83-74 18:55:004.6[facility] YunrbbfJLKMMDQLT1145-93-18 18:55:007.5 [facility] PbtboiiLTLYXMEFL8573-06-27 18:55:009.3[facility]annCHEMISTRY 2011-10-04 18:55:0079[facility] YyfmkdjVCSXWOCVA6407-17-45 18:55:0039[facility] AigobumCKZXPHDBB0779-31-34 18:55:0017[facility] KhtwhmeUMHTDRVRY4657-03-39 18:55:87577Rndxwnen ScgccrpRDUMYCUHQ7814-08-08 18:55:0028[facility] EQPPYBEDG4462-48-50 18:55:003.7[facility] HrotqrhXWZWCXIWF3964-81-46 18:55:001.4 [facility] XnmkllfFFPUWZPLV7063-35-34 18:55:0098[facility]annCHEMISTRY 2011-10-04 18:55:05314Rmpotbgz InsooipPMPEWUUFEM7612-00-06 18:55:000.93[facility] LlnriyhKZZFDZZLBL8056-54-59 18:55:00 Test Item Value Reference Range Interpretation Comments PTT (test code = PTT) 26.1 s 22.9-35.[address] [facility] KbbdvkaDYQWLDEZYU1746-93-82 18:55:00 Test Item Value Reference Range Interpretation Comments PT (test code = PT) 12.5 s 12.0-14.[address] [facility] RnktoovCGGIKJLGRF8206-16-52 18:55:000.1[facility]annHEMATOLOGY 2011-10-04 18:55:002.0[facility] XfqmitfXUUFPTFYNS3529-65-55 18:55:005.6[facility] ViomiwiSWRFXNLXHG2904-63-77 18:55:000.2[facility] IpweoxxULRZALNNTY9821-83-25 18:55:001.7[facility] HuwkbxcAYLGFNRBNF6273-31-73 18:55:000.8[facility] KYLZKMURHM9291-70-07 18:55:009.0[facility] FtglpfhEWFJORZNFJ1611-52-74 18:55:00 23.1[facility] NlxntgyVIDPEPXIOC5454-33-72 18:55:0066.0[facility]annHEMATOLOGY 2011-10-04 18:55:008.5[facility] IiqnpldDOPESDRYJQ5748-78-60 18:55:0010.6[facility] WsmtnphPIYOBXLDJQ5275-93-09 18:55:65910Okbrvruw UmkomjeOBVTQVIIMQ8355-55-13 18:55:0012.4[facility] UzmgjvxSXRVVSBMLD2413-41-11 18:55:0034.1[facility] RRCOXFFGTL7421-83-54 18:55:00 Test Item Value Reference Range Interpretation Comments MCH (test code = MCH) 30.6 pg 27.0-31.0 N [facility] ArotovsVHVAKOUEBJ4868-36-47 18:55:0089.6[facility]annHEMATOLOGY 2011-10-04 18:55:0048.6[facility] VynwkifJBCPGZGBRX7754-73-24 18:55:005.42[facility] GfksewxXGVERRPMRA6843-79-12 18:55:0016.6[facility] OldbdxlCPFCUADFGC8067-96-67 18:55:00Negative *NA*(10/04/2011 12:55:00)[facility] QnjxosfWGJBBHZRWT5281-95-07 18:55:00Negative (10/04/2011 12:55:00)[facility] VzkceuiYDSGGEEBNA5770-07-78 18:55:00Negative (10/04/2011 12:55:00)[facility] ZdebddnHPWXAJDEKE0256-06-11 18:55:001[facility] SbtnpbkUCPJJRLGWN4592-17-94 18:55:00<1[facility] MQMHGUIXCT8353-16-50 18:55:00Negative *NA*(10/04/2011 12:55:00)[facility] BRJIKSTZFB7262-19-32 18:55:00Negative (10/04/2011 12:55:00)[facility] REEDREXTKM1652-85-82 18:55:00Negative mg/dL *NA*(10/04/2011 12:55:00)[facility] XlnsyqzARVEXARDMK7582-54-58 18:55:0050 mg/dL *ABN*(10/04/2011 12:55:00)[facility] MjpgfyeUNSVWUVMBN0242-70-89 18:55:00>=1000 mg/dL *ABN*(10/04/2011 12:55:00) [facility] OqdsrciQZZVTFIKQI5381-05-58 18:55:001.027[facility]annURINALYSIS 2011-10-04 18:55:00Yellow *NA*(10/04/2011 12:55:00)[facility]annURINALYSIS 2011-10-04 18:55:00Clear (10/04/2011 12:55:00)[facility]annURINALYSIS 2011-10-04 18:55:006.0[facility] NKDPNSL9258-63-35 18:55:00 Product available (10/04/2011 12:55:00)[facility] RESULTS 2011-10-04 18:55:00Negative (10/04/2011 12:55:00)[facility]annCHEMISTRY 2011-10-04 18:55:0012[facility] CzhocsuIOJIHNKSL1168-89-85 18:55:0012.7[facility] CllcbpmTGZWGYIKB1879-47-85 18:55:001.6[facility] YsfzwyqAXBNHFJFN7673-54-26 18:55:002.9[facility] CnvbroaQUCSZECSY1452-57-16 18:55:007[facility] RDKRQYLAC2197-83-21 18:55:000.6[facility] DyvijihSVWEZMLBI5610-18-29 18:55:004.6 [facility] NghpibaJYGGPQYAF1740-90-43 18:55:007.5[facility]annCHEMISTRY 2011-10-04 18:55:009.3[facility] SavxbtlXKZKDACZT2527-21-63 18:55:0079[facility] HudoytxVMSTVSPNV1844-78-68 18:55:0039[facility] TpbmducQQFCGXGZL2720-80-17 18:55:0017[facility] JveiqdoJGCRXJZYI6649-36-55 18:55:29581Tjuxeduy [facility] GZLXRHCPO9213-33-19 18:55:0028[facility] NbgggdrFXSBFKTWD3275-33-21 18:55:003.7 [facility] UqtaxfnYXPWFKGCA8987-50-23 18:55:001.4[facility]annCHEMISTRY 2011-10-04 18:55:0098[facility] TnuuyebPXCHKGBUW6310-09-70 18:55:94072Xfilxndt WjfffyjGPUNKMIEEI4580-61-55 18:55:000.93[facility] MsnlidhIPLZNMBIVM7107-48-09 18:55:00 Test Item Value Reference Range Interpretation Comments PTT (test code = PTT) 26.1 s 22.9-35.[address] [facility] XnxjoyaUNISSPKZHW1901-20-77 18:55:00 Test Item Value Reference Range Interpretation Comments PT (test code = PT) 12.5 s 12.0-14.7 N [facility] DfhqeypORVEDKDPCD5521-84-31 18:55:000.1[facility]annHEMATOLOGY 2011-10-04 18:55:002.0[facility] UhhnbbuKSNXHIUPKQ4743-59-68 18:55:005.6[facility] FfoanvvSXNWYGQZKS7393-07-84 18:55:000.2[facility] OzbmmynHKEGFRZUHH0714-95-62 18:55:001.7[facility] FmiczkwMWRRRTOOBJ9282-15-47 18:55:000.8[facility] HJLDZHWNTL5151-50-65 18:55:009.0[facility] FxqbrkbSMJAGWPQEH0785-95-30 18:55:00 23.1[facility] KvqegzfROOUUCHMQL1952-80-05 18:55:0066.0[facility]annHEMATOLOGY 2011-10-04 18:55:008.5[facility] CypudhhGMGIYQYVXD9180-83-32 18:55:0010.6[facility] IgirwlqQXZUBTGSUA3168-53-88 18:55:53308Gqjbrxka ZaambguJTAJWHAPEV0744-38-03 18:55:0012.4[facility] NievqrvTEESFCYTZT0056-52-91 18:55:0034.1[facility] RAKZCQULWB1071-15-44 18:55:00 Test Item Value Reference Range Interpretation Comments MCH (test code = MCH) 30.6 pg 27.0-31.0 N [facility] LqsggzsPJPUSXMLJH0686-87-38 18:55:0089.6[facility] HermannHEMATOLOGY 2011-10-04 18:55:0048.6[facility] TqwlqrfFOOTIBAHYD5551-89-63 18:55:005.42[facility] UhnkyfpEXHIFZVKHS5059-25-01 18:55:0016.6[facility] EfktpeuXYNVFYQTKG4862-59-91 18:55:00Negative *NA*(10/04/2011 12:55:00)[facility] IecuetfCRBMPLLPSR5339-76-91 18:55:00Negative (10/04/2011 12:55:00)[facility] MwnkwlrIYMKPYWNSZ8624-20-80 18:55:00Negative (10/04/2011 12:55:00)[facility] EebexyqZVXHWOTBOS9811-79-90 18:55:001[facility] IksgpvwVYFVDSJFDY4953-68-83 18:55:00<1[facility] KMEHZOEMEP0392-64-73 18:55:00Negative *NA*(10/04/2011 12:55:00)[facility] UDOIULYXSE0348-40-32 18:55:00Negative (10/04/2011 12:55:00)[facility] TINOUJZGTI0403-43-53 18:55:00Negative mg/dL *NA*(10/04/2011 12:55:00)[facility] AfepmojNCXZFDIJGA2200-85-01 18:55:0050 mg/dL *ABN*(10/04/2011 12:55:00)[facility] TgivnehWSHXZHCHQF6652-02-05 18:55:00>=1000 mg/dL *ABN*(10/04/2011 12:55:00) [facility] EzhbjuvBIIUVSDQTB0382-06-31 18:55:001.027[facility] HermannURINALYSIS 2011-10-04 18:55:00Yellow *NA*(10/04/2011 12:55:00)[facility] HermannURINALYSIS 2011-10-04 18:55:00Clear (10/04/2011 12:55:00)[facility] HermannURINALYSIS 2011-10-04 18:55:006.0[facility]
[2022-03-27] MEDS ORDERED: NA CHLORIDE 0.9% 1,000 ML ONE (10:18)
[2022-03-27] MEDS ORDERED: MAGNESIUM SULFATE 1 gm IVPB 1 GM/100 ML BAG IV ONE (10:18)
[2022-03-27 10:53] LABS: Absolute Lymphocytes (CBC) 3.5 K/uL (0.7-4.9); Hematocrit 42.4 % (39.6-49.0); Lymphocytes % 28.3 % (15.3-44.8); MCV 72.2 fL (80-100); MPV 9.6 fL (7.6-11.3); RBC Red Blood Cell Count 5.87 M/uL (4.33-5.43)
--- NOTE | 2022-03-27 11:08 | RAD REPORT ---
EXAM DESCRIPTION: RAD - Chest Single View - 03/27/2022 10:49 am CLINICAL HISTORY: Chest pain COMPARISON: None TECHNIQUE: AP portable chest image was obtained 03/27/2022 10:49 am . FINDINGS: Lungs are clear. Resuscitation paddle overlies the medial left lung base. Heart and vascul ature are normal. No measurable pleural effusion and no pneumothorax. No acute bony abnormality seen. No acute aortic findings suspected. IMPRESSION: No acute cardiopulmonary process.
[2022-03-27 11:29] LABS: Potassium 3.6 mmol/L (3.5-5.1); Troponin High Sensitivity 26.9 pg/mL (<58.9)
[2022-03-27] MEDS ORDERED: MIDAZOLAM HCL 2 MG/2 ML INJ ONE (11:37)
[2022-03-27] MEDS ORDERED: FENTANYL CITR 100 MCG/2 ML ONE (11:38)
[2022-03-27 11:54] LABS: Anisocytosis 1+; Blood Morphology Comment NOTED (NOT SEEN); Platelet Estimate ADEQ; White Blood Cell Scan OK (OK)
--- NOTE | 2022-03-27 12:28 | ER ---
Nurse's Notes [facility] Name: Arnoldo Jones Sr Age: 51 yrs Sex: Male : 1970 Arrival Date: 03/27/2022 Time: 09:52 Bed 3 Private MD: Diagnosis: Paroxysmal atrial fibrillation-with RVR;Acute kidney failure, unspecified Presentation: 03/27 10:03 Chief complaint: Patient states: SOB, palpitations since yesterday. Ebola Screen: No jl7 symptoms or risks identified at this time. 10:03 Method Of Arrival: Wheelchair jl7 10:03 Acuity: SLAVA 1 jl7 10:13 Coronavirus screen: At this time, the client does not indicate any symptoms associated jl7 with coronavirus-19. Initial Sepsis Screen: Does the patient meet any 2 criteria? No. Patient's initial sepsis screen is negative. Does the patient have a suspected source of infection? No. Patient's initial sepsis screen is negative. Risk Assessment: Do you want to hurt yourself or someone else? Patient reports no desire to harm self or others. Onset of symptoms was March 26, 2022. Care prior to arrival: None. Triage Assessment: 17:06 Respiratory: ph Historical: - Allergies: 13:48 No Known Allergies; ph - Home Meds: 10:15 lisinopril 5 mg Oral tab [Active]; gabapentin oral [Active]; levothyroxine oral jl7 [Active]; duloxetine oral [Active]; Insulin: Regular Sub-Q [Active]; 13:48 ropinirole 2 mg oral tab 1 tab [Active]; ph - PMHx: 10:15 Diabetes - NIDDM; Hypothyroidism; Anxiety; Hypertensive disorder; jl7 - Immunization history:: Client reports receiving the Miguel \\T\\ Miguel single-dose vaccine. - Social history:: Smoking status: Patient denies any tobacco usage or history of. Screenin:46 Abuse screen: Denies threats or abuse. Denies injuries from another. Nutritional ph screening: No deficits noted. Tuberculosis screening: No symptoms or risk factors identified. Fall Risk None identified. Assessment: 10:10 General: Appears in no apparent distress. well groomed, Behavior is calm, cooperative, ph appropriate for age. Pain: Complains of pain in chest. Neuro: Level of Consciousness is awake, alert, obeys commands, Oriented to person, place, time, situation. Cardiovascular: Reports chest pain, diaphoresis, fatigue, lightheadedness, palpitations, shortness of breath, Patient's skin is warm and dry. Rhythm is atrial flutter. Respiratory: Airway is patent Respiratory effort is even, unlabored. Derm: Skin is healthy with good turgor, Skin is pink, warm \\T\\ dry. 10:37 Reassessment: Dr Taveras at bedside for cardioversion. ph 10:40 Reassessment: Cardiac rhythm converted to SR at 74 bpm, BP also showing improvement at ph 95 systolic. 11:02 Neuro: Quintero Agitation-Sedation Scale (RASS): -1 Drowsy. ph 11:05 Reassessment: Patient appears in no apparent distress at this time. Patient and/or ph family updated on plan of care and expected duration. Pain level reassessed. Pt more awake and alert after IV meds for cardioversion, talking w/ at bedside, systolic BP currently 84, pt reports that he took his home BP medication this morning, states, " I hadn't taken it in a while either.". 14:38 Reassessment: Patient appears in no apparent distress at this time. Patient and/or ph family updated on plan of care and expected duration. Pain level reassessed. Patient is alert, oriented x 3, equal unlabored respirations, skin warm/dry/pink. Pt c/o back pain, states, " I have some lower back problems and my back usually starts hurting after I lie still for any period of time." Reports that he takes multiple pain medications at home, IV morphine ordered per Dr Nash but BP remains low, verbal order received for PO gabapentin which ot takes at home, see MAR. 16:00 Reassessment: Patient appears in no apparent distress at this time. Patient and/or ph family updated on plan of care and expected duration. Pain level reassessed. Patient is alert, oriented x 3, equal unlabored respirations, skin warm/dry/pink. 17:06 Reassessment: Patient appears in no apparent distress at this time. Patient and/or ph family updated on plan of care and expected duration. Pain level reassessed. Patient is alert, oriented x 3, equal unlabored respirations, skin warm/dry/pink. Pt moved to recliner at bedside for comfort, VSS. Vital Signs: 10:13 BP 63 / 38; Pulse 160; Resp 22; Pulse Ox 99% ; Weight 102.06 kg; Height 6 ft. 0 in. jl7 (182.88 cm); 10:35 BP 68 / 55; Pulse 150; Resp 14; Pulse Ox 100% on 2 lpm NC; ph 10:40 BP 95 / 63; Pulse 75; Resp 10; Pulse Ox 100% on 4 lpm NC; ph 11:02 BP 86 / 61; Pulse 77; Resp 14; Pulse Ox 100% on 4 lpm NC; ph 11:50 BP 96 / 74; Pulse 79; Resp 16; Pulse Ox 100% on 4 lpm NC; ph 12:30 BP 94 / 65; Pulse 79; Resp 18; Pulse Ox 98% on R/A; ph 13:00 BP 96 / 71; Pulse 76; Resp 16; Pulse Ox 97% on R/A; ph 13:30 BP 99 / 73; Pulse 78; Resp 16; Pulse Ox 99% on R/A; ph 14:00 BP 98 / 71; Pulse 81; Resp 16; Pulse Ox 98% on R/A; ph 14:40 BP 108 / 74; Pulse 90; Resp 18; Pulse Ox 98% on R/A; ph 15:30 BP 113 / 79; Pulse 67; Resp 16; Pulse Ox 98% on R/A; ph 16:00 BP 127 / 78; Pulse 86; Resp 16; Pulse Ox 98% on R/A; ph 17:00 BP 122 / 76; Pulse 87; Resp 18; Pulse Ox 99% on R/A; ph 18:00 BP 118 / 72; Pulse 86; Resp 16; Pulse Ox 99% on R/A; ph 10:13 Body Mass Index 30.52 (102.06 kg, 182.88 cm) jl7 Vitals: 14:43 Cardiac Rhythm Assessment Sinus rhythm. ph 16:00 Cardiac Rhythm Assessment Sinus rhythm. ph ED Course: 09:52 Patient arrived in ED. mr 09:53 Danny Taversa MD is Attending Physician. rn 09:58 EKG completed in triage. Results shown to MD. jl7 10:02 Arm band placed on Patient placed in an exam room, on a stretcher. ll1 10:04 Triage completed. jl7 10:10 Initial lab(s) drawn, by me. Inserted saline lock: 20 gauge in right antecubital area, ph using aseptic technique. Blood collected. 10:37 Assist provider with cardioversion (synchronized) with pads, with defibrillator, for ph treatment of A flutter with 150 joules X 1. Set up for procedure. Performed by Danny Taveras MD Monitored with monitor technician, pulse ox, Post procedure rhythm is sinus rhythm. Patient tolerated well. 10:43 Valeri Tobin, RN is Primary Nurse. ph 10:51 XRAY Chest (1 view) In Process Unspecified. EDMS 11:01 Patient has correct armband on for positive identification. Bed in low position. Call ph light in reach. Side rails up X 1. Client placed on continuous cardiac and pulse oximetry monitoring. NIBP monitoring applied. Warm blanket given. 12:28 Grover Nash MD is Hospitalizing Provider. rn 19:34 Patient admitted, IV remains in place. ph Administered Medications: 10:13 Drug: NS 0.9% 1000 ml Route: IV; Rate: 1000 ml; Site: right antecubital; ll1 11:30 Follow up: Response: No adverse reaction; IV Status: Completed infusion; IV Intake: ph 1000ml 10:15 Drug: Magnesium Sulfate 1 grams Route: IVPB; Infused Over: 1 hrs; Site: right ll1 antecubital; 11:15 Follow up: Response: No adverse reaction; IV Status: Completed infusion ph 10:28 Drug: Midazolam 2 mg Route: IVP; Site: right antecubital; ph 11:03 Follow up: Response: No adverse reaction; RASS: Drowsy (-1) ph 10:28 Drug: fentaNYL (PF) 100 mcg Route: IVP; Site: right antecubital; ph 11:03 Follow up: Response: No adverse reaction; RASS: Drowsy (-1) ph 14:37 Drug: Gabapentin 300 mg Route: PO; ph 15:00 Follow up: Response: No adverse reaction ph Medication: 10:46 VIS not applicable for this client. ph Intake: 11:30 IV: 1000ml; Total: 1000ml. ph Outcome: 12:28 Decision to Hospitalize by Provider. rn 18:30 Admitted to ER Hold. Please see [facility] for further documentation. ph 18:30 Condition: stable 18:30 Instructed on the need for admit. 20:58 Patient left the ED. as6 Signatures: Dispatcher [employer] Ileana BoneetoDanny MD MD rn Mahad, ANGELICA Trammell RN ph Jean Pierre Sanders RN RN jl7 Mor Gr RN RN ll1 Wyatt Elizabeth RN RN as6 Corrections: (The following items were deleted from the chart) 10:15 Allergies: No Known Allergies; jl7 ph 56 13:48 Allergies: ropinirole; ph
--- NOTE | 2022-03-27 12:29 | EDPHYS ---
Physician Documentation [facility] Name: Arnoldo Jones Sr Age: 51 yrs Sex: Male : 1970 Arrival Date: 03/27/2022 Time: 09:52 Bed 3 Private MD: ED Physician Danny Taveras HPI: 03/27 10:06 This 51 yrs old Male presents to ER via Wheelchair with complaints of Palpitations, rn Shortness Of Breath. 10:06 The patient presents with a history of irregular heart beat, heart racing. Onset: The rn symptoms/episode began/occurred 19 hour(s) ago. Duration: The patient or guardian reports a single episode, that is still ongoing. Modifying factors: The symptoms are aggravated by strenuous activity, The symptoms are alleviated by nothing. Associated signs and symptoms: Pertinent positives: chest pain, lightheadedness, SOB, Pertinent negatives: fever. Severity of symptoms: At their worst the symptoms were moderate in the emergency department the symptoms are unchanged. The patient has experienced a previous episode. Pt reports palpitations, sob, began yesterday at 3 PM, assoc with mild chest pain and sob. Has had atrial fibrillation in past, stopped taking his eliquis and rate control medication. This AM took meds, has had trouble in past dropping his BP, now feeling even more lightheaded and weak. No syncope.. Historical: - Allergies: 13:48 No Known Allergies; ph - Home Meds: 10:15 lisinopril 5 mg Oral tab [Active]; gabapentin oral [Active]; levothyroxine oral jl7 [Active]; duloxetine oral [Active]; Insulin: Regular Sub-Q [Active]; 13:48 ropinirole 2 mg oral tab 1 tab [Active]; ph - PMHx: 10:15 Diabetes - NIDDM; Hypothyroidism; Anxiety; Hypertensive disorder; jl7 - Immunization history:: Client reports receiving the Miguel \T\ Miguel single-dose vaccine. - Social history:: Smoking status: Patient denies any tobacco usage or history of. Exam: 10:58 ECG was reviewed by the Attending Physician. rn 10:58 Constitutional: This is a well developed, well nourished patient who is awake, alert, rn in wheelchair, appears to be generally weak Head/Face: Normocephalic, atraumatic. Cardiovascular: Tachycardic, regular Respiratory: No increased work of breathing, no retractions or nasal flaring. Abdomen/GI: Soft, non-tender Skin: Warm, dry MS/ Extremity: Pulses equal, no cyanosis. Neuro: Awake and alert, GCS 15, oriented to person, place, time, and situation. Cranial nerves II-XII grossly intact. Motor strength 5/5 in all extremities. Sensory grossly intact. Cerebellar exam normal. Vital Signs: 10:13 BP 63 / 38; Pulse 160; Resp 22; Pulse Ox 99% ; Weight 102.06 kg; Height 6 ft. 0 in. jl7 (182.88 cm); 10:35 BP 68 / 55; Pulse 150; Resp 14; Pulse Ox 100% on 2 lpm NC; ph 10:40 BP 95 / 63; Pulse 75; Resp 10; Pulse Ox 100% on 4 lpm NC; ph 11:02 BP 86 / 61; Pulse 77; Resp 14; Pulse Ox 100% on 4 lpm NC; ph 11:50 BP 96 / 74; Pulse 79; Resp 16; Pulse Ox 100% on 4 lpm NC; ph 12:30 BP 94 / 65; Pulse 79; Resp 18; Pulse Ox 98% on R/A; ph 13:00 BP 96 / 71; Pulse 76; Resp 16; Pulse Ox 97% on R/A; ph 13:30 BP 99 / 73; Pulse 78; Resp 16; Pulse Ox 99% on R/A; ph 14:00 BP 98 / 71; Pulse 81; Resp 16; Pulse Ox 98% on R/A; ph 14:40 BP 108 / 74; Pulse 90; Resp 18; Pulse Ox 98% on R/A; ph 15:30 BP 113 / 79; Pulse 67; Resp 16; Pulse Ox 98% on R/A; ph 16:00 BP 127 / 78; Pulse 86; Resp 16; Pulse Ox 98% on R/A; ph 17:00 BP 122 / 76; Pulse 87; Resp 18; Pulse Ox 99% on R/A; ph 18:00 BP 118 / 72; Pulse 86; Resp 16; Pulse Ox 99% on R/A; ph 10:13 Body Mass Index 30.52 (102.06 kg, 182.88 cm) 7 Procedures: 10:44 Cardioversion: (synchronized) for treatment of A fib, with 150 joules X 1. Post cuff turner rhythm is sinus rhythm, the patient tolerated the procedure well. MDM: 09:53 Patient medically screened. rn 12:26 Data reviewed: vital signs, nurses notes, lab test result(s), EKG, radiologic studies, rn plain films, and as a result, I will admit patient. Counseling: I had a detailed discussion with the patient and/or guardian regarding: the historical points, exam findings, and any diagnostic results supporting the discharge/admit diagnosis, lab results, radiology results, the need for further work-up and treatment in the hospital. Response to treatment: the patient's symptoms have markedly improved after treatment, and as a result, I will discharge patient. Special discussion:. ED course: Pt still hypotensive, Creatinine elevated, from 1.4 last month. Will admit to hospitalist for further eval, and cardiology consult. . 03/27 10:06 Order name: Basic Metabolic Panel; Complete Time: 11:57 rn 03/27 10:06 Order name: CBC with Diff; Complete Time: 11:57 rn 03/27 10:06 Order name: NT PRO-BNP; Complete Time: 11:57 rn 03/27 10:06 Order name: Troponin HS; Complete Time: 11:57 rn 03/27 10:58 Order name: CBC Smear Scan; Complete Time: 11:57 EDFL 03/27 13:08 Order name: SARS RAPID ph 03/27 10:06 Order name: XRAY Chest (1 view); Complete Time: 11:09 rn 03/27 14:17 Order name: Echo with Doppler EDFL 03/27 14:17 Order name: Basic Metabolic Panel EDFL 03/27 14:17 Order name: Basic Metabolic Panel EDMS 03/27 14:17 Order name: CBC with Automated Diff EDMS 03/27 14:17 Order name: CBC with Automated Diff EDMS 03/27 14:17 Order name: Lipid Profile EDFL 03/27 14:17 Order name: Lipid Profile EDFL 03/27 10:06 Order name: EKG; Complete Time: 10:09 rn 03/27 10:06 Order name: Cardiac monitoring; Complete Time: 10:15 rn 03/27 10:06 Order name: EKG - Nurse/Tech; Complete Time: 10:15 rn 03/27 10:06 Order name: IV Saline Lock; Complete Time: 10:15 rn 03/27 10:06 Order name: Labs collected and sent; Complete Time: 10:15 rn 03/27 10:06 Order name: O2 Per Protocol; Complete Time: 10:15 rn 03/27 10:45 Order name: EKG; Complete Time: 10:45 rn 03/27 14:17 Order name: CONS Physician Consult EDFL 03/27 14:17 Order name: Heart Healthy EDFL 03/27 14:17 Order name: Echo with Doppler EDFL 03/27 14:37 Order name: Diet Ada 1800 Andres; Complete Time: 14:45 ph 03/27 10:06 Order name: O2 Sat Monitoring; Complete Time: 10:15 rn 03/27 10:45 Order name: EKG - Nurse/Tech; Complete Time: 10:52 rn EC:58 Rate is 161 beats/min. Rhythm is regular. QRS [place] is Normal. QRS interval is normal. rn QT interval is normal. No Q waves. T waves are Normal. No ST changes noted. Clinical impression: Atrial Flutter. Interpreted by me. Reviewed by me. Administered Medications: 10:13 Drug: NS 0.9% 1000 ml Route: IV; Rate: 1000 ml; Site: right antecubital; 1 11:30 Follow up: Response: No adverse reaction; IV Status: Completed infusion; IV Intake: ph 1000ml 10:15 Drug: Magnesium Sulfate 1 grams Route: IVPB; Infused Over: 1 hrs; Site: right ll1 antecubital; 11:15 Follow up: Response: No adverse reaction; IV Status: Completed infusion ph 10:28 Drug: Midazolam 2 mg Route: IVP; Site: right antecubital; ph 11:03 Follow up: Response: No adverse reaction; RASS: Drowsy (-1) ph 10:28 Drug: fentaNYL (PF) 100 mcg Route: IVP; Site: right antecubital; ph 11:03 Follow up: Response: No adverse reaction; RASS: Drowsy (-1) ph 14:37 Drug: Gabapentin 300 mg Route: PO; ph 15:00 Follow up: Response: No adverse reaction ph Disposition Summary: 03/27/22 12:28 Hospitalization Ordered Hospitalization Status: Observation rn Provider: Grover Nash rn Condition: Stable rn Problem: new rn Symptoms: have improved rn Bed/Room Type: Standard rn Location: Telemetry/MedSurg (observation)(03/27/22 19:59) cg Room Assignment: 209(03/27/22 19:59) cg Diagnosis - Paroxysmal atrial fibrillation - with RVR rn - Acute kidney failure, unspecified rn Forms: - Medication Reconciliation Form rn - SBAR form garnisher time excluding procedures: 12:26 Critical care time: Bedside Care: 30 minutes, Consultation: 5 minutes. Total time: 35 rn minutes Signatures: Dispatcher [employer] EDMS Danny Taveras MD MD rn Hall, Patricia RN RN Sara Colon, RN RN Jean Pierre Linton RN RN [email or web address] Mor Gr RN RN ll1 Corrections: (The following items were deleted from the chart) 13:56 10:15 Allergies: No Known Allergies; jl7 ph 13:56 13:48 Allergies: ropinirole; ph ph 18:31 12:28 Telemetry/MedSurg (observation) neel matos 18:31 12:28 neel matos 19:59 18:31 [facility] ER HOLD jl7 cg 19:59 18:31 ERHOLD- jl7 cg
[2022-03-27] MEDS ORDERED: MORPHINE 4 MG/ML SYR IV PRN (14:12)
[2022-03-27] MEDS ORDERED: ACETAMINOPHEN 500 MG TAB PO PRN (14:12)
[2022-03-27] MEDS ORDERED: GABAPENTIN 300 MG CAP ONE (14:34)
[2022-03-27] MEDS ORDERED: MORPHINE 4 MG/ML SYR ONE (15:16)
[2022-03-27 15:20] LABS: SARS-CoV-2 Antigen Rapid Res Negative (Negative)
[2022-03-27] MEDS ORDERED: ONDANSETRON 4 MG/2 ML VIAL ONE (15:48)
[2022-03-27 18:57] VITALS: BMI 30.5
--- NOTE | 2022-03-27 20:15 | CON ---
Date of Consultation: 03/27/2022 Reason For Consultation: Atrial fibrillation and rapid ventricular response. History Of Present Illness: A 51-year-old male presented with significant palpitations and dizziness and profound sweats. No chest pain, but was short of breath. He was working outside in the heat an d felt the palpitations and dizziness. He took one of old blood pressure medicines that he has, santy dunne is lisinopril and tried to rest and then became worse and then presented to the emergency room in a trial fibrillation with rapid ventricular response. Blood pressure systolic was in the 70. Synchron ized electrocardioversion was done and he is in sinus rhythm. He has been feeling much better now. He does not have any other complaints. He is saturating 100%. Past Medical History: Diabetes, paroxysmal atrial fibrillation. Medications: Refer to reconciliation sheet for detailed sheet. Allergies: NO KNOWN DRUG ALLERGIES. Past Surgical History: Lengthy abdominal surgery recently of bypass reversal. Family History: No premature coronary artery disease or cancer. Social History: Does not smoke or drink. Does not use drugs. Review of Systems: All systems reviewed and they were negative except for what mentioned in HPI. Physical Examination: Vital Signs: Reviewed. Head and Neck: Pupils are equal, reactive to light. Intact eye movements. No JVD. No cervical lym phadenopathy. Neck is supple. Thyroid is not enlarged. Lungs: Clear to auscultation bilaterally. No rhonchi, wheezing, or crackles. No accessory muscle u se. Heart: Regular rate and rhythm. No extra sounds. Abdomen: Soft, nontender. Bowel sounds positive. No organomegaly. No masses or hernia. No rigidi ty or rebound. Extremities: No clubbing or cyanosis. Intact pulses. Skin: No rash. Neurologic: Alert, awake, oriented x3. No acute focal deficits appreciated. Investigations: Labs were reviewed. Assessment And Recommendations: 1.Atrial fibrillation with rapid ventricular response. He was unstable initially, status post cardi oversion. He is on Eliquis, took it this morning. Continue Eliquis 5 mg twice a day and agree with metoprolol 25 mg twice a day. If his creatinine normalized with IV fluids tomorrow, then metoprolol to be switched to sotalol at this point, keep him on metoprolol and we will repeat labs in the [facility]. 2.Acute renal failure, probably due to significant dehydration. This should reverse with aggressive IV fluid management and re-evaluate labs tomorrow. Again if his creatinine normalizes, then we will switch to metoprolol to sotalol and also please obtain echocardiogram. SR/MODL Voice ID: [id number] Report ID: [id number]
[2022-03-27] MEDS: METOPROLOL TAR 25 MG TAB PO SCH (21:00)
[2022-03-27] MEDS: ENOXAPARIN 100 MG/ML SYR SQ SCH (21:00)
[2022-03-27] MEDS: NA CHLORIDE 0.9% 1,000 ML IV SCH (22:28)
[2022-03-27] MEDS: HYDROCODONE/APAP 7.5/325 MG TAB PO PRN (22:30)
[2022-03-28 03:55] LABS: Absolute Lymphocytes (CBC) 1.5 K/uL (0.7-4.9); Hematocrit 33.3 % (39.6-49.0); Lymphocytes % 21.1 % (15.3-44.8); MCV 72.3 fL (80-100); MPV 9.1 fL (7.6-11.3)
[2022-03-28 04:09] LABS: Potassium 4.8 mmol/L (3.5-5.1)
[2022-03-28 05:01] VITALS: O2SAT 93
[2022-03-28] MEDS: METOPROLOL TAR 25 MG TAB PO SCH ×2 (08:58→09:00)
[2022-03-28] MEDS: NA CHLORIDE 0.9% 1,000 ML IV SCH (08:59)
[2022-03-28] MEDS: ENOXAPARIN 100 MG/ML SYR SQ SCH (08:59)
[2022-03-28] MEDS ORDERED: ASPIRIN EC 81 MG TAB PO SCH (09:00)
[2022-03-28] MEDS: HYDROCODONE/APAP 7.5/325 MG TAB PO PRN (09:14)
--- NOTE | 2022-03-28 10:40 | EKG ---
Test Date: 2022-03-27 Test Time: 09:57:48 Project Technician: HENRIETTA MEASUREMENT RESULTS: Intervals: Rate: 161 OH: QRSD: 76 QT: 260 QTc: 425 Vaughn: P: 258 OH: QRS: 27 T: 243 INTERPRETIVE STATEMENTS: Atrial flutter with 2:[address] and T wave abnormality Abnormal ECG No previous ECG available for comparison Electronically Signed On 03-28-22 10:36:20 CDT by Ze Sequeira
--- NOTE | 2022-03-28 10:40 | EKG ---
Test Date: 2022-03-27 Test Time: 10:54:10 Assistant Professor Of Life Sciences: ELIZABETH MEASUREMENT RESULTS: Intervals: Rate: 76 ME: 148 QRSD: 92 QT: 402 QTc: 452 Tina: P: 62 ME: 148 QRS: 45 T: 76 INTERPRETIVE STATEMENTS: Normal sinus rhythm with sinus arrhythmia Nonspecific T wave abnormality Abnormal ECG Compared to ECG 03/27/2022 09:57:48 T-wave abnormality now present Atrial flutter no longer present ST (T wave) deviation no longer present Electronically Signed On 03-28-22 10:36:19 CDT by Ze Sequeira
--- NOTE | 2022-03-28 11:30 | ECHO ---
HEIGHT: 6 ft 0 in WEIGHT: 225 lb 0 oz DATE OF STUDY: 03/28/[address]: Grover Nash MD 2-DIMENSIONAL: YES M.MODE: YES DOPPLER: YES COLOR FLOW: YES TDS: NO PORTABLE: YES DEFINITY: NO BUBBLE STUDY: NO DIAGNOSIS: ACUTE CONGESTIVE HEART FAILURE CARDIAC HISTORY: CATHERIZATION: NO SURGERY: NO PROSTHETIC VALVE: NO PACEMAKER: NO MEASUREMENTS (cm) DIASTOLIC (NORMALS) SYSTOLIC (NORMALS) IVSd 1.1 (0.6-1.2) LA Diam 2.5 (1.9-4.0) LVEF 63% LVIDd 4.0 (3.5-5.7) LVIDs 2.6 (2.0-3.5) %FS 34% LVPWd 1.1 (0.6-1.2) Ao Diam 2.8 (2.0-3.7) 2 DIMENSIONAL ASSESSMENT: RIGHT ATRIUM: NORMAL LEFT ATRIUM: NORMAL RIGHT VENTRICLE: NORMAL LEFT VENTRICLE: NORMAL TRICUSPID VALVE: NORMAL MITRAL VALVE: NORMAL PULMONIC VALVE: NORMAL AORTIC VALVE: NORMAL PERICARDIAL EFFUSION: NONE AORTIC ROOT: NORMAL LEFT VENTRICULAR WALL MOTION: NORMAL DOPPLER/COLOR FLOW: MILD TRICUSPID REGURGITATION. NORMAL RIGHT VENTRICULAR SYSTOLIC PRESSURE. COMMENTS: NORMAL LEFT VENTRICULAR SIZE AND FUNCTION. MILD TRICUSPID REGURGITATION. NORMAL RIGHT VENTRICULAR SYSTOLIC PRESSURE. NO EFFUSION. TECHNOLOGIST: Zuhair SANTOS
[2022-03-28 12:35] VITALS: BP 93/54; TEMP 98.9
[2022-03-28] MEDS ORDERED: NA CHLORIDE 0.9% 500 ML IV ONE (13:22)
--- NOTE | 2022-03-28 13:27 | P.HP ---
Certification for Inpatient Patient admitted to: Inpatient With expected LOS: >2 Midnights Patient will require the following post-hospital care: None Practitioner: I am a practitioner with admitting privileges, knowledge of patient current condition, hospital course, and medical plan of care. Services: Services provided to patient in accordance with Admission requirements found in Title 42 Section 412.3 of the Code of Federal Regulations Patient History Date of Service: 03/27/22 Reason for admission: Atrial fibrillation with rapid ventricular response History of Present Illness: Patient is a 51-year-old gentleman came to the hospital with palpitations and shortness of breath. Patient was found to have atrial fibrillation with rapid ventricular response. Patient also with acute kidney injury. Creatinine was elevated to 2.32. A year ago with sausage or knowledges he was at 1.23. He will be started on IV hydration. Cardiology has been consulted. Patient may need to be cardioverted as blood pressure is on the low side as well. Allergies No Known Allergies Allergy (Verified 12/23/19 08:14) Home Medications: Levothyroxine Sodium 125 mcg PO DAILY 12/23/19 Omeprazole 20 mg PO DAILY 12/23/19 Apixaban [Eliquis] 5 mg PO BID #60 tablet 03/28/22 Codeine/APAP [Tylenol #3*] 1 tab PO DAILY PRN 03/28/22 Gabapentin 300 mg PO TID PRN 03/28/22 Metoprolol Tartrate [Lopressor*] 25 mg PO BID #60 tab 03/28/22 Ropinirole HCl 2 mg PO BEDTIME 03/28/22 - Past Medical/Surgical History Has patient received pneumonia vaccine in the past: No Diabetic: Yes -: Hypothyroidism -: Gastric bypass -: right foot -: thyroid surgery -: appendectomy - Family History Father Family History: Reviewed- Non-Contributory - Social History Smoking Status: Never smoker Alcohol use: No CD- Drugs: No Caffeine use: Yes Place of Residence: Home Review of Systems 10-point ROS is otherwise unremarkable Physical Examination - Vital Signs Temperature: 98.9 F Blood Pressure: 93/54 Pulse: 70 Respirations: 18 Pulse Ox (%): 93 - Physical Exam General: Alert, In no apparent distress, Oriented x3 HEENT: Atraumatic, PERRLA, Mucous membr. moist/pink, EOMI, Sclerae nonicteric Neck: Supple, 2+ carotid pulse no bruit, No LAD, Without JVD or thyroid abnormality Respiratory: Clear to auscultation bilaterally, Normal air movement Cardiovascular: Regular rate/rhythm, Normal S1 S2, No murmurs Gastrointestinal: Normal bowel sounds, Soft and benign, Non-distended, No tenderness Musculoskeletal: No clubbing, No swelling, No tenderness Integumentary: No rashes Neurological: Normal speech, Normal strength at 5/5 x4 extr, Sensation intact, Cranial nerves 3-12 intact, Normal affect Lymphatics: No axilla or inguinal lymphadenopathy Assessment & Plan - Problems (Diagnosis) (1) ARASH (acute kidney injury) Current Visit: Yes Status: Acute (2) Atrial fibrillation with rapid ventricular response Current Visit: Yes Status: Acute - Plan Plan: 1. Continue with IV fluids 2. Continue medication for rate control 3. Continue anticoagulation 4. Renal ultrasound 5. Echocardiogram pending 6. GI DVT prophylaxis Discharge Plan: Home - Advance Directives Does patient have a Living Will: Yes Does patient have a Durable POA for Healthcare: No - Code Status/Comfort Care Code Status Assessed: Yes Code Status: Full Code Critical Care: No Time Spent Managing PTS Care (In Minutes): 45
--- NOTE | 2022-03-28 14:34 | RAD REPORT ---
EXAM DESCRIPTION: US - Renal Ultrasound-Complete - 03/28/2022 2:20 pm CLINICAL HISTORY: ARASH Flank pain COMPARISON: Abdomen Exam Limited dated 12/22/2019; Abdomen Pelvis W Contrast dated 12/22/2019 FINDINGS: Both kidneys are normal in size, shape and echotexture. The right kidney measures 10.3 x 6.6 cm. No hydronephrosis, focal mass or perinephric fluid. The left kidney measures 8.9 x 5.4 cm. No hydronephrosis, focal mass or perinephric fluid. The urinary bladder is incompletely distended without gross abnormality seen. IMPRESSION: Unremarkable renal sonogram.
== END 2022-03-28 16:13 | disposition home or self-care (01) ==
LOC: ER 09:47 → INTOOBSV 14:12 → ERHOLD 14:12 → 2ND 20:03
PROVIDERS: ADMIT Hospitalist; ATTEND Hospitalist
DX: I48.91 Unspecified atrial fibrillation (principal); N17.9 Acute kidney failure, unspecified; E86.0 Dehydration; I10 Essential (primary) hypertension; E11.9 Type 2 diabetes mellitus without complications; E03.9 Hypothyroidism, unspecified; F41.9 Anxiety disorder, unspecified; Z79.01 Long term (current) use of anticoagulants; Z79.899 Other long term (current) drug therapy; Z98.84 Bariatric surgery status; Z20.822 Contact with and (suspected) exposure to COVID-19
CPT/HCPCS: 92960; 96365; 93005 ×2; 93306; 85025 ×2; 80048 ×2; 36415; 80061; 84484; 83880; 71045; 76770; 96375; 99291; 99292; 87811; J2250; J3010; J3475; J1650; J7040; J7030 ×3; J2405

== ENCOUNTER 2023-06-16 20:00 | Emergency (ER) | payer BC, OTHER ==
[2023-06-16 20:48] LABS: Absolute Lymphocytes (CBC) 1.8 K/uL (0.7-4.9); Lymphocytes % 19.8 % (15.3-44.8); MCV 82.3 fL (80-100); MPV 9.3 fL (7.6-11.3); Platelets 202 thou/uL (152-406); RBC Red Blood Cell Count 4.99 M/uL (4.33-5.43)
--- OUTSIDE RECORDS SUMMARY | 2023-06-16 20:50 | XMS REPORT | Continuity of Care Document ---
:1970 Author Organization [facility] t Address [address] [place] [address] [address] [place] [address] Care Team Providers Name Role [facility] Primary Care Physician SYSTEM, PROVIDER NOT IN Attending Clinician Unavailable Mitra AMBULANCE ASSISTANT, Ileana Trent Attending Clinician [phone] Marcelo Martin MD Attending Clinician Doctor Unassigned, Bajandas Attending Clinician Unavailable ANTONIETTA SMITH Attending Clinician Unavailable Antonietta Li Attending Clinician MARCELO MARTIN Attending Clinician Unavailable Pob, [facility] Main Attending Clinician Unavailable SHAHAB SINGH Attending Clinician Unavailable Shahab Singh MD Attending Clinician Spring Askew RN Attending Clinician Albino JOSHUAP, Canelo B Attending Clinician Tez Lind DO Attending Clinician Adrian Hurtado DO Attending Clinician Andrew Jin MD Attending Clinician OMAYRA GONZALEZ Attending Clinician Unavailable MD OMAYRA GONZALEZ Attending Clinician Unavailbenson Olson RN, Veronika Robb Attending Clinician Suhkdev Rai MD Attending Clinician Fransisco Mcintosh MD Attending Clinician TEZ LIND Attending Clinician Unavailable Brian Purdy Attending Clinician Diana Simpson Attending Clinician Stephon Duran DPM Attending Clinician 1, [facility] Attending Clinician Unavailable Jose Trujillo Attending Clinician SHAHAB SINGH Admitting Clinician Unavailable Tez Lind DO Admitting Clinician OMAYRA GONZALEZ Admitting Clinician Unavailable MD OMAYRA GONZALEZ Admitting Clinician Unavailbenson Mcintosh MD, Fransisco Admitting Clinician TEZ LIND Admitting Clinician Unavailable Diana Simpson Admitting Clinician Stephon Duran DPM Admitting Clinician Payers Payer Name Policy Type Policy Number Effective Date Expiration Date S camila [facility] [id number] 2021 00:00:00 [employer] [place] - [id number] 2017 00:00:00 OUT OF STATE [facility] [id number] 2019 00:00:00 BCBS OS [id number] 2022 00:00:00 POS/PPO/EPO [facility] CHO[facility] [id number] 2021 00:00:00 CARD AND PC3 Problems Condition Condition Condition Status Onset Resolution Last Treating Co mments Source Name Details Category Date Date Treatment Clinician Date Type 1 Type [address] [facility] diabetes diabetes nce 2-23 [facility] mellitus mellitus 00:00: Medica l on insulin on insulin 00 Ce nter therapy therapy Acute Acute Disease Recurre [facility] hypoxemic hypoxemic nce 2-23 Luke s respirator respirator 00:00: Me dical y failure y failure 00 Cent er Acute Acute Disease Recurre [facility] hypercapni hypercapni nce 2-22 Kathy kes c c 00:00: Medical respirator respirator 00 Ce nter y failure y failure Dumping Dumping Disease Active [facility] syndrome syndrome 1-18 [facility] 00:00: [place] [id number] Center DKA, type DKA, type Disease Active Uni vers 1, not at 1, not at 8-29 ity of goal goal 00:00: [place] [facility] Acidosis Acidosis Disease Active Metho di 01-13 st 00:00: Hospita 00 l Electrolyt Electrolyt Disease Active M ethodi e and e and 01-13 st fluid fluid 00:00: Hospita disorder disorder 00 l Acute Acute Disease Active Methodi hyperkalem hyperkalem 01-12 st ia ia 00:00: Hospita 00 l Dehydratio Dehydratio Disease Active U nivers n n 5-09 ity of 00:00: [place] [facility] Diabetic Diabetic Disease Active Unive rs ketoacidos ketoacidos 4- it y of [place] without [place] without [place] coma 00 Medical associated associated Br anch with type with type 2 diabetes 2 diabetes mellitus mellitus Obesity Obesity Disease Active Univers (BMI (BMI 4-01 ity of 30-39.9) 30-39.9) 00:00: [place] [facility] Acute Acute Disease Active Methodi biliary biliary 03-30 st pancreatit pancreatit 00:00: Ho spita is without is without 00 l infection infection or or necrosis necrosis Abnormal Abnormal Disease Active Metho di liver liver 03-30 enzymes enzymes 00:00: Hospita 00 l Fatty Fatty Disease Active Methodi liver liver 03-30 st 00:00: Hospita 00 l Bariatric Bariatric Disease Active Met hodi surgery surgery 03-30 st status status 00:00: Hospita 00 l Atrial Atrial Disease Active Methodi fibrillati fibrillati 03-13 st on with on with 00:00: Hospita rapid rapid 00 l ventricula ventricula r response r response Acute Acute Disease Active Methodi renal renal 03-13 st failure failure 00:00: Hospita 00 l Idiopathic Idiopathic Disease Active Overview : Methodi acute acute 03-[address] pancreatit pancreatit 00:00: g of this Hospita is without is without 00 note l infection infection might be or or different necrosis necrosis from the original. Added automatic ally from request for surgery [id number] DKA DKA Diagnosis Active 2020-04-01 Mem oria Active 02-25 10:07:00 l 02/26/2020 00:00: Gustavo rey 00 [place] ACUTE ACUTE Diagnosis Active 2020-04-07 [facility] oria SEPSIS, SEPSIS, 02-24 10:44:00 l ASCENDING ASCENDING 13:27: Herm opal CHOLANGITI CHOLANGITI 00 S, ACU S, ACU Active 02/25/2020 [facility] HBP HBP Diagnosis Active 2020-02-25 [facility] oria Active 02-24 15:12:00 l 02/25/2020 13:27: Gustavo rey [place] [id number] Ernesto [id number],GERD [id number],TAMMIE Diagnosis [facility] 2014[facility]04-07 [facility] Active 03-30 12:17:00 l 03/30/2014 00:00: Gustavo rey 00 [facility] GERD GERD Diagnosis Active 2011-12-05 [facility] oria Active 11-29 07:48:00 l 11/30/2011 00:00: Gustavo rey 00 [facility] MORBID MORBID Diagnosis Active 2011-10-05 Nd adrian OBESITY OBESITY 2- 09:36:00 l Active 00:00: Ernesto 09/29/2011 00 [facility] Anxiety Anxiety Problem Active 2011-12-07 Me moria Active 08-20 09:25:16 l 08/20/2011 00:00: Gustavo rey Problem 00 12/07/2011 [facility] Anxiety Anxiety Problem Active 2020-03-01 Nd moria (finding) (finding) 08-20 08:39:22 l Active 00:00: Ernesto 08/20/2011 00 Problem 03/01/2020 Cezar Renee [facility] Other Other Disease Active 2009-0 Univers testicular testicular 5-29 it y of hypofuncti [place]ofunct[place] on 00 [facility] GERD - GERD - Problem Active 2011-12-07 Mark magdy Gastro-eso Gastro-eso 09:25:16 l phageal phageal [place] reflux reflux disease disease Active Problem 12/07/2011 [facility] Pain Pain Problem Active 2011-12-07 Memor ia Active 09:25:16 l Problem Ernesto 12/07/2011 [facility] Acute Acute Problem Active 2020-03-01 Memor ia cholangiti cholangiti 08:39:22 l s s Ernesto (disorder) (disorder) Active Problem 03/01/2020 [facility] Acute Acute Problem Active 2020-03-01 Memor ia pancreatit pancreatit 08:39:22 l is is [place] (disorder) (disorder) Active Problem 03/01/2020 [facility] Biliary Biliary Problem Active 2020-03-01 Me moria sludge sludge 08:39:22 l (disorder) (disorder) He rmann Active Problem 03/01/2020 [facility] Ketoacidos Ketoacido Problem Active 2020-03-01 Memoria is in sis in 08:39:22 l diabetes diabetes Gustavo n mellitus mellitus (disorder) (disorder) Active Problem 03/01/2020 [facility] Gastroesop Gastroeso Problem Active 2020-03-01 Memoria hageal phageal 08:39:22 l reflux reflux [place] disease disease (disorder) (disorder) Active Problem 03/01/2020 ThelmaCezar Uriarte [facility] Hyperkalem Problem Active 2020-03-01 M emoria ia Hyperkalem 08:39:22 l (disorder) ia Gustavo n (disorder) Active Problem 03/01/2020 [facility] Injury of Injury of Problem Active 2020-03-01 Memoria kidney kidney 08:39:22 l (disorder) (disorder) He rmann Active Problem 03/01/2020 [facility] Metabolic Metabolic Problem Active 2020-03-01 Memoria acidosis acidosis 08:39:22 l (disorder) (disorder) He rmann Active Problem 03/01/2020 [facility] Pain Pain Problem Active 2020-03-01 Memor ia (finding) (finding) 08:39:22 l Active [place] Problem 03/01/2020 Cezar Renee [facility] Systemic Systemic Problem Active 2020-03-01 Memoria infection infection 08:39:22 l (disorder) (disorder) He rmann Active Problem 03/01/2020 [facility] Diabetes Diabetes Problem Active 2020-03-01 Memoria mellitus mellitus 08:39:22 l type 2 type 2 Ernesto (disorder) (disorder) Active Problem 03/01/2020 [facility] TYPE 1 TYPE 1 Diagnosis Active 2020-02-28 Nd moria DIABETES DIABETES 09:39:00 l MELLITUS MELLITUS Gustavo n WITH WITH KETOACIDOS KETOACIDOS IS WITHOUT IS WITHOUT CO CO Active [facility] TYPE 1 TYPE 1 Diagnosis Active 2020-04-01 Nd moria DIABETES DIABETES 10:07:00 l MELLITUS MELLITUS Gustavo n WITH WITH KETOACIDOS KETOACIDOS Active [facility] SEPSIS, SEPSIS, Diagnosis Active 2020-04-07 Memoria UNSPECIFIE UNSPECIFIE 10:44:00 l D ORGANISM D ORGANISM He [facility] Active [facility] OTHER OTHER Diagnosis Active 2020-04-07 Mem oria CHOLANGITI CHOLANGITI 10:44:00 l S S Active [facility] ADMINISTRT Diagnosis Active 2011-10-05 Memoria VE ENCOUNT ADMINISTRT 09:36:00 l NOS VE ENCOUNT Gustavo n NOS Active [facility] Allergies, Adverse Reactions, Alerts Allergy Allergy Status Severity Reaction(s) Onset Inactive Treating Comm ents Source Name Type Date Date Clinician NO KNOWN Drug Active Univers ALLERGIE Class ity of S [facility] NO KNOWN Allergy Active [facility] NKFA NKFA Active Memlanie l [place] No Known No Known Active Memori a Medicati Medicati l on on Ernesto Allergie Allergie s s Family History Family Member Diagnosis Comments Start Date Stop Date Source Maternal aunt [facility] Natural son [facility] Social History Social Habit Start Date Stop Date Quantity Comments Source History of tobacco Current smoker Un iversity of use [facility] Sexual orientation [facility] Exposure to 2022-05-14 2022-05-24 Not sure University of SARS-CoV-2 (event) 00:00:00 13:34:00 [facility] Tobacco Comment 2022-03-31 2022-03-31 quit smoking 30 Univ ersity of 00:00:00 00:00:00 yrs [facility] Alcohol intake 2021-10-12 2021-10-12 Ex-drinker [facility] Ce[facility] es 00:00:00 00:00:00 (finding) [facility] Tobacco use and 2021-08-31 2021-08-[address] [facility] Kathy kes exposure 00:00:00 00:00:00 Medical Center History of Social 2021-01-12 2021-01-[address] function 00:00:00 00:00:00 [facility] Social History 2020-02-26 2020-02-26 [facility] 20:19:10 20:19:10 Sex Assigned At [address] [facility] Kathy kes 00:00:00 00:00:00 Medical Center Smoking Status Start Date Stop Date Source Ex-smoker 2022-03-31 00:00:00 2022-03-31 00:00:00 [facility] Never sm[facility] Medications Ordered Filled Start Stop Current Ordering Indication Dosage Frequency Signature Comments Components Source Medication Medication Date Date Medication? Clinician (SIG) Name Name HYDROcodone 2021- No 4647 1{tbl} Take 1 U nivers -acetaminop 04-2615 tablet by it y of hen (NORCO) 00:00[place] 5-325 mg 00 :00 every 6 Medical tablet (six) Branch hours as needed for Pain (scale 4-6) for up to 7 days. Indication s: acute pain HYDROcodone 2021- No 4647 1{tbl} Take 1 U nivers -acetaminop 04-26-15 tablet by it y of hen (NORCO) 00:00: 04:[place] 5-325 mg 00 :00 every 6 Medical tablet (six) Branch hours as needed for Pain (scale 4-6) for up to 7 days. Indication s: acute pain prazosin Yes 2mg Take [address] (MINIPRESS) 2-27 by mouth Luke s 2 MG 11:13: every Medical capsule 00 night as Center needed (nightmare s). lifitegrast Yes 1[drp] Q.5D Apply [address] 5 % Dpet 2-27 drop to [facility] 11:13: eye(s) 2 Medical 00 (two) Center times daily. gabapentin 0 Yes 300mg Take [address] (NEURONTIN) 2-27 mg by [facility] 300 MG 11:13: mouth 3 Medical capsule 00 (three) Center times daily as needed (pain). prazosin Yes 2mg Take [address] (MINIPRESS) 2-27 by mouth Luke s 2 MG 11:13: every Medical capsule 00 night as Center needed (nightmare s). lifitegrast Yes 1[drp] Q.5D Apply [address] 5 % Dpet 2-27 drop to [facility] 11:13: eye(s) 2 Medical 00 (two) Center times daily. gabapentin Yes 300mg Take [address] (NEURONTIN) 2-27 mg by [facility] 300 MG 11:13: mouth 3 Medical capsule 00 (three) Center times daily as needed (pain). insulin Yes Inject [facility] aspart 2-26 subcutaneo Lukes U-100 100 11:13: usly 3 Medica l unit/mL 40 (three) Center Crtg times daily before meals Insulin pump Omni pod . insulin Yes QD Inject [facility] glargine 2-26 subcutaneo [facility]ukes (Basaglar 11:13: usly Medical KwikPen 40 nightly As Center U-100 needed . Insulin) 100 unit/mL (3 mL) InPn buPROPion Yes 300mg QD Take [address] (WELLBUTRIN 2-26 mg by [facility]ukes XL) 300 MG 11:13: mouth Medica l 24 hr 40 daily. Center tablet testosteron Yes Q7D Inject [facility] e enanthate 2-26 intramuscu Kathy kes (DELATESTRY 11:13: larly once Medical L) 200 40 a week. Center mg/mL injection omeprazole Yes 20mg QD Take [address] (PriLOSEC) 2-26 by mouth [facility] 20 MG 11:13: daily. Medical capsule 40 Center levothyroxi Yes 125ug Take [address] ne 2-26 mcg by [facility]ukes (SYNTHROID, 11:13: mouth Medic al LEVOTHROID) 40 Every Center 125 MCG morning on tablet an empty stomach. multivitami Yes 1{capsu QD Take [address] n capsule 2- le} capsule by Luke s 11:13: mouth Medical 40 daily. [place] rOPINIRole Yes 1mg Take [address] (REQUIP) 1 2-26 by mouth [facility]ukes MG tablet 11:13: as needed. Me dical 40 Center lisinopriL Yes 5mg QD Take [address] (PRINIVIL,Z 2-26 by mouth Luke s ESTRIL) 5 11:13: daily. Medica l MG tablet 40 Center DULoxetine Yes 20mg QD Take [address] (CYMBALTA) 2-26 by mouth [facility] 20 MG 11:13: daily. Medical capsule 40 [place] insulin Yes Inject [facility] aspart 2-26 subcutaneo [facility]ukes U-100 100 11:13: usly 3 Medica l unit/mL 40 (three) Center Crtg times daily before meals Insulin pump Omni pod . insulin Yes QD Inject [facility] glargine 2-26 subcutaneo [facility]ukes (Basaglar 11:13: usly Medical KwikPen 40 nightly As Center U-100 needed . Insulin) 100 unit/mL (3 mL) InPn buPROPion Yes 300mg QD Take [address] (WELLBUTRIN 2-26 mg by [facility] XL) 300 MG 11:13: mouth Medica l 24 hr 40 daily. [place] tablet testosteron Yes Q7D Inject [facility] e enanthate 2-26 intramuscu Kathy kes (DELATESTRY 11:13: larly once Medical L) 200 40 a week. Center mg/mL injection omeprazole Yes 20mg QD Take [address] (PriLOSEC) 2-26 by mouth [facility] 20 MG 11:13: daily. Medical capsule 40 Center levothyroxi Yes 125ug Take [address] ne 2-26 mcg by Lukes (SYNTHROID, 11:13: mouth Medic al LEVOTHROID) 40 Every Center 125 MCG morning on tablet an empty stomach. multivitami Yes 1{capsu QD Take [address] n capsule 10-15 le} capsule by Luke s 11:13: mouth Medical 40 daily. [place] rOPINIRole Yes 1mg Take [address] (REQUIP) 1 10-15 by mouth [facility]ukes MG tablet 11:13: as needed. Me dical 40 [place] lisinopriL Yes 5mg QD Take [address] (PRINIVIL,Z 10-15 by mouth Luke s ESTRIL) 5 11:13: daily. Medica l MG tablet 40 Center DULoxetine Yes 20mg QD Take [address] (CYMBALTA) 10-15 by mouth [facility] 20 MG 11:13: daily. Medical capsule 40 [place] apixaban 2022- No 5mg Q.5D Take [address] (ELIQUIS) 5 10-15 tablet (5 Kathy kes mg Tab 00:00: 23:59 mg total) Medic al tablet 00 :00 by mouth 2 Center (two) times daily. apixaban 2022- No 5mg Q.5D Take [address] (ELIQUIS) 5 10-15- tablet (5 Kathy kes mg Tab 00:00: 23:59 mg total) Medic al tablet 00 :00 by mouth 2 Center (two) times daily. metoprolol 2021- No 12.5mg Q.5D Take 0.[address] tartrate 10-15 03-31 tablets [facility]ukes (LOPRESSOR) 00:00: 23:59 (12.5 mg M edical 25 MG 00 :00 total) by Center tablet mouth 2 (two) times daily for 33 days. OMEPRAZOLE 2020-08 Yes Once daily U nivers [...] ORAL) 33 (Restless Medical leg Branch syndrome). OMEPRAZOLE 2020-08 Yes Once daily U nivers 20 MG ORAL 0-25 ity of CPDR 18:57: [place] [address] Medical Branch buPROPion 2020-08 Yes 300mg Take [...] ORAL) 33 (Restless Medical leg Branch syndrome). OMEPRAZOLE 2020-08 Yes Once daily U nivers 20 MG ORAL 0-25 ity of CPDR 18:57: [place] [address] Medical Branch buPROPion 2020-08 Yes 300mg Take 300 Uni vers HCl, 0-25 mg by ity of smoking 18:57: mouth [place] deter, 150 33 daily. Medical mg 12 Branch levothyroxi 2020-08 Yes 125ug Take 125 U nivers ne 0-25 mcg by ity of (SYNTHROID) 18:57: mouth [place] 125 mcg 33 every Medical tablet morning. Branch ropinirole 2020-08 Yes 2mg Take 2 mg Un hector HCl 0-25 by mouth ity of (ROPINIROLE 18:57: as needed [place] ORAL) 33 (Restless Medical leg Branch syndrome). OMEPRAZOLE 2020-08 Yes Once daily U nivers 20 MG ORAL 0-25 ity of CPDR 18:57: [place] [address] Medical Branch buPROPion 2020-08 Yes 300mg Take 300 Uni vers HCl, 0-25 mg by ity of smoking 18:57: mouth [place] deter, 150 33 daily. Medical mg Tb12 Branch levothyroxi 2020-08 Yes 125ug Take 125 U nivers ne 0-25 mcg by ity of (SYNTHROID) 18:57: mouth [place] 125 mcg 33 every Medical tablet morning. Branch ropinirole 2021-1 Yes 2mg Take 2 mg Un hector HCl 0-25 by mouth ity of (ROPINIROLE 18:57: as needed [place] ORAL) 33 (Restless Medical leg Branch syndrome). OMEPRAZOLE 2020-08 Yes Once daily U nivers 20 MG ORAL 0-25 ity of CPDR 18:57: [place] [address] Medical Branch buPROPion 2020-08 Yes 300mg Take [...] ORAL) 33 (Restless Medical leg Branch syndrome). OMEPRAZOLE 2020-08 Yes Once daily U nivers 20 MG ORAL 0-25 ity of CPDR 18:57: [place] [address] Medical Branch buPROPion 2020-08 Yes 300mg Take 300 Uni vers HCl, 0-25 mg by ity of smoking 18:57: mouth [place] deter, 150 33 daily. Medical mg 12 Branch levothyroxi 2020-08 Yes 125ug Take 125 U nivers ne 0-25 mcg by ity of (SYNTHROID) 18:57: mouth [place] 125 mcg 33 every Medical tablet morning. Branch ropinirole 2020-08 Yes 2mg Take 2 mg Un hector HCl 0-25 by mouth ity of (ROPINIROLE 18:57: as needed [place] ORAL) 33 (Restless Medical leg Branch syndrome). OMEPRAZOLE 2020-08 Yes Once daily U nivers 20 MG ORAL 0-25 ity of CPDR 18:57: [place] [address] Medical Branch buPROPion 2020-08 Yes 300mg Take [...] ORAL) 33 (Restless Medical leg Branch syndrome). OMEPRAZOLE 2020-08 Yes Once daily U nivers 20 MG ORAL 0-25 ity of CPDR 18:57: [place] [address] Medical Branch buPROPion 2020-08 Yes 300mg Take [...] ORAL) 33 (Restless Medical leg Branch syndrome). OMEPRAZOLE 2020-08 Yes Once daily U nivers 20 MG ORAL 0-25 ity of CPDR 18:57: [place] [address] Medical Branch buPROPion 2020-08 Yes 300mg Take 300 Uni vers HCl, 0-25 mg by ity of smoking 18:57: mouth [place] deter, 150 33 daily. Medical mg 12 Branch levothyroxi 2020-08 Yes 125ug Take 125 U nivers ne 0-25 mcg by ity of (SYNTHROID) 18:57: mouth [place] 125 mcg 33 every Medical tablet morning. Branch ropinirole 2020-08 Yes 2mg Take 2 mg Un hector HCl 0-25 by mouth ity of (ROPINIROLE 18:57: as needed [place] ORAL) 33 (Restless Medical leg Branch syndrome). OMEPRAZOLE 2020-08 Yes Once daily U nivers 20 MG ORAL 0-25 ity of CPDR 18:57: [place] [address] Medical Branch buPROPion 2020-08 Yes 300mg Take [...] ORAL) 33 (Restless Medical leg Branch syndrome). OMEPRAZOLE 2020-08 Yes Once daily U nivers 20 MG ORAL 0-25 ity of CPDR 18:57: [place] [address] Medical Branch buPROPion 2020-08 Yes 300mg Take [...] ORAL) 33 (Restless Medical leg Branch syndrome). OMEPRAZOLE 2020-08 Yes Once daily U nivers 20 MG ORAL 0-25 ity of CPDR 18:57: [place] [address] Medical Branch buPROPion 2020-08 Yes 300mg Take [...] ORAL) 33 (Restless Medical leg Branch syndrome). OMEPRAZOLE 2020-08 Yes Once daily U nivers 20 MG ORAL 0-25 ity of CPDR 18:57: [place] [address] Medical Branch buPROPion 2020-08 Yes 300mg Take [...] ORAL) 33 (Restless Medical leg Branch syndrome). OMEPRAZOLE 2020-08 Yes Once daily U nivers 20 MG ORAL 0-25 ity of CPDR 18:57: [place] [address] Medical Branch buPROPion 2020-08 Yes 300mg Take [...] ORAL) 33 (Restless Medical leg Branch syndrome). OMEPRAZOLE 2020-08 Yes Once daily U nivers 20 MG ORAL 0-25 ity of CPDR 18:57: [place] [address] Medical Branch buPROPion 2020-08 Yes 300mg Take [...] ORAL) 33 (Restless Medical leg Branch syndrome). OMEPRAZOLE 2020-08 Yes Once daily U nivers 20 MG ORAL 0-25 ity of CPDR 18:57: [place] [address] Medical Branch buPROPion 2020-08 Yes 300mg Take [...] ORAL) 33 (Restless Medical leg Branch syndrome). OMEPRAZOLE 2020-08 Yes Once daily U nivers 20 MG ORAL 0-25 ity of CPDR 18:57: [place] [address] Medical Branch buPROPion 2020-08 Yes 300mg Take [...] ORAL) 33 (Restless Medical leg Branch syndrome). OMEPRAZOLE 2020-08 Yes Once daily U nivers 20 MG ORAL 0-25 ity of CPDR 18:57: [place] [address] Medical Branch buPROPion 2020-08 Yes 300mg Take [...] ORAL) 33 (Restless Medical leg Branch syndrome). OMEPRAZOLE 2020-08 Yes Once daily U nivers 20 MG ORAL 0-25 ity of CPDR 18:57: [place] [address] Medical Branch buPROPion 2020-08 Yes 300mg Take [...] ORAL) 33 (Restless Medical leg Branch syndrome). OMEPRAZOLE 2020-08 Yes Once daily U nivers [...] Medical leg Branch syndrome). proMETHazin 2020-08 Yes [id number] 25mg Take 1 Univers e 25 mg 0-25 tablet by ity of tablet 00:00: mouth [place] 00 every 6 Medical (six) Branch hours as needed for Nausea and Vomiting (N/V). proMETHazin 2020-08 Yes [id number] 25mg Take 1 Univers e 25 mg 0-25 tablet by ity of tablet 00:00: mouth [place] 00 every 6 Medical (six) Branch hours as needed for Nausea and Vomiting (N/V). proMETHazin 2020-08 Yes [id number] 25mg Take 1 Univers e 25 mg 0-25 tablet by ity of tablet 00:00: mouth [place] 00 every 6 Medical (six) Branch hours as needed for Nausea and Vomiting (N/V). proMETHazin 2020-08 Yes [id number] 25mg Take 1 Univers e 25 mg 0-25 tablet by ity of tablet 00:00: mouth [place] 00 every 6 Medical (six) Branch hours as needed for Nausea and Vomiting (N/V). proMETHazin 2020-08 Yes [id number] 25mg Take 1 Univers e 25 mg 0-25 tablet by ity of tablet 00:00: mouth [place] 00 every 6 Medical (six) Branch hours as needed for Nausea and Vomiting (N/V). proMETHazin 2020-08 Yes [id number] 25mg Take 1 Univers e 25 mg 0-25 tablet by ity of tablet 00:00: mouth [place] 00 every 6 Medical (six) Branch hours as needed for Nausea and Vomiting (N/V). proMETHazin 2020-08 Yes [id number] 25mg Take 1 Univers e 25 mg 0-25 tablet by ity of tablet 00:00: mouth [place] 00 every 6 Medical (six) Branch hours as needed for Nausea and Vomiting (N/V). proMETHazin 2020-08 Yes [id number] 25mg Take 1 Univers e 25 mg 0-25 tablet by ity of tablet 00:00: mouth [place] 00 every 6 Medical (six) Branch hours as needed for Nausea and Vomiting (N/V). proMETHazin 2020-08 Yes [id number] 25mg Take 1 Univers e 25 mg 0-25 tablet by ity of tablet 00:00: mouth [place] 00 every 6 Medical (six) Branch hours as needed for Nausea and Vomiting (N/V). proMETHazin 2020-08 Yes [id number] 25mg Take 1 Univers e 25 mg 0-25 tablet by ity of tablet 00:00: mouth [place] 00 every 6 Medical (six) Branch hours as needed for Nausea and Vomiting (N/V). proMETHazin 2020-08 Yes [id number] 25mg Take 1 Univers e 25 mg 0-25 tablet by ity of tablet 00:00: mouth [place] 00 every 6 Medical (six) Branch hours as needed for Nausea and Vomiting (N/V). proMETHazin 2020-08 Yes [id number] 25mg Take 1 Univers e 25 mg 0-25 tablet by ity of tablet 00:00: mouth [place] 00 every 6 Medical (six) Branch hours as needed for Nausea and Vomiting (N/V). proMETHazin 2020-08 Yes [id number] 25mg Take 1 Univers e 25 mg 0-25 tablet by ity of tablet 00:00: mouth [place] 00 every 6 Medical (six) Branch hours as needed for Nausea and Vomiting (N/V). proMETHazin 2020-08 Yes [id number] 25mg Take 1 Univers e 25 mg 0-25 tablet by ity of tablet 00:00: mouth [place] 00 every 6 Medical (six) Branch hours as needed for Nausea and Vomiting (N/V). proMETHazin 2020-08 Yes [id number] 25mg Take 1 Univers e 25 mg 0-25 tablet by ity of tablet 00:00: mouth [place] 00 every 6 Medical (six) Branch hours as needed for Nausea and Vomiting (N/V). proMETHazin 2020-08 Yes [id number] 25mg Take 1 Univers e 25 mg 0-25 tablet by ity of tablet 00:00: mouth [place] 00 every 6 Medical (six) Branch hours as needed for Nausea and Vomiting (N/V). proMETHazin 2020-08 Yes [id number] 25mg Take 1 Univers e 25 mg 0-25 tablet by ity of tablet 00:00: mouth [place] 00 every 6 Medical (six) Branch hours as needed for Nausea and Vomiting (N/V). proMETHazin 2020-08 Yes [id number] 25mg Take 1 Univers e 25 mg 0-25 tablet by ity of tablet 00:00: mouth [place] 00 every 6 Medical (six) Branch hours as needed for Nausea and Vomiting (N/V). proMETHazin 2020-08 Yes [id number] 25mg Take 1 Univers e 25 mg 0-25 tablet by ity of tablet 00:00: mouth [place] 00 every 6 Medical (six) Branch hours as needed for Nausea and Vomiting (N/V). proMETHazin 2020-08 Yes [id number] 25mg Take 1 Univers e 25 mg 0-25 tablet by ity of tablet 00:00: mouth [place] 00 every 6 Medical (six) Branch hours as needed for Nausea and Vomiting (N/V). insulin Yes [id number] Inject Me thodi ASPART 5-[id number] (NovoLOG) 14:10: 3D skin 3 Hospit a 100 unit/mL 50 (three) l injection times a day before meals. Per sliding scale insulin Yes 40U QD Inject 40 Metho di GLARGINE 5-[address] (Basaglar 14:10: under the Hos sabra KwikPen 50 skin every l U-100 morning. Insulin) 100 unit/mL injection (pen) BUPROPION Yes 1{tbl} Q.5D Take 1 Meth evette HCL ORAL 5-[address] 14:10: mouth 2 Hospita 50 (two) l times a day. testosteron Yes 200mg Q7D Inject 200 Methodi e cypionate 5-[address] (DEPOTESTOT 14:10: the Hospit a ERONE 50 shoulder, l CYPIONATE) thigh, or 200 mg/mL buttocks injection once a week. On Sunday omeprazole Yes 20mg QD Take 20 mg M ethodi (PriLOSEC) 5-[address] 20 MG 14:10: daily. Hospita capsule 50 l levothyroxi Yes 1{tbl} QD Take 1 Me thodi ne sodium 5-[address] (LEVOTHYROX 14:10: mouth Hospi ta INE ORAL) 50 daily. l multivit-mi Yes 1{tbl} QD Take 1 Me thodi n/iron/foli 5-[address] c acid/K 14:10: mouth Hospita (BARIATRIC 50 daily. l MULTIVITAMI NS ORAL) insulin Yes [id number] Give 5 Uni vers lispro, 4-02 units [...] 351 give 7 units and call provider insulin Yes [id number] Give 5 Uni vers lispro, 4-02 units [...] 351 give 7 units and call provider insulin Yes [id number] Give 5 Uni vers lispro, 4-02 units [...] 351 give 7 units and call provider insulin Yes [id number] Give 5 Uni vers lispro, 4-02 units [...] 351 give 7 units and call provider insulin Yes [id number] Give 5 Uni vers lispro, 4-02 units [...] 351 give 7 units and call provider insulin Yes [id number] Give 5 Uni vers lispro, 4-02 units [...] 351 give 7 units and call provider insulin Yes [id number] Give 5 Uni vers lispro, 4-02 units [...] 351 give 7 units and call provider insulin Yes [id number] Give 5 Uni vers lispro, 4-02 units [...] 351 give 7 units and call provider insulin Yes [id number] Give 5 Uni vers lispro, 4-02 units [...] 351 give 7 units and call provider insulin Yes [id number] Give 5 Uni vers lispro, 4-02 units [...] 351 give 7 units and call provider insulin Yes [id number] Give 5 Uni vers lispro, 4-02 units [...] 351 give 7 units and call provider insulin Yes [id number] Give 5 Uni vers lispro, 4-02 units [...] 351 give 7 units and call provider insulin Yes [id number] Give 5 Uni vers lispro, 4-02 units [...] 351 give 7 units and call provider insulin Yes [id number] Give 5 Uni vers lispro, 4-02 units [...] 351 give 7 units and call provider insulin Yes [id number] Give 5 Uni vers lispro, 4-02 units [...] 351 give 7 units and call provider insulin Yes [id number] Give 5 Uni vers lispro, 4-02 units [...] 351 give 7 units and call provider insulin Yes [id number] Give 5 Uni vers lispro, 4-02 units [...] 351 give 7 units and call provider insulin Yes [id number] Give 5 Uni vers lispro, 4-02 units [...] 351 give 7 units and call provider insulin Yes [id number] Give 5 Uni vers lispro, 4-02 units [...] 351 give 7 units and call provider insulin Yes [id number] Give 5 Uni vers lispro, 4-02 units [...] e Expires in days from ____Date Zofran 2019-0 No Notes: Memoria 02-25 (Same as: l 14:19: Zofran) [place] 00 MEDICATION WASTE Product Size: 4 mg Product Wasted: ___ mg Dilaudid No Notes: Memoria 02-25 Same as: l 12:49: Dilaudid [place] 00 Zosyn + No Notes: Memoria Sodium 02-25 (Same as: l Chloride 11:00: Zosyn) Ernesto 0.9% IV 100 00 Dosing mL based on Piperacill in component MEDICATION WASTE Product Size: 3375 mg Product Wasted: ___ mg D5W 1,000 2019- No 1,000 mL, Mem oria mL 02-25 Rate: 50 l 10:37: ml/hr, Ernesto 00 Infuse over: 20 hr, Route: IV, Dosing Weight 100 kg, Total Volume: 1,000, Start date: 02/26/20 5:37:00 CDT, Duration: 30 day, Stop date: 03/27/20 5:36:00 CDT, 2.26, m2, 0 Dilaudid No Notes: Memoria 02-25 Same as: l 07:15: Dilaudid Ernesto heparin 2019-0 No Notes: Memoria 02-25 porcine l 05:00: heparin [place] 00 Magnesium 0 No Notes: Memori a Sulfate 02-25 WASTE: F/P l 04:32: - Sink; E [place] - Municipal Trash Bin Zosyn No Notes: Memoria 02-25 (Same as: l 01:00: Zosyn) Ernesto 00 Dosing based on Piperacill in component MEDICATION WASTE Product Size: 3375 mg Product Wasted: ___ mg Thiamine No Notes: Memoria 02-25 (Same As: l 00:26: Vitamin [place] 00 B1) D10W 980.75 2019-0 No 980.75 mL, Memoria mL + sodium 02-25 Rate: 250 l chloride 00:26: ml/hr, [place] 23.4% IV 77 00 Infuse mEq over: 4 hr, Route: IV, Dosing Weight 100 kg, Total Volume: 1,000, Start date: 02/25/20 19:26:00 CDT, Duration: 30 day, Stop date: 03/26/20 19:25:00 CDT, 2.26, m2, 0 NS (Bolus) No 1,000 mL, Me moria IV 02-25 1,000 l 00:21: ml/hr, [place] 00 Infuse Over: 1 hr, Route: IV, 1,000, Drug form: INJ, ONCE, Priority: STAT, Dosing Weight 100 kg, Start date: 02/25/20 19:21:00 CDT, Stop date: 02/25/20 19:21:00 CDT, 0 Sodium No 1,000 mL, Memori a Chloride 02-25 Rate: 250 l 0.9% IV 00:20: ml/hr, [place] 1,000 mL 00 Infuse over: 4 hr, Route: IV, Dosing Weight 100 kg, Total Volume: 1,000, When Finger stick blood glucose values remain ABOVE 250 mg/dL administer until BG is less than 250 mg/dL., Start date: 02/25/20 19:20:00 CDT, Duration:. .. D10W 1000 No 1,000 mL, Mem oria mL 02-25 Rate: 250 l 00:20: ml/hr, Ernesto 00 Infuse over: 4 hr, Route: IV, Dosing Weight 100 kg, Total Volume: 1,000, Start date: 02/25/20 19:20:00 CDT, Duration: 30 day, Stop date: 03/26/20 19:19:00 CDT, 2.26, m2 Insulin No Notes: Memoria (regular) 02-25 (Same as: l Titrate IV 00:20: Humulin R, H ermann additive 00 NovoLIN R) 100 unit + Roll in Sodium palms of Chloride hands 0.9% gently; Do (titrate) not shake 99 mL vigorously . WASTE: F/P - Black; E - Municipal Trash Bin Stable for 31 days at room temperatur e Expires in days from ____Date Dextrose No 12.5 gm, Memor ia 50% Syringe 02-25 25 mL, l (D50W) 00:20: Route: Ernesto 00 IVP, Drug Form: INJ, Dosing Weight 100, kg, PRN, PRN Blood Glucose Results, Start date: 02/25/20 19:20:00 CDT, Duration: 30 day, Stop date: 03/26/20 19:19:00 CDT, 0 Glucagon 2020-0 No 1 mg, Memoria 02-25 Route: IM, l 00:20: Drug form: [place] 00 PDR/INJ, PRN, Dosing Weight 100, kg, PRN Blood Glucose Results, Start date: 02/25/20 19:20:00 CDT, Duration: 30 day, Stop date: 03/26/20 19:19:00 CDT, 0 Potassium 2020-0 No Notes: Memori a Chloride 02-25 (Same as: l 00:20: KCL) Infuse no faster than 10 mEq/hr if given peripheral ly. Magnesium 2020-0 No Notes: Memori a Sulfate 02-25 WASTE: F/P l 00:20: - Sink; E [place] 00 - Municipal Trash Bin potassium 2020-0 [...] 02-25 Route: IM, l 00:18: Drug form: [place] 00 PDR/INJ, PRN, Dosing Weight 100, kg, [...] Memoria 02-24 Route: l 23:24: IVP, Drug form: INJ, ONCE, Dosing Weight 100, kg, Priority: STAT, Start date: 02/25/20 18:24:00 CDT, Stop date: 02/25/20 18:24:00 CDT 1/2 NS 2020-0 No Notes: Memoria 1,000 mL + 02-24 (sodium l sodium 23:14: bicarb [place] bicarbonate 00 8.4% (1 8.4% mEq/ml) 50 additive 75 ml mEq syringe) Sodium 2020-0 No 1,000 mL, Memori a Chloride 02-24 Infuse l 0.9% 22:17: Over: 1 Ernesto (Bolus) IV 00 hr, Route: IV, ONCE, Priority: STAT, Dosing Weight 100 kg, Start date: 02/25/20 17:17:00 CDT, Stop date: 02/25/20 17:17:00 CDT Zosyn 2020-0 No 3.375 gm, Memoria 02-24 Route: l 22:17: IVPB, ONCE, Dosing Weight 100, kg, Priority: STAT, [...] CDT, Stop date: 02/25/20 14:11:00 CDT Saline No Notes: Memoria Flush 0.9% 08 (Same as: l 18:41: BD Posiflush) Sodium No 1,000 mL, Memori a Chloride 08 1000 l 0.9% 18:41: ml/hr, Ernesto (Bolus) IV 00 Infuse Over: 1 hr, Route: IV, 1,000, Drug form: INJ, ONCE, Priority: STAT, Dosing Weight 100 kg, Start date: 02/25/20 13:41:00 CDT, Stop date: 02/25/20 13:41:00 CDT, 0 Ondansetron No Notes: Mark magdy 02-24 (Same as: l 18:41: Zofran) MEDICATION WASTE Product Size: 4 mg Product Wasted: ___ mg Flumazenil No Notes: Memor ia 04-07 (Same as: l 18:20: Romazicon) Naloxone No Notes: Memoria 8-19 Same as l 18:20: Narcan Ondansetron No Notes: Mark magdy 8 (Same as: l 18:20: Zofran) Levothyroxi Yes 50 Memori a ne Sodium 04-07 microgram l 0.05 MG 17:37: = 1 tab, Gustavo n Oral Tablet 00 PO, Daily, [Synthroid] # 30 tab, 0 Refill(s) ropinirole Yes PO, Daily, M emoria 04-07 0 l 17:37: Refill(s) tadalafil 5 Yes 5 mg = 1 Me moria MG Oral 8-19 tab, PO, l Tablet 17:37: Daily, for Juliet nn [Cialis] 00 erectile dysfunctio n, 0 Refill(s) Amaryl Yes PO, Daily, Memor ia 8-19 0 l 17:37: Refill(s) Metformin Yes 500 [...] Route: PO, l one 15:08: Drug Form: Ernesto 00 ELIX, Q4H, PRN Pain, Start date: 10/06/11 9:08:00, Duration: 30 day, Stop date: 11/05/11 9:07:00 Tylenol No David 650 mg, Mem oria 2-17 Ronnie 20.3 mL, l 15:07: Route: PO, [place] 00 Drug form: LIQ, Q4H, PRN Pain Score 1-3, Start date: 10/06/11 9:07:00, Duration: 30 day, Stop date: 11/05/11 9:06:00 Pepcid No David 20 mg, 2 Mem oria 2-17 Ronnie mL, Route: l 03:00: IVP, Drug [place]anger form: INJ, Q12H, Start date: 10/05/11 21:00:00, Duration: 30 day, Stop date: 11/04/11 9:00:00 Reglan No David 10 mg, 2 Mem oria 2-16 Ronnie mL, Route: l 22:00: IV, Drug Ernesto form: INJ, Q8H, Start date: 10/05/11 16:00:00, Duration: 30 day, Stop date: 11/04/11 8:00:00 Sodium No David 25 mL, Memor ia Chloride 2-16 Ronnie Route: IV, l 0.9% IV 18:26: PRN, Line Juliet nn 00 Flush, Start date: 10/05/11 12:26:00, Duration: 30 day, Stop date: 11/04/11 13:25:00 BD Normal No David 10 mL, Me moria Saline 2-16 Ronnie Route: IV, l Flush 18:26: Drug Form: Gustavo n 00 INJ, PRN, PRN Line Flush, Start date: 10/05/11 12:26:00, Duration: 30 day, Stop date: 11/04/11 13:25:00 insulin No David 15 unit, Me moria regular 2-16 Ronnie 0.15 mL, l human 18:25: Route: [place] recombinant 00 SUB-Q, 100 Drug form: units/mL SOLN, injectable Sliding solution Scale, PRN Abnormal Lab Result, Start date: 10/05/11 12:25:00, Duration: 30 day, Stop date: 11/04/11 13:24:00 insulin No David 5 unit, Mem oria regular 2-16 Ronnie 0.05 mL, l human 18:24: Route: Ernesto recombinant 00 SUB-Q, 100 Drug form: units/mL SOLN, injectable Sliding solution Scale, PRN Abnormal Lab Result, Start date: 10/05/11 12:24:00, Duration: 30 day, Stop date: 11/04/11 13:23:00 Tylenol No David 650 mg, 1 M emoria 2-16 Ronnie supp, l 18:24: Route: FL, Ernetso Drug form: SUPP, Q4H, PRN Temperatur e >100.5, Start date: 10/05/11 12:24:00, Duration: 30 day, Stop date: 11/04/11 12:23:00 Phenergan 0 No David 25 mg, 1 Memoria 2-16 Ronnie mL, Route: l 18:24: IM, Drug form: INJ, Q4H, PRN Nausea, Start date: 10/05/11 12:24:00, Duration: 30 day, Stop date: 11/04/11 12:23:00 Vasotec 0 No David 1.25 mg, 1 Memoria 2-16 [...] 10/05/11 12:22:00, Stop date: 11/04/11 12:21:00 Insulin No David 15 unit, Me moria regular 2-16 Ronnie Route: l 16:11: SUB-Q, [place] 00 ONCE, Start date: 10/05/11 10:11:00, Stop date: 10/05/11 10:11:00 Zofran No David 4 mg, 2 Mark magdy 2-16 Ronnie mL, Route: l 15:57: IVP, Drug form: INJ, Q8H, PRN Nausea, Start date: 10/05/11 9:57:00, Duration: 30 day, Stop date: 11/04/11 9:56:00 naloxone No David 0.2 mg, Me moria 2-16 Ronnie 0.5 mL, l 15:57: Route: [place] 00 IVP, Drug form: INJ, Q5Min, PRN Narcotic Reversal, Start date: 10/05/11 9:57:00, Duration: 30 day, Stop date: 11/04/11 10:56:00 morphine No David IV, Start Memoria Sulfate 30 2-16 Ronnie date: l mg 15:56: 10/05/11 [place] 00 9:56:00, Duration: 30, 30 ml heparin No David 5,000 Memor ia 2-16 Ronnie unit, 1 l 12:00: mL, Route: [place] 00 SUB-Q, Drug form: INJ, ONCALL, Start date: 10/05/11 6:00:00, Duration: 12 hr, Stop date: 10/05/11 17:59:00 Invanz 2012-0 No David 1 gm, Memori a 2-16 Ronnie Route: l 12:00: IVPB, Ernesto 00 ONCALL, Start date: 10/05/11 6:00:00, Duration: 12 hr, Stop date: 10/05/11 17:59:00 chlorhexidi 2011-0 No David 15 mL, Memoria ne topical 2-16 Ronnie Route: l 0.12% 12:00: S&SPIT, Ernesto liquid 00 ONCALL, Drug form: LIQ, Start date: 10/05/11 6:00:00, Duration: 12 hr, Stop date: 10/05/11 17:59:00 Vital Signs Vital Name Observation Time Observation Value Comments Source Body height 2022-07-03 22:01:00 182.9 cm [facility] Body weight 2022-07-03 22:01:00 102.513 kg [facility] BMI 2022-07-03 22:01:00 30.65 kg/m2 [facility] Body height 2022-05-24 19:03:00 182.9 cm [facility] Body weight 2022-05-24 19:03:00 102.513 kg [facility] BMI 2022-05-24 19:03:00 30.65 kg/m2 [facility] Systolic blood 2022-05-10 18:27:00 129 mm[Hg] [facility] Diastolic blood 2022-05-10 18:27:00 80 mm[Hg] [facility] Heart rate 2022-05-10 18:27:00 80 /min [facility] Body weight 2022-05-10 18:27:00 102.513 kg [facility] BMI 2022-05-10 18:27:00 32.43 kg/m2 [facility] Systolic blood 2022-04-21 13:01:00 117 mm[Hg] [facility] Diastolic blood 2022-04-21 13:01:00 83 mm[Hg] [facility] Heart rate 2022-04-21 13:01:00 64 /min [facility] Respiratory rate 2022-04-21 13:01:00 17 /[facility] 2021-10-13 07:13:00 98.6 kg WEIGHT 2021-10-12 07:00:00 104 kg HEIGHT 2021-10-11 06:14:00 182.9 cm WEIGHT 2021-10-11 06:14:00 97.3 kg HEIGHT 2021-10-07 11:58:00 182.9 cm WEIGHT 2021-10-07 11:58:00 97.523 kg WEIGHT 2021-10-13 07:13:00 98.6 kg WEIGHT 2021-10-12 07:00:00 104 kg HEIGHT 2021-10-11 06:14:00 182.9 cm WEIGHT 2021-10-11 06:14:00 97.3 kg HEIGHT 2021-10-07 11:58:00 182.9 cm WEIGHT 2021-10-07 11:58:00 97.523 kg HEIGHT 2021-09-06 06:35:00 182.9 cm WEIGHT 2021-09-06 06:35:00 97.07 kg HEIGHT 2021-08-31 09:31:00 182.9 cm WEIGHT 2021-08-31 09:31:00 97.523 kg HEIGHT 2021-09-06 06:35:00 182.9 cm WEIGHT 2021-09-06 06:35:00 97.07 kg HEIGHT 2021-08-31 09:31:00 182.9 cm WEIGHT 2021-08-31 09:31:00 97.523 kg Systolic blood 2021-10-15 07:09:00 114 mm[Hg] [facility] Diastolic blood 2021-10-15 07:09:00 87 mm[Hg] [facility] Heart rate 2021-10-15 07:09:00 59 /min [facility] Body temperature 2021-10-15 07:09:00 35.67 [facility] Respiratory rate 2021-10-15 07:09:00 18 /min [facility] Oxygen saturation in 2021-10-15 07:09:00 95 /min [facility] Arterial blood by Medical Ce nter Pulse oximetry Body weight 2021-10-13 07:13:00 98.6 kg [facility] BMI 2021-10-13 07:13:00 29.48 kg/m2 [facility] Respitory Rate 2020-02-26 18:50:00 Memori al [place] Systolic (mm Hg) 2020-02-26 18:50:00 Mark rial Ernesto Diastolic (mm Hg) 2020-02-26 18:50:00 Mem orial Ernesto Temperature Oral (F) 2020-02-26 18:50:00 98.2 F [facility] Ernesto Temperature Oral (F) 2020-02-26 17:11:00 98.1 F [facility] Ernesto Respitory Rate 2020-02-26 17:11:00 Memori al [place] Systolic (mm Hg) 2020-02-26 17:11:00 Mark rial [place] Diastolic (mm Hg) 2020-02-26 17:11:00 Mem orial Ernesto Respitory Rate 2020-02-26 14:28:00 Memori al [place] Systolic (mm Hg) 2020-02-26 14:28:00 Mark rial [place] Diastolic (mm Hg) 2020-02-26 14:28:00 Mem orial Ernesto Temperature Oral (F) 2020-02-26 12:43:00 97.9 F [facility]esto Heart Rate 2020-02-25 23:15:00 [facility] Heart Rate 2020-02-25 20:15:00 [facility]esto Height 2020-02-25 18:37:00 180.34 cm [facility] BMI Calculated 2020-02-25 18:37:00 Memori al [place]esto Weight 2020-02-25 18:37:00 [facility] Heart Rate 2020-02-25 18:37:00 [facility] Weight 2014-04-07 17:34:00 [facility] BMI Calculated 2014-04-07 17:34:00 Memori al Ernesto Height 2014-04-07 17:34:00 182.88 cm [facility]esto Height 2011-12-05 13:51:00 180.34 cm [facility] Weight 2011-12-05 13:51:00 [facility] Diastolic (mm Hg) 2011-10-07 13:17:00 Mem orial [facility] Respitory Rate 2011-10-07 13:17:00 Memori al Ernesto Heart Rate 2011-10-07 13:17:00 [facility]esto Temperature Oral (F) 2011-10-07 13:17:00 97.8 F [facility] Systolic (mm Hg) 2011-10-07 13:17:00 Mark rial [facility] Respitory Rate 2011-10-07 11:00:00 Memori al Ernesto Systolic (mm Hg) 2011-10-07 11:00:00 Mark rial [facility] Heart Rate 2011-10-07 11:00:00 [facility] Diastolic (mm Hg) 2011-10-07 11:00:00 Mem orial Ernesto Temperature Oral (F) 2011-10-07 11:00:00 98.7 F [facility] Ernesto Diastolic (mm Hg) 2011-10-07 07:00:00 Mem orial [place] Systolic (mm Hg) 2011-10-07 07:00:00 Mark rial Ernesto Respitory Rate 2011-10-07 07:00:00 Memori al Ernesto Heart Rate 2011-10-07 07:00:00 [facility] Temperature Oral (F) 2011-10-07 07:00:00 97.4 F [facility] Weight 2011-10-04 17:50:00 [facility] Height 2011-10-04 17:50:00 177.80 cm [facility] Procedures Procedure Date / Time Performing Clinician Source Performed CTA HEART WITHOUT & 2022-10-13 14:59:00 System, Provider Not [facility] WITH GATING & 3D In Center POCT-CREATININE 2022-10-13 14:41:00 System, Provider Not [facility] In Center REFERRAL- 2022-07-21 06:01:00 Doctor Unassigned, No [facility] [place] REQUEST[facility]RESPONSE Name Medical Branch REFERRAL- 2022-06-29 06:01:00 Doctor Unassigned, No [facility] [place] REQUEST/RESPONSE Name Medical Branch REFERRAL- 2022-06-01 05:01:00 Doctor Unassigned, No [facility] [place] REQUEST/RESPONSE Name Medical Branch EXTERNAL PROVIDER 2022-05-04 05:01:00 Doctor Unassigned, No [facility] [place] RECORDS Name Medical Branch DSU PRE-OP 2022-04-26 05:01:00 Doctor Unassigned, No [facility] [place] Name Medical [facility] XR CHEST 1 VW 2022-04-21 14:32:39 Marcelo Martin [facility] [place] [facility] REFERRAL- 2022-04-06 05:01:00 Doctor Unassigned, No [facility] [place] [facility] REQUEST/RESPONSE Name Medical Branch XR CHEST 1 VIEW 2021-10-15 07:01:00 Kim Ashton [facility] PORTABLE / BEDSIDE [facility] HEPATIC FUNCTION PANEL 2021-10-15 04:37:00 Prasad [facility] MAGNESIUM 2021-10-15 04:37:00 [facility] PHOSPHORUS 2021-10-15 04:37:00 [facility] BASIC METABOLIC PANEL 2021-10-15 04:37:00 Shahab Singh [facility] CBC W/PLT COUNT & AUTO 2021-10-15 04:37:00 MatShahab guoil C [facility] DIFFERENTIAL Morris B-TYPE NATRIURETIC 2021-10-15 04:37:00 Kim Ashton [facility] Medical FACTOR (BNP) [facility] CBC W/PLT COUNT & AUTO 2021-10-15 04:37:00 MatShahab guoil C [facility] DIFFERENTIAL Morris (CELLAVISION MANUAL 2021-10-15 04:37:00 MatShahab guo [facility] DIFF) Center MAGNESIUM 2021-10-14 17:49:00 Prasad [facility] PHOSPHORUS 2021-10-14 17:49:00 [facility] XR CHEST 1 VIEW 2021-10-14 06:30:00 [facility] PORTABLE / BEDSIDE [facility] HEPATIC FUNCTION PANEL 2021-10-14 03:59:00 Prasad Jim [facility] MAGNESIUM 2021-10-14 03:59:00 [facility] PHOSPHORUS 2021-10-14 03:59:00 Jim Parham [facility] BASIC METABOLIC PANEL 2021-10-14 03:59:00 MatShahab guo [facility] CBC W/PLT COUNT & AUTO 2021-10-14 03:59:00 MatShahab guo C [facility] CBC W/PLT COUNT & AUTO 2021-10-14 03:59:00 Shahab Singh [facility] US ABDOMINAL WITH 2021-10-13 16:24:00 Christen Raymundo [facility] DOPPLER Rona Center POCT-GLUCOSE METER 2021-10-13 15:54:00 Shahab Sinhg [facility] BASIC METABOLIC PANEL 2021-10-13 15:47:00 Jim Parham [facility] MAGNESIUM 2021-10-13 15:47:00 Ivan Parhamegan [facility] PHOSPHORUS 2021-10-13 15:47[facility]PELVIS WITH 2021-10-13 14:05:00 Colt Crouch [facility] IV CONTRAST Center POCT-GLUCOSE METER 2021-10-13 12:04:00 Shahab Singh [facility] 2D ECHO W/ DOPPLER 2021-10-13 09:58:09 Henri Kwon [facility] (CW/PW/COLOR) Center POCT-GLUCOSE METER 2021-10-13 07:45:00 Shahab Singh [facility] CBC W/PLT COUNT & AUTO 2021-10-13 03:40:00 Henri Kwon [facility] CBC W/PLT COUNT & AUTO 2021-10-13 03:40:00 Henri Kwon [facility] POCT-GLUCOSE METER 2021-10-13 03:29:00 Shahab Singh [facility] HEPATIC FUNCTION PANEL 2021-10-13 03:23:00 Parham, [facility] BASIC METABOLIC PANEL 2021-10-13 03:23:00 ParhamIvanJim [facility] MAGNESIUM 2021-10-13 03:23:00 ParhamIvanJim [facility] PHOSPHORUS 2021-10-13 03:23:00 [facility] TSH/FREE T4 IF 2021-10-13 03:23:00 [facility] LACTIC ACID, VENOUS 2021-10-13 03:23:00 [facility] T4, FREE 2021-10-13 03:23:00 [facility] HEPATITIS PANEL, ACUTE 2021-10-13 03:23:00 Ivana Maradiaga [facility] POCT-GLUCOSE METER 2021-10-13 00:23:00 Shahab Singh [facility] XR CHEST 1 VIEW 2021-10-13 00:05:00 Prasad [facility] PORTABLE / BEDSIDE [facility] Plan of Care Planned Activity Planned Date Details Comments Source Future Scheduled 2027-09-03 DTAP/TDAP/TD VACCINES ([address] [facility] Test 00:00:00 - Td or Tdap) [code = [facility] DTAP/TDAP/TD VACCINES (2 - Td or Tdap)] Future Scheduled 2027-09-03 DTAP/TDAP/TD VACCINES ([address] [facility] Test 00:00:00 - Td or Tdap) [code = [facility] DTAP/TDAP/TD VACCINES (2 - Td or Tdap)] Future Scheduled 2024-01-14 Lipid panel (procedure) [facility] Test 00:00:00 [code = 68678990] Medical Ce nter Future Scheduled 2024-01-14 Lipid panel (procedure) [facility] 00:00:00 [code = 07738812] Medical Ce nter Future Scheduled 2023-06-14 Screening for malignant [facility] 11:55:48 neoplasm of colon Hospital (procedure) [code = 703430128] Future Scheduled 2023-06-14 Screening for malignant [facility] 11:55:48 neoplasm of colon Hospital (procedure) [code = 741032502] Future Scheduled 2023-06-14 HEPATITIS B VACCINES (1 [facility] 11:55:48 of 3 - 3-dose series) Hospit al [code = HEPATITIS B VACCINES (1 of 3 - 3-dose series)] Future Scheduled 2023-06-14 Screening for malignant [facility] 11:55:48 neoplasm of colon Hospital (procedure) [code = 107908860] Future Scheduled 2023-06-14 COVID-19 VACCINE (#1) [facility] Test 11:55:48 [code = COVID-19 VACCINE Hos pital (#1)] Future Scheduled 2023-06-14 Screening for malignant [facility] 11:55:48 neoplasm of colon Hospital (procedure) [code = 271194912] Future Scheduled 2023-06-14 Screening for malignant [facility] 11:55:48 neoplasm of colon Hospital (procedure) [code = 133472083] Future Scheduled 2023-06-14 SHINGLES VACCINES (1 of [facility] Test 11:55:48 2) [code = SHINGLES Hospital VACCINES (1 of 2)] Future Scheduled 2023-06-14 INFLUENZA VACCINE (#1) [facility] Test 11:55:48 [code = INFLUENZA VACCINE Ho spital (#1)] Future Scheduled 2023-04-20 Influenza Vaccine (#1) [facility] Test 00:00:00 [code = Influenza Vaccine [facility] (#1)] Future Scheduled 2022-10-[address] [facility] Test 00:00:00 Counseling and Screening Med ical Center (12+) [code = Tobacco Cessation Counseling and Screening (12+)] Future Scheduled 2022-10-[address] [facility] Test 00:00:00 Counseling and Screening Med ical Center (12+) [code = Tobacco Cessation Counseling and Screening (12+)] Future Scheduled 2022-08-[address] [facility] 00:00:00 (12+) [code = DEPRESSION Med ical Center SCREENING (12+)] Future Scheduled 2022-08-[address] [facility] 00:00:00 (12+) [code = DEPRESSION Med ical Center SCREENING (12+)] Future Scheduled 2022-04-20 INFLUENZA VACCINE (#1) [facility]00 [code = INFLUENZA VACCINE Me dicut Center (#1)] Future Scheduled 2021-10-[address] [facility] 00:[facility]:00 measurement (procedure) [facility] [code = 44156501] Future Scheduled 2021-10-[address] [facility] 00:00:00 measurement (procedure) [facility] [code = 43058382] Future Scheduled 2018 SHINGLES VACCINES ([address] [facility] 00:00:00 2) [code = SHINGLES [facility] VACCINES (1 of 2)] Future Scheduled 2018 SHINGLES VACCINES ([address] [facility] 00:00:00 2) [code = SHINGLES [facility] VACCINES (1 of 2)] Future Scheduled [address] [facility] 00:[facility]00 virus screening Medical Cent er (procedure) [code = 518574139] Future Scheduled 1978 DIABETIC EYE EXAM [code = [facility] 00:00:00 DIABETIC EYE EXAM] Medical C enter Future Scheduled 1978 Diabetic foot examination [facility] 00:00:00 (regime/therapy) [code = [facility] 280483045] Future Scheduled 1978 Urine screening for [facility] 00:00:00 protein (procedure) [code [facility] = 358677702] Future Scheduled 1978 DIABETIC EYE EXAM [code = [facility] 00:00:00 DIABETIC EYE EXAM] Medical C enter Future Scheduled 1978 Diabetic foot examination [facility] 00:00:00 (regime/therapy) [code = [facility] 528388248] Future Scheduled 1978 Urine screening for [facility] 00:00:00 protein (procedure) [code [facility] = 557361154] Future Scheduled 1974 Pneumococcal Vaccine: [facility] 00:00:00 0-64 Years (1 - PCV) Medical Center [code = Pneumococcal Vaccine: 0-64 Years (1 - PCV)] Future Scheduled 1974 PNEUMOCOCCAL VACCINE 0-[address] [facility] 00:00:00 YRS (1 - PCV) [code = Medica l Center PNEUMOCOCCAL VACCINE 0-64 YRS (1 - PCV)] Future Scheduled 1969-02-01 COVID-19 VACCINE (#1) [facility] 00:00:00 [code = COVID-19 VACCINE Med ical Center (#1)] Future Scheduled 1969-02-01 COVID-19 VACCINE (#1) [facility] 00:00:00 [code = COVID-19 VACCINE Med ical Center (#1)] Future Scheduled 1968 CT Colonography (combo) [facility] 00:00:00 [code = CT Colonography Medi jaye Center (combo)] Future Scheduled 1968 Screening for malignant [facility] 00:00:00 neoplasm of colon Medical Ce nter (procedure) [code = 247162374] Future Scheduled 1968 Screening for malignant [facility] 00:00:00 neoplasm of colon Medical Ce nter (procedure) [code = 844431881] Future Scheduled 1968 Screening for malignant [facility] 00:00:00 neoplasm of colon Medical Ce nter (procedure) [code = 178097980] Future Scheduled 1968 Screening for malignant [facility] 00:00:00 neoplasm of colon Medical Ce nter (procedure) [code = 956058170] Future Scheduled 1968 Sigmoidoscopy [code = [facility] Future Scheduled 1968 CT Colonography (combo) [facility] 00:00:00 [code = CT Colonography Medi jaye Center (combo)] Future Scheduled 1968 Screening for malignant [facility] 00:00:00 neoplasm of colon Medical Ce nter (procedure) [code = 093359592] Future Scheduled 1968 Screening for malignant [facility] 00:00:00 neoplasm of colon Medical Ce nter (procedure) [code = 149115903] Future Scheduled 1968 Screening for malignant [facility] 00:00:00 neoplasm of colon Medical Ce nter (procedure) [code = 131656999] Future Scheduled 1968 Screening for malignant [facility] 00:00:00 neoplasm of colon Medical Ce nter (procedure) [code = 363900691] Future Scheduled 1968 Sigmoidoscopy [code = [facility] 00:[facility] Sigmoidoscopy] Medical Cente r Encounters Start End Encounter Admission Attending Care Care Encounter Source Date/Time Date/Time Type Type Clinicians Facility Department ID 2022-02-01 Outpatient [facility] [id number] NE 12:21:56 [id number] [facility] 2021-06-21 Emergency [facility] [id number] Univers 09:09:44 ity of [facility] 2021-06-20 Emergency [facility] [id number] Univers 18:47:36 ity of [facility] 2021-06-20 Emergency [facility] [id number] Univers 15:22:30 ity of [facility] 2021-06-19 Emergency [facility] [id number] Univers 17:58:35 ity of [facility] 2021-06-19 Emergency [facility] [id number] Univers [facility]:06[facility] 2022-10-13 2022-10-13 Outpatient EL SYSTEM, [facility] [id number] [facility] 14:28:04 23:59:00 PROVIDER 2022-10-13 2022-10-13 [facility] [id number] 12:30:00 23:59:00 Encounter uardt, Ileana Whitman [facility] 2022-09-26 2022-09-26 Outside System, [facility] [id number] 00:00:00 00:00:00 Orders Provider Antonette Not In [facility] 2022-09-26 2022-09-26 Outside System, [facility] [id number] 00:00:00 00:00:00 Orders Provider Antonette Not In [facility] 2022-07-25 2022-07-25 Telephone Mario [facility] 1.2.840.114 [id number] Univers 00:00:00 00:00:00 [facility] 350.1.13.10 it y of [place] 4.2.7.2.686 Fran as STEF?BLEA [id number] [facility] [address] OFFICE [facility] 2022-07-21 2022-07-21 Orders Doctor DANNA 1.2.840.114 [id number] Univers 00:00:00 00:00:00 Only Unassigned, MIN 350.1.13.10 ity of [place] [facility] 4.2.7.2.686 Fran as [phone] [address] 2022-07-03 2022-07-03 Outpatient R SARAH [facility] [id number] Univers 16:00:00 16:41:59 ANTONIETTA ity of [facility] 2022-07-03 2022-07-03 Office [facility] 1.2.840.114 [id number] Univers 16:00:00 16:15:00 Visit [facility] 350.1.13.10 it [facility] 4.2.7.2.686 Fran as STEF?BLEA [phone] [address] OFFICE [facility] 2022-06-29 2022-06-29 Orders Doctor DANNA 1.2.840.114 [id number] Univers 00:00:00 00:00:00 Only Unassigned, MIN 350.1.13.10 ity of [place] [facility] 4.2.7.2.686 Fran as [id number] [address] 2022-06-01 2022-06-01 Telephone [facility] 1.2.840.114 [id number] Univers 00:00:00 00:00:00 [facility] 350.1.13.10 it [facility] 4.2.7.2.686 Fran as STEF?BLEA [id number] [address] OFFICE [facility] 2022-06-01 2022-06-01 Orders Doctor DANNA 1.2.840.114 [id number] Univers 00:00:00 00:00:00 Only Unassigned, MIN 350.1.13.10 ity of [place] [facility] 4.2.7.2.686 Fran as [phone] [address] 2022-05-31 2022-05-31 Telephone [facility] 1.2.840.114 [id number] Univers 00:00:00 00:00:00 Marcelo L HEALTH 350.1.13.10 it y of [place] 4.2.7.2.686 Fran as STEF?BLEA [phone] Nd katerina MERRILL 198 [facility] OFFICE [facility] 2022-05-24 2022-05-24 Outpatient Luis [facility] [id number] Univers 13:30:00 14:33:18 ANTONIETTA ity [facility] 2022-05-24 2022-05-24 Office [facility] 1.2.840.114 [id number] Univers 13:30:00 13:45:00 Visit [facility] 350.1.13.10 it y of [place] 4.2.7.2.686 Fran as STEF?BLEA [phone] Nd katerina HSI[address] OFFICE [facility] 2022-05-10 2022-05-10 Outpatient Luis Manuel [facility] [id number] Univers 13:30:00 14:08:02 [facility] 2022-05-10 2022-05-10 Office [facility] 1.2.840.114 [id number] Univers 13:30:00 13:45:00 Visit [facility] 350.1.13.10 it y of [place] 4.2.7.2.686 Fran as STEF?BLEA [phone] Nd katerina [address] OFFICE [facility] 2022-05-10 2022-05-10 Outpatient Luis Manuel [facility] [id number] Univers 13:30:00 13:30:00 [facility] [facility] 2022-05-04 2022-05-04 Orders Doctor DANNA 1.2.840.114 [id number] Univers 00:00:00 00:00:00 Only Unassigned, MIN 350.1.13.10 ity of [place] [facility] 4.2.7.2.686 Fran as [phone] [address] 2022-04-28 2022-04-28 Telephone Mario [facility] 1.2.840.114 [id number] Univers 00:00:00 00:00:00 Marcelo L HEALTH 350.1.13.10 it y of [place] 4.2.7.2.686 Fran as STEF?BLEA [phone] Nd dictristan KNEY [address] [facility] 2022-04-26 2022-04-26 Outpatient R [facility] NUT [id number] Univers 00:00:00 00:00:00 MARCELO hahn of [facility] 2022-04-26 2022-04-26 Telephone [facility] 1.2.840.114 [id number] Univers 00:00:00 00:00:00 Marcelo GARCIAS 350.1.13.10 i ty of [place] [phone] Nd dical NAL 198 [facility] 2022-04-26 2022-04-26 Orders Doctor DANNA 1.2.840.114 [id number] Univers 00:00:00 00:00:00 Only Unassigned, MIN 350.1.13.10 ity of [place] [facility] 4.2.7.2.686 Fran as [id number] [facility] [address] 2022-04-21 2022-04-21 Early Childhood Associate Teacher Yolanda, Adc Lab Main [facility] 1.2.8 40.114 [id number] Univers 10:45:00 11:00:00 Visit Marcelo [place] 350.1.13.10 ity of [place] [phone] Nd dicut NAL 353 [facility] 2022-04-21 2022-04-21 Hospital [facility] 1.2.840.114 [id number] Univers 08:53:36 08:57:00 Encounter Marcelo GARCIAS 350.1.13.10 it[place]7.[place] [facility] [id number] [facility] [address] 2022-04-21 2022-04-21 Outpatient [facility] [id number] Univers 08:53:36 08:53:36 MARCELO hahn of [facility] 2022-04-21 2022-04-21 Office [facility] 1.2.385.510 [id number] Univers 08:00:00 08:22:56 Visit Marcelo DIAZ 350.1.13.10 it y of [place] 4.2.7.2.686 Fran as STEF?BLEA [phone] Nd katerina MERRILL [address] [place] [address] OFFICE [facility] 2022-04-21 2022-04-21 Outpatient R [facility] [id number] Univers 08:00:00 08:22:56 MARCELO hahn [facility] 2022-04-21 2022-04-21 Orders Doctor CLAY 1.2.840.114 [id number] Univers 00:00:00 00:00:00 Only Unassigned, MIN 350.1.13.10 ity of [place] [facility] 4.2.7.2.686 Fran as [phone] [address] 2022-04-06 2022-04-06 Orders Doctor CLAY 1.2.840.114 [id number] Univers 00:00:00 00:00:00 Only Unassigned, MIN 350.1.13.10 ity [facility] [place] [facility] 4.2.7.2.686 Fran as [phone] [address] 2022-04-04 2022-04-04 Telephone [facility] 1.2.840.114 [id number] Univers 00:00:00 00:00:00 Marcelo DIAZ 350.1.13.10 it y of [place] 4.2.7.2.686 Fran as STEF?BLEA [phone] Nd katerina MERRILL [address] [place] [address] 2022-03-31 2022-03-31 Outpatient [facility] [id number] Univers 08:00:00 08:25:50 MARCELO hahn [facility] 2022-03-31 2022-03-31 Office [facility] 1.2.808.121 [id number] Univers 08:00:00 08:25:50 Visit Marcelo DIAZ 350.1.13.10 it y of [place] 4.2.7.2.686 Fran as STEF?BLEA [id number] Nd katerina MERRILL [address] [place] [address] 2021-10-11 2021-10-15 Inpatient JOSE ALEJANDRO MEI Surgery [id number] [facility] 05:23:00 11:13:00 SAMER 2021-10-11 2021-10-15 Hospital PHUONG Singh, [facility] [id number] [facility] 05:23:00 11:13:00 Encounter Samer [facility] 2021-10-07 2021-10-07 Outpatient PHUONG SINGH, SLE SLE [id number] SLE 14:34:19 23:59:00 SAMER 2021-10-07 2021-10-07 Outpatient PHUONG SINGH, SLE SLEH [id number] SLE 12:23:22 13:59:00 SAMER 2021-10-07 2021-10-07 Outpatient EL SLE SLE [id number] [facility] 00:00:00 00:00:00 2021-09-06 2021-09-06 Outpatient PHUONG SINGH, [facility] Surgery [id number] [facility] 05:51:00 09:00:00 SAMER 2021-08-31 2021-08-31 Outpatient EL SLE SLE [id number] SLE 09:45:00 23:59:00 2021-06-14 2021-06-14 Transition Jessenia Askew 1.2.840.114 [id number] Univers 00:00:00 00:00:00 of Care Spring Herrera 350.1.13.10 it y of [place] [id number] [facility] [address] 2021-06-11 2021-06-13 [facility] Canelo Posada [facility] 1.2.840. 114 [id number] Univers 19:50:00 18:57:00 Encounter Tez Lind 350.1.13.10 ity [place] [id number] [facility] jaye [address] 2021-04-16 2021-04-17 Emergency Adrian Hurtado [facility] 1.2.840. 114 [id number] Univers 17:49:00 13:12:00 Tez Lind 350.1.13.10 ity of [place].2.[place] [phone] [facility] [address] 2021-04-01 2021-04-01 Emergency Davin, [facility] 1.2.943.225 [id number] Univers 12:06:00 16:13:00 [facility] 350.1.13.10 it y of [place]2.7.2.686 [place] [facility] [phone] [address] ([facility]) 2021-01-12 2021-01-15 Inpatient LISA [facility] [id number] [place] [address] 00:00:00 00:00:00 [address] 2020-12-29 2020-12-29 Transition Jessenia Olson 1.2.840.114 [id number] Univers 00:00:00 00:00:00 of Care Veronika Herrera 350.1.13.10 i ty of [place] [id number] [address] 2020-12-26 2020-12-28 [facility] Sukhdev Rai [facility] 1.2.840.1 14 [id number] Univers 10:58:00 19:03:00 Encounter Fransisco Mcintosh 350.1.13.10 ity of [place] 4.2.7.2.686 [facility] [id number] [address] 2020-11-22 2020-11-22 Transition OlsonLandonkrissy 1.2.840.114 [id number] Univers 00:00:00 00:00:00 of Care Veronika Herrera 350.1.13.10 i ty of [place] [id number] [address] 2020-11-18 2020-11-19 Inpatient Poonam LIND [facility] HAMZAH [id number] Univers 12:47:00 14:00:00 TEZ hahn of [facility] 2020-11-18 2020-11-19 [facility] Brian Mckeon [facility] 1.2.840.1 14 [id number] Univers 12:47:00 14:00:00 Encounter Tez Lind 350.1.13.10 ity of [place] 4.2.7.2.686 [facility] [phone] [place] [id number] 2020-03-13 2020-03-18 Inpatient LISA [facility] [id number] [place] 00:00:00 00:00:[address] 2020-02-25 2020-02-26 Inpatient [facility] [id number] Memoria 18:27:29 20:01:00 r Ernesto [address] [facility] 2020-02-25 2020-02-[address] [place] [id number] 13:27:29 15:01:00 [facility] 2020-02-25 2020-02-26 Outpatient Tatiana [facility]PL [id number] 13:27:29 15:01:00 [facility] 2019-05-09 2019-05-09 [facility] 1.2.840.114 [id number] [facility] 09:06:00 13:49:00 Encounter Stephon Garcias 350.1.13.10 ity of [place] 4.2.7.[address] [place] [address] [phone] [facility] [address] 2019-05-07 2019-05-07 [facility] 1.2.840.114 [id number] [facility] 13:31:37 23:59:00 Encounter Stephon Garcias 350.1.13.10 ity of [place] 4.2.7.2.686 [facility] [id number] [facility] [address] 2019-05-07 2019-05-07 Early Childhood Associate Teacher 1, Adc Lab [facility] 1.2.840.114 [id number] Univers 13:26:55 13:41:55 Visit IshwilsonStephon 350.1.13.10 ity of [place] 4.2.7.2.686 [facility] [id number] [facility] [address] 2014-04-07 2014-04-07 Bedded [facility] [id number] Memoria 17:16:00 19:15:00 Outpatient luis manuel Orozco 02 [facility] 2014-04-07 2014-04-07 Outpatient Ronnie 2.16.840. 2.16.840.1. [id number] 12:16:00 14:15:00 Jose Thomas.969783. [id number] 3.615.0.1 [id number] 50 0968-04-17 2011-12-05 SANDIP nullFlavo [facility] [id number] Memoria 07:47:00 10:22:00 [facility] [place] 2011-10-05 2011-10-07 Inpatient nullFlavo [facility] 37 [id number] Memoria 05:40:00 13:55:00 r [facility] Results Test Description Test Time Test Comments Results Result [facility] e Comments CT, HEART, 2022-09-21 Reason for Study: WITHOUT / WITH 7 A-Fib for PVI GATING 16:21:00 define anatomy of [facility] [place], [place] - MEDICAL pulmUnlisted CENTERName: DANNA LEE Reason for Exam - MARCH : 1970 Click Yes and Sex: Enter Reason M Below->YesUnliste d Reason for FINAL Exam->Encounter REPORT PATIENT ID: for other [id number] EXAMINATION: specified special CT, HEART, WITHOUT / examinations WITH GATING \\T\\ 3D INDICATION: Atrial fibrillation. Pulmonary venous mapping. TECHNIQUE: Multi-detector CT technology was employed (64 MDCT [employer]). Minimal slice thickness was performed following the intravenous administration of contrast material with JACK placed in the left atrium for evaluation of the pulmonary veins. In addition, delayed images (30 secs) were obtained for evaluation of left atrial appendage thrombus. IV CONTRAST: 100 mL of Isovue 370ORAL CONTRAST: None COMPLICATIONS: None RADIATION DOSE:Total DLP: 1683 mGy*cmEstimated effective dose: 1683 x 0.014 mSvCTDI-vol has been reviewed. It is below the limits set by the Radiation Protocol Committee (RPC). This exam was performed according to departmental dose optimization program, which includes a limited exposure control, adjustment of the mA and/or KV according to patient size and/or use of iterative reconstruction technique. For optimization of anatomic evaluation, multiplanar reconstruction, maximum intensity projections, and advanced 3-D off-line postprocessing were performed on a dedicated stand-alone workstation under the direct supervision of the interpreting physician. FINDINGS: VASCULAR WITH ADVANCED 3-D OFF-LINE POSTPROCESSING: The left atrium is moderate enlarged in size (6.2 cm (apicobasal) x 5.0 cm (rdfcr-jd-fhof) on 4-chamber view. There are 3 pulmonary veins entering the left atrium (two on the right and one on the left). There is no evidence for pulmonary vein stenosis. No thrombus in the left atrial body, or appendage. Unfused septum primum. No kbhp-sx-wuiun shunt demonstrated. Quantitative pulmonary vein osteal mapping is as follows: Pulmonary veinMajor axisMinor axisCross-sectional area Right superior 19.0 mm 14.4 mm 2.12 cm2 Right inferior 19.1 mm 18.4 mm 2.78 cm2 Left conjoined 30.5 mm 12.8 mm 3.36 cm2 Morphology of the SAUL: Windsock SAUL ostium:Cross-sectional diameters: 23.1 x 13.2 mm Area: 221 sq mm Perimeter: 64.0 mm. Measurements of Left atrial appendage (SAUL) for WATCHMAN device: SAUL landing zone:Cross-sectional diameters: 21.6 x 14.0 mm Area: 222 sq mm Perimeter: 61.9 mmLAA depth: 20.3 mm Please see snapshot for details. Measurements of Left atrial appendage (SAUL) for AMULET device: SAUL landing zone 10 mm from the SAUL ostium:Cross-sectional diameters: 18.5 x 14.0 mm Area: 208 sq mm Perimeter: 57.4 mmLAA depth: 15.7 mm Please see snapshot for details. The cardiac chambers demonstrate normal atrioventricular and ventriculoarterial concordance, and systemic pulmonary venous return. The coronary arteries have normal origins and courses. Mild calcified plaque burden in the coronary arteries. Please note that this study was not optimized to evaluate for coronary artery lumen. No pericardial thickening or effusion. No pericardial calcifications. AORTA: Thoracic aorta is normal in course and caliber. Left-sided aortic arch with conventional three vessel branching. There is no acute aortic pathology, such as dissection, intramural hematoma, or contained rupture. PULMONARY ARTERY: Normal size main pulmonary artery. Mid MPA diameter is 2.7 cm. Proximal pulmonary arteries are unobstructed. NON VASCULAR FINDINGS: LUNGS AND AIRWAYS: No suspicious lung nodules. A 3 mm left lower lobe calcified pulmonary nodule in the superior segment. No groundglass opacities or focal consolidation. There is no interstitial lung disease. Trachea and main stem bronchi are unremarkable. PLEURA: No pleural effusions. No pneumothorax. HEART AND MEDIASTINUM: No suspicious mediastinal, hilar or axillary lymphadenopathy. No pericardial thickening, effusion or calcifications. ESOPHAGUS: The esophagus traverses posterior of the left atrium in close proximity to the ostia of the left pulmonary veins. LIMITED ABDOMEN: Moderate steatosis without hepatomegaly. Prior gastric surgery. Status post remote cholecystectomy. BONES: No aggressive lytic or sclerotic osseous lesion. No pectus excavatum. IMPRESSION: 1. There are 3 pulmonary veins entering the left atrium (two on the right and one on the left). All veins are patent without significant stenosis proximally. The bi-orthogonal luminal dimensions are listed above. 2. Moderate left atrial enlargement. 3. No thrombus identified in the left atrial body, atrial appendage, or left ventricle. 4. Windsock morphology of the left atrial appendage. Measurements for WATCHMAN and AMULET as above. 5. The esophagus traverses posterior of the left atrium in close proximity to the ostia of the left pulmonary veins. 6. Unfused septum primum. A small PFO cannot be excluded. 7. Evidence of prior granulomatous infection. Signed: Rush Lanza Verified Date/Time: 10/16/2022 16:21:30 Reading Location: [facility] Room [address] [place] [address] -Creatinine 2022-10-13 14:53:27 Test Item Value Reference Range Interpretation Comme nts POC-Creatinine (test code = 1.3 mg/dL 0.6-1.3 : TESTED AT [facility] [address] [place] [address]-8) [facility] [address]: Vessel Traffic Officer/Techni raheem ID = [id number] for ANTWAN HARRELL POC-EGFR (test code = 66 mL/min/1.73M2 Inte rpretation of eGFR Values 22167-9) Stage Descripti on Result G1 Normal or high >=90 G2 Mildly decreased 60-89 G3a Mildly to moderately 45-5 9 G3b Moderately to severly 30-4 4 G4 Severely decreased 15-2 9 G5 Kidney Failure <15Repo rted eGFR is based on the CK D-EPI 202 equation that d oes not use a race coefficien t Estimated GFR is not as accur ate as Creatinine Clearance in pr edicting glomerular filt ration rate. Estimated GFR i s not applicable for dialysis park yun [id number] 14:53:27 Test Item Value Reference Range Interpretation Comments POC-CREATININ 1.3 mg/dL 0.6-1.3 : TESTED AT [facility] [address] [facility] (test code = 85944: Vessel Traffic Officer /Early Childhood Associate Teacher 1859) ID = [id number] for EDUAR HARRELL POC-EGFR 66 Interpretation of eGFR ([facility]) mL/min/1.73M2 Values Stage D escription (test code = Result G1 Katherin l or high 1860) >=90 G2 Mildly decreased 60-89 G3a Mildl y to moderately 45-5 9 G3b Moderately to s heaven 30-44 G4 Severely dec reased 15-29 G5 Kidney Failu re <15Reported eGF R is based on the CKD-EPI 202 1 equation that does not u se a race coefficientEsti mated GFR is not as accurate as Creatinine Katie lorna in predicting glom erular filtration rate . Estimated GFR is not appl icable for dialysis patien ts Manual [id number] 09:56:47 Test Item Value Reference Range Interpretation Comments % Neutros (test code = 62 % 2816) % Lymphs (test code = 18 % 2817) % Monos (test code = 10 % 2818) % Eos (test code = 2819) 7 % % Baso (test code = 2820) 1 % % Bands (test code = 1 % 0-10 2825) # Neutros (test code = 6.70 K/ul 1.78-5.38 H 2830) # Lymphs (test code = 1.94 K/ul 1.32-3.57 2831) # Monos (test code = 1.08 K/uL 0.30-0.82 H 2832) # Eos (test code = 2834) 0.76 K/uL 0.04-0.54 H # Baso (test code = 2835) 0.11 K/uL 0.01-0.08 H # Bands (test code = 0.11 K/uL 0.00-0.80 2840) Total Counted (test code 100 = 1351) WBC Morphology (test code Normal = 487) Giant Platelet (test code Present = 313) Polychromasia (test code 2+ moderate = 478) Anisocytosis (test code = 2+ moderate 961) Microcytes (test code = 1+ few 965) Macrocytes (test code = 2+ moderate 964) Poikilocytes (test code = 2+ moderate 966) Target Cells (test code = 2+ moderate 480) Schistocytes (test code = 1+ few 765) Elliptocytes (test code = 1+ few 962) Ovalocytes (test code = 2+ moderate 477) Tear Drop Cells (test 1+ few code = 481) Artifact (test code = Present 3432) Platelet Conc (test code Adequate = 3438) MARLEY (test code = MARLEY) Vessel Traffic Officer ID - Tae Foley comments: Slide comments: Lab Interpretation (test Abnormal code = 69950-0) [facility](CELLAVISION MANUAL DIFF)2021-10-15 09:56:47 Test Item Value Reference Range Interpretation Comments NEUTROPHILS - REL 62 % (CELLAVISION)(BEAKER) (test code = 2816) LYMPHOCYTES - REL 18 % (CELLAVISION)(BEAKER) (test code = 2817) MONOCYTES - REL 10 % (CELLAVISION)(BEAKER) (test code = 2818) EOSINOPHILS - REL 7 % (CELLAVISION)(BEAKER) (test code = 2819) BASOPHILS - REL 1 % (CELLAVISION)(BEAKER) (test code = 2820) BANDS - REL (CELLAVISION)(BEAKER) 1 % 0-10 (test code = 2826) NEUTROPHILS - ABS 6.70 K/ul 1.78-5.38 H (CELLAVISION)(BEAKER) (test code = 2830) LYMPHOCYTES - ABS 1.94 K/ul 1.32-3.57 (CELLAVISION)(BEAKER) (test code = 2831) MONOCYTES - ABS 1.08 K/uL 0.30-0.82 H (CELLAVISION)(BEAKER) (test code = 2832) EOSINOPHILS - ABS 0.76 K/uL 0.04-0.54 H (CELLAVISION)(BEAKER) (test code = 2834) BASOPHILS - ABS 0.11 K/uL 0.01-0.08 H (CELLAVISION)(BEAKER) (test code = 2835) BANDS - ABS (CELLAVISION)(BEAKER) 0.11 K/uL 0.00-0.80 (test code = 2840) TOTAL COUNTED (BEAKER) (test code 100 = 1351) WBC MORPHOLOGY (BEAKER) (test Normal code = 487) GIANT PLATELETS (BEAKER) (test Present code = 313) POLYCHROMATOPHILLIC RBCS(BEAKER) 2+ moderate (test code = 478) ANISOCYTOSIS (BEAKER) (test code 2+ moderate = 961) MICROCYTES (BEAKER) (test code = 1+ few 965) MACROCYTES (BEAKER) (test code = 2+ moderate 964) POIKILOCYTES (BEAKER) (test code 2+ moderate = 966) TARGET CELLS (BEAKER) (test code 2+ moderate = 480) SCHISTOCYTES (BEAKER) (test code 1+ few = 765) ELLIPTOCYTES (BEAKER) (test code 1+ few = 962) OVALOCYTES (BEAKER) (test code = 2+ moderate 477) TEAR DROP CELLS (BEAKER) (test 1+ few code = 481) ARTIFACT (CELLAVISION)(BEAKER) Present (test code = 3432) PLATELET CONCENTRATION Adequate (CELLAVISION)(BEAKER) (test code = 3438) Vessel Traffic Officer ID - Julio-Stevie Og comments: Slide comments:CBC with platelet count + automated [id number] 09:56:46 Test Item Value Reference Range Interpretation Comments WBC (test code = 6690-2) 10.8 See_Comment H [A utomated message] The system [employer] generated this result transmitted ref erence range: 3.5 - 10 .5 K/L. The refe rence range was not u sed to interpret this result as normal/abnor mal. RBC (test code = 789-8) 4.33 See_Comment L [Au tomated message] The system [employer] generated this result transmitted ref erence range: 4.63 - 6 .08 M/L. The refe rence range was not u sed to interpret this result as normal/abnor mal. MCHC (test code = 786-4) 30.3 See_Comment L [A utomated message] The system [employer] generated this result transmitted ref erence range: 32.3 - 3 6.5 GM/DL. The refe rence range was not u sed to interpret this result as normal/abnor mal. Hematocrit (test code = 34.7 % 40.1-51.0 L 4544-3) MCV (test code = 787-2) 80.1 fL 79.0-92.2 MCH (test code = 785-6) 24.2 pg 25.7-32.2 L RDW (test code = 788-0) 17.5 % 11.6-14.4 H Platelets (test code = 188 See_Comment [Aut omated message] 777-3) The system [employer] generated this result transmitted ref erence range: 150 - 45 0 K/CU MM. The referen ce range was not u sed to interpret this result as normal/abnor mal. MPV (test code = 12.2 fL 9.4-12.4 19821-0) nRBC (test code = 413) 0 See_Comment [Aut omated message] The system [employer] generated this result transmitted ref erence range: 0 - 0 /1 00 WBC. The refere nce range was not u sed to interpret this result as normal/abnor mal. Lab Interpretation (test Abnormal code = 94410-6) [facility] W/PLT COUNT & AUTO [id number] 09:56:46 Test Item Value Reference Range Interpretation [...] = 413) RAD, CHEST, 1 VIEW, NON [id number] 07:14:00Reason for exam:->fup congestionShould this be performed at the bedside?->Yes [facility] 1970 Sex: MFINAL REPORT EXAM/TECHNIQUE: Single view frontal radiograph of the chest. INDICATION: Follow-up congestion. COMPARISON: 10/14/2021 FINDINGS: Devices/Objects: None. Lungs: Similar left pleural effusion and basilar opacity. Heart/Mediastinum: Similar cardiomegaly and interstitial thickening. Osseous: No acute osseous process. No suspicious osseous lesion. Upper abdomen: Unremarkable. Impression: Similar left pleural effusion and basilar opacity. Signed: Nakul Robles MDReport VerifiedDate/Time: 10/15/2021 07:14:49 [facility]ENTERepatic function [id number] 06:29:51 Test Item Value Reference Range Interpretation Comments Protein, Total (test 5.2 See_Comment L [Autom ated code = 2885-2) message] The system which generated this result transmit sung reference range : 6.0 - 8.3 gm/dL . The reference range was not u sed to interpret th is result as normal/abnormal . Albumin (test code = 3.3 g/dL 3.5-5.0 L 57894-1) Total Bilirubin (test 0.8 mg/dL 0.2-1.2 code = 1975-2) Bilirubin, Direct 0.4 mg/dL 0.1-0.5 (test code = 1968-7) Alkaline Phosphatase 276 U/L 40-150 H (test code = 6768-6) AST (test code = 111 U/L 5-34 H 1920-8) ALT (test code = 286 U/L 6-55 H 1742-6) MARLEY (test code = MARLEY) Vessel Traffic Officer ID - ALANIS M Lab Interpretation Abnormal (test code = 07312-5) [facility]2022-[facility] 06:29:51 Test Item Value Reference Range Interpretation Comments Phosphorus (test code = 3.8 mg/dL 2.3-4.7 2777-1) MARLEY (test code = MARLEY) Vessel Traffic Officer ID - ALANIS M Lab Interpretation (test Normal code = 73282-4) [facility] Center[facility]OSPHORUS2022-02-26 06:29:51 Test Item Value Reference Range Interpretation Comments PHOSPHORUS (BEAKER) (test code = 3.8 mg/dL 2.3-4.7 604) Vessel Traffic Officer ID - ALANIS EPATIC FUNCTION [id number] 06:29:51 Test Item Value Reference Range Interpretation [...] code = 286 U/L 6-55 H 347) Vessel Traffic Officer ID - ALANIS MBasic Metabolic [id number] 06:29:50 Test Item Value Reference Range Interpretation Comments Sodium (test code = 138 meq/L 617-273 8300-2) Potassium (test code = 3.7 meq/L 3.5-5.1 2823-3) Chloride (test code = 104 meq/L 98-107 2075-0) CO2 (test code = 29 meq/L 22-29 2028-9) BUN (test code = 11 mg/dL 7-21 3094-0) Creatinine (test code 0.93 mg/dL 0.57-1.25 = 2160-0) Glucose (test code = 61 mg/dL 70-105 L 2345-7) Calcium (test code = 8.9 mg/dL 8.4-10.2 67077-4) EGFR (test code = 85 mL/min/1.73 [place] [address]-6) NOT ACCURATE CREATININE CLEARANCE IN PREDICTING GLOMERULAR FILTRATION RATE . ESTIMATED GFR I S NOT APPLICABLE FOR DIALYSIS PATIENTS. MARLEY (test code = MARLEY) Vessel Traffic Officer MIO Robb Lab Interpretation Abnormal (test code = 56505-9) [facility] Center[facility]esium2022-02-26 06:29:50 Test Item Value Reference Range Interpretation Comments Magnesium (test code = 1.5 mg/dL 1.6-2.6 L 10150-8) MARLEY (test code = MARLEY) Vessel Traffic Officer MIO Robb Lab Interpretation (test Abnormal code = 91488-1) [facility] CenterMAGNESIUM2022-02-26 06:29:50 Test Item Value Reference Range Interpretation Comments MAGNESIUM (BEAKER) (test code = 1.5 mg/dL 1.6-2.6 L 627) Vessel Traffic Officer MIO CABRERAASIC METABOLIC [id number] 06:29:50 Test Item Value Reference Range Interpretation [...] 697) EGFR (BEAKER) (test 85 mL/min/1.73 ESTIMA SUNG GFR IS code = 1092) sq m NOT ACCURATE CREATININE CLEARANCE IN PREDICTING GLOMERULAR FILTRATION RATE . ESTIMATED GFR I S NOT APPLICABLE FOR DIALYSIS PATIEN TS. Vessel Traffic Officer MIO THAPA MB-type Natriuretic Factor (BNP)2021-10-15 06:22:31 Test Item Value Reference Range Interpretation Comments BNP (test code = 67608-3) 125 pg/mL 0-100 H MARLEY (test code = MARLEY) Vessel Traffic Officer MIO Robb Lab Interpretation (test Abnormal code = 44698-7) [facility] CenterB-TYPE NATRIURETIC FACTOR (BNP)2021-10-15 06:22:31 Test Item Value Reference Range Interpretation Comments B-TYPE NATRIURETIC PEPTIDE (BEAKER) 125 pg/mL 0-100 H (test code = 700) Vessel Traffic Officer MIO THAPA [id number] 18:26:28 Test Item Value Reference Range Interpretation Comments PHOSPHORUS (BEAKER) (test code = 2.9 mg/dL 2.3-4.7 604) Vessel Traffic Officer ID - MIKE [id number] 18:26:23 Test Item Value Reference Range Interpretation Comments MAGNESIUM (BEAKER) (test code = 1.5 mg/dL 1.6-2.6 L 627) Vessel Traffic Officer ID - MIKE LRAD, CHEST, 1 VIEW, NON [id number] 07:35:00Reason for exam:->eval ett and lung fieldsShould this be performed at the bedside?->Yes[facility] : 1970 Sex: MFINALREPORT Exam: RAD, CHEST, [...] atelectasis with small left-sided effusion. Signed: Bud Hannaepdarya Verified Date/Time: 10/14/2021 07:35:19 Reading Location: [facility] Radiology Reading Room CBC W/PLT COUNT & AUTO [id number] 05:18:33 Test Item Value Reference Range Interpretation [...] 0-1 PERCENT (BEAKER) (test code = 2801) [id number] 05:12:02 Test Item Value Reference Range Interpretation Comments PHOSPHORUS (BEAKER) (test code = 2.8 mg/dL 2.3-4.7 604) Vessel Traffic Officer ID - YESSICA WHEPATIC FUNCTION [id number] 05:12:02 Test Item Value Reference Range Interpretation [...] code = 408 U/L 6-55 H 347) Vessel Traffic Officer ID Sylvia JUAN WBASIC METABOLIC [id number] 05:12:01 Test Item Value Reference Range Interpretation [...] mg/dL 8.4-10.2 (test code = 697) EGFR (JOSE) (test 77 mL/min/1.73 ESTIMA SUNG GFR IS code = 1092) sq m NOT ACCURATE CREATININE CLEARANCE IN PREDICTING GLOMERULAR FILTRATION RATE . ESTIMATED GFR I S NOT APPLICABLE FOR DIALYSIS PATIEN TS. Vessel Traffic Officer ID - YESSICA [id number] 05:12:01 Test Item Value Reference Range Interpretation Comments MAGNESIUM (JOSE) (test code = 1.7 mg/dL 1.6-2.6 627) Vessel Traffic Officer ID - YESSICA CRUZ/S, ABDOMINAL, WITH [id number] 18:47:00Please add doppler Abdomen limited area? Add comment if clarification is needed.->Liver Reason for exam:->abnormal LFT; r/o hepatic and biliary duct pathology [facility] 1970 Sex: MFINALREPORT TECHNIQUE: Grayscale ultrasound [...] in diameter. 3.Trace perihepatic ascites Signed: Rema Meade MDReport Verified Date/Time: 10/13/2021 18:47:34 [id number] 16:43:19 Test Item Value Reference Range Interpretation Comments PHOSPHORUS (BEAKER) 2.8 mg/dL 2.3-4.7 Specimen slightly (test code = 604) hemolyzed Vessel Traffic Officer ID - BSBASIC METABOLIC [id number] 16:43:19 Test Item Value Reference Range Interpretation [...] 697) EGFR (BEAKER) (test 67 mL/min/1.73 ESTIMA SUNG GFR IS code = 1092) sq m NOT ACCURATE CREATININE CLEARANCE IN PREDICTING GLOMERULAR FILTRATION RATE . ESTIMATED GFR I S NOT APPLICABLE FOR DIALYSIS PATIEN TS. Vessel Traffic Officer ID - [id number] 16:43:18 Test Item Value Reference Range Interpretation Comments MAGNESIUM (BEAKER) 1.8 mg/dL 1.6-2.6 Specimen slightly (test code = 627) hemolyzed Vessel Traffic Officer ID - BSPOC-Glucose [id number] 16:08:48 Test Item Value Reference Range Interpretation Comments POC-Glucose Meter (test 239 mg/dL 70-110 H : TE STED AT [facility] code = 1538) [address] [facility], 770 30: Vessel Traffic Officer/Techni raheem ID = [id number] for Lucia (contrac t), Tez Lab Interpretation (test Abnormal code = 24775-3) [facility] CenterPOCT[facility]GLUCOSE [id number] 16:08:48 Test Item Value Reference Range Interpretation Comments POC-GLUCOSE METER 239 mg/dL 70-110 H : TESTED A T [facility] 6720 (BEAKER) (test code = CHRISTRACE Issa [facility], 1538) [address]: Vessel Traffic Officer/Techni raheem ID = [id number] for Ga lvan (contract), [place] id [place], [id number] 15:46:00Evaluate distal esophagus and stomach s/p gastric bypass reversal and hiatal hernia repairUnlisted Reason for Exam - Click Yes and Enter Reason Below->NoIs this for enterography?->NoWill this procedure require oral contrast?->Yes [facility] : 1970 Sex: MFINALREPORT CT, ABDOMEN \\T\\ [...] 5.Punctate nonobstructive bilateral renal calculi. Signed: Ashley Garcia Verified Date/Time: 10/13/2021 15:46:09 Reading Location: [facility] B1 [id number] Ortho Consult Reading Room Hepatitis panel, [id number] 13:39:13 Test Item Value Reference Range Interpretation Comments Hep A IgM (test code = Nonreactive Nonreactive 14916-5) Hep B C IgM (test code = Nonreactive Nonreactive 50482-5) Hepatitis C Ab (test code = Nonreactive Nonreactive 96573-0) Hepatitis B surface antigen Nonreactive Nonreactive (test code = 5195-3) MARLEY (test code = MARLEY) Vessel Traffic Officer ID - BS Lab Interpretation (test Normal code = 16436-9) [facility] CenterHEPATITIS PANEL, [id number] 13:39:13 Test Item Value Reference Range Interpretation Comments HEPATITIS A IGM ANTIBODY (BEAKER) Nonreactive Nonreactive (test code = 498) HEPATITIS B CORE IGM ANTIBODY Nonreactive Nonreactive (BEAKER) (test code = 645) HEPATITIS C ANTIBODY (BEAKER) Nonreactive Nonreactive (test code = 367) HEPATITIS B SURFACE ANTIGEN (2) Nonreactive Nonreactive (BEAKER) (test code = 2585) Vessel Traffic Officer ID - BS2D Echo W/Doppler(CW/PW/Color)2021-10-13 13:18:32Ejection FractionSLEH ECHO HEARTLAB MKCKESSON CPACHI [facility] [id number] 12:23:18 Test Item Value Reference Range Interpretation Comments POC-GLUCOSE METER 266 mg/dL 70-110 H : TESTED A T [facility] 6720 (BEAKER) (test code = [facility] [employer] [facility], 1538) [address]: Vessel Traffic Officer/Techni raheem ID = [id number] for Newton reilly (contract), [place] id POCT-GLUCOSE [id number] 08:00:11 Test Item Value Reference Range Interpretation Comments POC-GLUCOSE METER 242 mg/dL 70-110 H : TESTED A T [facility] 6720 ([employer]) (test code = [facility] Luis Manuel [facility], 1538) [address]: Vessel Traffic Officer/Techni raheem ID = [id number] for Newton reilly (contract), [place] id T4, [id number] 05:32:54 Test Item Value Reference Range Interpretation Comments Free T4 (test code = 0.95 ng/dL 0.70-1.48 3024-7) MARLEY (test code = MARLEY) Vessel Traffic Officer ID - ALANIS M Lab Interpretation (test Normal code = 67267-3) [facility] CenterT4, [id number] 05:32:54 Test Item Value Reference Range Interpretation Comments FREE T4 (BEAKER) (test code = 655) 0.95 ng/dL 0.70-1.48 Vessel Traffic Officer ID - ALANIS MCBC W/PLT COUNT & AUTO [id number] 05:07:03 Test Item Value Reference Range Interpretation [...] 0-1 PERCENT (BEAKER) (test code = 2801) TSH/Free T4 If [id number] 04:49:11 Test Item Value Reference Range Interpretation Comments TSH (test code = 0.153 See_Comment L [Automated 54160-1) message] The system which generated this result transmit sung reference range : 0.350 - 4.940 uIU/mL. The reference range was not used to interpret this result as normal/abnormal . MARLEY (test code = MARLEY) Vessel Traffic Officer ID - ALANIS Robb Lab Interpretation Abnormal (test code = 90769-1) [facility] CenterTSH/FREE T4 IF [id number] 04:49:11 Test Item Value Reference Range Interpretation Comments THYROID STIMULATING HORMONE 0.153 uIU/mL 0.350-4.940 L (BEAKER) (test code = 772) Vessel Traffic Officer ID - ALANIS QUARLESEPATIC FUNCTION [id number] 04:18:25 Test Item Value Reference Range Interpretation [...] code = 462 U/L 6-55 H 347) Vessel Traffic Officer ID - [id number] 04:18:23 Test Item Value Reference Range Interpretation Comments MAGNESIUM (BEAKER) (test code = 2.0 mg/dL 1.6-2.6 627) Vessel Traffic Officer ID - [id number] 04:18:23 Test Item Value Reference Range Interpretation Comments PHOSPHORUS (BEAKER) (test code = 3.6 mg/dL 2.3-4.7 604) Vessel Traffic Officer ID - BSBASIC METABOLIC [id number] 04:18:22 Test Item Value Reference Range Interpretation [...] 697) EGFR (BEAKER) (test 60 mL/min/1.73 ESTIMA SUNG GFR IS code = 1092) sq m NOT ACCURATE CREATININE CLEARANCE IN PREDICTING GLOMERULAR FILTRATION RATE . ESTIMATED GFR I S NOT APPLICABLE FOR DIALYSIS PATIEN TS. Vessel Traffic Officer ID - BSRAD, CHEST, 1 VIEW, NON [id number] 04:02:00Reason for exam:- >eval ett and lung fieldsShould this be performed at the bedside?->Yes [facility] : 1970 Sex: MFINALREPORT RAD, CHEST, 1 [...] emphysema at the neck base. Signed: Torin Meza MDReport Verified Date/Time: 10/13/2021 04:02:22 Kristy ctronically signed by: TORIN MEZA MD on 10/13/2021 04:02 AMLactic acid, [id number] 03:43:32 Test Item Value Reference Range Interpretation Comments Lactate, Venous (test 1.70 mmol/L 0.50-2.20 Specim en code = 2872) slightly hemolyzed MARLEY (test code = MARLEY) Vessel Traffic Officer ID - BS Lab Interpretation Normal (test code = 25035-2) [facility] CenterLACTIC ACID, [id number] 03:43:32 Test Item Value Reference Range Interpretation Comments LACTATE BLOOD VENOUS 1.70 mmol/L 0.50-2.20 Specime n slightly (2) (BEAKER) (test hemolyzed code = 2872) Vessel Traffic Officer ID - BSPOCT-GLUCOSE [id number] 03:40:38 Test Item Value Reference Range Interpretation Comments POC-GLUCOSE METER 176 mg/dL 70-110 H : [facility] (BEAKER) (test code = [facility], 1538) [address]: Vessel Traffic Officer/Techni raheem ID = [id number] for MARY PHELAN CIA POCT-GLUCOSE [id number] 00:35:10 Test Item Value Reference Range Interpretation Comments POC-GLUCOSE METER 203 mg/dL 70-110 H : TESTED A T [facility] 6720 (BEAKER) (test code [facility], = 1538) [address]: Vessel Traffic Officer/Techni raheem ID = [id number] for SUGU , SHEENAMOL VANCOMYCIN LEVEL, [id number] 22:24:23 Test Item Value Reference Range Interpretation Comments VANCOMYCIN TROUGH (BEAKER) (test 11.3 ug/mL 10.0-20.0 code = 522) Vessel Traffic Officer ID - BSPOCT-GLUCOSE [id number] 21:00:42 Test Item Value Reference Range Interpretation Comments POC-GLUCOSE METER 226 mg/dL 70-110 H : TESTED A T [facility] 67[address] (BEAKER) (test code = [facility], 1538) [address]: Vessel Traffic Officer/Techni raheem ID = [id number] for MARY PHELAN CIA POCT-GLUCOSE [id number] 20:26:09 Test Item Value Reference Range Interpretation Comments POC-GLUCOSE METER 228 mg/dL 70-110 H : TESTED A T [facility] 6720 (BEAKER) (test code [facility], = 1538) 40865: Vessel Traffic Officer/Techni raheem ID = [id number] for SUGU , SHEENAMOL POCT-GLUCOSE [id number] 19:39:47 Test Item Value Reference Range Interpretation Comments POC-GLUCOSE METER 122 mg/dL 70-110 H : TESTED A T [facility] 6720 (BEAKER) (test code = [facility], 1538) [address]: Vessel Traffic Officer/Techni raheem ID = [id number] for Karlie Garcia BASIC METABOLIC [id number] 13:08:07 Test Item Value Reference Range Interpretation [...] 697) EGFR (BEAKER) (test 63 mL/min/1.73 ESTIMA SUNG GFR IS code = 1092) sq m NOT ACCURATE CREATININE CLEARANCE IN PREDICTING GLOMERULAR FILTRATION RATE . ESTIMATED GFR I S NOT APPLICABLE FOR DIALYSIS PATIEN TS. Vessel Traffic Officer ID - [id number] 10:17:05 Test Item Value Reference Range Interpretation Comments PROCALCITONIN (BEAKER) (test code 7.83 ng/mL <0.05 H = 3036) SEPSIS RISK (ng/mL)Low: 0.05-0.50Intermediate: 0.51-2.00High: >=2.01B-TYPE NATRIURETIC FACTOR (BNP)2021-10-12 10:10:10 Test Item Value Reference Range Interpretation Comments B-TYPE NATRIURETIC PEPTIDE (BEAKER) 215 pg/mL 0-100 H (test code = 700) Vessel Traffic Officer ID - [id number] 10:03:57 Test Item Value Reference Range Interpretation Comments PHOSPHORUS (BEAKER) (test code = 2.6 mg/dL 2.3-4.7 604) Vessel Traffic Officer ID - [id number] 10:03:38 Test Item Value Reference Range Interpretation Comments MAGNESIUM (BEAKER) (test code = 2.0 mg/dL 1.6-2.6 627) Vessel Traffic Officer ID - BSBASIC METABOLIC [id number] 10:03:20 Test Item Value Reference Range Interpretation Comments SODIUM (BEAKER) 137 meq/L 136-145 (test code = 381) POTASSIUM (BEAKER) 3.9 meq/L 3.5-5.1 (test code = 379) CHLORIDE (BEAKER) 108 meq/L 98-107 H (test code = 382) CO2 (BEAKER) (test 24 meq/L 29 code = 355) BLOOD UREA NITROGEN 27 mg/dL 7-21 H (BEAKER) (test code = 354) CREATININE (BEAKER) 1.23 mg/dL 0.57-1.25 (test code = 358) GLUCOSE RANDOM 130 mg/dL 70-105 H (BEAKER) (test code = 652) CALCIUM (BEAKER) 8.2 mg/dL 8.4-10.2 L (test code = 697) EGFR (BEAKER) (test 62 mL/min/1.73 ESTIMA SUNG GFR IS code = 1092) sq m NOT ACCURATE CREATININE CLEARANCE IN PREDICTING GLOMERULAR FILTRATION RATE . ESTIMATED GFR I S NOT APPLICABLE FOR DIALYSIS PATIEN TS. Vessel Traffic Officer ID - BSPOCT-GLUCOSE [id number] 09:27:08 Test Item Value Reference Range Interpretation Comments POC-GLUCOSE METER 136 mg/dL 70-110 H : TESTED Riccardo T [facility] 6720 (JOSE) (test code = [facility] [place], 1538) [address]: Vessel Traffic Officer/Techni raheem ID = [id number] for Ivanna Bland RAD, CHEST, 1 VIEW, NON [id number] 08:25:00Reason for exam:->eval ett and lung fieldsShould this be performed at the bedside?->Yes [facility] 1970 Sex: MFINALREPORT Exam: RAD, CHEST, [...] chest and neck subcutaneous emphysema. Signed: Bud Hannaepdarya Verified Date/Time: 10/12/2021 08:25:27 Reading Location: [facility] Radiology Reading Room POCT-GLUCOSE [id number] 07:11:53 Test Item Value Reference Range Interpretation Comments POC-GLUCOSE METER 81 mg/dL 70-110 : TESTED A T [facility] 6720 (BEAKER) (test code = [facility], [facility]8) [address]: Vessel Traffic Officer/Techni raheem ID = [id number] for Uy, Ivanna POCT-GLUCOSE [id number] 07:05:47 Test Item Value Reference Range Interpretation Comments POC-GLUCOSE METER 123 mg/dL 70-110 H : TESTED A T [facility] 6720 (BEAKER) (test code = [facility], 1538) [address]645: Vessel Traffic Officer/Techni raheem ID = [id number] for Uy , [place] POCT-GLUCOSE [id number] 05:10:35 Test Item Value Reference Range Interpretation Comments POC-GLUCOSE METER 150 mg/dL 70-110 H : TESTED A T [facility] 67[address] (BEAKER) (test code = [facility], 1538) [id number]: Vessel Traffic Officer/Techni raheem ID = [id number] for Uy , [place] POCT-GLUCOSE [id number] 05:09:41 Test Item Value Reference Range Interpretation Comments POC-GLUCOSE METER 181 mg/dL 70-110 H : TESTED A T [facility] 67[address] (BEAKER) (test code = [facility], [facility]8) [id number]: Vessel Traffic Officer/Techni raheem ID = [id number] for Uy , [place] RAD, CHEST, 1 VIEW, NON [id number] 04:59:00Reason for exam:->eval PNX seen on prior CXRShould this be performed at the bedside?->Yes [facility] 1970 Sex: MFINALREPORT RAD, CHEST, 1 [...] Sanchezdarya Verified Date/Time: 10/12/2021 04:59:42 C METABOLIC [id number] 03:37:49 Test Item Value Reference Range Interpretation [...] 697) EGFR (BEAKER) (test 54 mL/min/1.73 ESTIMA SUNG GFR IS code = 1092) sq m NOT ACCURATE CREATININE CLEARANCE IN PREDICTING GLOMERULAR FILTRATION RATE . ESTIMATED GFR I S NOT APPLICABLE FOR DIALYSIS PATIEN TS. Vessel Traffic Officer ID - [id number] 03:37:49 Test Item Value Reference Range Interpretation Comments MAGNESIUM (BEAKER) (test code = 2.2 mg/dL 1.6-2.6 627) Vessel Traffic Officer ID - BSHEPATIC FUNCTION [id number] 03:37:49 Test Item Value Reference Range Interpretation [...] code = 368 U/L 6-55 H 347) Vessel Traffic Officer ID - BSBLOOD GAS, [id number] 03:28:32 Test Item Value Reference Range Interpretation [...] (BEAKER) (test code = 1819) 35.0 POCT-GLUCOSE [id number] 03:22:09 Test Item Value Reference Range Interpretation Comments POC-GLUCOSE METER 200 mg/dL 70-110 H : TESTED A T [facility] 6720 (BEAKER) (test code = [place], 1538) [address]: Vessel Traffic Officer/Techni raheem ID = [id number] for Ivanna Bland CBC W/PLT COUNT & AUTO [id number] 03:18:42 Test Item Value Reference Range Interpretation [...] PERCENT (BEAKER) (test code = 2801) POCT-GLUCOSE [id number] 03:08:35 Test Item Value Reference Range Interpretation Comments POC-GLUCOSE METER 215 mg/dL 70-110 H : TESTED A T [facility] 6720 (BEAKER) (test code = [facility], 1538) 36160: Vessel Traffic Officer/Techni raheem ID = [id number] for Uy , [place] POCT-GLUCOSE [id number] 01:37:22 Test Item Value Reference Range Interpretation Comments POC-GLUCOSE METER 209 mg/dL 70-110 H : TESTED A T [facility] 6720 (BEAKER) (test code = [facility], 1538) 79374: Vessel Traffic Officer/Techni raheem ID = [id number] for Uy , [place] LACTIC ACID, [id number] 01:00:20 Test Item Value Reference Range Interpretation Comments LACTATE BLOOD ARTERIAL (2) 0.8 mmol/L 0.5-2.2 (BEAKER) (test code = 2874) Vessel Traffic Officer ID - BSURINALYSIS W/ REFLEX URINE [id number] 00:58:48 Test Item Value Reference Range Interpretation [...] 1585) Rare SOURCE(BEAKER) (test code = 2795) Vessel Traffic Officer ID - [auto]Vessel Traffic Officer ID - techPOCT-GLUCOSE [id number] 00:28:20 Test Item Value Reference Range Interpretation Comments POC-GLUCOSE METER 197 mg/dL 70-110 H : TESTED A T [facility] 6720 (BEAKER) (test code = MEGHANN Issa [facility], 1538) 56047: Vessel Traffic Officer/Techni raheem ID = [id number] for Edwina Ivanna BASIC METABOLIC [id number] 00:20:36 Test Item Value Reference Range Interpretation [...] 697) EGFR (BEAKER) (test 50 mL/min/1.73 ESTIMA SUNG GFR IS code = 1092) sq m NOT ACCURATE CREATININE CLEARANCE IN PREDICTING GLOMERULAR FILTRATION RATE . ESTIMATED GFR I S NOT APPLICABLE FOR DIALYSIS PATIEN TS. Vessel Traffic Officer ID - [id number] 00:20:36 Test Item Value Reference Range Interpretation Comments MAGNESIUM (BEAKER) (test code = 2.0 mg/dL 1.6-2.6 627) Vessel Traffic Officer ID - [id number] 00:20:36 Test Item Value Reference Range Interpretation Comments PHOSPHORUS (BEAKER) (test code = 3.1 mg/dL 2.3-4.7 604) Vessel Traffic Officer ID - BSPOCT-GLUCOSE [id number] 00:10:38 Test Item Value Reference Range Interpretation Comments POC-GLUCOSE METER 192 mg/dL 70-110 H : TESTED A T [facility] 6720 (BEAKER) (test code = [facility], 1538) 38555: Vessel Traffic Officer/Techni raheem ID = [id number] for Uy , Ivanna POCT-GLUCOSE [id number] 22:05:29 Test Item Value Reference Range Interpretation Comments POC-GLUCOSE METER 209 mg/dL 70-110 H : TESTED A T [facility] 6720 (BEAKER) (test code = [facility], 1538) 59699: Vessel Traffic Officer/Techni raheem ID = [id number] for Uy , Ivanna POCT-GLUCOSE [id number] 21:03:10 Test Item Value Reference Range Interpretation Comments POC-GLUCOSE METER 217 mg/dL 70-110 H : TESTED A T [facility] 6720 (BEAKER) (test code = [facility], 1538) 93300: Vessel Traffic Officer/Techni raheem ID = [id number] for Uy , [place] KETONE, [id number] 20:52:33 Test Item Value Reference Range Interpretation Comments KETONES, BLOOD (BEAKER) (test code 0.3 mmol/L <0.4 = 1103) [id number] 19:25:27 Test Item Value Reference Range Interpretation Comments PROCALCITONIN (BEAKER) (test code 4.38 ng/mL <0.05 H = 3036) SEPSIS RISK (ng/mL)Low: 0.05-0.50Intermediate: 0.51-2.00High: >=2.01MAGNESIUM 2021-10-11 19:08:08 Test Item Value Reference Range Interpretation Comments MAGNESIUM (BEAKER) (test code = 1.6 mg/dL 1.6-2.6 627) Vessel Traffic Officer ID - [id number] 19:08:08 Test Item Value Reference Range Interpretation Comments PHOSPHORUS (BEAKER) (test code = 3.6 mg/dL 2.3-4.7 604) Vessel Traffic Officer ID - BSBASIC METABOLIC [id number] 19:08:07 Test Item Value Reference Range Interpretation [...] 697) EGFR (BEAKER) (test 39 mL/min/1.73 ESTIMA SUNG GFR IS code = 1092) sq m NOT ACCURATE CREATININE CLEARANCE IN PREDICTING GLOMERULAR FILTRATION RATE . ESTIMATED GFR I S NOT APPLICABLE FOR DIALYSIS PATIEN TS. Vessel Traffic Officer ID - BSLACTIC ACID, [id number] 19:03:09 Test Item Value Reference Range Interpretation Comments LACTATE BLOOD ARTERIAL (2) 1.9 mmol/L 0.5-2.2 (BEAKER) (test code = 2874) Vessel Traffic Officer ID - BSPOCT-GLUCOSE [id number] 19:01:38 Test Item Value Reference Range Interpretation Comments POC-GLUCOSE METER 262 mg/dL 70-110 H : TESTED A T [facility] 6720 (BEAKER) (test code = MEGHANN Issa [facility], 1538) 10421: Vessel Traffic Officer/Techni raheem ID = [id number] for YADY AVINA BLOOD GAS, [id number] 18:57:03 Test Item Value Reference Range Interpretation [...] (BEAKER) 37.0 (test code = 1818) POCT-GLUCOSE [id number] 18:24:05 Test Item Value Reference Range Interpretation Comments POC-GLUCOSE METER 274 mg/dL 70-110 H : TESTED A T [facility] 6720 (BEAKER) (test code [facility], = 1538) 50332: Vessel Traffic Officer/Techni raheem ID = [id number] for Librado liu (contract)Zachery BASIC METABOLIC [id number] 17:28:18 Test Item Value Reference Range Interpretation [...] 697) EGFR (BEAKER) (test 35 mL/min/1.73 ESTIMA SUNG GFR IS code = 1092) sq m NOT ACCURATE CREATININE CLEARANCE IN PREDICTING GLOMERULAR FILTRATION RATE . ESTIMATED GFR I S NOT APPLICABLE FOR DIALYSIS PATIEN TS. Vessel Traffic Officer ID - BSHEPATIC FUNCTION [id number] 17:27:32 Test Item Value Reference Range Interpretation [...] code = 365 U/L 6-55 H 347) Vessel Traffic Officer ID - [id number] 17:27:31 Test Item Value Reference Range Interpretation Comments MAGNESIUM (BEAKER) (test code = 1.4 mg/dL 1.6-2.6 L 627) Vessel Traffic Officer ID - [id number] 17:27:31 Test Item Value Reference Range Interpretation Comments PHOSPHORUS (BEAKER) (test code = 5.0 mg/dL 2.3-4.7 H 604) Vessel Traffic Officer ID - BSPOCT-GLUCOSE [id number] 17:19:41 Test Item Value Reference Range Interpretation Comments POC-GLUCOSE METER 294 mg/dL 70-110 H : TESTED A T [facility] 6720 (BEAKER) (test code [facility] [place], = 1538) 90279: Vessel Traffic Officer/Techni raheem ID = [id number] for Librado liu (contract) Zachery day BLOOD GAS, [id number] 16:36:42 Test Item Value Reference Range Interpretation [...] (BEAKER) (test code = 1819) 70.0 POCT-GLUCOSE [id number] 16:07:02 Test Item Value Reference Range Interpretation Comments POC-GLUCOSE METER 377 mg/dL 70-110 H : TESTED A T [facility] 6720 (BEAKER) (test code = MEGHANN Luis Manuel [place], 1538) 44[address]: Vessel Traffic Officer/Techni raheem ID = [id number] for SI KAREN (V)CHELO RAD, CHEST, 1 VIEW, NON [id number] 15:34:00Reason for exam:- >DESATTINGShould this be performed at the bedside?->Yes [facility] 1970 Sex: MFINALREPORT Chest, 1 view, [...] [facility]. Signed: Cody Balderrama MDReport Verified Date/Time: 10/11/2021 15:34:10 Reading Location: [facility] Mammo Reading Room Electronically signed by: CODY BALDERRAMA M.D. on 03:34 PMBLOOD GAS, [id number] 15:22:04 Test Item Value Reference Range Interpretation [...] (BEAKER) (test code = 1819) 50 GLUCOSE-STAT [id number] 15:10:33 Test Item Value Reference Range Interpretation Comments GLUCOSE RANDOM (BEAKER) (test code 403 mg/dL 70-110 HH = 652) POTASSIUM-STAT [id number] 15:10:22 Test Item Value Reference Range Interpretation Comments POTASSIUM (BEAKER) (test code = 7.1 meq/L 3.6-5.5 HH 379) POCT-GLUCOSE [id number] 15:02:18 Test Item Value Reference Range Interpretation Comments POC-GLUCOSE METER 378 mg/dL 70-110 H : TESTED A T [facility] 6720 (BEAKER) (test code = [place], 1538) 54525: Vessel Traffic Officer/Techni raheem ID = [id number] for BRENNANYANELI POOL HGB/HCT (H&H) - STAT [id number] 15:01:35 Test Item Value Reference Range Interpretation Comments HEMOGLOBIN (BEAKER) (test code = 9.5 GM/DL 13.0-16.8 L 410) HEMATOCRIT (BEAKER) (test code = 28.0 % 40.0-50.0 L 411) SODIUM NA-STAT [id number] 15:01:34 Test Item Value Reference Range Interpretation Comments SODIUM (BEAKER) (test code = 381) 134 meq/L 136-145 L BLOOD GAS, [id number] 14:58:38 Test Item Value Reference Range Interpretation [...] (BEAKER) (test code = 1819) 50.0 POCT-GLUCOSE [id number] 13:38:26 Test Item Value Reference Range Interpretation Comments POC-GLUCOSE METER 396 mg/dL 70-110 H : TESTED A T [facility] 6720 (BEAKER) (test code = CHRISTRACE Issa [facility], 1538) 51140: Vessel Traffic Officer/Techni raheem ID = [id number] for Marcy Candelaria POCT-GLUCOSE [id number] 06:23:19 Test Item Value Reference Range Interpretation Comments POC-GLUCOSE METER 151 mg/dL 70-110 H : Notified RN/MD: (AKER) (test code = TESTED AT [facility] 6720 1538) [facility] [address]: Vessel Traffic Officer/Techni raheem ID = [id number] for CHRISTOPEHR CHOUDHURY BASIC METABOLIC [id number] 15:34:15 Test Item Value Reference Range Interpretation [...] 697) EGFR (BEAKER) (test 58 mL/min/1.73 ESTIMA SUNG GFR IS code = 1092) sq m NOT ACCURATE CREATININE CLEARANCE IN PREDICTING GLOMERULAR FILTRATION RATE . ESTIMATED GFR I S NOT APPLICABLE FOR DIALYSIS PATIEN TS. Vessel Traffic Officer ID - [id number] 15:18:14 Test Item Value Reference Range Interpretation Comments HEMOGLOBIN (BEAKER) (test code = 11.6 GM/DL 13.7-17.5 L 410) Vessel Traffic Officer ID - 6000POCT-GLUCOSE [id number] 08:34:14 Test Item Value Reference Range Interpretation Comments POC-GLUCOSE METER 239 mg/dL 70-110 H : TESTED A T [facility] 6720 (BEAKER) (test code = [facility], 1538) [address]8711: Vessel Traffic Officer/Techni raheem ID = [id number] for JENNI RASCON POCT-GLUCOSE [id number] 07:19:56 Test Item Value Reference Range Interpretation Comments POC-GLUCOSE METER 230 mg/dL 70-110 H : TESTED A T [facility] 6720 (BEAKER) (test code = [facility], 1538) 75388: Vessel Traffic Officer/Techni raheem ID = [id number] for MAYNOR GILMER (MarlynSam NIVIA SARS-CoV-2 (COVID-19) RNA [Presence] in Respiratory specimen by AURELIA with probe [id number] 02:16:58 Test Item Value Reference Range Interpretation Comments SARS-CoV-2 (COVID-19) RNA Not detected Not-Detected [Presence] in Respiratory specimen by AURELIA with probe detection (test code = 85138-3) Whether patient is employed in a healthcare setting (test code = 35676-0) Whether the patient has symptoms related to condition of interest (test code = 31887-6) Patient was hospitalized because of this condition (test code = 87126-0) Whether the patient was admitted to intensive care unit (ICU) for condition of interest (test code = 37697-0) Whether patient resides in a congregate care setting (test code = 18009-6) [place] JEWISH LOVNECCD-RoA-4 (COVID-19) RNA [Presence] in Respiratory specimen by AURELIA with probe [id number] 04:06:08 Test Item Value Reference Range Interpretation Comments SARS-CoV-2 (COVID-19) RNA Not detected Not-Detected [Presence] in Respiratory specimen by AURELIA with probe detection (test code = 00390-6) AMY DELGADOANEMIA [id number] 14:09:14 Test Item Value Reference Range Interpretation Comments Vitamin B12 Lvl (test code = Vitamin 402 179-6605 B12 Lvl) [facility] [id number] 14:09:14 Test Item Value Reference Range Interpretation Comments Folate Lvl (test code = Folate Lvl) 7.6 [facility] MuciMed [id number] 14:09:14 Test Item Value Reference Range Interpretation Comments VITAMIN B1 (THIAMINE) WHOLE BLOOD (test 276.0 66.5-200.0 code = VITAMIN B1 (THIAMINE) WHOLE BLOOD) [facility] Muc[facility]Med [id number] 14:09:00 Test Item Value Reference Range Interpretation Comments Ketone Quantitative (test code = Ketone 4.41 Quantitative) [facility] [id number] 13:03:00 Test Item Value Reference Range Interpretation Comments Glucose Lvl (test code = Glucose Lvl) 102 70-99 [facility] [id number] 13:03:00 Test Item Value Reference Range Interpretation Comments BUN (test code = BUN) 13 7-22 [facility] [id number] 13:03:00 Test Item Value Reference Range Interpretation Comments Creatinine Lvl (test code = Creatinine 1.25 0.50-1.40 Lvl) [facility] [id number] 13:03:00 Test Item Value Reference Range Interpretation Comments Sodium Lvl (test code = Sodium Lvl) 135 135-145 [facility] [id number] 13:03:00 Test Item Value Reference Range Interpretation Comments Potassium Lvl (test code = Potassium 4.1 3.5-5.1 Lvl) [facility]2020-07-09 13:03:00 Test Item Value Reference Range Interpretation Comments Chloride Lvl (test code = Chloride Lvl) 101 95-109 [facility]2020-07-09 13:03:00 Test Item Value Reference Range Interpretation Comments CO2 (test code = CO2) 23 24-32 [facility]2020-07-09 13:03:00 Test Item Value Reference Range Interpretation Comments Calcium Lvl (test code = Calcium Lvl) 8.4 8.5-10.5 [facility]2020-07-09 13:03:00 Test Item Value Reference Range Interpretation Comments AGAP (test code = AGAP) 15.1 10.0-20.0 [facility]2020-07-09 13:03:00 Test Item Value Reference Range Interpretation Comments eGFR (test code = eGFR) 66 [facility]2020-07-09 13:03:00 Test Item Value Reference Range Interpretation Comments Magnesium Lvl (test code = Magnesium 1.9 1.8-2.4 Lvl) [facility] [id number] 08:14:00 Test Item Value Reference Range Interpretation Comments Total CK (test code = Total CK) 22 12-191 [facility]2020-07-09 08:14:00 Test Item Value Reference Range Interpretation Comments Glucose Lvl (test code = Glucose Lvl) 100 70-99 [facility]2020-07-09 08:14:00 Test Item Value Reference Range Interpretation Comments BUN (test code = BUN) 13 7-22 [facility]2020-07-09 08:14:00 Test Item Value Reference Range Interpretation Comments Creatinine Lvl (test code = Creatinine 1.38 0.50-1.40 Lvl) [facility]2020-07-09 08:14:00 Test Item Value Reference Range Interpretation Comments Sodium Lvl (test code = Sodium Lvl) 136 135-145 [facility]2020-07-09 08:14:00 Test Item Value Reference Range Interpretation Comments Potassium Lvl (test code = Potassium 4.1 3.5-5.1 Lvl) [facility]2020-07-09 08:14:00 Test Item Value Reference Range Interpretation Comments Chloride Lvl (test code = Chloride Lvl) 103 95-109 [place] 239140-07-09 08:14:00 Test Item Value Reference Range Interpretation Comments CO2 (test code = CO2) 20 24-32 [place] 239140-07-09 08:14:00 Test Item Value Reference Range Interpretation Comments Calcium Lvl (test code = Calcium Lvl) 8.1 8.5-10.5 [place] 239140-07-09 08:14:00 Test Item Value Reference Range Interpretation Comments AGAP (test code = AGAP) 17.1 10.0-20.0 [place] 52[address]-07-09 08:14:00 Test Item Value Reference Range Interpretation Comments eGFR (test code = eGFR) 59 [place] 239140-07-09 08:14:00 Test Item Value Reference Range Interpretation Comments Ketone Quantitative (test code = Ketone 3.83 Quantitative) [place] 239140-07-09 08:14:00 Test Item Value Reference Range Interpretation Comments Magnesium Lvl (test code = Magnesium 2.0 1.8-2.4 Lvl) [place] 239140-07-09 08:14:00 Test Item Value Reference Range Interpretation Comments Phosphorus (test code = Phosphorus) 2.0 2.5-4.5 [place] 239140-07-09 08:14:00 Test Item Value Reference Range Interpretation Comments Lipase Lvl (test code = Lipase Lvl) 694 73393 [place] 846880-07-09 08:14:00 Test Item Value Reference Range Interpretation Comments WBC (test code = WBC) 8.3 3.7-10.4 [place] 846880-07-09 08:14:00 Test Item Value Reference Range Interpretation Comments RBC (test code = RBC) 3.84 4.70-6.10 [place] [address]-07-09 08:14:00 Test Item Value Reference Range Interpretation Comments Hgb (test code = Hgb) 12.5 14.0-18.0 [place] [address]-07-09 08:14:00 Test Item Value Reference Range Interpretation Comments Hct (test code = Hct) 38.1 42.0-54.0 [place] [address]-07-09 08:14:00 Test Item Value Reference Range Interpretation Comments MCV (test code = MCV) 99.2 80.0-94.0 [facility] CenterJasbiuyQAKQASMCDR0087-57-28 08:14:00 Test Item Value Reference Range Interpretation Comments MCH (test code = MCH) 32.5 pg 27.0-31.0 [facility] CenterOzhgadxBYWNYLKWMS2068-20-41 08:14:00 Test Item Value Reference Range Interpretation Comments MCHC (test code = MCHC) 32.7 32.0-36.0 [facility] CenterLrypoisYSWLLNMBDO7411-85-66 08:14:00 Test Item Value Reference Range Interpretation Comments RDW (test code = RDW) 16.8 11.5-14.5 [facility] CenterAjoghxfVBCAHXOCMQ1832-99-43 08:14:00 Test Item Value Reference Range Interpretation Comments Platelet (test code = Platelet) 166 133-450 [facility] CenterWystvdrESVKCXDXKE4904-15-84 08:14:00 Test Item Value Reference Range Interpretation Comments MPV (test code = MPV) 9.5 7.4-10.4 [facility] CenterOpdymzzMAZETZJAIA0461-09-96 08:14:00 Test Item Value Reference Range Interpretation Comments Segs (test code = Segs) 77.8 45.0-75.0 [facility] CenterGtwursqRIOWJQPOGH9331-19-02 08:14:00 Test Item Value Reference Range Interpretation Comments Lymphocytes (test code = Lymphocytes) 10.0 20.0-40.0 [facility] CenterPlfwsayFXNTDQYSBM9951-66-29 08:14:00 Test Item Value Reference Range Interpretation Comments Monocytes (test code = Monocytes) 10.9 2.0-12.0 [facility] CenterMywxmzcBGBYOAVKBR0783-29-60 08:14:00 Test Item Value Reference Range Interpretation Comments Eosinophils (test code = Eosinophils) 1.1 <=4.0 [facility] CenterFjkcbbxEVWJUTPDPD8317-34-50 08:14:00 Test Item Value Reference Range Interpretation Comments Basophils (test code = Basophils) 0.2 <=1.0 [place] 846880-07-09 08:14:00 Test Item Value Reference Range Interpretation Comments Neutrophils # (test code = Neutrophils 6.5 1.5-8.1 #) [facility] CenterQlanxbyTZXFHBTHGO8316-67-02 08:14:00 Test Item Value Reference Range Interpretation Comments Lymphocytes # (test code = Lymphocytes 0.8 1.0-5.5 #) [facility] HospitalAupviayYLBGGGCMGN7459-23-99 08:14:00 Test Item Value Reference Range Interpretation Comments Monocytes # (test code = Monocytes #) 0.9 <=0.8 [facility] [address] HospitalHdezlqhBJDKMXUPNN4810-80-45 08:14:00 Test Item Value Reference Range Interpretation Comments Eosinophils # (test code = Eosinophils 0.1 <=0.5 #) [facility] [id number] 02:01:00 Test Item Value Reference Range Interpretation Comments Source Strep (test code Urine *NA*(02/25/20 9:01 = Source Strep) PM) [facility] [id number] 02:01:00 Test Item Value Reference Range Interpretation Comments Strep pneumoniae Ag Negative (02/25/20 9:01 (test code = Strep PM) pneumoniae Ag) [facility]2020-07-09 02:01:00 Test Item Value Reference Range Interpretation Comments eGFR (test code = eGFR) 55 [facility]2020-07-09 02:01:00 Test Item Value Reference Range Interpretation Comments Glucose Lvl (test code = Glucose Lvl) 99 70-99 [facility]2020-07-09 02:01:00 Test Item Value Reference Range Interpretation Comments BUN (test code = BUN) 15 7- [facility]2020-07-09 02:01:00 Test Item Value Reference Range Interpretation Comments Creatinine Lvl (test code = Creatinine 1.46 0.50-1.40 Lvl) [facility]2020-07-09 02:01:00 Test Item Value Reference Range Interpretation Comments Sodium Lvl (test code = Sodium Lvl) 133 135-145 [facility]2020-07-09 02:01:00 Test Item Value Reference Range Interpretation Comments Potassium Lvl (test code = Potassium 5.0 3.5-5.1 Lvl) [facility] CenterRazmirCOMMUNITY [id number] 02:01:00 Test Item Value Reference Range Interpretation Comments Chloride Lvl (test code = Chloride Lvl) 98 95-109 [facility]2020-07-09 02:01:00 Test Item Value Reference Range Interpretation Comments CO2 (test code = CO2) 15 24-32 [facility] CenterRazmirCOMMUNITY [id number] 02:01:00 Test Item Value Reference Range Interpretation Comments Calcium Lvl (test code = Calcium Lvl) 8.5 8.5-10.5 [facility] [id number] 02:01:00 Test Item Value Reference Range Interpretation Comments AGAP (test code = AGAP) 25.0 10.0-20.0 [facility]annCHEM [id number] 02:01:00 Test Item Value Reference Range Interpretation Comments Ketone Quantitative (test code = Ketone 8.90 Quantitative) [facility] CenterannCHEM [id number] 02:01:00 Test Item Value Reference Range Interpretation Comments Magnesium Lvl (test code = Magnesium 1.6 1.8-2.4 Lvl) [facility] CenterannBLAN[facility] [id number] 02:01:00 Test Item Value Reference Range Interpretation Comments Phosphorus (test code = Phosphorus) 3.4 2.5-4.5 [facility] [id number] 02:01:00 Test Item Value Reference Range Interpretation Comments Lactic Acid Lvl (test code = Lactic 1.4 0.5-2.2 Acid Lvl) [facility] [id number] 02:01:00 Test Item Value Reference Range Interpretation Comments Procalcitonin Lvl (test code = 0.14 <=0.10 Procalcitonin Lvl) [facility] [id number] 02:01:00 Test Item Value Reference Range Interpretation Comments Hgb A1C (test code = Hgb A1C) 7.5 [facility] AND [id number] 02:01:00 Test Item Value Reference Range Interpretation Comments UA Color (test code = Yellow *NA*(02/25/20 9:01 UA Color) PM) [facility] CenterannR[facility] AND [id number] 02:01:00 Test Item Value Reference Range Interpretation Comments UA Turbidity (test code = Clear (02/25/20 9:01 UA Turbidity) PM) [facility] CenterannURINE AND [id number] 02:01:00 Test Item Value Reference Range Interpretation Comments UA Spec Grav (test code = UA Spec 1.042 1 Grav) [facility]annR[facility] [id number] 02:01:00 Test Item Value Reference Range Interpretation Comments UA pH (test code = UA pH) 5.0 1 5.0-8.0 [facility] [facility] [id number] 02:01:00 Test Item Value Reference Range Interpretation Comments UA Protein (test code = UA Protein) 30 mg/dL [facility] AND [id number] 02:01:00 Test Item Value Reference Range Interpretation Comments UA Glucose (test code = UA >=500 mg/dL Glucose) [facility] AND [id number] 02:01:00 Test Item Value Reference Range Interpretation Comments UA Ketones (test code = UA Ketones) 80 mg/dL [facility] AND [id number] 02:01:00 Test Item Value Reference Range Interpretation Comments UA Bili (test code = Negative *NA*(02/25/20 UA Bili) 9:01 PM) [facility] AND [id number] 02:01:00 Test Item Value Reference Range Interpretation Comments UA Blood (test code = Negative (02/25/20 9:01 UA Blood) PM) [facility] AND [id number] 02:01:00 Test Item Value Reference Range Interpretation Comments UA Nitrite (test code Negative (02/25/20 9:01 = UA Nitrite) PM) [facility] AND [id number] 02:01:00 Test Item Value Reference Range Interpretation Comments UA Leuk Est (test Negative (02/25/20 9:01 code = UA Leuk Est) PM) [facility] AND [id number] 02:01:00 Test Item Value Reference Range Interpretation Comments UA RBC (test code = UA RBC) 1 <=2 [facility] AND [id number] 02:01:00 Test Item Value Reference Range Interpretation Comments UA Mucus (test code = UA Mucus) Few /LPF [facility] AND [id number] 02:01:00 Test Item Value Reference Range Interpretation Comments UA Sq Epi (test code = UA Sq Epi) None Seen [facility] AND [id number] 02:01:00 Test Item Value Reference Range Interpretation Comments UA Urobilinogen (test code = UA <=1.0 mg/dL 0.1-1.0 Urobilinogen) [facility] [id number] 02:01:00 Test Item Value Reference Range Interpretation Comments U Creatinine (test code = U Creatinine) 39.00 [facility] [id number] 02:01:00 Test Item Value Reference Range Interpretation Comments U Protein (test code = U Protein) 41.8 [facility] [id number] 02:01:00 Test Item Value Reference Range Interpretation Comments U Prot/Creat (test code = U 1.07 1 Prot/Creat) [facility] [id number] 02:01:00 Test Item Value Reference Range Interpretation Comments U Osmolality (test code = U Osmolality) 621 300-800 [facility] [id number] 02:01:00 Test Item Value Reference Range Interpretation Comments U Sodium (test code = U Sodium) 68 [facility] [id number] 02:01:00 Test Item Value Reference Range Interpretation Comments U Potassium (test code = U Potassium) 28.9 [facility] [id number] 02:01:00 Test Item Value Reference Range Interpretation Comments U Chloride (test code = U Chloride) 48 [facility] [id number] 23:08:00 Test Item Value Reference Range Interpretation Comments Lactic Acid Lvl (test code = Lactic 1.5 0.5-2.2 Acid Lvl) [facility] CenterLideskgQFDQXLUNOF6235-34-85 23:08:00 Test Item Value Reference Range Interpretation Comments Coronavirus (COVID-19) Not Detected (02/25/20 AURELIA (test code = 6:08 PM) Coronavirus (COVID-19) AURELIA) [facility] CenterGdsbwpaJFEPXD0548-87-25 23:08:00 Test Item Value Reference Range Interpretation Comments Chol (test code = Chol) 159 [facility] CenterOqmxcjyFDTWQQ1552-51-75 23:08:00 Test Item Value Reference Range Interpretation Comments Trig (test code = Trig) 143 [facility] CenterFhfmbpqRWASRQ6313-96-86 23:08:00 Test Item Value Reference Range Interpretation Comments HDL (test code = HDL) 57 [facility] CenterEupwrmjWEMLES6973-12-30 23:08:00 Test Item Value Reference Range Interpretation Comments CHD Risk (test code = CHD Risk) 2.79 1 4.00-7.30 [facility] CenterIxwzojbTGIPZJ2618-03-18 23:08:00 Test Item Value Reference Range Interpretation Comments LDL (Calculated) (test code = LDL 73 (Calculated)) [facility] CenterCjeodmvIFQETH7855-37-00 23:08:00 Test Item Value Reference Range Interpretation Comments VLDL (test code = VLDL) 29 1 [facility] DonavanannANEMIA [id number] 19:39:00 Test Item Value Reference Range Interpretation Comments Folate Lvl (test code = Folate Lvl) 12.3 [facility]CARDIAC [id number] 19:39:00 Test Item Value Reference Range Interpretation Comments Troponin-I (test code = Troponin-I) no gt <=0.40 [facility] MuciMed [id number] 19:39:00 Test Item Value Reference Range Interpretation Comments Total Protein (test code = Total 7.8 6.4-8.4 Protein) [facility] [id number] 19:39:00 Test Item Value Reference Range Interpretation Comments Albumin Lvl (test code = Albumin Lvl) 4.0 3.5-5.0 [facility] [id number] 19:39:00 Test Item Value Reference Range Interpretation Comments ALT (test code = ALT) 308 <=65 [facility] [id number] 19:39:00 Test Item Value Reference Range Interpretation Comments AST (test code = AST) 353 <=37 [facility] [id number] 19:39:00 Test Item Value Reference Range Interpretation Comments Alk Phos (test code = Alk Phos) 392 39-136 [facility] [id number] 19:39:00 Test Item Value Reference Range Interpretation Comments Bili Total (test code = Bili Total) 1.7 0.2-1.3 [facility] [id number] 19:39:00 Test Item Value Reference Range Interpretation Comments B/C Ratio (test code = B/C Ratio) 11 1 6-25 [facility] [id number] 19:39:00 Test Item Value Reference Range Interpretation Comments Globulin (test code = Globulin) 3.8 2.7-4.2 [facility] [id number] 19:39:00 Test Item Value Reference Range Interpretation Comments A/G Ratio (test code = A/G Ratio) 1.1 1 0.7-1.6 [facility] [id number] 19:39:00 Test Item Value Reference Range Interpretation Comments Lipase Lvl (test code = Lipase Lvl) 1238 73-393 [facility] CenterPbgkakrNWLCBYQIYY7886-60-37 19:39:00 Test Item Value Reference Range Interpretation Comments Neutrophils # (test code = Neutrophils 10.6 1.5-8.1 #) [facility] CenterQatcmkaXKKLALLXQO7754-78-48 19:39:00 Test Item Value Reference Range Interpretation Comments Lymphocytes # (test code = Lymphocytes 1.3 1.0-5.5 #) [facility] CenterRdbrjudMXAQWJHLFG8648-95-93 19:39:00 Test Item Value Reference Range Interpretation Comments Monocytes # (test code = Monocytes #) 1.2 <=0.8 [facility] CenterJaisvvtURQFEEJBMX0453-02-94 19:39:00 Test Item Value Reference Range Interpretation Comments Segs (test code = Segs) 68.0 45.0-75.0 [facility] CenterTagaxhlAJKFPIPZXK9825-62-01 19:39:00 Test Item Value Reference Range Interpretation Comments Bands (test code = Bands) 13.0 <=11.0 [facility] CenterDtcmhxmHGNHIIMXBE7713-94-91 19:39:00 Test Item Value Reference Range Interpretation Comments Lymphocytes (test code = Lymphocytes) 10.0 20.0-40.0 [facility] CenterZkmnawlDEYSIKVUVM5327-59-59 19:39:00 Test Item Value Reference Range Interpretation Comments Monocytes (test code = Monocytes) 9.0 2.0-12.0 [facility] CenterHdkqmheDTUWETUBNP1849-55-02 19:39:00 Test Item Value Reference Range Interpretation Comments Atypical Lymphs (test code = Atypical 0.0 Lymphs) [facility] CenterEqowfdaOBFJFOJXJB9756-79-01 19:39:00 Test Item Value Reference Range Interpretation Comments Plt Morph (test code = Normal (02/25/20 2:39 PM) Plt Morph) [facility] CenterZlkgiqfBMNBHJRZOV2045-55-20 19:39:00 Test Item Value Reference Range Interpretation Comments WBC (test code = WBC) 13.1 3.7-10.4 [facility] CenterKvmjgkqFUTMAXNJAC2504-81-50 19:39:00 Test Item Value Reference Range Interpretation Comments RBC (test code = RBC) 4.77 4.70-6.10 [facility] CenterBaovfewMYBPELJOAQ8913-01-47 19:39:00 Test Item Value Reference Range Interpretation Comments Hgb (test code = Hgb) 15.7 14.0-18.0 [facility] CenterQzfdmpsRQXKDIUXAX7321-80-66 19:39:00 Test Item Value Reference Range Interpretation Comments Hct (test code = Hct) 48.0 42.0-54.[address] [facility] HospitalXmbqttsXVWRYFJDHH1253-66-58 19:39:00 Test Item Value Reference Range Interpretation Comments MCV (test code = MCV) 100.7 80.0-94.[address] [facility] HospitalAifntuwGOSWFTJRKS6534-74-99 19:39:00 Test Item Value Reference Range Interpretation Comments MCH (test code = MCH) 32.9 pg 27.0-31.[address] [facility] HospitalNbpsouiMRWXSETHOC9916-28-47 19:39:00 Test Item Value Reference Range Interpretation Comments MCHC (test code = MCHC) 32.7 32.0-36.[address] [facility] HospitalPcqgedjMPXOYBAMQJ6359-26-93 19:39:00 Test Item Value Reference Range Interpretation Comments RDW (test code = RDW) 17.2 11.5-14.5 [facility] CenterYadjbcdQYFSVRISVK8032-85-56 19:39:00 Test Item Value Reference Range Interpretation Comments Platelet (test code = Platelet) 219 133-[address] [facility] [address] [facility] HospitalCmzhmzfQZIROZEIYD3945-86-25 19:39:00 Test Item Value Reference Range Interpretation Comments MPV (test code = MPV) 10.4 7.4-10.4 [facility] CenterRzkspljLBFJIW5535-29-45 19:39:00 Test Item Value Reference Range Interpretation Comments Trig (test code = Trig) 135 [facility] GLUCOSE [id number] 17:47:00 Test Item Value Reference Range Interpretation Comments Gluc POC Lifscn (test code = Gluc POC 156 65-110 H Lifscn) [facility] GLUCOSE [id number] 12:00:00 Test Item Value Reference Range Interpretation Comments Gluc POC Lifscn (test code = Gluc POC 159 65-110 H Lifscn) [facility] HospitalWxcrrnyQEYAHJGWK7707-15-93 08:43:00 Test Item Value Reference Range Interpretation Comments Globulin (test code = Globulin) 2.3 2.0-4.0 N [facility] HospitalZypdmndMHNYKHHLS3119-63-52 08:43:00 Test Item Value Reference Range Interpretation Comments B/C Ratio (test code = B/C Ratio) 13 6-25 N [facility] HospitalMexzdrsPDZWWZRQP5869-34-53 08:43:00 Test Item Value Reference Range Interpretation Comments A/G Ratio (test code = A/G Ratio) 1.4 0.7-1.6 N [facility] HospitalZhmolknCLATRHNNO7263-77-07 08:43:00 Test Item Value Reference Range Interpretation Comments AGAP (test code = AGAP) 11.3 10.0-20.0 N [facility] HospitalAfgmqwwYMQZPHNLX3302-15-27 08:43:00 Test Item Value Reference Range Interpretation Comments Bili Total (test code = Bili Total) 0.9 0.2-1.3 N [facility] HospitalOfjlbggKIGUBWHOT6044-80-00 08:43:00 Test Item Value Reference Range Interpretation Comments Alk Phos (test code = Alk Phos) 49 39-136 N [facility] HospitalLpodtzsKRFSRGJZS8701-92-05 08:43:00 Test Item Value Reference Range Interpretation Comments AST (test code = AST) 63 <=37 H [facility] HospitalQyqlokxECWVNNOKB0145-58-50 08:43:00 Test Item Value Reference Range Interpretation Comments Total Protein (test code = Total 5.5 6.4-8.4 L Protein) [facility] HospitalQmpoutqEDRXTXNQS0002-91-25 08:43:00 Test Item Value Reference Range Interpretation Comments Calcium Lvl (test code = Calcium Lvl) 8.3 8.5-10.5 L [facility] HospitalVqgonosUYYFPLUYB8544-05-56 08:43:00 Test Item Value Reference Range Interpretation Comments Albumin Lvl (test code = Albumin Lvl) 3.2 3.5-5.0 L [facility] HospitalVhqynghNUFFPXVNO8326-37-33 08:43:00 Test Item Value Reference Range Interpretation Comments ALT (test code = ALT) 133 <=65 H [facility] HospitalUockxzhZQVPTQRGC0968-33-22 08:43:00 Test Item Value Reference Range Interpretation Comments BUN (test code = BUN) 21 7-22 N [facility] HospitalQfpqpbaQECZGYJHZ5171-82-51 08:43:00 Test Item Value Reference Range Interpretation Comments Glucose Lvl (test code = Glucose Lvl) 166 [facility] HospitalErgmidyWVYGQJYNK7502-47-26 08:43:00 Test Item Value Reference Range Interpretation Comments Chloride Lvl (test code = Chloride Lvl) 100 95-109 N [facility] HospitalPkgzkueYPJAZYLSE0946-66-10 08:43:00 Test Item Value Reference Range Interpretation Comments Sodium Lvl (test code = Sodium Lvl) 137 135-145 N [facility] HospitalTamhhrnQWCAQOWVE5978-72-89 08:43:00 Test Item Value Reference Range Interpretation Comments Creatinine Lvl (test code = Creatinine 1.6 0.5-1.4 H Lvl) [facility] HospitalIdhaohnRLMMFBLPI2576-88-71 08:43:00 Test Item Value Reference Range Interpretation Comments Potassium Lvl (test code = Potassium 4.3 3.5-5.1 N Lvl) [facility] HospitalItbcdsgQVHFHDNYJ7542-82-90 08:43:00 Test Item Value Reference Range Interpretation Comments CO2 (test code = CO2) 30 24-32 N [facility] CenterSewdnktEUQPHEMBLC5384-77-34 08:43:00 Test Item Value Reference Range Interpretation Comments WBC (test code = WBC) 10.6 3.7-10.4 H [facility] CenterLahtngnUYUPVMHDNH2900-79-35 08:43:00 Test Item Value Reference Range Interpretation Comments MCH (test code = MCH) 30.8 pg 27.0-31.0 N [facility] CenterZhbagonBHXJNZNPGM2789-82-53 08:43:00 Test Item Value Reference Range Interpretation Comments RBC (test code = RBC) 4.32 4.70-6.10 L [facility] CenterVyudxafGWSYZAKPOL5069-97-51 08:43:00 Test Item Value Reference Range Interpretation Comments Hgb (test code = Hgb) 13.3 14.0-18.0 L [facility] CenterQbvxjhjAGCUNTLHMJ3754-57-33 08:43:00 Test Item Value Reference Range Interpretation Comments Hct (test code = Hct) 39.3 42.0-54.0 L [facility] CenterMbkezjnZJARZIITGX4162-30-81 08:43:00 Test Item Value Reference Range Interpretation Comments MCV (test code = MCV) 91.0 80.0-94.0 N [facility] CenterZxjbstzSAMPMFWSLT5653-79-40 08:43:00 Test Item Value Reference Range Interpretation Comments MCHC (test code = MCHC) 33.8 32.0-36.0 N [facility] CenterRjwjsfiLXWXVPAQQB8634-41-85 08:43:00 Test Item Value Reference Range Interpretation Comments RDW (test code = RDW) 13.0 11.5-14.5 N [facility] CenterFoitfclWEPTSTUVVB1747-28-05 08:43:00 Test Item Value Reference Range Interpretation Comments Platelet (test code = Platelet) 180 133-450 N [facility] CenterQldfldtGZZPWCQBBA3789-77-77 08:43:00 Test Item Value Reference Range Interpretation Comments MPV (test code = MPV) 11.1 7.4-10.4 H [facility] CenterQmtocucFUCZCBPRIH3868-29-99 08:43:00 Test Item Value Reference Range Interpretation Comments Segs (test code = Segs) 71.8 45.0-75.0 N [facility] CenterEadehuaNXKPINSYZZ4781-10-10 08:43:00 Test Item Value Reference Range Interpretation Comments Lymphocytes (test code = Lymphocytes) 14.8 20.0-40.0 L [facility] CenterVioxfiuGKDLLBEFEA9919-31-78 08:43:00 Test Item Value Reference Range Interpretation Comments Basophils (test code = Basophils) 0.3 <=1.0 N [facility] CenterLuhheqfERUDRQCOKY2881-20-00 08:43:00 Test Item Value Reference Range Interpretation Comments Monocytes (test code = Monocytes) 11.2 2.0-12.0 N [facility] CenterMlhepxbVFKXVSECAS4265-05-24 08:43:00 Test Item Value Reference Range Interpretation Comments Monocytes # (test code = Monocytes #) 1.2 <=0.8 H [facility] CenterZksngbkQPZLDOFALM3227-89-05 08:43:00 Test Item Value Reference Range Interpretation Comments Eosinophils # (test code = Eosinophils 0.2 <=0.5 N #) [facility] CenterWycupuvVPGPVBNGTA1477-34-29 08:43:00 Test Item Value Reference Range Interpretation Comments Eosinophils (test code = Eosinophils) 1.9 <=4.0 N [facility] CenterVkeptpuYEKONJAVKF2568-77-86 08:43:00 Test Item Value Reference Range Interpretation Comments Segs-Bands # (test code = Segs-Bands #) 7.6 1.5-8.1 N [facility] CenterGxakrylMPLIFFFMBW9650-73-15 08:43:00 Test Item Value Reference Range Interpretation Comments Lymphocytes # (test code = Lymphocytes 1.6 1.0-5.5 N #) [facility] ICVZPUM3538-56-87 03:23:00 Test Item Value Reference Range Interpretation Comments Gluc POC Lifscn (test code = Gluc POC 162 65-110 H Lifscn) [facility] CenterYoliyvcJJXTHFILZ8024-19-30 09:42:00 Test Item Value Reference Range Interpretation Comments Bili Total (test code = Bili Total) 1.0 0.2-1.3 N [facility] HospitalOxrxjdkICXHTJHUE6616-96-48 09:42:00 Test Item Value Reference Range Interpretation Comments AST (test code = AST) 55 <=37 H [facility] HospitalAwidfdeIYEDWCFCK8268-94-11 09:42:00 Test Item Value Reference Range Interpretation Comments Albumin Lvl (test code = Albumin Lvl) 3.5 3.5-5.0 N [facility] HospitalRogyyrgUOXXOUPXK5753-31-27 09:42:00 Test Item Value Reference Range Interpretation Comments CO2 (test code = CO2) 29 24-32 N [facility] HospitalCxtiodtFOMNYGVPC6459-09-33 09:42:00 Test Item Value Reference Range Interpretation Comments ALT (test code = ALT) 118 <=65 H [facility] HospitalDepijxdINIHPXQTO8437-23-69 09:42:00 Test Item Value Reference Range Interpretation Comments Total Protein (test code = Total 5.7 6.4-8.4 L Protein) [facility] HospitalNxosxqfBAWRKWUJO3348-31-86 09:42:00 Test Item Value Reference Range Interpretation Comments Calcium Lvl (test code = Calcium Lvl) 8.0 8.5-10.5 L [facility] HospitalZohlsgnXFSRWUVAA4689-99-24 09:42:00 Test Item Value Reference Range Interpretation Comments Chloride Lvl (test code = Chloride Lvl) 100 95-109 N [facility] HospitalHlclpicEAKVFCISX0960-20-85 09:42:00 Test Item Value Reference Range Interpretation Comments Alk Phos (test code = Alk Phos) 49 39-136 N [facility] HospitalXlrryqbDRNVINJAV1702-79-94 09:42:00 Test Item Value Reference Range Interpretation Comments Potassium Lvl (test code = Potassium 3.6 3.5-5.1 N Lvl) [facility] HospitalTlrdojyFSXQQVQHL1070-17-82 09:42:00 Test Item Value Reference Range Interpretation Comments Creatinine Lvl (test code = Creatinine 1.3 0.5-1.4 N Lvl) [facility] HospitalHnpabtgTLFGVIOMY0633-52-96 09:42:00 Test Item Value Reference Range Interpretation Comments BUN (test code = BUN) 22 7-22 N [facility] HospitalKivvpvwTTEYIXGSB2810-26-12 09:42:00 Test Item Value Reference Range Interpretation Comments Sodium Lvl (test code = Sodium Lvl) 137 135-145 N [facility] HospitalQtexxdaJQGLWUNOJ0167-33-37 09:42:00 Test Item Value Reference Range Interpretation Comments Glucose Lvl (test code = Glucose Lvl) 211 [facility] HospitalQdpqoqsSXZWDLIDL1460-11-46 09:42:00 Test Item Value Reference Range Interpretation Comments Globulin (test code = Globulin) 2.2 2.0-4.0 N [facility] HospitalVymmkpiOMYCVYKDG1503-20-10 09:42:00 Test Item Value Reference Range Interpretation Comments A/G Ratio (test code = A/G Ratio) 1.6 0.7-1.6 N [facility] HospitalCvxvqliUKRVXTQLJ1505-85-02 09:42:00 Test Item Value Reference Range Interpretation Comments AGAP (test code = AGAP) 11.6 10.0-20.0 N [facility] HospitalStwjzljKJGSYJGOB1649-17-51 09:42:00 Test Item Value Reference Range Interpretation Comments B/C Ratio (test code = B/C Ratio) 17 6-25 N [facility] CenterFwmputrIVQYDKWXNV8299-29-33 09:42:00 Test Item Value Reference Range Interpretation Comments MCH (test code = MCH) 29.9 pg 27.0-31.0 N [facility] CenterIgaenwfSLJBEJVFQM0962-35-77 09:42:00 Test Item Value Reference Range Interpretation Comments MCHC (test code = MCHC) 33.7 32.0-36.0 N [facility] CenterExeqmdoKFVMMSHKNA7909-48-84 09:42:00 Test Item Value Reference Range Interpretation Comments MCV (test code = MCV) 88.7 80.0-94.0 N [facility] CenterTbchmkbLQBWHDRNUX2536-93-47 09:42:00 Test Item Value Reference Range Interpretation Comments Hct (test code = Hct) 40.8 42.0-54.0 L [facility] CenterDjspxiaOYPZNOUJBT6813-57-70 09:42:00 Test Item Value Reference Range Interpretation Comments Platelet (test code = Platelet) 195 133-450 N [facility] CenterFycoazkENPNGOLLQQ7219-01-15 09:42:00 Test Item Value Reference Range Interpretation Comments RDW (test code = RDW) 12.9 11.5-14.5 N [facility] CenterLcrlxrtXEGDHWEDTL3651-20-30 09:42:00 Test Item Value Reference Range Interpretation Comments MPV (test code = MPV) 11.0 7.4-10.4 H [facility] CenterMrpuddqTHFKAHFFED0868-41-71 09:42:00 Test Item Value Reference Range Interpretation Comments RBC (test code = RBC) 4.60 4.70-6.10 L [facility] CenterWhfgcwgOGRUVXCDNF7616-42-16 09:42:00 Test Item Value Reference Range Interpretation Comments Hgb (test code = Hgb) 13.8 14.0-18.0 L [facility] CenterRfyzpxkSZVWYZBJYB2009-38-14 09:42:00 Test Item Value Reference Range Interpretation Comments WBC (test code = WBC) 13.9 3.7-10.4 H [facility] CenterXnvfsvmAWLRQGIJMK2529-85-08 09:42:00 Test Item Value Reference Range Interpretation Comments Eosinophils # (test code = Eosinophils 0.0 <=0.5 N #) [facility] CenterYaopxzyJMISQINPVZ2887-20-49 09:42:00 Test Item Value Reference Range Interpretation Comments Eosinophils (test code = Eosinophils) 0.1 <=4.0 N [facility] CenterHctrzbiULGGBFVJBC1551-27-81 09:42:00 Test Item Value Reference Range Interpretation Comments Segs-Bands # (test code = Segs-Bands #) 11.6 1.5-8.1 H [facility] CenterUlmhofpFKZYVIRACA3584-35-31 09:42:00 Test Item Value Reference Range Interpretation Comments Monocytes # (test code = Monocytes #) 1.1 <=0.8 H [facility] CenterGnalrgiZPRYGSKKQJ2026-56-37 09:42:00 Test Item Value Reference Range Interpretation Comments Lymphocytes # (test code = Lymphocytes 1.1 1.0-5.5 N #) [facility] CenterMlmdxbaCKHXQHHQWE8248-16-28 09:42:00 Test Item Value Reference Range Interpretation Comments RBC Morph (test code = Normal (10/06/2011 N RBC Morph) 03:42:00) [facility] CenterVpkkdlyESDJFKDCGF8064-34-98 09:42:00 Test Item Value Reference Range Interpretation Comments Plt Morph (test code = Normal (10/06/2011 N Plt Morph) 03:42:00) [facility] CenterBmnalxtUIOBMATVNB8269-19-49 09:42:00 Test Item Value Reference Range Interpretation Comments Segs (test code = Segs) 83.6 45.0-75.0 H [facility] CenterDtykvhqZRAWJEFFQL9798-48-58 09:42:00 Test Item Value Reference Range Interpretation Comments Lymphocytes (test code = Lymphocytes) 8.1 20.0-40.0 L [place] 314242-02-17 09:42:00 Test Item Value Reference Range Interpretation Comments Monocytes (test code = Monocytes) 8.2 2.0-12.0 N [facility] IOMGKDU4952-78-03 12:12:00 Test Item Value Reference Range Interpretation Comments Comment1 (test code = Comment1) Notify RN/MD [facility] CenterKmkwqwzBYNEQHGSEZ4506-00-96 18:55:00 Test Item Value Reference Range Interpretation Comments UA pH (test code = UA pH) 6.0 5.0-8.0 N [facility] MMYNMKS6400-31-77 18:55:00 Test Item Value Reference Range Interpretation Comments RBC product (test code Product available N = RBC product) (10/04/2011 12:55:00) [facility] CenterRazmirChor[facility] GPNEYKD7647-00-50 18:55:00 Test Item Value Reference Range Interpretation Comments ABO/Rh (test code = ABO/Rh) O POS [facility] CenterRazmirChorus [facility] KZRJUIZ2451-17-37 18:55:00 Test Item Value Reference Range Interpretation Comments Antibody Scrn (test Negative (10/04/2011 N code = Antibody Scrn) 12:55:00) [facility] HospitalCiskupdHRVFBDLLJ1247-30-34 18:55:00 Test Item Value Reference Range Interpretation Comments B/C Ratio (test code = B/C Ratio) 12 6-25 N [facility] CenterZhteinvXUUQTSVWY7979-26-72 18:55:00 Test Item Value Reference Range Interpretation Comments AGAP (test code = AGAP) 12.7 10.0-20.0 N [facility] HospitalQhjipvoFUKTWEUVV6601-65-00 18:55:00 Test Item Value Reference Range Interpretation Comments A/G Ratio (test code = A/G Ratio) 1.6 0.7-1.6 N [facility] HospitalRmpqzpbWVVVSSRJG2473-67-96 18:55:00 Test Item Value Reference Range Interpretation Comments Globulin (test code = Globulin) 2.9 2.0-4.0 N [facility] CenterHgsqxqvHKMTFAZRN8406-16-08 18:55:00 Test Item Value Reference Range Interpretation Comments AST (test code = AST) 7 <=37 N [facility] HospitalYtsbqvbZELKEMMGO3580-92-53 18:55:00 Test Item Value Reference Range Interpretation Comments Bili Total (test code = Bili Total) 0.6 0.2-1.3 N [facility] HospitalHbjtbssBLNPEFCSI6032-07-22 18:55:00 Test Item Value Reference Range Interpretation Comments Albumin Lvl (test code = Albumin Lvl) 4.6 3.5-5.0 N [facility] HospitalNqlgwrdUASZDXCJG3706-16-85 18:55:00 Test Item Value Reference Range Interpretation Comments Total Protein (test code = Total 7.5 6.4-8.4 N Protein) [facility] HospitalSkwnspkZNTLCGUPL3068-72-36 18:55:00 Test Item Value Reference Range Interpretation Comments Calcium Lvl (test code = Calcium Lvl) 9.3 8.5-10.5 N [facility] HospitalLisjrtwJUVINQXWJ5039-34-08 18:55:00 Test Item Value Reference Range Interpretation Comments Alk Phos (test code = Alk Phos) 79 39-136 N [facility] HospitalQcmjxmrOGGWROZCQ3997-42-04 18:55:00 Test Item Value Reference Range Interpretation Comments ALT (test code = ALT) 39 <=65 N [facility] HospitalDfeixvpRKDUVCFNS8006-93-39 18:55:00 Test Item Value Reference Range Interpretation Comments BUN (test code = BUN) 17 7-22 N [facility] HospitalAgszbxfGZHEIIMUE3975-83-32 18:55:00 Test Item Value Reference Range Interpretation Comments Glucose Lvl (test code = Glucose Lvl) 270 [facility] HospitalOkjqgbyTMSKUGANC8495-81-13 18:55:00 Test Item Value Reference Range Interpretation Comments CO2 (test code = CO2) 28 24-32 N [facility] HospitalVwnraxfZZGPNWRDV6369-33-68 18:55:00 Test Item Value Reference Range Interpretation Comments Potassium Lvl (test code = Potassium 3.7 3.5-5.1 N Lvl) [facility] HospitalOqpnfeeEKUPCWKGN4125-22-83 18:55:00 Test Item Value Reference Range Interpretation Comments Creatinine Lvl (test code = Creatinine 1.4 0.5-1.4 N Lvl) [facility] HospitalVekejvkXXYTUQMLY2054-81-93 18:55:00 Test Item Value Reference Range Interpretation Comments Chloride Lvl (test code = Chloride Lvl) 98 95-109 N [facility] HospitalUcrkwdoERRIJXYRF2302-79-11 18:55:00 Test Item Value Reference Range Interpretation Comments Sodium Lvl (test code = Sodium Lvl) 135 135-145 N [facility] CenterZjsgemwUSLZKZZWIC9978-63-61 18:55:00 Test Item Value Reference Range Interpretation Comments INR (test code = INR) 0.93 0.85-1.[address]02-15 18:55:00 Test Item Value Reference Range Interpretation Comments PTT (test code = PTT) 26.1 s 22.9-35.[address]02-15 18:55:00 Test Item Value Reference Range Interpretation Comments PT (test code = PT) 12.5 s 12.0-14.7 [address]02-15 18:55:00 Test Item Value Reference Range Interpretation Comments Eosinophils # (test code = Eosinophils 0.1 <=0.5 N #) [facility] CenterLhnlukuRNJQOJKGSA9306-83-53 18:55:00 Test Item Value Reference Range Interpretation Comments Lymphocytes # (test code = Lymphocytes 2.0 1.0-5.5 N #) [facility] CenterTedtddfPWLNUWUWOP8334-82-07 18:55:00 Test Item Value Reference Range Interpretation Comments Segs-Bands # (test code = Segs-Bands #) 5.6 1.5-8.[address]02-15 18:55:00 Test Item Value Reference Range Interpretation Comments Basophils (test code = Basophils) 0.2 <=1.0 N [address]02-15 18:55:00 Test Item Value Reference Range Interpretation Comments Eosinophils (test code = Eosinophils) 1.7 <=4.0 N [address]02-15 18:55:00 Test Item Value Reference Range Interpretation Comments Monocytes # (test code = Monocytes #) 0.8 <=0.8 N [address]02-15 18:55:00 Test Item Value Reference Range Interpretation Comments Monocytes (test code = Monocytes) 9.0 2.0-12.0 N [address]02-15 18:55:00 Test Item Value Reference Range Interpretation Comments Lymphocytes (test code = Lymphocytes) 23.1 20.0-40.0 N [address]02-15 18:55:00 Test Item Value Reference Range Interpretation Comments Segs (test code = Segs) 66.0 45.0-75.0 N [address]02-15 18:55:00 Test Item Value Reference Range Interpretation Comments WBC (test code = WBC) 8.5 3.7-10.4 N [facility] CenterReromtnASJUYTDIJH2862-46-56 18:55:00 Test Item Value Reference Range Interpretation Comments MPV (test code = MPV) 10.6 7.4-10.4 H [facility] CenterEixnsyjNBYPAUNFNG2748-82-53 18:55:00 Test Item Value Reference Range Interpretation Comments Platelet (test code = Platelet) 243 133-450 N [facility] CenterHazokwuTNCIFUWHJQ6586-34-17 18:55:00 Test Item Value Reference Range Interpretation Comments RDW (test code = RDW) 12.4 11.5-14.5 N [facility] CenterIwyhnmqFDAZLOBGTK7240-34-45 18:55:00 Test Item Value Reference Range Interpretation Comments MCHC (test code = MCHC) 34.1 32.0-36.0 N [facility] CenterGzmawzjXHRUNAPYPM6391-59-47 18:55:00 Test Item Value Reference Range Interpretation Comments MCH (test code = MCH) 30.6 pg 27.0-31.0 N [facility] CenterCuomnmxTILOZSNHGP4887-73-96 18:55:00 Test Item Value Reference Range Interpretation Comments MCV (test code = MCV) 89.6 80.0-94.0 N [facility] CenterOcugowzDEWRDEIRZN8226-32-59 18:55:00 Test Item Value Reference Range Interpretation Comments Hct (test code = Hct) 48.6 42.0-54.0 N [facility] CenterOnirtgiZMIUIZAPTD2696-08-17 18:55:00 Test Item Value Reference Range Interpretation Comments RBC (test code = RBC) 5.42 4.70-6.10 N [facility]YogyiccLXWNARRQMR3117-51-34 18:55:00 Test Item Value Reference Range Interpretation Comments Hgb (test code = Hgb) 16.6 14.0-18.0 N [facility] CenterZllzlmfBHZVSBRWKS0809-98-70 18:55:00 Test Item Value Reference Range Interpretation Comments HIV 1/2 Ab (test code Negative *NA*(10/04/2011 = HIV 1/2 Ab) 12:55:00) [facility] CenterWojkakhFKVSCNDBDM4893-67-27 18:55:00 Test Item Value Reference Range Interpretation Comments UA Urobilinogen (test code *NA*(10/04/2011 0.1-1.0 = UA Urobilinogen) 12:55:00) [facility]CvrbcvlFKJLTXDKTV0399-12-21 18:55:00 Test Item Value Reference Range Interpretation Comments UA Sq Epi (test code = UA Sq Epi) None Seen [facility] AntonioGgtqipqYRLZAGXGAL5211-33-25 18:55:00 Test Item Value Reference Range Interpretation Comments UA Blood (test code = Negative (10/04/2011 N UA Blood) 12:55:00) [facility] AntonioZbgyooqVPBYNKXNIO7080-82-80 18:55:00 Test Item Value Reference Range Interpretation Comments UA Nitrite (test code Negative (10/04/2011 N = UA Nitrite) 12:55:00) [facility] AntonioVamlsxsQAONPRZWYT8041-88-27 18:55:00 Test Item Value Reference Range Interpretation Comments UA WBC (test code = UA WBC) 1 <=5 N [facility] AntonioKmzslduKQXONFQNZL6966-92-92 18:55:00 Test Item Value Reference Range Interpretation Comments UA RBC (test code = UA RBC) no gt <=2 N [facility] AntonioMmpmkpkDUYUEZYWRK6615-99-04 18:55:00 Test Item Value Reference Range Interpretation Comments UA Bili (test code = Negative *NA*(10/04/2011 UA Bili) 12:55:00) [facility] AntonioZzooxtbTDUAYURWMP3110-47-30 18:55:00 Test Item Value Reference Range Interpretation Comments UA Leuk Est (test Negative (10/04/2011 N code = UA Leuk Est) 12:55:00) [facility] AntonioOkisgaoCMXEZXPNRH5072-09-10 18:55:00 Test Item Value Reference Range Interpretation Comments UA Ketones (test code Negative mg/dL = UA Ketones) *NA*(10/04/2011 12:55:00) [facility] AntonioNhnwzafZQECTXVWVD9486-70-50 18:55:00 Test Item Value Reference Range Interpretation Comments UA Protein (test code = 50 mg/dL A UA Protein) *ABN*(10/04/2011 12:55:00) [facility] AntonioMblmornPGZRDLCSQQ3670-22-17 18:55:00 Test Item Value Reference Range Interpretation Comments UA Glucose (test code = >=1000 mg/dL A UA Glucose) *ABN*(10/04/2011 12:55:00) [facility] AntonioItrzgqpXROWCWHJLU2972-20-40 18:55:00 Test Item Value Reference Range Interpretation Comments UA Spec Grav (test code = UA Spec Grav) 1.027 N [facility]RsqpklkGTQCKKAALT4719-54-00 18:55:00 Test Item Value Reference Range Interpretation Comments UA Color (test code = Yellow *NA*(10/04/2011 UA Color) 12:55:00) [facility] CenterAnrotftOOJBCWCACK7600-77-91 18:55:00 Test Item Value Reference Range Interpretation Comments UA Turbidity (test code = Clear (10/04/2011 N UA Turbidity) 12:55:00) [facility]
[2023-06-16] MEDS ORDERED: NA CHLORIDE 0.9% 1,000 ML ONE (21:08)
[2023-06-16 21:09] LABS: Albumin 3.8 g/dL (3.4-5.0); Bilirubin Direct 0.1 mg/dL (0-0.2); Bilirubin Indirect, Calculated 0.4 mg/dL (0.2-0.8); Bilirubin Total 0.5 mg/dL (0.2-1.0); Magnesium 1.7 mg/dL (1.6-2.4); Potassium 3.8 mEq/L (3.5-5.1); Troponin High Sensitivity 13.9 pg/mL (<58.9)
--- NOTE | 2023-06-16 21:36 | RAD REPORT ---
EXAM DESCRIPTION: RAD - Chest Single View - 06/16/2023 9:10 pm CLINICAL HISTORY: PALPITATIONS COMPARISON: Chest Single View dated 03/27/2022 FINDINGS: Lines: None. Lungs: No evidence of edema or pneumonia. Pleural: No significant pleural effusions or pneumothorax. Cardiac: The heart size is within normal limits. Mediastinum: Within normal limits. Bones: No acute fractures. Other: None IMPRESSION: No acute cardiopulmonary disease.
--- NOTE | 2023-06-16 21:53 | ER ---
Nurse's Notes [facility] Name: Arnoldo Jones Sr Age: 52 yrs Sex: Male : 1970 Arrival Date: 06/16/2023 Time: 20:00 Bed 13 Private MD: Diagnosis: Syncope Near Presentation: 06/16 20:07 Chief complaint: Patient states: hx of afib, started feeling dizzy, light headed about iw 90 minutes ago , last time he was here he had to be cardioverted[facility], increased his metoprolol 3-4 months ago. Coronavirus screen: At this time, the client does not indicate any symptoms associated with coronavirus-19. Ebola Screen: Patient negative for fever greater than or equal to 101.5 degrees Fahrenheit, and additional compatible Ebola Virus Disease symptoms Patient denies exposure to infectious person. Patient denies travel to an Ebola-affected area in the 21 days before illness onset. No symptoms or risks identified at this time. Initial Sepsis Screen: Does the patient meet any 2 criteria? No. Patient's initial sepsis screen is negative. Does the patient have a suspected source of infection? No. Patient's initial sepsis screen is negative. Risk Assessment: Do you want to hurt yourself or someone else? Patient reports no desire to harm self or others. Onset of symptoms was June 16, 2023. 20:07 Method Of Arrival: Wheelchair iw 20:07 Acuity: SLAVA 2 iw Historical: - Allergies: 20:08 No Known Allergies; iw - PMHx: 20:08 Anxiety; Diabetes - NIDDM; Hypertensive disorder; Hypertensive disorder; iw Hypothyroidism; Atrial fibrillation; - Immunization history:: Client reports receiving the 1st dose of the Covid vaccine. - Social history:: Smoking status: Reported history of juuling and/or vaping. Patient/guardian denies using tobacco. - Family history:: not pertinent. Screenin:38 [facility] ED Fall Risk Assessment (Adult) History of falling in the last 3 months, ha1 including since admission No falls in past 3 months (0 pts) Confusion or Disorientation No (0 pts) Intoxicated or Sedated No (0 pts) Impaired Gait No (0 pts) Mobility Assist Device Used No (0 pt) Altered Elimination No (0 pt) Score/Fall Risk Level 0 - 2 = Low Risk Oriented to surroundings, Maintained a safe environment, Hourly rounding (assess needs \T\ fall precautionary measures) done. Abuse screen: Denies threats or abuse. Denies injuries from another. Nutritional screening: No deficits noted. Tuberculosis screening: No symptoms or risk factors identified. Assessment: 20:06 General: Appears comfortable, Behavior is calm, cooperative. Pain: Complains of pain in ha1 chest Pain does not radiate. Pain currently is 3 out of 10 on a pain scale. Quality of pain is described as pressure. Neuro: Level of Consciousness is awake, alert, obeys commands, Oriented to person, place, time, situation. Cardiovascular: Reports chest pain, Heart tones S1 S2 present Capillary refill Patient's skin is warm and dry. Rhythm is sinus tachycardia. Respiratory: Airway is patent Respiratory effort is even, unlabored, Respiratory pattern is regular, symmetrical. GI: No signs and/or symptoms were reported involving the gastrointestinal system. Abdomen is round non-distended. Derm: Skin is pink, warm \T\ dry. 21:10 Reassessment: Patient and/or family updated on plan of care and expected duration. Pain ha1 level reassessed. Patient is alert, oriented x 3, equal unlabored respirations, skin warm/dry/pink. Vital Signs: 20:07 BP 122 / 106; Pulse 118; Resp 18; Temp 98.1; Pulse Ox 97% on R/A; Weight 113.4 kg; iw Height 6 ft. 0 in. ; Pain 0/10; 20:15 BP 115 / 86; Pulse 111; Resp 17 S; Pulse Ox 95% on R/A; ha1 21:38 BP 100 / 73; Pulse 100; Resp 17 S; Pulse Ox 96% on R/A; ha1 22:00 BP 100 / 73; Pulse 99; Resp 17 S; Pulse Ox 96% on R/A; ha1 20:07 Body Mass Index 33.91 (113.40 kg, 182.88 cm) iw 20:07 Pain Scale: Adult iw ED Course: 20:06 Patient arrived in ED. bc6 20:06 Devendra Israel MD is Attending Physician. rt 20:06 Patient has correct armband on for positive identification. Placed in gown. Bed in low ha1 position. Call light in reach. Side rails up X 1. 20:08 Triage completed. iw 20:09 Arm band placed on. iw 20:15 Inserted saline lock: 22 gauge in right antecubital area, using aseptic technique. ha1 Blood collected. 20:38 Kely Lora, RN is Primary Nurse. ha1 20:39 Basic Metabolic Panel Sent. ha1 20:39 CBC with Diff Sent. ha1 20:39 LFT's Sent. ha1 20:39 Magnesium Sent. ha1 20:39 Troponin HS Sent. ha1 21:12 XRAY Chest (1 view) In Process Unspecified. EDMS 22:39 Provided Education on: following up with [employer] . ha1 22:40 No provider procedures requiring assistance completed. IV discontinued, intact, ha1 bleeding controlled, No redness/swelling at site. Pressure dressing applied. Administered Medications: 21:09 Drug: NS 0.9% IV 1000 ml IV at 1 bolus Per protocol; 1000 mL bolus Route: IV; Rate: 1 ha1 bolus; Site: right antecubital; 22:40 Follow up: Response: No adverse reaction; IV Status: Completed infusion; IV Intake: ha1 1000ml Medication: 22:38 VIS not applicable for this client. ha1 Intake: 22:40 IV: 1000ml; Total: 1000ml. ha1 Outcome: 21:52 Discharge ordered by . rt 22:40 Condition: stable ha1 22:41 Discharged to home ambulatory, with family, ha1 22:41 Discharge instructions given to patient, family, Instructed on discharge instructions, follow up and referral plans. Demonstrated understanding of instructions, follow-up care, 22:41 Patient left the ED. ha1 Signatures: Dispatcher [employer] Isabela Cantrell RN RN Kely Lora RN RN [facility] Devendra Israel MD MD rt Lisandra Pacheco bc6
--- NOTE | 2023-06-16 21:53 | EDPHYS ---
Physician Documentation [facility] Name: Arnoldo Jones Sr Age: 52 yrs Sex: Male : 1970 Arrival Date: 06/16/2023 Time: 20:00 Bed 13 Private MD: ED Physician Devendra Israel HPI: 06/17 01:06 This 52 yrs old Male presents to ER via Wheelchair with complaints of Palpitations, rt Dizziness. 01:06 Patient presents to the ED with palpitations, sensation of his heart is beating fast as rt well as near syncope. This occurred when he was working outside. He states that an [employer] Watch told him that his heart rate was about 170s. Does report a history of A-fib and is on A-fib medications. He states that symptoms have improved, feels significantly better at this time. Denies other acute complaints at this time, symptoms are moderate severity, no other aggravating or alleviating factors.. Historical: - Allergies: 06/16 20:08 No Known Allergies; iw - PMHx: 20:08 Anxiety; Diabetes - NIDDM; Hypertensive disorder; Hypertensive disorder; iw Hypothyroidism; Atrial fibrillation; - Immunization history:: Client reports receiving the 1st dose of the Covid vaccine. - Social history:: Smoking status: Reported history of juuling and/or vaping. Patient/guardian denies using tobacco. - Family history:: not pertinent. ROS: 06/17 01:06 Constitutional: Negative for fever, chills, and weight loss, Respiratory: Negative for rt shortness of breath, cough, wheezing, and pleuritic chest pain, Abdomen/GI: Negative for abdominal pain, nausea, vomiting, diarrhea, and constipation, MS/Extremity: Negative for injury and deformity, Skin: Negative for injury, rash, and discoloration, Psych: Negative for depression, anxiety, suicide ideation, homicidal ideation, and hallucinations, Cardiovascular: Positive for palpitations, Negative for chest pain, Neuro: Positive for near syncope, Negative for altered mental status, Exam: 01:06 Constitutional: This is a well developed, well nourished patient who is awake, alert, rt and in no acute distress. Head/Face: Normocephalic, atraumatic. Chest/axilla: Normal chest wall appearance and motion. Nontender with no deformity. No lesions are appreciated. Cardiovascular: Regular rate and rhythm with a normal S1 and S2. No gallops, murmurs, or rubs. Normal PMI, no JVD. No pulse deficits. Respiratory: Lungs have equal breath sounds bilaterally, clear to auscultation and percussion. No rales, rhonchi or wheezes noted. No increased work of breathing, no retractions or nasal flaring. Abdomen/GI: Soft, non-tender, with normal bowel sounds. No distension or tympany. No guarding or rebound. No evidence of tenderness throughout. Skin: Warm, dry with normal turgor. Normal color with no rashes, no lesions, and no evidence of cellulitis. MS/ Extremity: Pulses equal, no cyanosis. Neurovascular intact. Full, normal range of motion. Neuro: Awake and alert, GCS 15, oriented to person, place, time, and situation. Cranial nerves II-XII grossly intact. Motor strength 5/5 in all extremities. Sensory grossly intact. Cerebellar exam normal. Normal gait. Psych: Awake, alert, with orientation to person, place and time. Behavior, mood, and affect are within normal limits. 01:06 ECG was reviewed by the Attending Physician. Vital Signs: 06/16 20:07 BP 122 / 106; Pulse 118; Resp 18; Temp 98.1; Pulse Ox 97% on R/A; Weight 113.4 kg; iw Height 6 ft. 0 in. ; Pain 0/10; 20:15 BP 115 / 86; Pulse 111; Resp 17 S; Pulse Ox 95% on R/A; ha1 21:38 BP 100 / 73; Pulse 100; Resp 17 S; Pulse Ox 96% on R/A; ha1 22:00 BP 100 / 73; Pulse 99; Resp 17 S; Pulse Ox 96% on R/A; ha1 20:07 Body Mass Index 33.91 (113.40 kg, 182.88 cm) iw 20:07 Pain Scale: Adult iw MDM: 20:07 Patient medically screened. rt 06/17 01:06 Differential diagnosis: arrythmia, dehydration. Data reviewed: vital signs, nurses rt notes, lab test result(s), EKG, radiologic studies. Consideration of Admission/Observation Escalation of care including admission/observation considered. Test considered but Not performed: CT: No head trauma, headache, CT scan of the head not indicated. Care significantly affected by the following chronic conditions: Diabetes, Hypertension. Counseling: I had a detailed discussion with the patient and/or guardian regarding the historical points, exam findings, and any diagnostic results supporting the discharge/admit diagnosis, lab results, radiology results, the need for outpatient follow up. Response to treatment: the patient's symptoms have resolved after treatment. 06/16 20:16 Order name: Basic Metabolic Panel; Complete Time: 21:18 rt 06/16 20:16 Order name: CBC with Diff; Complete Time: 21:18 rt 06/16 20:16 Order name: LFT's; Complete Time: 21:18 rt 06/16 20:16 Order name: Magnesium; Complete Time: 21:18 rt 06/16 20:16 Order name: Troponin HS; Complete Time: 21:18 rt 06/16 20:16 Order name: CPK; Complete Time: 21:18 rt 06/16 20:16 Order name: XRAY Chest (1 view); Complete Time: 21:38 rt 06/16 20:16 Order name: EKG; Complete Time: 20:17 rt 06/16 20:16 Order name: Cardiac monitoring; Complete Time: 20:39 rt 06/16 20:16 Order name: EKG - Nurse/Tech; Complete Time: 20:39 rt 06/16 20:16 Order name: IV Saline Lock; Complete Time: 20:39 rt 06/16 20:16 Order name: Labs collected and sent; Complete Time: 20:39 rt 06/16 20:16 Order name: O2 Per Protocol; Complete Time: 20:39 rt 06/16 20:16 Order name: O2 Sat Monitoring; Complete Time: 20:39 rt EC:06 Rate is 113 beats/min. Rhythm is regular, Sinus tachycardia with No ectopy. QRS [place] is rt Normal. MO interval is normal. QRS interval is normal. QT interval is normal. No Q waves. T waves are Normal. No ST changes noted. 01:06 Rate is 110 beats/min. Rhythm is regular, Sinus tachycardia with No ectopy. QRS [place] is rt Normal. MO interval is normal. QRS interval is normal. QT interval is normal. No Q waves. T waves are Normal. No ST changes noted. Administered Medications: 06/16 21:09 Drug: NS 0.9% IV 1000 ml IV at 1 bolus Per protocol; 1000 mL bolus Route: IV; Rate: 1 ha1 bolus; Site: right antecubital; 22:40 Follow up: Response: No adverse reaction; IV Status: Completed infusion; IV Intake: ha1 1000ml Disposition Summary: 06/16/23 21:52 Discharge Ordered Notes: Location: Home rt Problem: new rt Symptoms: have improved rt Condition: Stable rt Diagnosis - Syncope Near rt Followup: rt - With: Private Physician - When: 2 - 3 days - Reason: Discharge Instructions: - Discharge Summary Sheet rt - Near-Syncope rt Forms: - Medication Reconciliation Form rt - Thank You Letter rt - Antibiotic Education rt - Prescription Opioid Use rt - Patient Portal Instructions rt - Leadership Thank You Letter rt Signatures: Dispatcher [employer] Isabela Cantrell RN RN iw Ayala, Heidy, RN RN ha1 Devendra Israel MD MD rt
[2023-06-16 23:45] VITALS: TEMP 98.1
[2023-06-16 23:48] VITALS: BP 100/73; O2SAT 96
--- NOTE | 2023-06-19 07:57 | EKG ---
Test Date: 2023-06-16 Test Time: 20:05:15 Package Maker: JAIRON MEASUREMENT RESULTS: Intervals: Rate: 113 PA: 152 QRSD: 84 QT: 322 QTc: 441 [place]: P: 52 PA: 152 QRS: 9 T: 49 INTERPRETIVE STATEMENTS: Sinus tachycardia Otherwise normal ECG Compared to ECG 03/27/2022 10:54:10 Sinus rhythm no longer present Sinus arrhythmia no longer present T-wave abnormality no longer present Electronically Signed On 06-19-23 07:52:23 CDT by Wesley Turner
--- NOTE | 2023-06-19 07:57 | EKG ---
Test Date: 2023-06-16 Test Time: 20:44:54 Tail Ripper: JAIRON MEASUREMENT RESULTS: Intervals: Rate: 110 ME: 154 QRSD: 86 QT: 328 QTc: 443 [place]: P: 64 ME: 154 QRS: 23 T: 76 INTERPRETIVE STATEMENTS: Sinus tachycardia Nonspecific T wave abnormality Abnormal ECG Compared to ECG 06/16/2023 20:05:15 T-wave abnormality now present Electronically Signed On 06-19-23 07:52:21 CDT by Wesley Turner
== END 2023-06-16 22:41 | disposition home or self-care (01) ==
LOC: ER 20:00
DX: R55 Syncope and collapse (principal); R00.2 Palpitations; E11.9 Type 2 diabetes mellitus without complications; I10 Essential (primary) hypertension; I48.91 Unspecified atrial fibrillation
CPT/HCPCS: 96361; 93005 ×2; 85025; 80048; 36415; 83735; 82550; 80076; 84484; 71045; 96360; 99284; J7030